=== PATIENT | female | born 1945 | race African-American/Black ===

== ENCOUNTER 2016-09-04 20:05 | Inpatient (IN) | payer MEDICARE ==
[~2016-09-04] VITALS: Ht 172.7 cm; Wt 92.5 kg
[~2016-09-04 20:05] MED LIST: CLON0.2T PO; DORZ10DR7 EACHEYE; GLYB5TAB3 PO; HYDR25TA9 PO; INSU100I13 SQ; LATA2.5D3 EACHEYE; LISI40TA PO; METO50TA10 PO
[2016-09-04] MEDS ORDERED: DIPHTH,PERTUSS(ACELL),TET TOX 0.5 ML DISP.SYRIN. VAX IM ONE (20:30)
[2016-09-04 20:37] LABS: BASO # 0.1 x10^3/uL (0.0-0.2); BASO % 1 % (0-3); EOS % 1 % (0-3); HEMATOCRIT 41.4 % (36.0-47.0); HEMOGLOBIN 13.6 g/dL (12.0-15.5); LYMPH # 1.8 x10^3/uL (1.0-4.8); LYMPH % 29 % (24-48); MEAN CORPUSCULAR HEMOGLOBIN 25 pg (25-35); MEAN CORPUSCULAR HGB CONC 33 g/dL (31-37); MEAN CORPUSCULAR VOLUME 75 fL (79-100); MONO % 10 % (0-9); NEUT % 59 % (31-73); PLATELET COUNT 182 x10^3/uL (140-400); RED BLOOD COUNT 5.49 x10^6/uL (3.50-5.40); RED CELL DISTRIBUTION WIDTH 15.7 % (11.5-14.5); WHITE BLOOD COUNT 6.1 x10^3/uL (4.0-11.0)
--- NOTE | 2016-09-04 20:46 | RAD ---
PROCEDURE CT head and C-spine without contrast HISTORY Fall head and neck injury CT HEAD WITHOUT CONTRAST: Noncontrast axial cross sectional CT scanning of the head was performed. COMPARISON December 18, 2015 FINDINGS There is mild diffuse atrophy and chronic patchy new periventricular white matter disease. No acute intracranial hemorrhage or midline shift or mass-effect or hydrocephalus or extra-axial fluid collection is seen. No focal hypodense area is seen to indicate an acute infarct or edema radiographically. No skull fracture or pneumocephalus is seen. No opacification of the mastoid sinuses or the paranasal sinuses is seen. The maxillary sinuses are not completely seen in this study. IMPRESSION No acute intracranial abnormality is seen. CT C-spine without contrast: Axial helical images of the cervical spine were obtained and axial coronal sagittal reconstruction was performed. The vertebra bodies are aligned. There is no loss of vertebral stature. Is no prevertebral soft tissue swelling. Evaluation of central canal is limited without contrast. There are diffuse circumferential disc osteophytic ridges resulting in flattening of thecal sac at multiple levels. There does not appear to be gross flattening the cord. There is moderate to marked narrowing of multiple neuroforamen. 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 Otherwise the visualized osseous structures are intact. Impression Moderate degenerate changes. No acute findings. Clinical correlation suggested. PQRS Statement: One or more of the following individualized dose reduction techniques were utilized for this study: 1. Automated exposure control. 2. Adjustment of the mA and/or kV according to patient size. 3. Use of iterative reconstruction technique. Electronically signed by: Greyson Moses MD (Sep 04, 2016 20:45:42)
[2016-09-04 20:49] LABS: CALCIUM 9.3 mg/dL (8.5-10.1); CREATININE 1.5 mg/dL (0.6-1.0); GFR 41.4; INR 1.1 (0.8-1.1); POTASSIUM 3.4 mmol/L (3.5-5.1); PROTHROMBIN TIME PATIENT 13.9 SEC (11.7-14.0)
--- NOTE | 2016-09-04 20:52 | RAD ---
PROCEDURE CT maxillofacial without contrast HISTORY Fall, facial trauma TECHNIQUE Axial helical images were obtained of the face including the paranasal sinuses orbits and mandible and axial coronal and sagittal reconstruction was performed. FINDINGS There is a depressed left orbital floor fracture with compression of the fragment inferiorly by 6 millimeters. The remaining visualized osseous structures appear intact. There is mild deviation nasal septum to the left. The ostiomeatal complexes are patent. There is blood in the left maxillary sinus. There is hypoattenuating foreign material left orbit which is felt to be postsurgical and is unchanged from the December [address] IMPRESSION Depressed left orbital floor fracture. No CT evidence of entrapment however clinical correlation is suggested. Electronically signed by: Greyson Moses MD (Sep 04, 2016 20:52:13)
[2016-09-04] MEDS ORDERED: LABETALOL 20 MG/4 ML DISP.SYRIN. IVP ONE ×2 (21:00→22:30)
[2016-09-04 21:12] LABS: BILIRUBIN,URINE SMALL (NEG); GLUCOSE,URINE >=1000 mg/dL (NEG); NITRITE,URINE NEGATIVE (NEG); PH,URINE 5.5; PROTEIN,URINE 100 mg/dL (NEG-TRACE)
[2016-09-04] MEDS ORDERED: LIDOCAINE 1%/EPI 1:100,000 20 ML VIAL. IJ ONE (21:15)
[2016-09-04] MEDS ORDERED: LIDOCAINE 1% / SOD BICARB 8.4% 20 ML VIAL. IJ ONE (21:15)
[2016-09-04 21:22] LABS: BACTERIA,URINE 0 /HPF (0-FEW); RBC,URINE OCC /HPF (0-2); SQUAMOUS EPITHELIAL CELL,UR FEW /LPF; WBC,URINE OCC /HPF (0-4)
[2016-09-04 21:26] LABS: BARBITURATES NEG (NEG); BENZODIAZEPINES NEG (NEG); CANNABINOIDS NEG (NEG); COCAINE NEG (NEG); METHADONE NEG (NEG); OPIATES NEG (NEG); PHENCYCLIDINE NEG (NEG)
[2016-09-04 21:27] LABS: ETHANOL, URINE NEG (NEG)
--- NOTE | 2016-09-04 21:45 | PHYS DOC ---
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 She reports walking towards a parking lot when she misstepped and fell and hit her head. On arrival she is alert and oriented to person place and situation. She is mildly slow to respond and intermittently answers inappropriately. The fall was unwitnessed. She denies passing out. Currently she states her vision is intact. She reports pain in her eyebrow where she sustained a laceration. Her pain is sharp moderate intermittent and without alleviating factors. Otherwise she denies chest pain abdominal pain nausea or vomiting. She denies any injury to her extremities. Her tetanus is not up-to-date. Review of systems is negative for chest pain abdominal pain nausea vomiting. She denies vision changes. All other review of systems is negative unless otherwise noted in history of present illness. Review of Systems Review of Systems SEE ABOVE. Current Medications Current Medications Current Medications Medications (Trade) Dose Ordered Sig/Nirali Start Time Stop Time Status Last Admin Dose Admin Diphtheria/ Tetanus/Acell Pertussis (Boostrix) 0.5 ml ONCE ONCE 09/04/16 20:30 09/04/16 20:31 DC 09/04/16 21:26 0.5 ML Labetalol HCl (Normodyne) 20 mg 1X ONCE 09/04/16 21:00 09/04/16 21:02 DC 09/04/16 21:27 20 MG Lidocaine/ Epinephrine (Xylocaine 1%-Epi 1:100,000) 20 ml 1X ONCE 09/04/16 21:15 09/04/16 21:16 DC Lidocaine/Sodium Bicarbonate (Buffered Lidocaine 1%) 20 ml 1X ONCE 09/04/16 21:15 09/04/16 21:16 DC 09/04/16 21:15 20 ML Allergies Allergies Allergies Coded Allergies Type Severity Reaction Last Updated Verified No Known Drug Allergies 01/30/15 No Physical Exam Physical Exam General Appearance alert, cooperative, no distress, responsive Head Normocephalic, patient has a laceration to the left eyebrow approximately 2-1/2 cm in length. Otherwise no depressed skull fractures present. Eyes conjunctivae/corneas clear. PERRL, patient has mild decrease in upward and downward gaze otherwise lateral gaze to the left and right are within normal limits. Ears normal TM's and external ear canals AU Nose Nares normal. Septum midline. Mucosa normal. No drainage or sinus tenderness. Throat no blood or lacerations, normal alignment Neck supple, symmetrical, trachea midline, cervical collar in place Back/Spine symmetric, normal curvature. ROM normal, no abrasions, no tenderness to palpation, no step-offs Lungs clear to auscultation bilaterally Chest Wall normal ribcage without tenderness to palpation, crepitus or emphysema Heart reg rate and regular rhythm, S1, S2 normal, no murmur, click, rub or gallop Abdomen soft, non-tender. Bowel sounds normal. No masses, no organomegaly Pelvic stable Extremities extremities normal, atraumatic with normal range of motion Pulses 2+ and symmetric Skin Skin color, texture, turgor normal. No rashes or lesions Neurologic Grossly normal Eye opening: (4) spontaneous Best motor response: (6) obeys verbal command Best verbal response: (4) not oriented and converses Total Daisy (E + M + V) = 14 Current Patient Data Vital Signs Vital Signs Date Time Temp Pulse Resp B/P Pulse Ox O2 Delivery O2 Flow Rate FiO2 09/04/16 21:40 90 20 209/88 99 Room Air 09/04/16 20:06 99.5 99.5 Lab Values Laboratory Tests Test 09/04/16 20:10 09/04/16 21:00 White Blood Count 6.1x10^3/uL (4.0-11.0) Red Blood Count 5.49x10^6/uL (3.50-5.40) H Hemoglobin 13.6g/dL (12.0-15.5) Hematocrit 41.4% (36.0-47.0) Mean Corpuscular Volume 75fL (79-100) L Mean Corpuscular Hemoglobin 25pg (25-35) Mean Corpuscular Hemoglobin Concent 33g/dL (31-37) Red Cell Distribution Width 15.7% (11.5-14.5) H Platelet Count 182x10^3/uL (140-400) Neutrophils (%) (Auto) 59% (31-73) Lymphocytes (%) (Auto) 29% (24-48) Monocytes (%) (Auto) 10% (0-9) H Eosinophils (%) (Auto) 1% (0-3) Basophils (%) (Auto) 1% (0-3) Neutrophils # (Auto) 3.6x10^3uL (1.8-7.7) Lymphocytes # (Auto) 1.8x10^3/uL (1.0-4.8) Monocytes # (Auto) 0.6x10^3/uL (0.0-1.1) Eosinophils # (Auto) 0.1x10^3/uL (0.0-0.7) Basophils # (Auto) 0.1x10^3/uL (0.0-0.2) Prothrombin Time 13.9SEC (11.7-14.0) Prothrombin Time INR 1.1 (0.8-1.1) PTT 26SEC (24-38) Sodium Level 141mmol/L (136-145) Potassium Level 3.4mmol/L (3.5-5.1) L Chloride Level 103mmol/L (98-107) Carbon Dioxide Level 24mmol/L (21-32) Anion Gap 14 (6-14) Blood Urea Nitrogen 19mg/dL (7-20) Creatinine 1.5mg/dL (0.6-1.0) H Estimated GFR (Cockcroft-Gault) 41.4 Glucose Level 287mg/dL (70-99) H Calcium Level 9.3mg/dL (8.5-10.1) Ethyl Alcohol Level < 10mg/dL (0-10) Urine Collection Type Unknown Urine Color Yellow Urine Clarity Clear Urine pH 5.5 Urine Specific [place] >=1.030 Urine Protein 100mg/dL (NEG-TRACE) Urine Glucose (UA) >=1000mg/dL (NEG) Urine Ketones (Stick) 15mg/dL (NEG) Urine Blood Trace (NEG) Urine Nitrite Negative (NEG) Urine Bilirubin Small (NEG) Urine Urobilinogen Dipstick 1.0mg/dL (0.2 mg/dL) Urine Leukocyte Esterase Negative (NEG) Urine RBC Occ/HPF (0-2) Urine WBC Occ/HPF (0-4) Urine Squamous Epithelial Cells Few/LPF Urine Amorphous Sediment Present/HPF Urine Bacteria 0/HPF (0-FEW) Urine Hyaline Casts Few/HPF Urine Mucus Marked/LPF Urine Opiates Screen Neg (NEG) Urine Methadone Screen Neg (NEG) Urine Barbiturates Neg (NEG) Urine Phencyclidine Screen Neg (NEG) Urine Amphetamine/Methamphetamine Neg (NEG) Urine Benzodiazepines Screen Neg (NEG) Urine Cocaine Screen Neg (NEG) Urine Cannabinoids Screen Neg (NEG) Urine Ethyl Alcohol Neg (NEG) Laboratory Tests 09/04/16 20:10 Laboratory Tests 09/04/16 20:10 EKG EKG [] EKG shows sinus tachycardia. [place] is leftward. Intervals show prolonged QRS. ST segments show appropriate repolarization in the anterior lateral leads. modified scarbossa neg. Radiology/Procedures Radiology/Procedures [] Course & Med Decision Making Course & Med Decision Making Pertinent Labs and Imaging studies reviewed. (See chart for details) [] 70-year-old female presenting the emergency department after sustaining injury to the face after a fall from standing height. Patient was hypertensive on arrival. Patient reports being chronically hypertensive. Otherwise physical exam showed laceration to the eyebrow which was repaired. See procedure note. Nontender neck. Normal chest abdomen exam. EKG showed sinus tachycardia. Head and neck CT were unremarkable. Maxillofacial CT shows inferior orbital wall fracture. I discussed the case with Dr. Pinon who stated if the patient is discharged that he would be able to see her on Friday clinic. The patient's tetanus was updated in the emergency department. Otherwise blood work was obtained which showed normal CBC. Urinalysis showed hyperglycemia with dehydration but not suggestive of infection. Chemistry panel showed hyperglycemia mild elevation in creatinine otherwise unremarkable. On reevaluation the patient was still answering questions inappropriately and was unsteady on her gait. She was deemed not to be safe for discharge so she was subsequently admitted for further evaluation workup and care. Trauma consult placed him in history of trauma. Given the patient is going to be admitted I will place an ophthalmology consult as well. No family with her here to clarify her baseline mental status. Blood pressure controlled in the emergency department with IV medications. Dragon Disclaimer Dragon Disclaimer This electronic medical record was generated, in whole or in part, using a voice recognition dictation system. Laceration Repair Lac Repair Indication: Left supraorbital laceration Procedure: The patient was placed in the appropriate position and anesthesia around the laceration with 1% lidocaine with epinephrine. The area was then cleansed with betadine. The laceration was closed with simple interrupted technique with 5 sutures.The wound area was then dressed with gauze. Total repaired wound length: 2 cm. Other Items: None The patient tolerated the procedure well Complications: None. Departure Departure Impression: Primary Impression: Dizziness Additional Impressions: Confusion Facial laceration Fracture of inferior orbital wall Disposition: ADMITTED INPATIENT Admitting Physician: Jennifer Flores Condition: STABLE Referrals: CATRACHITO BOWERS MD (PCP) Problem Qualifiers AVERY POWELL DO Sep 04, 2016 21:45 GAVIN DUNCAN MD Sep 04, 2016 22:20
[2016-09-04] MEDS ORDERED: MORPHINE SULFATE 2 MG/ML DISP.SYRIN. IV PRN (22:30)
[2016-09-04] MEDS ORDERED: ONDANSETRON PF 4 MG/2 ML VIAL. IV PRN (22:30)
[2016-09-05] VITALS (7 sets, daily range): BP systolic 170–208; BP diastolic 68–107
[2016-09-05] MEDS ORDERED: LORAZEPAM 2 MG/ML VIAL ONE (01:30)
[2016-09-05] MEDS ORDERED: LORAZEPAM 2 MG/ML VIAL IV ONE (01:45)
[2016-09-05] MEDS ORDERED: LABETALOL 20 MG/4 ML DISP.SYRIN. IVP ONE (02:15)
--- NOTE | 2016-09-05 06:08 | EKG ---
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
--- NOTE | 2016-09-05 07:53 | RAD ---
EXAM: Chest one view. HISTORY: Chest pain, trauma. COMPARISON: 10/31/2008. FINDINGS: A frontal view of the chest is obtained. Multiple leads project over the chest. There are no confluent infiltrates. There is no pneumothorax or pleural effusion. The heart is not enlarged. IMPRESSION: 1. No confluent infiltrates.
--- NOTE | 2016-09-05 08:18 | RAD ---
EXAM: Left knee, 3 views HISTORY: Left knee trauma, laceration. COMPARISON: None. FINDINGS: No fractures are identified. There is mild medial compartmental joint space narrowing. There are small osteophytes medially. The lateral view is rotated, but no clear effusion is seen. IMPRESSION: 1. Projectional limitations. No clear fracture or effusion. 2. Mild medial compartmental osteoarthritis.
[2016-09-05 08:19] LABS: BASO % 1 % (0-3); EOS % 1 % (0-3); HEMATOCRIT 37.9 % (36.0-47.0); HEMOGLOBIN 12.6 g/dL (12.0-15.5); LYMPH # 1.3 x10^3/uL (1.0-4.8); LYMPH % 29 % (24-48); MEAN CORPUSCULAR HEMOGLOBIN 25 pg (25-35); MEAN CORPUSCULAR HGB CONC 33 g/dL (31-37); MEAN CORPUSCULAR VOLUME 74 fL (79-100); MONO % 12 % (0-9); NEUT % 57 % (31-73); PLATELET COUNT 174 x10^3/uL (140-400); RED BLOOD COUNT 5.13 x10^6/uL (3.50-5.40); RED CELL DISTRIBUTION WIDTH 15.6 % (11.5-14.5); WHITE BLOOD COUNT 4.5 x10^3/uL (4.0-11.0)
[2016-09-05 08:37] LABS: CALCIUM 9.1 mg/dL (8.5-10.1); CREATININE 1.1 mg/dL (0.6-1.0); GFR 59.2; POTASSIUM 3.7 mmol/L (3.5-5.1)
--- NOTE | 2016-09-05 09:13 | PDOC2 ---
ALFONSO MARTINEZ ENVIRONMENTAL PROGRAMS SPECIALIST 09/05/16 0913: CONSULT Date of Consult Date of Consult DATE: 09/05/16 TIME: 09:04 Reason for Consult Reason for Consult: trauma Referring Physician Referring Physician: ER Identification/Chief Complaint Chief Complaint fall Source Source: Caregiver, Chart review History of Present Illness Reason for Visit: Attempted to obtain a history from patient, however she could not tell me what year it was or where she was. After repeating question several times she was able to tell me her name and that she fell--no family present, not sure of baseline(appears to have been this way since presenting to er)--Unwitnessed fall and nurse reports found wandering [address] Past Medical History Cardiovascular: HTN Pulmonary: Asthma Endocrine: Diabetes Past Surgical History Past Surgical History: Hysterectomy, Other Family History Family History: Diabetes Social History ALCOHOL: none Drugs: None Current Problem List Problem List Problems Medical Problems: (1) Confusion Status: Acute (2) Dizziness Status: Acute (3) Facial laceration Status: Acute (4) Fracture of inferior orbital wall Status: Acute Current Medications Current Medications Current Medications Diphtheria/ Tetanus/Acell Pertussis (Boostrix) 0.5 ml ONCE ONCE VAX IM Last administered on 09/04/16 21:26; Start 09/04/16 at 20:30; Stop 09/04/16 at 20:31 ; Status DC Labetalol HCl (Normodyne) 20 mg 1X ONCE IVP Last administered on 09/04/16 21: 27; Start 09/04/16 at 21:00; Stop 09/04/16 at 21:02; Status DC Lidocaine/ Epinephrine (Xylocaine 1%-Epi 1:100,000) 20 ml 1X ONCE IJ ; Start at 21:15; Stop 09/04/16 at 21:16; Status DC Lidocaine/Sodium Bicarbonate (Buffered Lidocaine 1%) 20 ml 1X ONCE IJ Last administered on 09/04/16 21:15; Start 09/04/16 at 21:15; Stop 09/04/16 at 21:16 ; Status DC Labetalol HCl (Normodyne) 20 mg 1X ONCE IVP Last administered on 09/04/16 22: 32; Start 09/04/16 at 22:30; Stop 09/04/16 at 22:31; Status DC Ondansetron HCl (Zofran) 4 mg PRN Q8HRS PRN IV NAUSEA/VOMITING; Start 09/04/16 at 22:30; Stop 09/05/16 at 22:29 Morphine Sulfate 2 mg PRN Q2HR PRN IV PAIN; Start 09/04/16 at 22:30; Stop 09/05 at 22:29 Lorazepam (Ativan) 2 mg STK-MED ONCE .ROUTE ; Start 09/05/16 at 01:30; Stop at 01:31; Status DC Lorazepam (Ativan) 0.5 mg 1X ONCE IV Last administered on 09/05/16 01:37; Start 09/05/16 at 01:45; Stop 09/05/16 at 01:46; Status DC Labetalol HCl (Normodyne) 20 mg 1X ONCE IVP Last administered on 09/05/16 02: 15; Start 09/05/16 at 02:15; Stop 09/05/16 at 02:16; Status DC Active Scripts Active Reported Lantus Solostar (Insulin Glargine,Hum.rec.anlog) 100 Unit/1 Ml Insuln.pen 25 Unit SQ QHS Metoprolol Succinate 50 Mg Tab.er.24h 50 Mg PO DAILY Clonidine Hcl 0.2 Mg Tablet 1 Tab PO BID Glyburide 5 Mg Tablet 1 Tab PO BID Lisinopril 40 Mg Tablet 1 Tab PO DAILY Hydrochlorothiazide Tablet (Hydrochlorothiazide) 25 Mg Tablet 1 Tab PO DAILY Dorzolamide-Timolol Eye Drops (Dorzolamide Hcl/Timolol Maleat) 10 Ml Drops 1 Drop EACHEYE BID Latanoprost 2.5 Ml Drops 1 Drop EACHEYE QHS Allergies Allergies: Coded Allergies: No Known Drug Allergies (Unverified , 01/30/15) ROS Review of System not able to adequately obtain from patient Physical Exam General: Cooperative, No acute distress HEENT: Other (stitch to left eye) Lungs: Clear to auscultation, Normal air movement Heart: Regular rate, Normal S1, Normal S2, No murmurs Abdomen: Soft, No tenderness Extremities: No clubbing, No cyanosis Neuro: Sensation intact, Other (speech is slowed, delayed ) Psych/Mental Status: Other (unsure of baseline, only oriented to person ) Vitals VITALS Vital Signs Date Time Temp Pulse Resp B/P Pulse Ox O2 Delivery O2 Flow Rate FiO2 09/05/16 07:00 99.0 89 19 198/84 97 Room Air 99.0 Labs Labs Laboratory Tests Test 09/04/16 20:10 09/04/16 21:00 09/05/16 07:35 White Blood Count 6.1x10^3/uL (4.0-11.0) 4.5x10^3/uL (4.0-11.0) Red Blood Count 5.49x10^6/uL (3.50-5.40) 5.13x10^6/uL (3.50-5.40) Hemoglobin 13.6g/dL (12.0-15.5) 12.6g/dL (12.0-15.5) Hematocrit 41.4% (36.0-47.0) 37.9% (36.0-47.0) Mean Corpuscular Volume 75fL (79-100) 74fL (79-100) Mean Corpuscular Hemoglobin 25pg (25-35) 25pg (25-35) Mean Corpuscular Hemoglobin Concent 33g/dL (31-37) 33g/dL (31-37) Red Cell Distribution Width 15.7% (11.5-14.5) 15.6% (11.5-14.5) Platelet Count 182x10^3/uL (140-400) 174x10^3/uL (140-400) Neutrophils (%) (Auto) 59% (31-73) 57% (31-73) Lymphocytes (%) (Auto) 29% (24-48) 29% (24-48) Monocytes (%) (Auto) 10% (0-9) 12% (0-9) Eosinophils (%) (Auto) 1% (0-3) 1% (0-3) Basophils (%) (Auto) 1% (0-3) 1% (0-3) Neutrophils # (Auto) 3.6x10^3uL (1.8-7.7) 2.6x10^3uL (1.8-7.7) Lymphocytes # (Auto) 1.8x10^3/uL (1.0-4.8) 1.3x10^3/uL (1.0-4.8) Monocytes # (Auto) 0.6x10^3/uL (0.0-1.1) 0.5x10^3/uL (0.0-1.1) Eosinophils # (Auto) 0.1x10^3/uL (0.0-0.7) 0.0x10^3/uL (0.0-0.7) Basophils # (Auto) 0.1x10^3/uL (0.0-0.2) 0.0x10^3/uL (0.0-0.2) Prothrombin Time 13.9SEC (11.7-14.0) Prothromb Time International Ratio 1.1 (0.8-1.1) Activated Partial Thromboplast Time 26SEC (24-38) Sodium Level 141mmol/L (136-145) 143mmol/L (136-145) Potassium Level 3.4mmol/L (3.5-5.1) 3.7mmol/L (3.5-5.1) Chloride Level 103mmol/L (98-107) 105mmol/L (98-107) Carbon Dioxide Level 24mmol/L (21-32) 26mmol/L (21-32) Anion Gap 14 (6-14) 12 (6-14) Blood Urea Nitrogen 19mg/dL (7-20) 15mg/dL (7-20) Creatinine 1.5mg/dL (0.6-1.0) 1.1mg/dL (0.6-1.0) Estimated GFR (Cockcroft-Gault) 41.4 59.2 Glucose Level 287mg/dL (70-99) 225mg/dL (70-99) Calcium Level 9.3mg/dL (8.5-10.1) 9.1mg/dL (8.5-10.1) Ethyl Alcohol Level < 10mg/dL (0-10) Urine Collection Type Unknown Urine Color Yellow Urine Clarity Clear Urine pH 5.5 Urine Specific [place] >=1.030 Urine Protein 100mg/dL (NEG-TRACE) Urine Glucose (UA) >=1000mg/dL (NEG) Urine Ketones (Stick) 15mg/dL (NEG) Urine Blood Trace (NEG) Urine Nitrite Negative (NEG) Urine Bilirubin Small (NEG) Urine Urobilinogen Dipstick 1.0mg/dL (0.2 mg/dL) Urine Leukocyte Esterase Negative (NEG) Urine RBC Occ/HPF (0-2) Urine WBC Occ/HPF (0-4) Urine Squamous Epithelial Cells Few/LPF Urine Amorphous Sediment Present/HPF Urine Bacteria 0/HPF (0-FEW) Urine Hyaline Casts Few/HPF Urine Mucus Marked/LPF Urine Opiates Screen Neg (NEG) Urine Methadone Screen Neg (NEG) Urine Barbiturates Neg (NEG) Urine Phencyclidine Screen Neg (NEG) Urine Amphetamine/Methamphetamine Neg (NEG) Urine Benzodiazepines Screen Neg (NEG) Urine Cocaine Screen Neg (NEG) Urine Cannabinoids Screen Neg (NEG) Urine Ethyl Alcohol Neg (NEG) Laboratory Tests Test 09/04/16 20:10 09/04/16 21:00 09/05/16 07:35 White Blood Count 6.1x10^3/uL (4.0-11.0) 4.5x10^3/uL (4.0-11.0) Red Blood Count 5.49x10^6/uL (3.50-5.40) 5.13x10^6/uL (3.50-5.40) Hemoglobin 13.6g/dL (12.0-15.5) 12.6g/dL (12.0-15.5) Hematocrit 41.4% (36.0-47.0) 37.9% (36.0-47.0) Mean Corpuscular Volume 75fL (79-100) 74fL (79-100) Mean Corpuscular Hemoglobin 25pg (25-35) 25pg (25-35) Mean Corpuscular Hemoglobin Concent 33g/dL (31-37) 33g/dL (31-37) Red Cell Distribution Width 15.7% (11.5-14.5) 15.6% (11.5-14.5) Platelet Count 182x10^3/uL (140-400) 174x10^3/uL (140-400) Neutrophils (%) (Auto) 59% (31-73) 57% (31-73) Lymphocytes (%) (Auto) 29% (24-48) 29% (24-48) Monocytes (%) (Auto) 10% (0-9) 12% (0-9) Eosinophils (%) (Auto) 1% (0-3) 1% (0-3) Basophils (%) (Auto) 1% (0-3) 1% (0-3) Neutrophils # (Auto) 3.6x10^3uL (1.8-7.7) 2.6x10^3uL (1.8-7.7) Lymphocytes # (Auto) 1.8x10^3/uL (1.0-4.8) 1.3x10^3/uL (1.0-4.8) Monocytes # (Auto) 0.6x10^3/uL (0.0-1.1) 0.5x10^3/uL (0.0-1.1) Eosinophils # (Auto) 0.1x10^3/uL (0.0-0.7) 0.0x10^3/uL (0.0-0.7) Basophils # (Auto) 0.1x10^3/uL (0.0-0.2) 0.0x10^3/uL (0.0-0.2) Prothrombin Time 13.9SEC (11.7-14.0) Prothromb Time International Ratio 1.1 (0.8-1.1) Activated Partial Thromboplast Time 26SEC (24-38) Sodium Level 141mmol/L (136-145) 143mmol/L (136-145) Potassium Level 3.4mmol/L (3.5-5.1) 3.7mmol/L (3.5-5.1) Chloride Level 103mmol/L (98-107) 105mmol/L (98-107) Carbon Dioxide Level 24mmol/L (21-32) 26mmol/L (21-32) Anion Gap 14 (6-14) 12 (6-14) Blood Urea Nitrogen 19mg/dL (7-20) 15mg/dL (7-20) Creatinine 1.5mg/dL (0.6-1.0) 1.1mg/dL (0.6-1.0) Estimated GFR (Cockcroft-Gault) 41.4 59.2 Glucose Level 287mg/dL (70-99) 225mg/dL (70-99) Calcium Level 9.3mg/dL (8.5-10.1) 9.1mg/dL (8.5-10.1) Ethyl Alcohol Level < 10mg/dL (0-10) Urine Collection Type Unknown Urine Color Yellow Urine Clarity Clear Urine pH 5.5 Urine Specific [place] >=1.030 Urine Protein 100mg/dL (NEG-TRACE) Urine Glucose (UA) >=1000mg/dL (NEG) Urine Ketones (Stick) 15mg/dL (NEG) Urine Blood Trace (NEG) Urine Nitrite Negative (NEG) Urine Bilirubin Small (NEG) Urine Urobilinogen Dipstick 1.0mg/dL (0.2 mg/dL) Urine Leukocyte Esterase Negative (NEG) Urine RBC Occ/HPF (0-2) Urine WBC Occ/HPF (0-4) Urine Squamous Epithelial Cells Few/LPF Urine Amorphous Sediment Present/HPF Urine Bacteria 0/HPF (0-FEW) Urine Hyaline Casts Few/HPF Urine Mucus Marked/LPF Urine Opiates Screen Neg (NEG) Urine Methadone Screen Neg (NEG) Urine Barbiturates Neg (NEG) Urine Phencyclidine Screen Neg (NEG) Urine Amphetamine/Methamphetamine Neg (NEG) Urine Benzodiazepines Screen Neg (NEG) Urine Cocaine Screen Neg (NEG) Urine Cannabinoids Screen Neg (NEG) Urine Ethyl Alcohol Neg (NEG) Assessment/Plan Assessment/Plan trauma, fall, left orbital fracture altered mental status--unsure of baseline no surgical needs may need neuro eval depending on mental status--defer to primary JORDON TRAN MD 09/05/16 1549: CONSULT Allergies Allergies: Coded Allergies: No Known Drug Allergies (Unverified , 01/30/15) Assessment/Plan Assessment/Plan pt seen agree with above no gen surg recs Thanks for consult ALFONSO MARTINEZ APRN Sep 05, 2016 09:13 JORDON TRAN MD Sep 05, 2016 15:49
--- NOTE | 2016-09-05 11:14 | PDOC1 ---
History and Physical Past Medical History Cardiovascular: HTN Pulmonary: Asthma Endocrine: Diabetes Past Surgical History Past Surgical History: Hysterectomy, Other Family History Family History: Diabetes Social History ALCOHOL: none Drugs: None Current Problem List Problem List Problems Medical Problems: (1) Confusion Status: Acute (2) Dizziness Status: Acute (3) Facial laceration Status: Acute (4) Fracture of inferior orbital wall Status: Acute Current Medications Current Medications Current Medications Medications (Trade) Dose Ordered Sig/Nirali Start Time Stop Time Status Last Admin Dose Admin Diphtheria/ Tetanus/Acell Pertussis (Boostrix) 0.5 ml ONCE ONCE 09/04/16 20:30 09/04/16 20:31 DC 09/04/16 21:26 0.5 ML Labetalol HCl (Normodyne) 20 mg 1X ONCE 09/05/16 02:15 09/05/16 02:16 DC 09/05/16 02:15 20 MG Lidocaine/ Epinephrine (Xylocaine 1%-Epi 1:100,000) 20 ml 1X ONCE 09/04/16 21:15 09/04/16 21:16 DC Lidocaine/Sodium Bicarbonate (Buffered Lidocaine 1%) 20 ml 1X ONCE 09/04/16 21:15 09/04/16 21:16 DC 09/04/16 21:15 20 ML Lorazepam (Ativan) 0.5 mg 1X ONCE 09/05/16 01:45 09/05/16 01:46 DC 09/05/16 01:37 0.5 MG Morphine Sulfate 2 mg PRN Q2HR PRN 09/04/16 22:30 09/05/16 22:29 Ondansetron HCl (Zofran) 4 mg PRN Q8HRS PRN 09/04/16 22:30 09/05/16 22:29 Allergies Allergies Allergies Coded Allergies Type Severity Reaction Last Updated Verified No Known Drug Allergies 01/30/15 No ROS Review of System CONSTITUTIONAL: No fever or chills EYES: left eyelid sutures SKIN: No rash or itching CARDIOVASCULAR: No chest pain, syncope, palpitations, or edema RESPIRATORY: No SOB or cough GASTROINTESTINAL: No nausea, vomiting or abdominal pain NEUROLOGICAL: No headaches or weakness ENDOCRINE: No cold or heat intolerance GENITOURINARY: No urgency or frequency of urination MUSCULOSKELETAL: fall LYMPHATICS: No enlarged lymph nodes PSYCHIATRIC: No anxiety or depression Physical Exam Physical Exam GEN.: No apparent distress. Alert and oriented. HEENT: Head is normocephalic, atraumatic NECK: Supple. no jvd LUNGS: Clear to auscultation. servando airflow HEART: RRR, S1, S2 present. Peripheral pulses intact ABDOMEN: Soft, nontender. Positive bowel sounds. EXTREMITIES: Without any cyanosis. NEUROLOGIC: Normal speech, normal tone PSYCHIATRIC: episodic agitation and slow to respond SKIN: left eye lid sutures Vitals Vitals Vital Signs Date Time Temp Pulse Resp B/P Pulse Ox O2 Delivery O2 Flow Rate FiO2 09/05/16 08:00 Room Air 09/05/16 07:00 99.0 89 19 198/84 97 99.0 Labs Labs Laboratory Tests Test 09/04/16 20:10 09/04/16 21:00 09/05/16 07:35 White Blood Count 6.1x10^3/uL (4.0-11.0) 4.5x10^3/uL (4.0-11.0) Red Blood Count 5.49x10^6/uL (3.50-5.40) 5.13x10^6/uL (3.50-5.40) Hemoglobin 13.6g/dL (12.0-15.5) 12.6g/dL (12.0-15.5) Hematocrit 41.4% (36.0-47.0) 37.9% (36.0-47.0) Mean Corpuscular Volume 75fL (79-100) 74fL (79-100) Mean Corpuscular Hemoglobin 25pg (25-35) 25pg (25-35) Mean Corpuscular Hemoglobin Concent 33g/dL (31-37) 33g/dL (31-37) Red Cell Distribution Width 15.7% (11.5-14.5) 15.6% (11.5-14.5) Platelet Count 182x10^3/uL (140-400) 174x10^3/uL (140-400) Neutrophils (%) (Auto) 59% (31-73) 57% (31-73) Lymphocytes (%) (Auto) 29% (24-48) 29% (24-48) Monocytes (%) (Auto) 10% (0-9) 12% (0-9) Eosinophils (%) (Auto) 1% (0-3) 1% (0-3) Basophils (%) (Auto) 1% (0-3) 1% (0-3) Neutrophils # (Auto) 3.6x10^3uL (1.8-7.7) 2.6x10^3uL (1.8-7.7) Lymphocytes # (Auto) 1.8x10^3/uL (1.0-4.8) 1.3x10^3/uL (1.0-4.8) Monocytes # (Auto) 0.6x10^3/uL (0.0-1.1) 0.5x10^3/uL (0.0-1.1) Eosinophils # (Auto) 0.1x10^3/uL (0.0-0.7) 0.0x10^3/uL (0.0-0.7) Basophils # (Auto) 0.1x10^3/uL (0.0-0.2) 0.0x10^3/uL (0.0-0.2) Prothrombin Time 13.9SEC (11.7-14.0) Prothromb Time International Ratio 1.1 (0.8-1.1) Activated Partial Thromboplast Time 26SEC (24-38) Sodium Level 141mmol/L (136-145) 143mmol/L (136-145) Potassium Level 3.4mmol/L (3.5-5.1) 3.7mmol/L (3.5-5.1) Chloride Level 103mmol/L (98-107) 105mmol/L (98-107) Carbon Dioxide Level 24mmol/L (21-32) 26mmol/L (21-32) Anion Gap 14 (6-14) 12 (6-14) Blood Urea Nitrogen 19mg/dL (7-20) 15mg/dL (7-20) Creatinine 1.5mg/dL (0.6-1.0) 1.1mg/dL (0.6-1.0) Estimated GFR (Cockcroft-Gault) 41.4 59.2 Glucose Level 287mg/dL (70-99) 225mg/dL (70-99) Calcium Level 9.3mg/dL (8.5-10.1) 9.1mg/dL (8.5-10.1) Ethyl Alcohol Level < 10mg/dL (0-10) Urine Collection Type Unknown Urine Color Yellow Urine Clarity Clear Urine pH 5.5 Urine Specific [place] >=1.030 Urine Protein 100mg/dL (NEG-TRACE) Urine Glucose (UA) >=1000mg/dL (NEG) Urine Ketones (Stick) 15mg/dL (NEG) Urine Blood Trace (NEG) Urine Nitrite Negative (NEG) Urine Bilirubin Small (NEG) Urine Urobilinogen Dipstick 1.0mg/dL (0.2 mg/dL) Urine Leukocyte Esterase Negative (NEG) Urine RBC Occ/HPF (0-2) Urine WBC Occ/HPF (0-4) Urine Squamous Epithelial Cells Few/LPF Urine Amorphous Sediment Present/HPF Urine Bacteria 0/HPF (0-FEW) Urine Hyaline Casts Few/HPF Urine Mucus Marked/LPF Urine Opiates Screen Neg (NEG) Urine Methadone Screen Neg (NEG) Urine Barbiturates Neg (NEG) Urine Phencyclidine Screen Neg (NEG) Urine Amphetamine/Methamphetamine Neg (NEG) Urine Benzodiazepines Screen Neg (NEG) Urine Cocaine Screen Neg (NEG) Urine Cannabinoids Screen Neg (NEG) Urine Ethyl Alcohol Neg (NEG) Laboratory Tests Test 09/04/16 20:10 09/04/16 21:00 09/05/16 07:35 White Blood Count 6.1x10^3/uL (4.0-11.0) 4.5x10^3/uL (4.0-11.0) Red Blood Count 5.49x10^6/uL (3.50-5.40) 5.13x10^6/uL (3.50-5.40) Hemoglobin 13.6g/dL (12.0-15.5) 12.6g/dL (12.0-15.5) Hematocrit 41.4% (36.0-47.0) 37.9% (36.0-47.0) Mean Corpuscular Volume 75fL (79-100) 74fL (79-100) Mean Corpuscular Hemoglobin 25pg (25-35) 25pg (25-35) Mean Corpuscular Hemoglobin Concent 33g/dL (31-37) 33g/dL (31-37) Red Cell Distribution Width 15.7% (11.5-14.5) 15.6% (11.5-14.5) Platelet Count 182x10^3/uL (140-400) 174x10^3/uL (140-400) Neutrophils (%) (Auto) 59% (31-73) 57% (31-73) Lymphocytes (%) (Auto) 29% (24-48) 29% (24-48) Monocytes (%) (Auto) 10% (0-9) 12% (0-9) Eosinophils (%) (Auto) 1% (0-3) 1% (0-3) Basophils (%) (Auto) 1% (0-3) 1% (0-3) Neutrophils # (Auto) 3.6x10^3uL (1.8-7.7) 2.6x10^3uL (1.8-7.7) Lymphocytes # (Auto) 1.8x10^3/uL (1.0-4.8) 1.3x10^3/uL (1.0-4.8) Monocytes # (Auto) 0.6x10^3/uL (0.0-1.1) 0.5x10^3/uL (0.0-1.1) Eosinophils # (Auto) 0.1x10^3/uL (0.0-0.7) 0.0x10^3/uL (0.0-0.7) Basophils # (Auto) 0.1x10^3/uL (0.0-0.2) 0.0x10^3/uL (0.0-0.2) Prothrombin Time 13.9SEC (11.7-14.0) Prothromb Time International Ratio 1.1 (0.8-1.1) Activated Partial Thromboplast Time 26SEC (24-38) Sodium Level 141mmol/L (136-145) 143mmol/L (136-145) Potassium Level 3.4mmol/L (3.5-5.1) 3.7mmol/L (3.5-5.1) Chloride Level 103mmol/L (98-107) 105mmol/L (98-107) Carbon Dioxide Level 24mmol/L (21-32) 26mmol/L (21-32) Anion Gap 14 (6-14) 12 (6-14) Blood Urea Nitrogen 19mg/dL (7-20) 15mg/dL (7-20) Creatinine 1.5mg/dL (0.6-1.0) 1.1mg/dL (0.6-1.0) Estimated GFR (Cockcroft-Gault) 41.4 59.2 Glucose Level 287mg/dL (70-99) 225mg/dL (70-99) Calcium Level 9.3mg/dL (8.5-10.1) 9.1mg/dL (8.5-10.1) Ethyl Alcohol Level < 10mg/dL (0-10) Urine Collection Type Unknown Urine Color Yellow Urine Clarity Clear Urine pH 5.5 Urine Specific [place] >=1.030 Urine Protein 100mg/dL (NEG-TRACE) Urine Glucose (UA) >=1000mg/dL (NEG) Urine Ketones (Stick) 15mg/dL (NEG) Urine Blood Trace (NEG) Urine Nitrite Negative (NEG) Urine Bilirubin Small (NEG) Urine Urobilinogen Dipstick 1.0mg/dL (0.2 mg/dL) Urine Leukocyte Esterase Negative (NEG) Urine RBC Occ/HPF (0-2) Urine WBC Occ/HPF (0-4) Urine Squamous Epithelial Cells Few/LPF Urine Amorphous Sediment Present/HPF Urine Bacteria 0/HPF (0-FEW) Urine Hyaline Casts Few/HPF Urine Mucus Marked/LPF Urine Opiates Screen Neg (NEG) Urine Methadone Screen Neg (NEG) Urine Barbiturates Neg (NEG) Urine Phencyclidine Screen Neg (NEG) Urine Amphetamine/Methamphetamine Neg (NEG) Urine Benzodiazepines Screen Neg (NEG) Urine Cocaine Screen Neg (NEG) Urine Cannabinoids Screen Neg (NEG) Urine Ethyl Alcohol Neg (NEG) VTE Prophylaxis Ordered VTE Prophylaxis Devices: Contraindicated VTE Pharmacological Prophylaxi: Contraindicated ISAAC MALDONADO MD Sep 05, 2016 11:14
[2016-09-05] MEDS ORDERED: ALBUTEROL SULFATE 2.5 MG/3 ML NEBU. NEB PRN (11:15)
[2016-09-05] MEDS ORDERED: hydrALAZINE 20 MG/ML VIAL. IVP PRN (11:15)
[2016-09-05] MEDS ORDERED: HYDROCODONE/APAP 5/325MG TABLET. PO PRN (11:15)
[2016-09-05] MEDS ORDERED: ACETAMINOPHEN 325 MG TABLET. PO PRN (11:15)
[2016-09-05] MEDS ORDERED: ONDANSETRON PF 4 MG/2 ML VIAL. IV PRN (11:15)
[2016-09-05] MEDS: METOPROLOL TART IMMED RELEASE 25 MG TABLET PO SCH ×2 (12:59→21:10)
[2016-09-05] MEDS ORDERED: DEXTROSE 50% 25 GM / 50ML DISP.SYRIN. IV PRN (15:15)
[2016-09-05] MEDS: hydrALAZINE 20 MG/ML VIAL. IVP PRN ×2 (18:13→22:13)
[2016-09-05] MEDS: INSULIN ASPART 300 UNITS/3 ML INSULN.PEN SQ SCH (18:16)
[2016-09-06 03:00] VITALS: BP 219/116
[2016-09-06] MEDS ORDERED: CLONIDINE HCL 0.2 MG TABLET PO PRN (03:15)
[2016-09-06 04:32] LABS: BASO % 1 % (0-3); EOS % 2 % (0-3); HEMOGLOBIN 13.1 g/dL (12.0-15.5); LYMPH # 1.7 x10^3/uL (1.0-4.8); LYMPH % 31 % (24-48); MEAN CORPUSCULAR HEMOGLOBIN 24 pg (25-35); MEAN CORPUSCULAR HGB CONC 33 g/dL (31-37); MEAN CORPUSCULAR VOLUME 75 fL (79-100); MONO % 10 % (0-9); NEUT % 57 % (31-73); PLATELET COUNT 174 x10^3/uL (140-400); RED BLOOD COUNT 5.35 x10^6/uL (3.50-5.40); RED CELL DISTRIBUTION WIDTH 15.8 % (11.5-14.5); WHITE BLOOD COUNT 5.4 x10^3/uL (4.0-11.0)
[2016-09-06 04:54] LABS: CALCIUM 8.8 mg/dL (8.5-10.1); CREATININE 0.9 mg/dL (0.6-1.0); GFR 74.7; POTASSIUM 3.2 mmol/L (3.5-5.1)
[2016-09-06 07:00] VITALS: BP 179/78
[2016-09-06] MEDS: INSULIN ASPART 300 UNITS/3 ML INSULN.PEN SQ SCH ×3 (08:00→16:57)
--- NOTE | 2016-09-06 08:46 | HP ---
ADMIT DATE: 09/05/2016 CHIEF COMPLAINT: Fall. HISTORY OF PRESENT ILLNESS: A 70-year-old female who was brought to the Emergency Room after sustaining a mechanical fall. Reportedly, the patient was bringing some clothes for her in the hospital and she missed a step and fell and hit her head. On arrival, the patient was oriented to situation as per the ER report; however, intermittently she is inappropriate and having some agitations during her stay. The patient had a left eyebrow laceration which was also sutured and also she was requiring admission for blood pressure control and sugar control. LABORATORY FINDINGS: Sodium 143, potassium 3.7, chloride 105, carbon dioxide is 26, gap is 12, BUN is 15, creatinine is 1.1, blood sugar was 225. CBC is within normal range. Coagulation: PT/INR within normal limits. Toxicology negative for substance abuse. Urine protein is positive, glucose positive, ketones 15, nitrites negative, leukocyte esterase is negative. IMAGING STUDIES: 1. Maxillofacial CT showed a posterior left orbital floor fracture. 2. Knee x-ray: No acute process seen. 3. Head and cervical spine CT showed degenerative changes, no acute process seen. 4. Chest x-ray, no confluent infiltrate seen. ASSESSMENT: 1. Left inferior orbital fracture after sustaining a mechanical fall. 2. Accelerated hypertension. 3. Hyperglycemia. PLAN: 1. The patient has been admitted to the surgical floor and we have been trying to control her blood pressure. The patient did not take any medications. She was taking medications; however, she stopped taking the medications. 2. Blood pressure goal is systolic less than 160. She was started on hydralazine, amlodipine, and metoprolol. 3. General Surgery has been consulted. 4. Sliding scale insulin. We will check hemoglobin A1c. If the patient's blood sugars are not controlled, we will try to transfer her to Critical Care Unit and start her on nicardipine drip. 5. A one-to-one sitter. 6. Ophthalmology has been consulted. 7. Prognosis is guarded. ISAAC MALDONADO MD DR: KATHY/laura JOB#: [id number] / [id number] MTDD
--- NOTE | 2016-09-06 10:19 | CARD ---
APPROVED REPORT EXAM: Two-dimensional and M-mode echocardiogram with Doppler and color Doppler. Other Information Quality : Good INDICATION Hypertension/HCVD 2D DIMENSIONS RVDd2.0 (2.9-3.5cm)Left Atrium(2D)2.5 (1.6-4.0cm) IVSd1.4 (0.7-1.1cm)Aortic Root(2D)2.6 (2.0-3.7cm) LVDd3.8 (3.9-5.9cm)LVOT Diameter1.9 (1.8-2.4cm) PWd1.4 (0.7-1.1cm)LVDs2.4 (2.5-4.0cm) FS (%) 33.0 %SV43.6 ml LVEF(%)65.0 (>50%) Aortic Valve AoV Peak Ori.200.4cm/sAoV VTI27.0cm AO Peak GR.16.1mmHgLVOT Peak Ori.129.1cm/s LVOT VTI 17.69cmAO Mean GR.9mmHg ALYCE (VMAX)1.02mw1VFE (VTI)1.88cm2 AI P 1/2 Kggs178kn Mitral Valve MV E Pigjqqat47.9cm/sMV DECEL LBMT460tc MV A Lkfgjppd029.4cm/sMV KUE92jh E/A Ratio0.6MVA (PHT)5.38cm2 TDI E/Lateral E'15.9E/Medial E'14.5 Tricuspid Valve TR P. Dcerntuo720eq/sRAP YGRBAFGI6jtCl TR Peak Gr.96pgLhMZVJ68zhMt Pulmonary Vein S1 Diceriwj51.1cm/sD2 Pupsqnwb74.2cm/s LEFT VENTRICLE The left ventricle is normal size. There is mild concentric left ventricular hypertrophy. The left ve ntricular systolic function is normal and the ejection fraction is within normal range. The Ejection Fraction is 60-65%. There is normal LV segmental wall motion with septal motion consistent with condu ction abnormality. Transmitral Doppler flow pattern is Grade I-abnormal relaxation pattern. RIGHT VENTRICLE The right ventricle is normal size. The right ventricular systolic function is normal. ATRIA The left atrium size is normal. The right atrium size is normal. The interatrial septum is intact wit h no evidence for an atrial septal defect or patent foramen ovale as noted on 2-D or Doppler imaging. AORTIC VALVE The aortic valve is calcified but opens well. Doppler and Color Flow revealed mild aortic regurgitati on. There is no significant aortic valvular stenosis. MITRAL VALVE The mitral valve is normal in structure and function. There is no evidence of mitral valve prolapse. There is no mitral valve stenosis. Doppler and Color Flow revealed no mitral valve regurgitation note d. TRICUSPID VALVE The tricuspid valve is normal in structure and function. Doppler and Color Flow revealed trace tricus pid regurgitation. There is mild pulmonary hypertension. The PA pressure was estimated at 42 mmHg. Th ere is no tricuspid valve stenosis. PULMONIC VALVE Doppler and Color Flow revealed trace pulmonic valvular regurgitation. There is no pulmonic valvular stenosis. GREAT VESSELS The aortic root is normal in size. The ascending aorta is normal in size. The IVC is normal in size a nd collapses >50% with inspiration. PERICARDIAL EFFUSION There is no evidence of significant pericardial effusion. Critical Notification Critical Value: No <Conclusion> The left ventricular systolic function is normal and the ejection fraction is within normal range. Th e Ejection Fraction is 60-65%. There is normal LV segmental wall motion with septal motion consistent with conduction abnormality. Doppler and Color Flow revealed mild aortic regurgitation. Doppler and Color Flow revealed trace tricuspid regurgitation. There is mild pulmonary hypertension. The PA pressure was estimated at 42 mmHg.
[2016-09-06 10:45] VITALS: BP 175/77
[2016-09-06] MEDS: AMLODIPINE BESYLATE 10 MG TABLET PO SCH (11:00)
[2016-09-06] MEDS: METOPROLOL TART IMMED RELEASE 25 MG TABLET PO SCH ×2 (11:01→20:25)
[2016-09-06] MEDS: hydrALAZINE 20 MG/ML VIAL. IVP PRN (11:03)
--- NOTE | 2016-09-06 11:33 | PDOC ---
PROGRESS NOTES Chief Complaint Chief Complaint 1. Left inferior orbital fracture after fall 2. HTN 3. Altered Mental Status 4. Hyperglycemia 5. Diabetes Mellitus History of Present Illness History of Present Illness Pt sitting in bed awake upon arrival to room this AM. Seems pleasantly confused and will answer some questioning. Unable to state the year or president but knows name and where she is. She has some pain at her left orbit after fall yesterday and some weakness. [facility]- Plan is to get BP under control today with hopes of transfer tomorrow in AM Vitals Vitals Vital Signs Date Time Temp Pulse Resp B/P Pulse Ox O2 Delivery O2 Flow Rate FiO2 09/06/16 11:03 95 175/77 09/06/16 10:45 98.0 18 92 Room Air 98.0 Physical Exam General: Alert, Cooperative, No acute distress, Other Heart: Regular rate, Normal S1, Normal S2, No murmurs Lungs: Clear, Other (no wheezes) Abdomen: Normal bowel sounds, Soft, No tenderness Extremities: No clubbing, No cyanosis Skin: No rashes, No breakdown, Other (Sutures at Left eyebrow in place and dry ; Swelling around left orbit) Labs LABS Laboratory Tests Test 09/05/16 17:16 09/05/16 20:33 09/06/16 03:05 09/06/16 07:08 Glucose (Fingerstick) 213mg/dL (70-99) 324mg/dL (70-99) 211mg/dL (70-99) White Blood Count 5.4x10^3/uL (4.0-11.0) Red Blood Count 5.35x10^6/uL (3.50-5.40) Hemoglobin 13.1g/dL (12.0-15.5) Hematocrit 40.0% (36.0-47.0) Mean Corpuscular Volume 75fL (79-100) Mean Corpuscular Hemoglobin 24pg (25-35) Mean Corpuscular Hemoglobin Concent 33g/dL (31-37) Red Cell Distribution Width 15.8% (11.5-14.5) Platelet Count 174x10^3/uL (140-400) Neutrophils (%) (Auto) 57% (31-73) Lymphocytes (%) (Auto) 31% (24-48) Monocytes (%) (Auto) 10% (0-9) Eosinophils (%) (Auto) 2% (0-3) Basophils (%) (Auto) 1% (0-3) Neutrophils # (Auto) 3.1x10^3uL (1.8-7.7) Lymphocytes # (Auto) 1.7x10^3/uL (1.0-4.8) Monocytes # (Auto) 0.6x10^3/uL (0.0-1.1) Eosinophils # (Auto) 0.1x10^3/uL (0.0-0.7) Basophils # (Auto) 0.0x10^3/uL (0.0-0.2) Sodium Level 141mmol/L (136-145) Potassium Level 3.2mmol/L (3.5-5.1) Chloride Level 104mmol/L (98-107) Carbon Dioxide Level 26mmol/L (21-32) Anion Gap 11 (6-14) Blood Urea Nitrogen 14mg/dL (7-20) Creatinine 0.9mg/dL (0.6-1.0) Estimated GFR (Cockcroft-Gault) 74.7 Glucose Level 206mg/dL (70-99) Calcium Level 8.8mg/dL (8.5-10.1) Review of Systems Review of Systems Complaining of some weakness with standing Complaining of pain at Left orbit All other ROS Negative Assessment and Plan Assessmemt and Plan Problems Medical Problems: (1) Confusion Status: Acute (2) Dizziness Status: Acute (3) Facial laceration Status: Acute (4) Fracture of inferior orbital wall Status: Acute 1. Left inferior orbital fracture after fall 2. HTN 3. Altered Mental Status 4. Hyperglycemia 5. Diabetes Mellitus Plan: - Continue Regular care per floor protocol - General Surgery Consulted for Inf. Orbital Fx - Non Surgical Management - Continue Lortab for pain prn - HTN: on Amlodipine, Clonidine, Hydralazine, and Metoprolol - Started on Lasix 40 mg PO QDay today to help with BP Control - Will start Potassium Chloride 20 meq Q Day for potassium replacement - Continue PT/OT - Dispo: Plan for [facility] if BP under control Problems: Comment Review of Relevant I have reviewed the following items angelica (where applicable) has been applied. Labs Laboratory Tests Test 09/04/16 20:10 2/22/17 21:00 09/05/16 07:35 09/05/16 08:09 White Blood Count 6.1x10^3/uL (4.0-11.0) 4.5x10^3/uL (4.0-11.0) Red Blood Count 5.49x10^6/uL (3.50-5.40) 5.13x10^6/uL (3.50-5.40) Hemoglobin 13.6g/dL (12.0-15.5) 12.6g/dL (12.0-15.5) Hematocrit 41.4% (36.0-47.0) 37.9% (36.0-47.0) Mean Corpuscular Volume 75fL (79-100) 74fL (79-100) Mean Corpuscular Hemoglobin 25pg (25-35) 25pg (25-35) Mean Corpuscular Hemoglobin Concent 33g/dL (31-37) 33g/dL (31-37) Red Cell Distribution Width 15.7% (11.5-14.5) 15.6% (11.5-14.5) Platelet Count 182x10^3/uL (140-400) 174x10^3/uL (140-400) Neutrophils (%) (Auto) 59% (31-73) 57% (31-73) Lymphocytes (%) (Auto) 29% (24-48) 29% (24-48) Monocytes (%) (Auto) 10% (0-9) 12% (0-9) Eosinophils (%) (Auto) 1% (0-3) 1% (0-3) Basophils (%) (Auto) 1% (0-3) 1% (0-3) Neutrophils # (Auto) 3.6x10^3uL (1.8-7.7) 2.6x10^3uL (1.8-7.7) Lymphocytes # (Auto) 1.8x10^3/uL (1.0-4.8) 1.3x10^3/uL (1.0-4.8) Monocytes # (Auto) 0.6x10^3/uL (0.0-1.1) 0.5x10^3/uL (0.0-1.1) Eosinophils # (Auto) 0.1x10^3/uL (0.0-0.7) 0.0x10^3/uL (0.0-0.7) Basophils # (Auto) 0.1x10^3/uL (0.0-0.2) 0.0x10^3/uL (0.0-0.2) Prothrombin Time 13.9SEC (11.7-14.0) Prothromb Time International Ratio 1.1 (0.8-1.1) Activated Partial Thromboplast Time 26SEC (24-38) Sodium Level 141mmol/L (136-145) 143mmol/L (136-145) Potassium Level 3.4mmol/L (3.5-5.1) 3.7mmol/L (3.5-5.1) Chloride Level 103mmol/L (98-107) 105mmol/L (98-107) Carbon Dioxide Level 24mmol/L (21-32) 26mmol/L (21-32) Anion Gap 14 (6-14) 12 (6-14) Blood Urea Nitrogen 19mg/dL (7-20) 15mg/dL (7-20) Creatinine 1.5mg/dL (0.6-1.0) 1.1mg/dL (0.6-1.0) Estimated GFR (Cockcroft-Gault) 41.4 59.2 Glucose Level 287mg/dL (70-99) 225mg/dL (70-99) Calcium Level 9.3mg/dL (8.5-10.1) 9.1mg/dL (8.5-10.1) Ethyl Alcohol Level < 10mg/dL (0-10) Urine Collection Type Unknown Urine Color Yellow Urine Clarity Clear Urine pH 5.5 Urine Specific Elmo >=1.030 Urine Protein 100mg/dL (NEG-TRACE) Urine Glucose (UA) >=1000mg/dL (NEG) Urine Ketones (Stick) 15mg/dL (NEG) Urine Blood Trace (NEG) Urine Nitrite Negative (NEG) Urine Bilirubin Small (NEG) Urine Urobilinogen Dipstick 1.0mg/dL (0.2 mg/dL) Urine Leukocyte Esterase Negative (NEG) Urine RBC Occ/HPF (0-2) Urine WBC Occ/HPF (0-4) Urine Squamous Epithelial Cells Few/LPF Urine Amorphous Sediment Present/HPF Urine Bacteria 0/HPF (0-FEW) Urine Hyaline Casts Few/HPF Urine Mucus Marked/LPF Urine Opiates Screen Neg (NEG) Urine Methadone Screen Neg (NEG) Urine Barbiturates Neg (NEG) Urine Phencyclidine Screen Neg (NEG) Urine Amphetamine/Methamphetamine Neg (NEG) Urine Benzodiazepines Screen Neg (NEG) Urine Cocaine Screen Neg (NEG) Urine Cannabinoids Screen Neg (NEG) Urine Ethyl Alcohol Neg (NEG) Glucose (Fingerstick) 232mg/dL (70-99) Test 09/05/16 11:19 09/05/16 17:16 09/05/16 20:33 09/06/16 03:05 Glucose (Fingerstick) 257mg/dL (70-99) 213mg/dL (70-99) 324mg/dL (70-99) White Blood Count 5.4x10^3/uL (4.0-11.0) Red Blood Count 5.35x10^6/uL (3.50-5.40) Hemoglobin 13.1g/dL (12.0-15.5) Hematocrit 40.0% (36.0-47.0) Mean Corpuscular Volume 75fL (79-100) Mean Corpuscular Hemoglobin 24pg (25-35) Mean Corpuscular Hemoglobin Concent 33g/dL (31-37) Red Cell Distribution Width 15.8% (11.5-14.5) Platelet Count 174x10^3/uL (140-400) Neutrophils (%) (Auto) 57% (31-73) Lymphocytes (%) (Auto) 31% (24-48) Monocytes (%) (Auto) 10% (0-9) Eosinophils (%) (Auto) 2% (0-3) Basophils (%) (Auto) 1% (0-3) Neutrophils # (Auto) 3.1x10^3uL (1.8-7.7) Lymphocytes # (Auto) 1.7x10^3/uL (1.0-4.8) Monocytes # (Auto) 0.6x10^3/uL (0.0-1.1) Eosinophils # (Auto) 0.1x10^3/uL (0.0-0.7) Basophils # (Auto) 0.0x10^3/uL (0.0-0.2) Sodium Level 141mmol/L (136-145) Potassium Level 3.2mmol/L (3.5-5.1) Chloride Level 104mmol/L (98-107) Carbon Dioxide Level 26mmol/L (21-32) Anion Gap 11 (6-14) Blood Urea Nitrogen 14mg/dL (7-20) Creatinine 0.9mg/dL (0.6-1.0) Estimated GFR (Cockcroft-Gault) 74.7 Glucose Level 206mg/dL (70-99) Calcium Level 8.8mg/dL (8.5-10.1) Test 09/06/16 07:08 Glucose (Fingerstick) 211mg/dL (70-99) Laboratory Tests Test 09/05/16 17:16 09/05/16 20:33 09/06/16 03:05 09/06/16 07:08 Glucose (Fingerstick) 213mg/dL (70-99) 324mg/dL (70-99) 211mg/dL (70-99) White Blood Count 5.4x10^3/uL (4.0-11.0) Red Blood Count 5.35x10^6/uL (3.50-5.40) Hemoglobin 13.1g/dL (12.0-15.5) Hematocrit 40.0% (36.0-47.0) Mean Corpuscular Volume 75fL (79-100) Mean Corpuscular Hemoglobin 24pg (25-35) Mean Corpuscular Hemoglobin Concent 33g/dL (31-37) Red Cell Distribution Width 15.8% (11.5-14.5) Platelet Count 174x10^3/uL (140-400) Neutrophils (%) (Auto) 57% (31-73) Lymphocytes (%) (Auto) 31% (24-48) Monocytes (%) (Auto) 10% (0-9) Eosinophils (%) (Auto) 2% (0-3) Basophils (%) (Auto) 1% (0-3) Neutrophils # (Auto) 3.1x10^3uL (1.8-7.7) Lymphocytes # (Auto) 1.7x10^3/uL (1.0-4.8) Monocytes # (Auto) 0.6x10^3/uL (0.0-1.1) Eosinophils # (Auto) 0.1x10^3/uL (0.0-0.7) Basophils # (Auto) 0.0x10^3/uL (0.0-0.2) Sodium Level 141mmol/L (136-145) Potassium Level 3.2mmol/L (3.5-5.1) Chloride Level 104mmol/L (98-107) Carbon Dioxide Level 26mmol/L (21-32) Anion Gap 11 (6-14) Blood Urea Nitrogen 14mg/dL (7-20) Creatinine 0.9mg/dL (0.6-1.0) Estimated GFR (Cockcroft-Gault) 74.7 Glucose Level 206mg/dL (70-99) Calcium Level 8.8mg/dL (8.5-10.1) Medications Current Medications Diphtheria/ Tetanus/Acell Pertussis (Boostrix) 0.5 ml ONCE ONCE VAX IM Last administered on 09/04/16 21:26; Start 09/04/16 at 20:30; Stop 09/04/16 at 20:31 ; Status DC Labetalol HCl (Normodyne) 20 mg 1X ONCE IVP Last administered on 09/04/16 21: 27; Start 09/04/16 at 21:00; Stop 09/04/16 at 21:02; Status DC Lidocaine/ Epinephrine (Xylocaine 1%-Epi 1:100,000) 20 ml 1X ONCE IJ ; Start at 21:15; Stop 09/04/16 at 21:16; Status DC Lidocaine/Sodium Bicarbonate (Buffered Lidocaine 1%) 20 ml 1X ONCE IJ Last administered on 09/04/16 21:15; Start 09/04/16 at 21:15; Stop 09/04/16 at 21:16 ; Status DC Labetalol HCl (Normodyne) 20 mg 1X ONCE IVP Last administered on 09/04/16 22: 32; Start 09/04/16 at 22:30; Stop 09/04/16 at 22:31; Status DC Ondansetron HCl (Zofran) 4 mg PRN Q8HRS PRN IV NAUSEA/VOMITING; Start 09/04/16 at 22:30; Stop 09/05/16 at 22:29; Status DC Morphine Sulfate 2 mg PRN Q2HR PRN IV PAIN; Start 09/04/16 at 22:30; Stop 09/05 at 22:29; Status DC Lorazepam (Ativan) 2 mg STK-MED ONCE .ROUTE ; Start 09/05/16 at 01:30; Stop at 01:31; Status DC Lorazepam (Ativan) 0.5 mg 1X ONCE IV Last administered on 09/05/16 01:37; Start 09/05/16 at 01:45; Stop 09/05/16 at 01:46; Status DC Labetalol HCl (Normodyne) 20 mg 1X ONCE IVP Last administered on 09/05/16 02: 15; Start 09/05/16 at 02:15; Stop 09/05/16 at 02:16; Status DC Acetaminophen (Tylenol) 325 mg PRN Q6HRS PRN PO MILD PAIN / TEMP; Start at 11:15 Acetaminophen/ Hydrocodone Bitart (Lortab 5/325) 1 tab PRN Q6HRS PRN PO MODERATE TO SEVERE PAIN; Start 09/05/16 at 11:15 Hydralazine HCl (Apresoline) 10 mg PRN Q4HRS PRN IVP ELEVATED BP, SEE COMMENTS Last administered on 09/05/16 12:59; Start 09/05/16 at 11:15; Stop 09/05/16 at 15:12; Status DC Ondansetron HCl (Zofran) 4 mg PRN Q8HRS PRN IV NAUSEA/VOMITING; Start 09/05/16 at 11:15 Albuterol Sulfate (Ventolin Neb Soln) 2.5 mg PRN Q4HRS PRN NEB SHORTNESS OF BREATH; Start 09/05/16 at 11:15 Metoprolol Tartrate (Lopressor) 25 mg BID PO Last administered on 09/06/16 11: 01; Start 09/05/16 at 12:00 Hydralazine HCl (Apresoline) 10 mg PRN Q3HRS PRN IVP ELEVATED BP, SEE COMMENTS Last administered on 09/06/16 11:03; Start 09/05/16 at 15:15 Insulin Aspart (Novolog) 0-9 UNITS TIDWMEALS SQ Last administered on 09/05/16 18:16; Start 09/05/16 at 17:00 Dextrose 12.5 gm PRN Q15MIN PRN IV SEE COMMENTS; Start 09/05/16 at 15:15 Amlodipine Besylate (Norvasc) 10 mg DAILY PO Last administered on 09/06/16t 11: 00; Start 09/06/16 at 09:00 Clonidine HCl (Catapres) 0.2 mg PRN Q4HRS PRN PO HYPERTENSION, BP over 170 syst ; Start 09/06/16 at 03:15 Active Scripts Active Reported Lantus Solostar (Insulin Glargine,Hum.rec.anlog) 100 Unit/1 Ml Insuln.pen 25 Unit SQ QHS Metoprolol Succinate 50 Mg Tab.er.24h 50 Mg PO DAILY Clonidine Hcl 0.2 Mg Tablet 1 Tab PO BID Glyburide 5 Mg Tablet 1 Tab PO BID Lisinopril 40 Mg Tablet 1 Tab PO DAILY Hydrochlorothiazide Tablet (Hydrochlorothiazide) 25 Mg Tablet 1 Tab PO DAILY Dorzolamide-Timolol Eye Drops (Dorzolamide Hcl/Timolol Maleat) 10 Ml Drops 1 Drop EACHEYE BID Latanoprost 2.5 Ml Drops 1 Drop EACHEYE QHS Vitals/I & O Vital Sign - Last 24 Hours 09/05/16 09/05/16 09/05/16 09/05/16 12:59 12:59 15:00 16:28 Temp 99.4 99.4 Pulse 89 89 85 Resp 18 B/P 208/104 208/104 180/77 Pulse Ox 96 98 O2 Delivery Room Air Room Air 09/05/16 09/05/16 09/05/16 09/05/16 18:13 19:00 21:10 22:13 Temp 98.9 98.9 Pulse 85 74 74 74 Resp 20 B/P 180/77 194/68 194/68 194/68 Pulse Ox 98 O2 Delivery Room Air 09/05/16 09/06/16 09/06/16 09/06/16 23:00 03:00 07:00 10:45 Temp 97.8 99.0 98.2 98.0 97.8 99.0 98.2 98.0 Pulse 95 95 93 95 Resp 20 20 18 18 B/P 170/74 219/116 179/78 175/77 Pulse Ox 98 98 92 92 O2 Delivery Room Air Room Air Room Air Room Air 09/06/16 09/06/16 09/06/16 11:00 11:01 11:03 Pulse 95 95 95 B/P 175/77 175/77 175/77 MELISSA DONG III DO Sep 06, 2016 11:33
[2016-09-06] MEDS ORDERED: POTASSIUM CHLORIDE 20 MEQ TABLET.ER. PO ONE (12:00)
[2016-09-06] MEDS: FUROSEMIDE 40 MG TABLET PO SCH (12:06)
[2016-09-06] MEDS: GLYBURIDE 5 MG TABLET PO SCH ×2 (12:30→16:52)
[2016-09-06 15:00] VITALS: BP 169/79
[2016-09-06 19:15] VITALS: BP 187/90
[2016-09-06] MEDS: INSULIN DETEMIR 300 UNITS/3 ML INSULN.PEN. SQ SCH (21:22)
[2016-09-06 23:00] VITALS: BP 140/74
[2016-09-07 03:00] VITALS: BP 179/90
[2016-09-07] MEDS: hydrALAZINE 20 MG/ML VIAL. IVP PRN ×2 (03:47→16:54)
[2016-09-07 06:02] LABS: CALCIUM 9.3 mg/dL (8.5-10.1); GFR 66.1; POTASSIUM 3.2 mmol/L (3.5-5.1)
[2016-09-07 06:19] LABS: BASO % 1 % (0-3); EOS % 2 % (0-3); HEMATOCRIT 40.7 % (36.0-47.0); HEMOGLOBIN 13.4 g/dL (12.0-15.5); LYMPH # 1.8 x10^3/uL (1.0-4.8); LYMPH % 42 % (24-48); MEAN CORPUSCULAR HEMOGLOBIN 25 pg (25-35); MEAN CORPUSCULAR HGB CONC 33 g/dL (31-37); MEAN CORPUSCULAR VOLUME 75 fL (79-100); MONO % 9 % (0-9); NEUT % 46 % (31-73); PLATELET COUNT 175 x10^3/uL (140-400); RED BLOOD COUNT 5.42 x10^6/uL (3.50-5.40); RED CELL DISTRIBUTION WIDTH 16.1 % (11.5-14.5); WHITE BLOOD COUNT 4.3 x10^3/uL (4.0-11.0)
[2016-09-07] MEDS: GLYBURIDE 5 MG TABLET PO SCH ×2 (08:21→16:55)
[2016-09-07] MEDS: FUROSEMIDE 40 MG TABLET PO SCH (08:21)
[2016-09-07] MEDS: METOPROLOL TART IMMED RELEASE 25 MG TABLET PO SCH ×2 (08:21→22:49)
[2016-09-07] MEDS: AMLODIPINE BESYLATE 10 MG TABLET PO SCH (08:22)
[2016-09-07] MEDS: INSULIN ASPART 300 UNITS/3 ML INSULN.PEN SQ SCH ×3 (08:23→17:02)
[2016-09-07 08:27] VITALS: BP 177/79
[2016-09-07] MEDS ORDERED: POTASSIUM CHLORIDE 20 MEQ TABLET.ER. PO ONE (10:45)
--- NOTE | 2016-09-07 10:53 | PDOC ---
PROGRESS NOTES Chief Complaint Chief Complaint 1. Left inferior orbital fracture after fall 2. HTN 3. Altered Mental Status 4. Hyperglycemia 5. Diabetes Mellitus 6. Hypokalemia History of Present Illness History of Present Illness Pt sitting in bed awake this AM still pleasantly confused. Pt states she is feeling better today, still pain at site of orbital fracture. The pt states she is ready to go home, discussed with her in room that she is going where her is and she is agreeable to that plan. [facility] Team- If systolic BP <160 after Dose of Lasix this AM plan to [facility] to [facility] later today Vitals Vitals Vital Signs Date Time Temp Pulse Resp B/P Pulse Ox O2 Delivery O2 Flow Rate FiO2 09/07/16 08:27 98.2 95 20 177/79 95 Room Air 98.2 Physical Exam General: Alert, Cooperative, No acute distress, Other (confused) Heart: Regular rate, Normal S1, Normal S2, No murmurs Lungs: Clear, Other (no wheezes) Abdomen: Normal bowel sounds, Soft, No tenderness Extremities: No clubbing, No cyanosis Skin: No rashes, No breakdown, Other (Sutures at Left eyebrow in place and dry ; Swelling over left orbit improving) Labs LABS Laboratory Tests Test 09/06/16 10:59 09/06/16 16:40 09/06/16 21:09 09/07/16 05:00 Glucose (Fingerstick) 310mg/dL (70-99) 385mg/dL (70-99) 212mg/dL (70-99) White Blood Count 4.3x10^3/uL (4.0-11.0) Red Blood Count 5.42x10^6/uL (3.50-5.40) Hemoglobin 13.4g/dL (12.0-15.5) Hematocrit 40.7% (36.0-47.0) Mean Corpuscular Volume 75fL (79-100) Mean Corpuscular Hemoglobin 25pg (25-35) Mean Corpuscular Hemoglobin Concent 33g/dL (31-37) Red Cell Distribution Width 16.1% (11.5-14.5) Platelet Count 175x10^3/uL (140-400) Neutrophils (%) (Auto) 46% (31-73) Lymphocytes (%) (Auto) 42% (24-48) Monocytes (%) (Auto) 9% (0-9) Eosinophils (%) (Auto) 2% (0-3) Basophils (%) (Auto) 1% (0-3) Neutrophils # (Auto) 2.0x10^3uL (1.8-7.7) Lymphocytes # (Auto) 1.8x10^3/uL (1.0-4.8) Monocytes # (Auto) 0.4x10^3/uL (0.0-1.1) Eosinophils # (Auto) 0.1x10^3/uL (0.0-0.7) Basophils # (Auto) 0.0x10^3/uL (0.0-0.2) Sodium Level 140mmol/L (136-145) Potassium Level 3.2mmol/L (3.5-5.1) Chloride Level 103mmol/L (98-107) Carbon Dioxide Level 26mmol/L (21-32) Anion Gap 11 (6-14) Blood Urea Nitrogen 16mg/dL (7-20) Creatinine 1.0mg/dL (0.6-1.0) Estimated GFR (Cockcroft-Gault) 66.1 Glucose Level 200mg/dL (70-99) Calcium Level 9.3mg/dL (8.5-10.1) Test 09/07/16 07:43 Glucose (Fingerstick) 182mg/dL (70-99) Review of Systems Review of Systems Complaining of Weakness with standing Complaining of Pain over Left orbit at site of fracture ROS limited because of pt's baseline confusion Assessment and Plan Assessmemt and Plan Problems Medical Problems: (1) Confusion Status: Acute (2) Dizziness Status: Acute (3) Facial laceration Status: Acute (4) Fracture of inferior orbital wall Status: Acute 1. Left inferior orbital fracture after fall 2. HTN 3. Altered Mental Status 4. Hyperglycemia 5. Diabetes Mellitus 6. Hypokalemia Plan: - Continue Regular care per floor protocol w/ hopes of discharge later today - General Surgery Consulted for Inf. Orbital Fx - Non Surgical Management at this time appreciate their recommendations - Continue Lortab for pain prn - HTN: on Amlodipine, Clonidine, Hydralazine, and Metoprolol on board - BP still elevated today per Vitals review - Given Lasix 40 mg PO QDay again this AM to see if BP helped - Will give another dose Potassium Chloride 20 meq Q Day for potassium replacement - Continue PT/OT - Labs reviewed - Dispo: Plan for possible discharge later today if systolic BP <160 to [facility] Problems: Comment Review of Relevant I have reviewed the following items angelica (where applicable) has been applied. Labs Laboratory Tests Test 09/05/16 11:19 09/05/16 17:16 09/05/16 20:33 09/06/16 03:05 Glucose (Fingerstick) 257mg/dL (70-99) 213mg/dL (70-99) 324mg/dL (70-99) White Blood Count 5.4x10^3/uL (4.0-11.0) Red Blood Count 5.35x10^6/uL (3.50-5.40) Hemoglobin 13.1g/dL (12.0-15.5) Hematocrit 40.0% (36.0-47.0) Mean Corpuscular Volume 75fL (79-100) Mean Corpuscular Hemoglobin 24pg (25-35) Mean Corpuscular Hemoglobin Concent 33g/dL (31-37) Red Cell Distribution Width 15.8% (11.5-14.5) Platelet Count 174x10^3/uL (140-400) Neutrophils (%) (Auto) 57% (31-73) Lymphocytes (%) (Auto) 31% (24-48) Monocytes (%) (Auto) 10% (0-9) Eosinophils (%) (Auto) 2% (0-3) Basophils (%) (Auto) 1% (0-3) Neutrophils # (Auto) 3.1x10^3uL (1.8-7.7) Lymphocytes # (Auto) 1.7x10^3/uL (1.0-4.8) Monocytes # (Auto) 0.6x10^3/uL (0.0-1.1) Eosinophils # (Auto) 0.1x10^3/uL (0.0-0.7) Basophils # (Auto) 0.0x10^3/uL (0.0-0.2) Sodium Level 141mmol/L (136-145) Potassium Level 3.2mmol/L (3.5-5.1) Chloride Level 104mmol/L (98-107) Carbon Dioxide Level 26mmol/L (21-32) Anion Gap 11 (6-14) Blood Urea Nitrogen 14mg/dL (7-20) Creatinine 0.9mg/dL (0.6-1.0) Estimated GFR (Cockcroft-Gault) 74.7 Glucose Level 206mg/dL (70-99) Calcium Level 8.8mg/dL (8.5-10.1) Test 09/06/16 07:08 09/06/16 10:59 09/06/16 16:40 09/06/16 21:09 Glucose (Fingerstick) 211mg/dL (70-99) 310mg/dL (70-99) 385mg/dL (70-99) 212mg/dL (70-99) Test 09/07/16 05:00 09/07/16 07:43 White Blood Count 4.3x10^3/uL (4.0-11.0) Red Blood Count 5.42x10^6/uL (3.50-5.40) Hemoglobin 13.4g/dL (12.0-15.5) Hematocrit 40.7% (36.0-47.0) Mean Corpuscular Volume 75fL (79-100) Mean Corpuscular Hemoglobin 25pg (25-35) Mean Corpuscular Hemoglobin Concent 33g/dL (31-37) Red Cell Distribution Width 16.1% (11.5-14.5) Platelet Count 175x10^3/uL (140-400) Neutrophils (%) (Auto) 46% (31-73) Lymphocytes (%) (Auto) 42% (24-48) Monocytes (%) (Auto) 9% (0-9) Eosinophils (%) (Auto) 2% (0-3) Basophils (%) (Auto) 1% (0-3) Neutrophils # (Auto) 2.0x10^3uL (1.8-7.7) Lymphocytes # (Auto) 1.8x10^3/uL (1.0-4.8) Monocytes # (Auto) 0.4x10^3/uL (0.0-1.1) Eosinophils # (Auto) 0.1x10^3/uL (0.0-0.7) Basophils # (Auto) 0.0x10^3/uL (0.0-0.2) Sodium Level 140mmol/L (136-145) Potassium Level 3.2mmol/L (3.5-5.1) Chloride Level 103mmol/L (98-107) Carbon Dioxide Level 26mmol/L (21-32) Anion Gap 11 (6-14) Blood Urea Nitrogen 16mg/dL (7-20) Creatinine 1.0mg/dL (0.6-1.0) Estimated GFR (Cockcroft-Gault) 66.1 Glucose Level 200mg/dL (70-99) Calcium Level 9.3mg/dL (8.5-10.1) Glucose (Fingerstick) 182mg/dL (70-99) Laboratory Tests Test 09/06/16 10:59 09/06/16 16:40 09/06/16 21:09 09/07/16 05:00 Glucose (Fingerstick) 310mg/dL (70-99) 385mg/dL (70-99) 212mg/dL (70-99) White Blood Count 4.3x10^3/uL (4.0-11.0) Red Blood Count 5.42x10^6/uL (3.50-5.40) Hemoglobin 13.4g/dL (12.0-15.5) Hematocrit 40.7% (36.0-47.0) Mean Corpuscular Volume 75fL (79-100) Mean Corpuscular Hemoglobin 25pg (25-35) Mean Corpuscular Hemoglobin Concent 33g/dL (31-37) Red Cell Distribution Width 16.1% (11.5-14.5) Platelet Count 175x10^3/uL (140-400) Neutrophils (%) (Auto) 46% (31-73) Lymphocytes (%) (Auto) 42% (24-48) Monocytes (%) (Auto) 9% (0-9) Eosinophils (%) (Auto) 2% (0-3) Basophils (%) (Auto) 1% (0-3) Neutrophils # (Auto) 2.0x10^3uL (1.8-7.7) Lymphocytes # (Auto) 1.8x10^3/uL (1.0-4.8) Monocytes # (Auto) 0.4x10^3/uL (0.0-1.1) Eosinophils # (Auto) 0.1x10^3/uL (0.0-0.7) Basophils # (Auto) 0.0x10^3/uL (0.0-0.2) Sodium Level 140mmol/L (136-145) Potassium Level 3.2mmol/L (3.5-5.1) Chloride Level 103mmol/L (98-107) Carbon Dioxide Level 26mmol/L (21-32) Anion Gap 11 (6-14) Blood Urea Nitrogen 16mg/dL (7-20) Creatinine 1.0mg/dL (0.6-1.0) Estimated GFR (Cockcroft-Gault) 66.1 Glucose Level 200mg/dL (70-99) Calcium Level 9.3mg/dL (8.5-10.1) Test 09/07/16 07:43 Glucose (Fingerstick) 182mg/dL (70-99) Medications Current Medications Diphtheria/ Tetanus/Acell Pertussis (Boostrix) 0.5 ml ONCE ONCE VAX IM Last administered on 09/04/16 21:26; Start 09/04/16 at 20:30; Stop 09/04/16 at 20:31 ; Status DC Labetalol HCl (Normodyne) 20 mg 1X ONCE IVP Last administered on 09/04/16 21: 27; Start 09/04/16 at 21:00; Stop 09/04/16 at 21:02; Status DC Lidocaine/ Epinephrine (Xylocaine 1%-Epi 1:100,000) 20 ml 1X ONCE IJ ; Start at 21:15; Stop 09/04/16 at 21:16; Status DC Lidocaine/Sodium Bicarbonate (Buffered Lidocaine 1%) 20 ml 1X ONCE IJ Last administered on 09/04/16 21:15; Start 09/04/16 at 21:15; Stop 09/04/16 at 21:16 ; Status DC Labetalol HCl (Normodyne) 20 mg 1X ONCE IVP Last administered on 09/04/16 22: 32; Start 09/04/16 at 22:30; Stop 09/04/16 at 22:31; Status DC Ondansetron HCl (Zofran) 4 mg PRN Q8HRS PRN IV NAUSEA/VOMITING; Start 09/04/16 at 22:30; Stop 09/05/16 at 22:29; Status DC Morphine Sulfate 2 mg PRN Q2HR PRN IV PAIN; Start 09/04/16 at 22:30; Stop 09/05 at 22:29; Status DC Lorazepam (Ativan) 2 mg STK-MED ONCE .ROUTE ; Start 09/05/16 at 01:30; Stop at 01:31; Status DC Lorazepam (Ativan) 0.5 mg 1X ONCE IV Last administered on 09/05/16 01:37; Start 09/05/16 at 01:45; Stop 09/05/16 at 01:46; Status DC Labetalol HCl (Normodyne) 20 mg 1X ONCE IVP Last administered on 09/05/16 02: 15; Start 09/05/16 at 02:15; Stop 09/05/16 at 02:16; Status DC Acetaminophen (Tylenol) 325 mg PRN Q6HRS PRN PO MILD PAIN / TEMP; Start at 11:15 Acetaminophen/ Hydrocodone Bitart (Lortab 5/325) 1 tab PRN Q6HRS PRN PO MODERATE TO SEVERE PAIN Last administered on 09/06/16 20:23; Start 09/05/16 at 11:15 Hydralazine HCl (Apresoline) 10 mg PRN Q4HRS PRN IVP ELEVATED BP, SEE COMMENTS Last administered on 09/05/16 12:59; Start 09/05/16 at 11:15; Stop 09/05/16 at 15:12; Status DC Ondansetron HCl (Zofran) 4 mg PRN Q8HRS PRN IV NAUSEA/VOMITING; Start 09/05/16 at 11:15 Albuterol Sulfate (Ventolin Neb Soln) 2.5 mg PRN Q4HRS PRN NEB SHORTNESS OF BREATH; Start 09/05/16 at 11:15 Metoprolol Tartrate (Lopressor) 25 mg BID PO Last administered on 09/07/16 08: 21; Start 09/05/16 at 12:00 Hydralazine HCl (Apresoline) 10 mg PRN Q3HRS PRN IVP ELEVATED BP, SEE COMMENTS Last administered on 09/07/16 03:47; Start 09/05/16 at 15:15 Insulin Aspart (Novolog) 0-9 UNITS TIDWMEALS SQ Last administered on 09/07/16 08:23; Start 09/05/16 at 17:00 Dextrose 12.5 gm PRN Q15MIN PRN IV SEE COMMENTS; Start 09/05/16 at 15:15 Amlodipine Besylate (Norvasc) 10 mg DAILY PO Last administered on 09/07/16 08: 22; Start 09/06/16 at 09:00 Clonidine HCl (Catapres) 0.2 mg PRN Q4HRS PRN PO HYPERTENSION, BP over 170 syst ; Start 09/06/16 at 03:15 Potassium Chloride (Klor-Con) 20 meq 1X ONCE PO Last administered on 12:06; Start 09/06/16 at 12:00; Stop 09/06/16 at 12:01; Status DC Furosemide (Lasix) 40 mg DAILY PO Last administered on 09/07/16 08:21; Start 09/06/16 at 12:00 Glyburide (Diabeta) 5 mg BIDWMEALS PO Last administered on 09/07/16 08:21; Start 09/06/16 at 12:30 Insulin Detemir (Levemir) 25 units QHS SQ Last administered on 09/06/16 21:22 ; Start 09/06/16 at 21:00 Active Scripts Active Reported Lantus Solostar (Insulin Glargine,Hum.rec.anlog) 100 Unit/1 Ml Insuln.pen 25 Unit SQ QHS Metoprolol Succinate 50 Mg Tab.er.24h 50 Mg PO DAILY Clonidine Hcl 0.2 Mg Tablet 1 Tab PO BID Glyburide 5 Mg Tablet 1 Tab PO BID Lisinopril 40 Mg Tablet 1 Tab PO DAILY Hydrochlorothiazide Tablet (Hydrochlorothiazide) 25 Mg Tablet 1 Tab PO DAILY Dorzolamide-Timolol Eye Drops (Dorzolamide Hcl/Timolol Maleat) 10 Ml Drops 1 Drop EACHEYE BID Latanoprost 2.5 Ml Drops 1 Drop EACHEYE QHS Vitals/I & O Vital Sign - Last 24 Hours 09/06/16 09/06/16 09/06/16 09/06/16 10:45 11:00 11:01 11:03 Temp 98.0 98.0 Pulse 95 95 95 95 Resp 18 B/P 175/77 175/77 175/77 175/77 Pulse Ox 92 O2 Delivery Room Air 09/06/16 09/06/16 09/06/16 09/06/16 15:00 19:15 20:25 23:00 Temp 97.9 98.4 98.4 97.9 98.4 98.4 Pulse 91 101 91 79 Resp 18 18 18 B/P 169/79 187/90 169/79 140/74 Pulse Ox 93 96 95 O2 Delivery Room Air Room Air Room Air 09/07/16 09/07/16 09/07/16 09/07/16 03:00 03:47 08:21 08:22 Temp 98.6 98.6 Pulse 85 85 85 85 Resp 18 B/P 179/90 179/90 179/90 179/90 Pulse Ox 93 O2 Delivery Room Air 09/07/16 08:27 Temp 98.2 98.2 Pulse 95 Resp 20 B/P 177/79 Pulse Ox 95 O2 Delivery Room Air Intake and Output 09/06/16 09/06/16 09/07/16 15:00 23:00 07:00 Intake Total 480 ml Balance 480 ml MELISSA DONG III DO Sep 07, 2016 10:53
[2016-09-07 11:00] VITALS: BP 157/91
[2016-09-07 14:20] VITALS: BP 139/59
[2016-09-07] MEDS ORDERED: FUROSEMIDE 40 MG TABLET PO ONE (15:15)
[2016-09-07 19:00] VITALS: BP 145/84
[2016-09-07] MEDS: INSULIN DETEMIR 300 UNITS/3 ML INSULN.PEN. SQ SCH (22:52)
[2016-09-07 23:00] VITALS: BP_SYST 128; BP_SYST 146; BP_DIAS 77; BP_DIAS 80
[2016-09-08 03:00] VITALS: BP 153/76
[2016-09-08 07:00] VITALS: BP 191/91
[2016-09-08 08:05] LABS: BASO % 0 % (0-3); EOS % 1 % (0-3); HEMATOCRIT 40.6 % (36.0-47.0); HEMOGLOBIN 13.1 g/dL (12.0-15.5); LYMPH # 1.8 x10^3/uL (1.0-4.8); LYMPH % 38 % (24-48); MEAN CORPUSCULAR HEMOGLOBIN 24 pg (25-35); MEAN CORPUSCULAR HGB CONC 32 g/dL (31-37); MEAN CORPUSCULAR VOLUME 75 fL (79-100); MONO % 10 % (0-9); NEUT % 51 % (31-73); PLATELET COUNT 176 x10^3/uL (140-400); RED CELL DISTRIBUTION WIDTH 15.9 % (11.5-14.5); WHITE BLOOD COUNT 4.7 x10^3/uL (4.0-11.0)
[2016-09-08 08:22] LABS: CREATININE 1.1 mg/dL (0.6-1.0); GFR 59.2; POTASSIUM 3.2 mmol/L (3.5-5.1)
[2016-09-08] MEDS: GLYBURIDE 5 MG TABLET PO SCH ×2 (08:43→17:50)
[2016-09-08] MEDS: FUROSEMIDE 40 MG TABLET PO SCH ×2 (08:44→17:50)
[2016-09-08] MEDS: AMLODIPINE BESYLATE 10 MG TABLET PO SCH (08:44)
[2016-09-08] MEDS: METOPROLOL TART IMMED RELEASE 25 MG TABLET PO SCH ×2 (08:44→21:45)
[2016-09-08] MEDS: INSULIN ASPART 300 UNITS/3 ML INSULN.PEN SQ SCH ×3 (08:48→17:53)
[2016-09-08 11:00] VITALS: BP 167/95
--- NOTE | 2016-09-08 13:12 | PDOC ---
PROGRESS NOTES Chief Complaint Chief Complaint 1. Left inferior orbital fracture after fall 2. HTN 3. Altered Mental Status 4. Hyperglycemia 5. Diabetes Mellitus 6. Hypokalemia History of Present Illness History of Present Illness Pt sitting up at side of bed this AM. Discussed plan for discharge with pt early tomorrow. Pt seems confused still- likely baseline dementia. Pt did admit to feeling tired and weak still. DW RN- BP improved with BID dosing of Lasix; Will change Lasix dosing to 40 mg BID and will add KCL 20 meq PO BID for potassium replacement Vitals Vitals Vital Signs Date Time Temp Pulse Resp B/P Pulse Ox O2 Delivery O2 Flow Rate FiO2 09/08/16 11:00 97.8 80 14 167/95 96 Room Air 97.8 Physical Exam General: Alert, Cooperative, No acute distress, Other (confused) Heart: Regular rate, Normal S1, Normal S2, No murmurs Lungs: Clear, Other (no wheezes) Abdomen: Normal bowel sounds, No tenderness, No masses Extremities: No clubbing, No cyanosis, No edema Skin: No rashes, No breakdown, Other (Sutures at Left eyebrow in place site is healing well; Swelling around orbit improved) Labs LABS Laboratory Tests Test 09/07/16 16:06 09/07/16 21:02 09/08/16 06:55 09/08/16 06:58 Glucose (Fingerstick) 290mg/dL (70-99) 239mg/dL (70-99) Sodium Level 138mmol/L (136-145) Potassium Level 3.2mmol/L (3.5-5.1) Chloride Level 102mmol/L (98-107) Carbon Dioxide Level 27mmol/L (21-32) Anion Gap 9 (6-14) Blood Urea Nitrogen 20mg/dL (7-20) Creatinine 1.1mg/dL (0.6-1.0) Estimated GFR (Cockcroft-Gault) 59.2 Glucose Level 204mg/dL (70-99) Calcium Level 9.0mg/dL (8.5-10.1) White Blood Count 4.7x10^3/uL (4.0-11.0) Red Blood Count 5.40x10^6/uL (3.50-5.40) Hemoglobin 13.1g/dL (12.0-15.5) Hematocrit 40.6% (36.0-47.0) Mean Corpuscular Volume 75fL (79-100) Mean Corpuscular Hemoglobin 24pg (25-35) Mean Corpuscular Hemoglobin Concent 32g/dL (31-37) Red Cell Distribution Width 15.9% (11.5-14.5) Platelet Count 176x10^3/uL (140-400) Neutrophils (%) (Auto) 51% (31-73) Lymphocytes (%) (Auto) 38% (24-48) Monocytes (%) (Auto) 10% (0-9) Eosinophils (%) (Auto) 1% (0-3) Basophils (%) (Auto) 0% (0-3) Neutrophils # (Auto) 2.4x10^3uL (1.8-7.7) Lymphocytes # (Auto) 1.8x10^3/uL (1.0-4.8) Monocytes # (Auto) 0.5x10^3/uL (0.0-1.1) Eosinophils # (Auto) 0.0x10^3/uL (0.0-0.7) Basophils # (Auto) 0.0x10^3/uL (0.0-0.2) Test 09/08/16 07:31 09/08/16 11:41 Glucose (Fingerstick) 206mg/dL (70-99) 275mg/dL (70-99) Review of Systems Review of Systems Complaining of Fatigue Complaining of Weakness ROS limited because of pts baseline confusion Assessment and Plan Assessmemt and Plan Problems Medical Problems: (1) Confusion Status: Acute (2) Dizziness Status: Acute (3) Facial laceration Status: Acute (4) Fracture of inferior orbital wall Status: Acute 1. Left inferior orbital fracture after fall 2. HTN 3. Altered Mental Status 4. Hyperglycemia 5. Diabetes Mellitus 6. Hypokalemia Plan: - Continue Regular care per floor protocol w/ hopes of discharge later today - General Surgery Consulted for Inf. Orbital Fx - Non Surgical Management at this time appreciate their recommendations - Continue Lortab for pain prn - HTN: on Amlodipine, Clonidine, Hydralazine, and Metoprolol on board - BP showed improvement with BID dosing of Lasix yesterday - Will start on Lasix 40 mg PO BID - Monitor BP for further improvement - K: 3.2 again today - Will begin pt on KCL 20meq PO BID at this time with new lasix dosing - Continue Regular home medications - Continue PT/OT - Repeat labs in AM - Disposition: [facility] Problems: Comment Review of Relevant I have reviewed the following items angelica (where applicable) has been applied. Labs Laboratory Tests Test 09/06/16 16:40 09/06/16 21:09 09/07/16 05:00 09/07/16 07:43 Glucose (Fingerstick) 385mg/dL (70-99) 212mg/dL (70-99) 182mg/dL (70-99) White Blood Count 4.3x10^3/uL (4.0-11.0) Red Blood Count 5.42x10^6/uL (3.50-5.40) Hemoglobin 13.4g/dL (12.0-15.5) Hematocrit 40.7% (36.0-47.0) Mean Corpuscular Volume 75fL (79-100) Mean Corpuscular Hemoglobin 25pg (25-35) Mean Corpuscular Hemoglobin Concent 33g/dL (31-37) Red Cell Distribution Width 16.1% (11.5-14.5) Platelet Count 175x10^3/uL (140-400) Neutrophils (%) (Auto) 46% (31-73) Lymphocytes (%) (Auto) 42% (24-48) Monocytes (%) (Auto) 9% (0-9) Eosinophils (%) (Auto) 2% (0-3) Basophils (%) (Auto) 1% (0-3) Neutrophils # (Auto) 2.0x10^3uL (1.8-7.7) Lymphocytes # (Auto) 1.8x10^3/uL (1.0-4.8) Monocytes # (Auto) 0.4x10^3/uL (0.0-1.1) Eosinophils # (Auto) 0.1x10^3/uL (0.0-0.7) Basophils # (Auto) 0.0x10^3/uL (0.0-0.2) Sodium Level 140mmol/L (136-145) Potassium Level 3.2mmol/L (3.5-5.1) Chloride Level 103mmol/L (98-107) Carbon Dioxide Level 26mmol/L (21-32) Anion Gap 11 (6-14) Blood Urea Nitrogen 16mg/dL (7-20) Creatinine 1.0mg/dL (0.6-1.0) Estimated GFR (Cockcroft-Gault) 66.1 Glucose Level 200mg/dL (70-99) Calcium Level 9.3mg/dL (8.5-10.1) Test 09/07/16 11:58 09/07/16 16:06 09/07/16 21:02 09/08/16 06:55 Glucose (Fingerstick) 310mg/dL (70-99) 290mg/dL (70-99) 239mg/dL (70-99) Sodium Level 138mmol/L (136-145) Potassium Level 3.2mmol/L (3.5-5.1) Chloride Level 102mmol/L (98-107) Carbon Dioxide Level 27mmol/L (21-32) Anion Gap 9 (6-14) Blood Urea Nitrogen 20mg/dL (7-20) Creatinine 1.1mg/dL (0.6-1.0) Estimated GFR (Cockcroft-Gault) 59.2 Glucose Level 204mg/dL (70-99) Calcium Level 9.0mg/dL (8.5-10.1) Test 09/08/16 06:58 09/08/16 07:31 09/08/16 11:41 White Blood Count 4.7x10^3/uL (4.0-11.0) Red Blood Count 5.40x10^6/uL (3.50-5.40) Hemoglobin 13.1g/dL (12.0-15.5) Hematocrit 40.6% (36.0-47.0) Mean Corpuscular Volume 75fL (79-100) Mean Corpuscular Hemoglobin 24pg (25-35) Mean Corpuscular Hemoglobin Concent 32g/dL (31-37) Red Cell Distribution Width 15.9% (11.5-14.5) Platelet Count 176x10^3/uL (140-400) Neutrophils (%) (Auto) 51% (31-73) Lymphocytes (%) (Auto) 38% (24-48) Monocytes (%) (Auto) 10% (0-9) Eosinophils (%) (Auto) 1% (0-3) Basophils (%) (Auto) 0% (0-3) Neutrophils # (Auto) 2.4x10^3uL (1.8-7.7) Lymphocytes # (Auto) 1.8x10^3/uL (1.0-4.8) Monocytes # (Auto) 0.5x10^3/uL (0.0-1.1) Eosinophils # (Auto) 0.0x10^3/uL (0.0-0.7) Basophils # (Auto) 0.0x10^3/uL (0.0-0.2) Glucose (Fingerstick) 206mg/dL (70-99) 275mg/dL (70-99) Laboratory Tests Test 09/07/16 16:06 09/07/16 21:02 09/08/16 06:55 09/08/16 06:58 Glucose (Fingerstick) 290mg/dL (70-99) 239mg/dL (70-99) Sodium Level 138mmol/L (136-145) Potassium Level 3.2mmol/L (3.5-5.1) Chloride Level 102mmol/L (98-107) Carbon Dioxide Level 27mmol/L (21-32) Anion Gap 9 (6-14) Blood Urea Nitrogen 20mg/dL (7-20) Creatinine 1.1mg/dL (0.6-1.0) Estimated GFR (Cockcroft-Gault) 59.2 Glucose Level 204mg/dL (70-99) Calcium Level 9.0mg/dL (8.5-10.1) White Blood Count 4.7x10^3/uL (4.0-11.0) Red Blood Count 5.40x10^6/uL (3.50-5.40) Hemoglobin 13.1g/dL (12.0-15.5) Hematocrit 40.6% (36.0-47.0) Mean Corpuscular Volume 75fL (79-100) Mean Corpuscular Hemoglobin 24pg (25-35) Mean Corpuscular Hemoglobin Concent 32g/dL (31-37) Red Cell Distribution Width 15.9% (11.5-14.5) Platelet Count 176x10^3/uL (140-400) Neutrophils (%) (Auto) 51% (31-73) Lymphocytes (%) (Auto) 38% (24-48) Monocytes (%) (Auto) 10% (0-9) Eosinophils (%) (Auto) 1% (0-3) Basophils (%) (Auto) 0% (0-3) Neutrophils # (Auto) 2.4x10^3uL (1.8-7.7) Lymphocytes # (Auto) 1.8x10^3/uL (1.0-4.8) Monocytes # (Auto) 0.5x10^3/uL (0.0-1.1) Eosinophils # (Auto) 0.0x10^3/uL (0.0-0.7) Basophils # (Auto) 0.0x10^3/uL (0.0-0.2) Test 09/08/16 07:31 09/08/16 11:41 Glucose (Fingerstick) 206mg/dL (70-99) 275mg/dL (70-99) Medications Current Medications Diphtheria/ Tetanus/Acell Pertussis (Boostrix) 0.5 ml ONCE ONCE VAX IM Last administered on 09/04/16 21:26; Start 09/04/16 at 20:30; Stop 09/04/16 at 20:31 ; Status DC Labetalol HCl (Normodyne) 20 mg 1X ONCE IVP Last administered on 09/04/16 21: 27; Start 09/04/16 at 21:00; Stop 09/04/16 at 21:02; Status DC Lidocaine/ Epinephrine (Xylocaine 1%-Epi 1:100,000) 20 ml 1X ONCE IJ ; Start at 21:15; Stop 09/04/16 at 21:16; Status DC Lidocaine/Sodium Bicarbonate (Buffered Lidocaine 1%) 20 ml 1X ONCE IJ Last administered on 09/04/16 21:15; Start 09/04/16 at 21:15; Stop 09/04/16 at 21:16 ; Status DC Labetalol HCl (Normodyne) 20 mg 1X ONCE IVP Last administered on 09/04/16 22: 32; Start 09/04/16 at 22:30; Stop 09/04/16 at 22:31; Status DC Ondansetron HCl (Zofran) 4 mg PRN Q8HRS PRN IV NAUSEA/VOMITING; Start 09/04/16 at 22:30; Stop 09/05/16 at 22:29; Status DC Morphine Sulfate 2 mg PRN Q2HR PRN IV PAIN; Start 09/04/16 at 22:30; Stop 09/05 at 22:29; Status DC Lorazepam (Ativan) 2 mg STK-MED ONCE .ROUTE ; Start 09/05/16 at 01:30; Stop at 01:31; Status DC Lorazepam (Ativan) 0.5 mg 1X ONCE IV Last administered on 09/05/16 01:37; Start 09/05/16 at 01:45; Stop 09/05/16 at 01:46; Status DC Labetalol HCl (Normodyne) 20 mg 1X ONCE IVP Last administered on 09/05/16 02: 15; Start 09/05/16 at 02:15; Stop 09/05/16 at 02:16; Status DC Acetaminophen (Tylenol) 325 mg PRN Q6HRS PRN PO MILD PAIN / TEMP; Start at 11:15 Acetaminophen/ Hydrocodone Bitart (Lortab 5/325) 1 tab PRN Q6HRS PRN PO MODERATE TO SEVERE PAIN Last administered on 09/06/16 20:23; Start 09/05/16 at 11:15 Hydralazine HCl (Apresoline) 10 mg PRN Q4HRS PRN IVP ELEVATED BP, SEE COMMENTS Last administered on 09/05/16 12:59; Start 09/05/16 at 11:15; Stop 09/05/16 at 15:12; Status DC Ondansetron HCl (Zofran) 4 mg PRN Q8HRS PRN IV NAUSEA/VOMITING; Start 09/05/16 at 11:15 Albuterol Sulfate (Ventolin Neb Soln) 2.5 mg PRN Q4HRS PRN NEB SHORTNESS OF BREATH; Start 09/05/16 at 11:15 Metoprolol Tartrate (Lopressor) 25 mg BID PO Last administered on 09/08/16 08: 44; Start 09/05/16 at 12:00 Hydralazine HCl (Apresoline) 10 mg PRN Q3HRS PRN IVP ELEVATED BP, SEE COMMENTS Last administered on 09/07/16 16:54; Start 09/05/16 at 15:15 Insulin Aspart (Novolog) 0-9 UNITS TIDWMEALS SQ Last administered on 09/08/16 12:25; Start 09/05/16 at 17:00 Dextrose 12.5 gm PRN Q15MIN PRN IV SEE COMMENTS; Start 09/05/16 at 15:15 Amlodipine Besylate (Norvasc) 10 mg DAILY PO Last administered on 09/08/16 08: 44; Start 09/06/16 at 09:00 Clonidine HCl (Catapres) 0.2 mg PRN Q4HRS PRN PO HYPERTENSION, BP over 170 syst ; Start 09/06/16 at 03:15 Potassium Chloride (Klor-Con) 20 meq 1X ONCE PO Last administered on 12:06; Start 09/06/16 at 12:00; Stop 09/06/16 at 12:01; Status DC Furosemide (Lasix) 40 mg DAILY PO Last administered on 09/08/16 08:44; Start 09/06/16 at 12:00 Glyburide (Diabeta) 5 mg BIDWMEALS PO Last administered on 09/08/16 08:43; Start 09/06/16 at 12:30 Insulin Detemir (Levemir) 25 units QHS SQ Last administered on 09/07/16 22:52 ; Start 09/06/16 at 21:00 Potassium Chloride (Klor-Con) 20 meq 1X ONCE PO Last administered on 12:39; Start 09/07/16 at 10:45; Stop 09/07/16 at 10:46; Status DC Furosemide (Lasix) 40 mg 1X ONCE PO Last administered on 09/07/16 16:55; Start 09/07/16 at 15:15; Stop 09/07/16 at 17:10; Status DC Active Scripts Active Reported Lantus Solostar (Insulin Glargine,Hum.rec.anlog) 100 Unit/1 Ml Insuln.pen 25 Unit SQ QHS Metoprolol Succinate 50 Mg Tab.er.24h 50 Mg PO DAILY Clonidine Hcl 0.2 Mg Tablet 1 Tab PO BID Glyburide 5 Mg Tablet 1 Tab PO BID Lisinopril 40 Mg Tablet 1 Tab PO DAILY Hydrochlorothiazide Tablet (Hydrochlorothiazide) 25 Mg Tablet 1 Tab PO DAILY Dorzolamide-Timolol Eye Drops (Dorzolamide Hcl/Timolol Maleat) 10 Ml Drops 1 Drop EACHEYE BID Latanoprost 2.5 Ml Drops 1 Drop EACHEYE HS Vitals/I & O Vital Sign - Last 24 Hours 09/07/16 09/07/16 09/07/16 09/07/16 14:20 16:54 19:00 20:00 Temp 97.7 98.2 97.7 98.2 Pulse 80 90 110 Resp 20 18 B/P 139/59 173/83 145/84 Pulse Ox 100 92 O2 Delivery Room Air Room Air Room Air 09/07/16 09/07/16 09/08/16 09/08/16 22:49 23:00 03:00 07:00 Temp 98.5 98.4 97.7 98.5 98.4 97.7 Pulse 110 94 87 84 Resp 18 18 14 B/P 145/84 146/80 153/76 191/91 Pulse Ox 97 96 95 O2 Delivery Room Air Room Air Room Air 09/08/16 09/08/16 09/08/16 08:44 08:44 11:00 Temp 97.8 97.8 Pulse 87 87 80 Resp 14 B/P 153/76 153/76 167/95 Pulse Ox 96 O2 Delivery Room Air Intake and Output 09/07/16 09/07/16 09/08/16 15:00 23:00 07:00 Intake Total 600 ml 120 ml Balance 600 ml 120 ml MELISSA DONG III DO Sep 08, 2016 13:12
[2016-09-08 15:00] VITALS: BP 193/110
[2016-09-08 19:00] VITALS: BP 157/81
[2016-09-08] MEDS: POTASSIUM CHLORIDE 20 MEQ TABLET.ER. PO SCH (21:45)
[2016-09-08] MEDS: INSULIN DETEMIR 300 UNITS/3 ML INSULN.PEN. SQ SCH (21:51)
[2016-09-08] MEDS ORDERED: INSULIN ASPART 300 UNITS/3 ML INSULN.PEN SQ ONE (22:15)
[2016-09-08 23:00] VITALS: BP 153/79
[2016-09-09 03:00] VITALS: BP 152/75
[2016-09-09 07:00] VITALS: BP 192/80
[2016-09-09 08:15] LABS: BASO % 1 % (0-3); EOS % 1 % (0-3); HEMATOCRIT 41.9 % (36.0-47.0); HEMOGLOBIN 13.9 g/dL (12.0-15.5); LYMPH # 2.6 x10^3/uL (1.0-4.8); LYMPH % 60 % (24-48); MEAN CORPUSCULAR HEMOGLOBIN 25 pg (25-35); MEAN CORPUSCULAR HGB CONC 33 g/dL (31-37); MEAN CORPUSCULAR VOLUME 74 fL (79-100); MONO % 9 % (0-9); NEUT % 29 % (31-73); PLATELET COUNT 203 x10^3/uL (140-400); RED BLOOD COUNT 5.63 x10^6/uL (3.50-5.40); WHITE BLOOD COUNT 4.4 x10^3/uL (4.0-11.0)
[2016-09-09 08:33] LABS: CALCIUM 9.4 mg/dL (8.5-10.1); CREATININE 1.1 mg/dL (0.6-1.0); GFR 59.2; POTASSIUM 3.7 mmol/L (3.5-5.1)
[2016-09-09] MEDS: FUROSEMIDE 40 MG TABLET PO SCH ×2 (08:40→17:01)
[2016-09-09] MEDS: GLYBURIDE 5 MG TABLET PO SCH ×2 (08:40→17:01)
[2016-09-09] MEDS: POTASSIUM CHLORIDE 20 MEQ TABLET.ER. PO SCH ×2 (08:40→21:16)
[2016-09-09] MEDS: AMLODIPINE BESYLATE 10 MG TABLET PO SCH (08:40)
[2016-09-09] MEDS: METOPROLOL TART IMMED RELEASE 25 MG TABLET PO SCH ×2 (08:41→21:16)
[2016-09-09] MEDS: INSULIN ASPART 300 UNITS/3 ML INSULN.PEN SQ SCH ×3 (08:46→17:03)
[2016-09-09 11:00] VITALS: BP 199/94
[2016-09-09 11:20] LABS: % EOS 1 % (0-5)
[2016-09-09 11:22] LABS: PLT ESTIMATE ADEQUATE (ADEQUATE)
--- NOTE | 2016-09-09 11:23 | PDOC ---
PROGRESS NOTES Chief Complaint Chief Complaint 1. Left inferior orbital fracture after fall 2. HTN 3. Altered Mental Status 4. Hyperglycemia 5. Diabetes Mellitus 6. Hypokalemia History of Present Illness History of Present Illness Pt awake talking with RN upon arrival to her room this morning. Less confused this AM and states she is ready to go. Discussed plan for discharge later today to [facility] with . KULDIP RN- Rx given and forms signed for discharge later today Vitals Vitals Vital Signs Date Time Temp Pulse Resp B/P Pulse Ox O2 Delivery O2 Flow Rate FiO2 09/09/16 08:41 89 192/80 09/09/16 07:30 Room Air 09/09/16 07:00 97.7 16 95 97.7 Physical Exam General: Alert, Cooperative, No acute distress, Other (confused) Heart: Regular rate, Normal S1, Normal S2, No murmurs Lungs: Clear, Other (no wheezes or crackles) Abdomen: Normal bowel sounds, No tenderness, No masses Extremities: No clubbing, No cyanosis, No edema, Normal pulses Skin: No rashes, No breakdown, Other (Sutures at Left eyebrow in place site is healing well; Swelling around orbit improved) Labs LABS Laboratory Tests Test 09/08/16 11:41 09/08/16 16:39 09/08/16 21:17 09/09/16 07:55 Glucose (Fingerstick) 275mg/dL (70-99) 239mg/dL (70-99) 360mg/dL (70-99) White Blood Count 4.4x10^3/uL (4.0-11.0) Red Blood Count 5.63x10^6/uL (3.50-5.40) Hemoglobin 13.9g/dL (12.0-15.5) Hematocrit 41.9% (36.0-47.0) Mean Corpuscular Volume 74fL (79-100) Mean Corpuscular Hemoglobin 25pg (25-35) Mean Corpuscular Hemoglobin Concent 33g/dL (31-37) Red Cell Distribution Width 16.0% (11.5-14.5) Platelet Count 203x10^3/uL (140-400) Neutrophils (%) (Auto) 29% (31-73) Lymphocytes (%) (Auto) 60% (24-48) Monocytes (%) (Auto) 9% (0-9) Eosinophils (%) (Auto) 1% (0-3) Basophils (%) (Auto) 1% (0-3) Neutrophils # (Auto) 1.3x10^3uL (1.8-7.7) Lymphocytes # (Auto) 2.6x10^3/uL (1.0-4.8) Monocytes # (Auto) 0.4x10^3/uL (0.0-1.1) Eosinophils # (Auto) 0.0x10^3/uL (0.0-0.7) Basophils # (Auto) 0.0x10^3/uL (0.0-0.2) Sodium Level 143mmol/L (136-145) Potassium Level 3.7mmol/L (3.5-5.1) Chloride Level 103mmol/L (98-107) Carbon Dioxide Level 30mmol/L (21-32) Anion Gap 10 (6-14) Blood Urea Nitrogen 21mg/dL (7-20) Creatinine 1.1mg/dL (0.6-1.0) Estimated GFR (Cockcroft-Gault) 59.2 Glucose Level 217mg/dL (70-99) Calcium Level 9.4mg/dL (8.5-10.1) Test 09/09/16 08:29 Glucose (Fingerstick) 246mg/dL (70-99) Review of Systems Review of Systems Complaining of feeling tired/fatigue Complaining of weakness- improving since admission All other ROS negative. Assessment and Plan Assessmemt and Plan Problems Medical Problems: (1) Confusion Status: Acute (2) Dizziness Status: Acute (3) Facial laceration Status: Acute (4) Fracture of inferior orbital wall Status: Acute 1. Left inferior orbital fracture after fall 2. HTN 3. Altered Mental Status 4. Hyperglycemia 5. Diabetes Mellitus 6. Hypokalemia Plan: - Care Continued per regular floor protocol - General Surgery Consulted for Inf. Orbital Fx - Non Surgical Management at this time appreciate their recommendations - Recommend pain control prn - HTN: on Amlodipine, Clonidine, Hydralazine, and Metoprolol on board - BP shows continued improvement with BID Lasix - Continue on Lasix 40 mg PO BID - BPs ranging 150s/80s upon vital sign review with continued improvement - K: 3.7 this AM - Continue KCL 20meq PO BID - Continue Regular home medications on discharge - RX for Hydrocodone given prn for pain - Disposition: Plan for discharge today to [facility] where is Problems: Comment Review of Relevant I have reviewed the following items angelica (where applicable) has been applied. Labs Laboratory Tests Test 09/07/16 11:58 09/07/16 16:06 09/07/16 21:02 09/08/16 06:55 Glucose (Fingerstick) 310mg/dL (70-99) 290mg/dL (70-99) 239mg/dL (70-99) Sodium Level 138mmol/L (136-145) Potassium Level 3.2mmol/L (3.5-5.1) Chloride Level 102mmol/L (98-107) Carbon Dioxide Level 27mmol/L (21-32) Anion Gap 9 (6-14) Blood Urea Nitrogen 20mg/dL (7-20) Creatinine 1.1mg/dL (0.6-1.0) Estimated GFR (Cockcroft-Gault) 59.2 Glucose Level 204mg/dL (70-99) Calcium Level 9.0mg/dL (8.5-10.1) Test 09/08/16 06:58 09/08/16 07:31 09/08/16 11:41 09/08/16 16:39 White Blood Count 4.7x10^3/uL (4.0-11.0) Red Blood Count 5.40x10^6/uL (3.50-5.40) Hemoglobin 13.1g/dL (12.0-15.5) Hematocrit 40.6% (36.0-47.0) Mean Corpuscular Volume 75fL (79-100) Mean Corpuscular Hemoglobin 24pg (25-35) Mean Corpuscular Hemoglobin Concent 32g/dL (31-37) Red Cell Distribution Width 15.9% (11.5-14.5) Platelet Count 176x10^3/uL (140-400) Neutrophils (%) (Auto) 51% (31-73) Lymphocytes (%) (Auto) 38% (24-48) Monocytes (%) (Auto) 10% (0-9) Eosinophils (%) (Auto) 1% (0-3) Basophils (%) (Auto) 0% (0-3) Neutrophils # (Auto) 2.4x10^3uL (1.8-7.7) Lymphocytes # (Auto) 1.8x10^3/uL (1.0-4.8) Monocytes # (Auto) 0.5x10^3/uL (0.0-1.1) Eosinophils # (Auto) 0.0x10^3/uL (0.0-0.7) Basophils # (Auto) 0.0x10^3/uL (0.0-0.2) Glucose (Fingerstick) 206mg/dL (70-99) 275mg/dL (70-99) 239mg/dL (70-99) Test 09/08/16 21:17 09/09/16 07:55 09/09/16 08:29 Glucose (Fingerstick) 360mg/dL (70-99) 246mg/dL (70-99) White Blood Count 4.4x10^3/uL (4.0-11.0) Red Blood Count 5.63x10^6/uL (3.50-5.40) Hemoglobin 13.9g/dL (12.0-15.5) Hematocrit 41.9% (36.0-47.0) Mean Corpuscular Volume 74fL (79-100) Mean Corpuscular Hemoglobin 25pg (25-35) Mean Corpuscular Hemoglobin Concent 33g/dL (31-37) Red Cell Distribution Width 16.0% (11.5-14.5) Platelet Count 203x10^3/uL (140-400) Neutrophils (%) (Auto) 29% (31-73) Lymphocytes (%) (Auto) 60% (24-48) Monocytes (%) (Auto) 9% (0-9) Eosinophils (%) (Auto) 1% (0-3) Basophils (%) (Auto) 1% (0-3) Neutrophils # (Auto) 1.3x10^3uL (1.8-7.7) Lymphocytes # (Auto) 2.6x10^3/uL (1.0-4.8) Monocytes # (Auto) 0.4x10^3/uL (0.0-1.1) Eosinophils # (Auto) 0.0x10^3/uL (0.0-0.7) Basophils # (Auto) 0.0x10^3/uL (0.0-0.2) Sodium Level 143mmol/L (136-145) Potassium Level 3.7mmol/L (3.5-5.1) Chloride Level 103mmol/L (98-107) Carbon Dioxide Level 30mmol/L (21-32) Anion Gap 10 (6-14) Blood Urea Nitrogen 21mg/dL (7-20) Creatinine 1.1mg/dL (0.6-1.0) Estimated GFR (Cockcroft-Gault) 59.2 Glucose Level 217mg/dL (70-99) Calcium Level 9.4mg/dL (8.5-10.1) Laboratory Tests Test 09/08/16 11:41 09/08/16 16:39 09/08/16 21:17 09/09/16 07:55 Glucose (Fingerstick) 275mg/dL (70-99) 239mg/dL (70-99) 360mg/dL (70-99) White Blood Count 4.4x10^3/uL (4.0-11.0) Red Blood Count 5.63x10^6/uL (3.50-5.40) Hemoglobin 13.9g/dL (12.0-15.5) Hematocrit 41.9% (36.0-47.0) Mean Corpuscular Volume 74fL (79-100) Mean Corpuscular Hemoglobin 25pg (25-35) Mean Corpuscular Hemoglobin Concent 33g/dL (31-37) Red Cell Distribution Width 16.0% (11.5-14.5) Platelet Count 203x10^3/uL (140-400) Neutrophils (%) (Auto) 29% (31-73) Lymphocytes (%) (Auto) 60% (24-48) Monocytes (%) (Auto) 9% (0-9) Eosinophils (%) (Auto) 1% (0-3) Basophils (%) (Auto) 1% (0-3) Neutrophils # (Auto) 1.3x10^3uL (1.8-7.7) Lymphocytes # (Auto) 2.6x10^3/uL (1.0-4.8) Monocytes # (Auto) 0.4x10^3/uL (0.0-1.1) Eosinophils # (Auto) 0.0x10^3/uL (0.0-0.7) Basophils # (Auto) 0.0x10^3/uL (0.0-0.2) Sodium Level 143mmol/L (136-145) Potassium Level 3.7mmol/L (3.5-5.1) Chloride Level 103mmol/L (98-107) Carbon Dioxide Level 30mmol/L (21-32) Anion Gap 10 (6-14) Blood Urea Nitrogen 21mg/dL (7-20) Creatinine 1.1mg/dL (0.6-1.0) Estimated GFR (Cockcroft-Gault) 59.2 Glucose Level 217mg/dL (70-99) Calcium Level 9.4mg/dL (8.5-10.1) Test 09/09/16 08:29 Glucose (Fingerstick) 246mg/dL (70-99) Medications Current Medications Diphtheria/ Tetanus/Acell Pertussis (Boostrix) 0.5 ml ONCE ONCE VAX IM Last administered on 09/04/16 21:26; Start 09/04/16 at 20:30; Stop 09/04/16 at 20:31 ; Status DC Labetalol HCl (Normodyne) 20 mg 1X ONCE IVP Last administered on 09/04/16 21: 27; Start 09/04/16 at 21:00; Stop 09/04/16 at 21:02; Status DC Lidocaine/ Epinephrine (Xylocaine 1%-Epi 1:100,000) 20 ml 1X ONCE IJ ; Start at 21:15; Stop 09/04/16 at 21:16; Status DC Lidocaine/Sodium Bicarbonate (Buffered Lidocaine 1%) 20 ml 1X ONCE IJ Last administered on 09/04/16 21:15; Start 09/04/16 at 21:15; Stop 09/04/16 at 21:16 ; Status DC Labetalol HCl (Normodyne) 20 mg 1X ONCE IVP Last administered on 09/04/16 22: 32; Start 09/04/16 at 22:30; Stop 09/04/16 at 22:31; Status DC Ondansetron HCl (Zofran) 4 mg PRN Q8HRS PRN IV NAUSEA/VOMITING; Start 09/04/16 at 22:30; Stop 09/05/16 at 22:29; Status DC Morphine Sulfate 2 mg PRN Q2HR PRN IV PAIN; Start 09/04/16 at 22:30; Stop 09/05 at 22:29; Status DC Lorazepam (Ativan) 2 mg STK-MED ONCE .ROUTE ; Start 09/05/16 at 01:30; Stop at 01:31; Status DC Lorazepam (Ativan) 0.5 mg 1X ONCE IV Last administered on 09/05/16 01:37; Start 09/05/16 at 01:45; Stop 09/05/16 at 01:46; Status DC Labetalol HCl (Normodyne) 20 mg 1X ONCE IVP Last administered on 09/05/16 02: 15; Start 09/05/16 at 02:15; Stop 09/05/16 at 02:16; Status DC Acetaminophen (Tylenol) 325 mg PRN Q6HRS PRN PO MILD PAIN / TEMP; Start at 11:15 Acetaminophen/ Hydrocodone Bitart (Lortab 5/325) 1 tab PRN Q6HRS PRN PO MODERATE TO SEVERE PAIN Last administered on 09/06/16 20:23; Start 09/05/16 at 11:15 Hydralazine HCl (Apresoline) 10 mg PRN Q4HRS PRN IVP ELEVATED BP, SEE COMMENTS Last administered on 09/05/16 12:59; Start 09/05/16 at 11:15; Stop 09/05/16 at 15:12; Status DC Ondansetron HCl (Zofran) 4 mg PRN Q8HRS PRN IV NAUSEA/VOMITING; Start 09/05/16 at 11:15 Albuterol Sulfate (Ventolin Neb Soln) 2.5 mg PRN Q4HRS PRN NEB SHORTNESS OF BREATH; Start 09/05/16 at 11:15 Metoprolol Tartrate (Lopressor) 25 mg BID PO Last administered on 09/09/16 08: 41; Start 09/05/16 at 12:00 Hydralazine HCl (Apresoline) 10 mg PRN Q3HRS PRN IVP ELEVATED BP, SEE COMMENTS Last administered on 09/07/16 16:54; Start 09/05/16 at 15:15 Insulin Aspart (Novolog) 0-9 UNITS TIDWMEALS SQ Last administered on 09/09/16 08:46; Start 09/05/16 at 17:00 Dextrose 12.5 gm PRN Q15MIN PRN IV SEE COMMENTS; Start 09/05/16 at 15:15 Amlodipine Besylate (Norvasc) 10 mg DAILY PO Last administered on 09/09/16 08: 40; Start 09/06/16 at 09:00 Clonidine HCl (Catapres) 0.2 mg PRN Q4HRS PRN PO HYPERTENSION, BP over 170 syst ; Start 09/06/16 at 03:15 Potassium Chloride (Klor-Con) 20 meq 1X ONCE PO Last administered on 12:06; Start 09/06/16 at 12:00; Stop 09/06/16 at 12:01; Status DC Furosemide (Lasix) 40 mg DAILY PO Last administered on 09/08/16 08:44; Start 09/06/16 at 12:00; Stop 09/08/16 at 13:08; Status DC Glyburide (Diabeta) 5 mg BIDWMEALS PO Last administered on 09/09/16 08:40; Start 09/06/16 at 12:30 Insulin Detemir (Levemir) 25 units QHS SQ Last administered on 09/08/16 21:51 ; Start 09/06/16 at 21:00 Potassium Chloride (Klor-Con) 20 meq 1X ONCE PO Last administered on 12:39; Start 09/07/16 at 10:45; Stop 09/07/16 at 10:46; Status DC Furosemide (Lasix) 40 mg 1X ONCE PO Last administered on 09/07/16 16:55; Start 09/07/16 at 15:15; Stop 09/07/16 at 17:10; Status DC Furosemide (Lasix) 40 mg [id number] PO Last administered on 09/09/16 08:40; Start 09/08/16 at 16:00 Potassium Chloride (Klor-Con) 20 meq BID PO Last administered on 09/09/16 08: 40; Start 09/08/16 at 21:00 Insulin Aspart (Novolog) 10 units 1X ONCE SQ Last administered on 09/08/16t 22 :15; Start 09/08/16 at 22:15; Stop 09/08/16 at 22:16; Status DC Active Scripts Active Reported Jonas Solostar (Insulin Glargine,Hum.rec.anlog) 100 Unit/1 Ml Insuln.pen 25 Unit SQ QHS Metoprolol Succinate 50 Mg Tab.er.24h 50 Mg PO DAILY Clonidine Hcl 0.2 Mg Tablet 1 Tab PO BID Glyburide 5 Mg Tablet 1 Tab PO BID Lisinopril 40 Mg Tablet 1 Tab PO DAILY Hydrochlorothiazide Tablet (Hydrochlorothiazide) 25 Mg Tablet 1 Tab PO DAILY Dorzolamide-Timolol Eye Drops (Dorzolamide Hcl/Timolol Maleat) 10 Ml Drops 1 Drop EACHEYE BID Latanoprost 2.5 Ml Drops 1 Drop EACHEYE QHS Vitals/I & O Vital Sign - Last 24 Hours 09/08/16 09/08/16 09/08/16 09/08/16 15:00 19:00 20:00 21:45 Temp 98.1 98.4 98.1 98.4 Pulse 90 102 102 Resp 16 18 B/P 193/110 157/81 157/81 Pulse Ox 96 95 O2 Delivery Room Air Room Air Room Air 09/08/16 09/09/16 09/09/16 09/09/16 23:00 03:00 07:00 07:30 Temp 98.2 98.1 97.7 98.2 98.1 97.7 Pulse 83 78 89 Resp 18 18 16 B/P 153/79 152/75 192/80 Pulse Ox 94 95 95 O2 Delivery Room Air Room Air Room Air Room Air 09/09/16 09/09/16 08:40 08:41 Pulse 89 89 B/P 192/80 192/80 MELISSA DONG III DO Sep 09, 2016 11:23
[2016-09-09] MEDS ORDERED: FLU VACC QUAD 2016-17 (36MOS+)/PF 0.5 ML SYRINGE. VAX IM ONE (13:30)
[2016-09-09] MEDS ORDERED: INFLUENZA VAX SCREEN BY RX. MC PRN (13:30)
[2016-09-09 15:00] VITALS: BP 160/81
[2016-09-09 19:00] VITALS: BP 177/88
[2016-09-09] MEDS: INSULIN DETEMIR 300 UNITS/3 ML INSULN.PEN. SQ SCH (21:26)
[2016-09-09 23:00] VITALS: BP 148/86
[2016-09-10 03:00] VITALS: BP 185/88
[2016-09-10] MEDS: hydrALAZINE 20 MG/ML VIAL. IVP PRN ×2 (03:25→15:13)
[2016-09-10 05:12] LABS: BASO % 1 % (0-3); EOS % 1 % (0-3); HEMATOCRIT 39.7 % (36.0-47.0); HEMOGLOBIN 12.9 g/dL (12.0-15.5); LYMPH # 2.8 x10^3/uL (1.0-4.8); LYMPH % 54 % (24-48); MEAN CORPUSCULAR HEMOGLOBIN 24 pg (25-35); MEAN CORPUSCULAR HGB CONC 33 g/dL (31-37); MEAN CORPUSCULAR VOLUME 75 fL (79-100); MONO % 10 % (0-9); NEUT % 34 % (31-73); PLATELET COUNT 200 x10^3/uL (140-400); WHITE BLOOD COUNT 5.1 x10^3/uL (4.0-11.0)
[2016-09-10 05:33] LABS: CALCIUM 9.3 mg/dL (8.5-10.1); CREATININE 1.1 mg/dL (0.6-1.0); GFR 59.2; POTASSIUM 3.6 mmol/L (3.5-5.1)
[2016-09-10 07:00] VITALS: BP 161/80
[2016-09-10] MEDS: GLYBURIDE 5 MG TABLET PO SCH ×2 (08:03→18:22)
[2016-09-10] MEDS: FUROSEMIDE 40 MG TABLET PO SCH ×2 (08:03→16:08)
[2016-09-10] MEDS: METOPROLOL TART IMMED RELEASE 25 MG TABLET PO SCH ×2 (08:04→20:50)
[2016-09-10] MEDS: POTASSIUM CHLORIDE 20 MEQ TABLET.ER. PO SCH ×2 (08:04→20:50)
[2016-09-10] MEDS: AMLODIPINE BESYLATE 10 MG TABLET PO SCH (08:05)
[2016-09-10] MEDS: INSULIN ASPART 300 UNITS/3 ML INSULN.PEN SQ SCH ×3 (08:13→18:26)
[2016-09-10 11:00] VITALS: BP 173/93
[2016-09-10 15:00] VITALS: BP 181/98
--- NOTE | 2016-09-10 15:31 | PDOC3 ---
Discharge Summary [facility] Date of Admission: Sep 04, 2016 Discharge Date: Sep 10, 2016 Admitting Diagnosis 1. Left inferior orbital fracture after fall 2. HTN 3. Altered Mental Status 4. Hyperglycemia 5. Diabetes Mellitus 6. Hypokalemia History of Present Illness History of Present Illness Pt awake talking with RN upon arrival to her room this morning. Less confused this AM and states she is ready to go. Discussed plan for discharge later today to [facility] with . KULDIP RN- Rx given and forms signed for discharge later today Vitals Vitals Vital Signs Date Time Temp Pulse Resp B/P Pulse Ox O2 Delivery O2 Flow Rate FiO2 09/09/16 08:41 89 192/80 09/09/16 07:30 Room Air 09/09/16 07:00 97.7 16 95 97.7 Physical Exam Problems: Final Diagnosis Problems Medical Problems: (1) Confusion Status: Acute (2) Dizziness Status: Acute (3) Facial laceration Status: Acute (4) Fracture of inferior orbital wall Status: Acute Brief Hospital Course Ms. Ceja is a 70 old f, comes post fall, CT SHOED LEFT inferior orbital fx. no intervention is needed. pt has been here long waiting for displacement, however, her medicare is not the regular one and not cover it. dc home with son. remove suture before dc dc time 35min. General: Alert, Cooperative, No acute distress, Other (confused) Heart: Regular rate, Normal S1, Normal S2, No murmurs Lungs: Clear, Other (no wheezes or crackles) Abdomen: Normal bowel sounds, No tenderness, No masses Extremities: No clubbing, No cyanosis, No edema, Normal pulses Skin: No rashes, No breakdown, Other (Sutures at Left eyebrow in place site is healing well; Swelling around orbit improved) Patient History: FH: alcohol abuse Family history: Angina (situation) G8 BROTHER Family history: Diabetes mellitus (situation) G8 BROTHER 33 FATHER 32 MOTHER G8 SISTER Family history: Hypertension (situation) G8 BROTHER Problems: Disposition home CONDITION AT DISCHARGE: Improved Diet regular Scheduled Clonidine Hcl (Clonidine Hcl) 1 TAB PO BID (Reported) Dorzolamide Hcl/Timolol Maleat (Dorzolamide-Timolol Eye Drops) 1 DROP EACHEYE BID (Reported) Glyburide (Glyburide) 1 TAB PO BID (Reported) Hydrochlorothiazide (Hydrochlorothiazide Tablet ) 1 TAB PO DAILY (Reported) Insulin Glargine,Hum.rec.anlog (Lantus Solostar) 25 UNIT SQ QHS (Reported) Latanoprost (Latanoprost) 1 DROP EACHEYE QHS (Reported) Lisinopril (Lisinopril) 1 TAB PO DAILY (Reported) Metoprolol Succinate (Metoprolol Succinate) 50 MG PO DAILY (Reported) Follow Up pcp in 2 weeks IRVIN PRADO MD Sep 10, 2016 15:31
[2016-09-10 19:00] VITALS: BP 167/86
[2016-09-10] MEDS: INSULIN DETEMIR 300 UNITS/3 ML INSULN.PEN. SQ SCH (20:53)
[2016-09-10 23:00] VITALS: BP 155/69
[2016-09-11 03:00] VITALS: BP 154/68
[2016-09-11 06:18] LABS: BASO % 1 % (0-3); EOS % 1 % (0-3); HEMATOCRIT 38.6 % (36.0-47.0); HEMOGLOBIN 12.9 g/dL (12.0-15.5); LYMPH # 2.3 x10^3/uL (1.0-4.8); LYMPH % 49 % (24-48); MEAN CORPUSCULAR HEMOGLOBIN 25 pg (25-35); MEAN CORPUSCULAR HGB CONC 34 g/dL (31-37); MEAN CORPUSCULAR VOLUME 73 fL (79-100); MONO % 12 % (0-9); NEUT % 38 % (31-73); PLATELET COUNT 231 x10^3/uL (140-400); RED BLOOD COUNT 5.28 x10^6/uL (3.50-5.40); RED CELL DISTRIBUTION WIDTH 15.4 % (11.5-14.5); WHITE BLOOD COUNT 4.7 x10^3/uL (4.0-11.0)
[2016-09-11 06:33] LABS: CALCIUM 9.2 mg/dL (8.5-10.1); CREATININE 1.2 mg/dL (0.6-1.0); GFR 53.6; POTASSIUM 3.5 mmol/L (3.5-5.1)
[2016-09-11 07:00] VITALS: BP 193/99
[2016-09-11] MEDS: FUROSEMIDE 40 MG TABLET PO SCH ×2 (07:58→17:24)
[2016-09-11] MEDS: POTASSIUM CHLORIDE 20 MEQ TABLET.ER. PO SCH (07:58)
[2016-09-11] MEDS: GLYBURIDE 5 MG TABLET PO SCH ×2 (07:58→17:24)
[2016-09-11] MEDS: METOPROLOL TART IMMED RELEASE 25 MG TABLET PO SCH (07:59)
[2016-09-11] MEDS: AMLODIPINE BESYLATE 10 MG TABLET PO SCH (07:59)
[2016-09-11] MEDS: INSULIN ASPART 300 UNITS/3 ML INSULN.PEN SQ SCH ×3 (08:00→17:29)
[2016-09-11 10:51] VITALS: BP 119/61
[2016-09-11 15:00] VITALS: BP 147/89
--- NOTE | 2016-09-11 15:22 | PDOC ---
PROGRESS NOTES Chief Complaint Chief Complaint 1. Left inferior orbital fracture after fall 2. HTN 3. Altered Mental Status 4. Hyperglycemia 5. Diabetes Mellitus 6. Hypokalemia History of Present Illness History of Present Illness Pt awake talking, sitting on the bed, Less confused this AM and states she is ready to go. Discussed plan of probable discharge later today to [facility] with . Vitals Vitals Vital Signs Date Time Temp Pulse Resp B/P Pulse Ox O2 Delivery O2 Flow Rate FiO2 09/11/16 15:00 97.8 97 16 147/89 97 Room Air 97.8 Physical Exam General: Alert, Cooperative, No acute distress, Other (confused) Heart: Regular rate, Normal S1, Normal S2, No murmurs Lungs: Clear, Other (no wheezes or crackles) Abdomen: Normal bowel sounds, No tenderness, No masses Extremities: No clubbing, No cyanosis, No edema, Normal pulses Skin: No rashes, No breakdown, Other (Sutures at Left eyebrow in place site is healing well; Swelling around orbit improved) Labs LABS Laboratory Tests Test 09/10/16 16:12 09/10/16 20:48 09/11/16 05:25 09/11/16 10:44 Glucose (Fingerstick) 211mg/dL (70-99) 269mg/dL (70-99) 332mg/dL (70-99) White Blood Count 4.7x10^3/uL (4.0-11.0) Red Blood Count 5.28x10^6/uL (3.50-5.40) Hemoglobin 12.9g/dL (12.0-15.5) Hematocrit 38.6% (36.0-47.0) Mean Corpuscular Volume 73fL (79-100) Mean Corpuscular Hemoglobin 25pg (25-35) Mean Corpuscular Hemoglobin Concent 34g/dL (31-37) Red Cell Distribution Width 15.4% (11.5-14.5) Platelet Count 231x10^3/uL (140-400) Neutrophils (%) (Auto) 38% (31-73) Lymphocytes (%) (Auto) 49% (24-48) Monocytes (%) (Auto) 12% (0-9) Eosinophils (%) (Auto) 1% (0-3) Basophils (%) (Auto) 1% (0-3) Neutrophils # (Auto) 1.8x10^3uL (1.8-7.7) Lymphocytes # (Auto) 2.3x10^3/uL (1.0-4.8) Monocytes # (Auto) 0.5x10^3/uL (0.0-1.1) Eosinophils # (Auto) 0.1x10^3/uL (0.0-0.7) Basophils # (Auto) 0.0x10^3/uL (0.0-0.2) Sodium Level 143mmol/L (136-145) Potassium Level 3.5mmol/L (3.5-5.1) Chloride Level 103mmol/L (98-107) Carbon Dioxide Level 30mmol/L (21-32) Anion Gap 10 (6-14) Blood Urea Nitrogen 22mg/dL (7-20) Creatinine 1.2mg/dL (0.6-1.0) Estimated GFR (Cockcroft-Gault) 53.6 Glucose Level 169mg/dL (70-99) Calcium Level 9.2mg/dL (8.5-10.1) Review of Systems Review of Systems Afebrile, denies any new complains, denies SOB and CP, was less confused Assessment and Plan Assessmemt and Plan ASSESSMENT 1. Left inferior orbital fracture after fall 2. HTN 3. Altered Mental Status 4. Hyperglycemia 5. Diabetes Mellitus Plan: - Care Continued per regular floor protocol - Appreciate General Surgery inputs and recommendations - Non Surgical Management at this time - Recommend pain control prn - HTN: on Amlodipine, Clonidine, Hydralazine, and Metoprolol on board - BP shows continued improvement with BID Lasix - Continue on Lasix 40 mg PO BID - Continue KCL 20meq PO BID - Continue Regular home medications on discharge - RX for Hydrocodone given prn for pain - Disposition: Plan for discharge today Problems Problems: Comment Review of Relevant I have reviewed the following items angelica (where applicable) has been applied. Labs Laboratory Tests Test 09/09/16 16:26 09/09/16 20:34 09/10/16 04:07 09/10/16 04:12 Glucose (Fingerstick) 231mg/dL (70-99) 303mg/dL (70-99) White Blood Count 5.1x10^3/uL (4.0-11.0) Red Blood Count 5.30x10^6/uL (3.50-5.40) Hemoglobin 12.9g/dL (12.0-15.5) Hematocrit 39.7% (36.0-47.0) Mean Corpuscular Volume 75fL (79-100) Mean Corpuscular Hemoglobin 24pg (25-35) Mean Corpuscular Hemoglobin Concent 33g/dL (31-37) Red Cell Distribution Width 16.0% (11.5-14.5) Platelet Count 200x10^3/uL (140-400) Neutrophils (%) (Auto) 34% (31-73) Lymphocytes (%) (Auto) 54% (24-48) Monocytes (%) (Auto) 10% (0-9) Eosinophils (%) (Auto) 1% (0-3) Basophils (%) (Auto) 1% (0-3) Neutrophils # (Auto) 1.8x10^3uL (1.8-7.7) Lymphocytes # (Auto) 2.8x10^3/uL (1.0-4.8) Monocytes # (Auto) 0.5x10^3/uL (0.0-1.1) Eosinophils # (Auto) 0.1x10^3/uL (0.0-0.7) Basophils # (Auto) 0.0x10^3/uL (0.0-0.2) Sodium Level 145mmol/L (136-145) Potassium Level 3.6mmol/L (3.5-5.1) Chloride Level 105mmol/L (98-107) Carbon Dioxide Level 28mmol/L (21-32) Anion Gap 12 (6-14) Blood Urea Nitrogen 22mg/dL (7-20) Creatinine 1.1mg/dL (0.6-1.0) Estimated GFR (Cockcroft-Gault) 59.2 Glucose Level 188mg/dL (70-99) Calcium Level 9.3mg/dL (8.5-10.1) Test 09/10/16 07:16 09/10/16 11:08 09/10/16 16:12 09/10/16 20:48 Glucose (Fingerstick) 224mg/dL (70-99) 350mg/dL (70-99) 211mg/dL (70-99) 269mg/dL (70-99) Test 09/11/16 05:25 09/11/16 10:44 White Blood Count 4.7x10^3/uL (4.0-11.0) Red Blood Count 5.28x10^6/uL (3.50-5.40) Hemoglobin 12.9g/dL (12.0-15.5) Hematocrit 38.6% (36.0-47.0) Mean Corpuscular Volume 73fL (79-100) Mean Corpuscular Hemoglobin 25pg (25-35) Mean Corpuscular Hemoglobin Concent 34g/dL (31-37) Red Cell Distribution Width 15.4% (11.5-14.5) Platelet Count 231x10^3/uL (140-400) Neutrophils (%) (Auto) 38% (31-73) Lymphocytes (%) (Auto) 49% (24-48) Monocytes (%) (Auto) 12% (0-9) Eosinophils (%) (Auto) 1% (0-3) Basophils (%) (Auto) 1% (0-3) Neutrophils # (Auto) 1.8x10^3uL (1.8-7.7) Lymphocytes # (Auto) 2.3x10^3/uL (1.0-4.8) Monocytes # (Auto) 0.5x10^3/uL (0.0-1.1) Eosinophils # (Auto) 0.1x10^3/uL (0.0-0.7) Basophils # (Auto) 0.0x10^3/uL (0.0-0.2) Sodium Level 143mmol/L (136-145) Potassium Level 3.5mmol/L (3.5-5.1) Chloride Level 103mmol/L (98-107) Carbon Dioxide Level 30mmol/L (21-32) Anion Gap 10 (6-14) Blood Urea Nitrogen 22mg/dL (7-20) Creatinine 1.2mg/dL (0.6-1.0) Estimated GFR (Cockcroft-Gault) 53.6 Glucose Level 169mg/dL (70-99) Calcium Level 9.2mg/dL (8.5-10.1) Glucose (Fingerstick) 332mg/dL (70-99) Laboratory Tests Test 09/10/16 16:12 09/10/16 20:48 09/11/16 05:25 09/11/16 10:44 Glucose (Fingerstick) 211mg/dL (70-99) 269mg/dL (70-99) 332mg/dL (70-99) White Blood Count 4.7x10^3/uL (4.0-11.0) Red Blood Count 5.28x10^6/uL (3.50-5.40) Hemoglobin 12.9g/dL (12.0-15.5) Hematocrit 38.6% (36.0-47.0) Mean Corpuscular Volume 73fL (79-100) Mean Corpuscular Hemoglobin 25pg (25-35) Mean Corpuscular Hemoglobin Concent 34g/dL (31-37) Red Cell Distribution Width 15.4% (11.5-14.5) Platelet Count 231x10^3/uL (140-400) Neutrophils (%) (Auto) 38% (31-73) Lymphocytes (%) (Auto) 49% (24-48) Monocytes (%) (Auto) 12% (0-9) Eosinophils (%) (Auto) 1% (0-3) Basophils (%) (Auto) 1% (0-3) Neutrophils # (Auto) 1.8x10^3uL (1.8-7.7) Lymphocytes # (Auto) 2.3x10^3/uL (1.0-4.8) Monocytes # (Auto) 0.5x10^3/uL (0.0-1.1) Eosinophils # (Auto) 0.1x10^3/uL (0.0-0.7) Basophils # (Auto) 0.0x10^3/uL (0.0-0.2) Sodium Level 143mmol/L (136-145) Potassium Level 3.5mmol/L (3.5-5.1) Chloride Level 103mmol/L (98-107) Carbon Dioxide Level 30mmol/L (21-32) Anion Gap 10 (6-14) Blood Urea Nitrogen 22mg/dL (7-20) Creatinine 1.2mg/dL (0.6-1.0) Estimated GFR (Cockcroft-Gault) 53.6 Glucose Level 169mg/dL (70-99) Calcium Level 9.2mg/dL (8.5-10.1) Medications Current Medications Diphtheria/ Tetanus/Acell Pertussis (Boostrix) 0.5 ml ONCE ONCE VAX IM Last administered on 09/04/16 21:26; Start 09/04/16 at 20:30; Stop 09/04/16 at 20:31 ; Status DC Labetalol HCl (Normodyne) 20 mg 1X ONCE IVP Last administered on 09/04/16 21: 27; Start 09/04/16 at 21:00; Stop 09/04/16 at 21:02; Status DC Lidocaine/ Epinephrine (Xylocaine 1%-Epi 1:100,000) 20 ml 1X ONCE IJ ; Start at 21:15; Stop 09/04/16 at 21:16; Status DC Lidocaine/Sodium Bicarbonate (Buffered Lidocaine 1%) 20 ml 1X ONCE IJ Last administered on 09/04/16 21:15; Start 09/04/16 at 21:15; Stop 09/04/16 at 21:16 ; Status DC Labetalol HCl (Normodyne) 20 mg 1X ONCE IVP Last administered on 09/04/16 22: 32; Start 09/04/16 at 22:30; Stop 09/04/16 at 22:31; Status DC Ondansetron HCl (Zofran) 4 mg PRN Q8HRS PRN IV NAUSEA/VOMITING; Start 09/04/16 at 22:30; Stop 09/05/16 at 22:29; Status DC Morphine Sulfate 2 mg PRN Q2HR PRN IV PAIN; Start 09/04/16 at 22:30; Stop 09/05 at 22:29; Status DC Lorazepam (Ativan) 2 mg STK-MED ONCE .ROUTE ; Start 09/05/16 at 01:30; Stop at 01:31; Status DC Lorazepam (Ativan) 0.5 mg 1X ONCE IV Last administered on 09/05/16 01:37; Start 09/05/16 at 01:45; Stop 09/05/16 at 01:46; Status DC Labetalol HCl (Normodyne) 20 mg 1X ONCE IVP Last administered on 09/05/16 02: 15; Start 09/05/16 at 02:15; Stop 09/05/16 at 02:16; Status DC Acetaminophen (Tylenol) 325 mg PRN Q6HRS PRN PO MILD PAIN / TEMP; Start at 11:15 Acetaminophen/ Hydrocodone Bitart (Lortab 5/325) 1 tab PRN Q6HRS PRN PO MODERATE TO SEVERE PAIN Last administered on 09/06/16 20:23; Start 09/05/16 at 11:15 Hydralazine HCl (Apresoline) 10 mg PRN Q4HRS PRN IVP ELEVATED BP, SEE COMMENTS Last administered on 09/05/16 12:59; Start 09/05/16 at 11:15; Stop 09/05/16 at 15:12; Status DC Ondansetron HCl (Zofran) 4 mg PRN Q8HRS PRN IV NAUSEA/VOMITING; Start 09/05/16 at 11:15 Albuterol Sulfate (Ventolin Neb Soln) 2.5 mg PRN Q4HRS PRN NEB SHORTNESS OF BREATH; Start 09/05/16 at 11:15 Metoprolol Tartrate (Lopressor) 25 mg BID PO Last administered on 09/11/16 07: 59; Start 09/05/16 at 12:00 Hydralazine HCl (Apresoline) 10 mg PRN Q3HRS PRN IVP ELEVATED BP, SEE COMMENTS Last administered on 09/10/16 15:13; Start 09/05/16 at 15:15 Insulin Aspart (Novolog) 0-9 UNITS TIDWMEALS SQ Last administered on 09/11/16 12:16; Start 09/05/16 at 17:00 Dextrose 12.5 gm PRN Q15MIN PRN IV SEE COMMENTS; Start 09/05/16 at 15:15 Amlodipine Besylate (Norvasc) 10 mg DAILY PO Last administered on 09/11/16 07: 59; Start 09/06/16 at 09:00 Clonidine HCl (Catapres) 0.2 mg PRN Q4HRS PRN PO HYPERTENSION, BP over 170 syst Last administered on 09/11/16 08:00; Start 09/06/16 at 03:15 Potassium Chloride (Klor-Con) 20 meq 1X ONCE PO Last administered on 12:06; Start 09/06/16 at 12:00; Stop 09/06/16 at 12:01; Status DC Furosemide (Lasix) 40 mg DAILY PO Last administered on 09/08/16 08:44; Start 09/06/16 at 12:00; Stop 09/08/16 at 13:08; Status DC Glyburide (Diabeta) 5 mg BIDWMEALS PO Last administered on 09/11/16 07:58; Start 09/06/16 at 12:30 Insulin Detemir (Levemir) 25 units QHS SQ Last administered on 09/10/16 20:53 ; Start 09/06/16 at 21:00 Potassium Chloride (Klor-Con) 20 meq 1X ONCE PO Last administered on 12:39; Start 09/07/16 at 10:45; Stop 09/07/16 at 10:46; Status DC Furosemide (Lasix) 40 mg 1X ONCE PO Last administered on 09/07/16 16:55; Start 09/07/16 at 15:15; Stop 09/07/16 at 17:10; Status DC Furosemide (Lasix) 40 mg BID94 PO Last administered on 09/11/16 07:58; Start at 16:00 Potassium Chloride (Klor-Con) 20 meq BID PO Last administered on 09/11/16 07:58 ; Start 09/08/16 at 21:00 Insulin Aspart (Novolog) 10 units 1X ONCE SQ Last administered on 09/08/16 22 :15; Start 09/08/16 at 22:15; Stop 09/08/16 at 22:16; Status DC Info (Do NOT chart on this placeholder) 1 each PRN 1X PRN MC SEE COMMENTS; Start 09/09/16 at 13:30; Status UNV Influenza Virus Vaccine Quadrival (Fluarix Quad [id number] Syringe) 0.5 ml ONCE ONCE VAX IM Last administered on 09/09/16 13:56; Start 09/09/16 at 13:30; Stop 09/09/16 at 13:31; Status DC Active Scripts Active Reported Lantus Solostar (Insulin Glargine,Hum.rec.anlog) 100 Unit/1 Ml Insuln.pen 25 Unit SQ QHS Metoprolol Succinate 50 Mg Tab.er.24h 50 Mg PO DAILY Clonidine Hcl 0.2 Mg Tablet 1 Tab PO BID Glyburide 5 Mg Tablet 1 Tab PO BID Lisinopril 40 Mg Tablet 1 Tab PO DAILY Hydrochlorothiazide Tablet (Hydrochlorothiazide) 25 Mg Tablet 1 Tab PO DAILY Dorzolamide-Timolol Eye Drops (Dorzolamide Hcl/Timolol Maleat) 10 Ml Drops 1 Drop EACHEYE BID Latanoprost 2.5 Ml Drops 1 Drop EACHEYE QHS Vitals/I & O Vital Sign - Last 24 Hours 09/10/16 09/10/16 09/10/16 09/10/16 15:13 19:00 20:50 23:00 Temp 98.6 98.4 98.6 98.4 Pulse 108 102 102 96 Resp 18 18 B/P 181/98 167/86 167/86 155/69 Pulse Ox 96 92 O2 Delivery Room Air Room Air 09/11/16 09/11/16 09/11/16 09/11/16 03:00 07:00 07:59 07:59 Temp 98.1 98.2 98.1 98.2 Pulse 96 102 102 102 Resp 18 16 B/P 154/68 193/99 193/99 193/99 Pulse Ox 97 99 O2 Delivery Room Air Room Air 09/11/16 09/11/16 09/11/16 09/11/16 08:00 09:39 10:51 15:00 Temp 98.7 97.8 98.7 97.8 Pulse 102 78 97 Resp 14 16 B/P 193/99 119/61 147/89 Pulse Ox 98 97 97 O2 Delivery Room Air Room Air Room Air Intake and Output 09/10/16 09/10/16 09/11/16 15:00 23:00 07:00 Intake Total 425 ml 1075 ml Balance 425 ml 1075 ml MELISSA DONG III DO Sep 11, 2016 15:22
== END 2016-09-11 18:45 | disposition home or self-care (01) | DRG 564 ==
LOC: ER 20:05 → 4 NORTH 23:35
PROVIDERS: ADMIT Internal Medicine; ATTEND Internal Medicine
PROC: 08QPXZZ Repair Left Upper Eyelid, External Approach (ICD-10-PCS; principal; 2016-09-05)
DX: S02.82XA Fracture of other specified skull and facial bones, left side, initial encounter for closed fracture (principal); N17.0 Acute kidney failure with tubular necrosis; G93.41 Metabolic encephalopathy; I10 Essential (primary) hypertension; E11.65 Type 2 diabetes mellitus with hyperglycemia; E87.6 Hypokalemia; F03.90 Unspecified dementia, unspecified severity, without behavioral disturbance, psychotic disturbance, mood disturbance, and anxiety; J45.909 Unspecified asthma, uncomplicated; W10.8XXA Fall (on) (from) other stairs and steps, initial encounter; S01.112A Laceration without foreign body of left eyelid and periocular area, initial encounter; Z66 Do not resuscitate; Z82.49 Family history of ischemic heart disease and other diseases of the circulatory system; Z83.3 Family history of diabetes mellitus; Y93.89 Activity, other specified; Y92.89 Other specified places as the place of occurrence of the external cause; Y99.8 Other external cause status; Z79.899 Other long term (current) drug therapy; Z79.82 Long term (current) use of aspirin
CPT/HCPCS: 36415; 70450; 70486; 71010; 72125; 73562; 80048; 81001; 82947; 83036; 85007; 85027; 85610; 85730; 86850; 86900; 86901; 90686; 90715; 93005; 93306; 94250; 94760; 96374; 96375; G0480; G0481; J0360; J1815; J2060; J3490; 97116; 97530; 97535; 99285-25

== ENCOUNTER 2016-09-27 10:17 | Inpatient (IN) | payer MEDICARE ==
[~2016-09-27] VITALS: Ht 180.3 cm; Wt 95.4 kg
[2016-09-27] MEDS ORDERED: IV NORMAL SALINE 1000ML BAG 1,000 ML IV SCH (11:45)
--- NOTE | 2016-09-27 11:49 | RAD ---
Portable chest, 09/28/2015: History: Altered mental status Comparison is made to a study from 09/04/2016. The heart is at the upper limits of normal in size. The pulmonary vascularity is normal. No pulmonary infiltrates are seen. There is no evidence of pleural fluid. Moderate hypertrophic spurring is present in the spine. IMPRESSION: No acute cardiopulmonary abnormality is detected.
--- NOTE | 2016-09-27 12:00 | RAD ---
Examination: CT head without contrast History: History of altered mental status Comparison: 09/04/2016 Technique: Axial CT images of the head was performed without contrast. PQRS Compliance Statement: One or more of the following individualized dose reduction techniques were utilized for this examination: 1. Automated exposure control 2. Adjustment of the mA and/or kV according to patient size 3. Use of iterative reconstruction technique Findings: There is no evidence of midline shift. Moderate bilateral periventricular white matter hypodensities likely chronic small vessel ischemic disease. There is no acute intracranial bleed or extra axial fluid collection identified. The visualized lateral ventricles or third ventricle, fourth ventricle are appropriate for age. The visualized paranasal sinuses, mastoid air cells are clear. Impression: No acute intracranial findings.
--- NOTE | 2016-09-27 12:10 | PHYS DOC ---
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 Patient was brought to the emergency department by her . The states that the patient "hasn't been right for the past 2 weeks." The patient states that he had a procedure done 2 weeks ago and states that he noticed that his displayed altered mental status since then. The patient is unable to provide any history at this time but does answer yes and no questions and follows commands. Patient has history of hypertension and diabetes mellitus. The patient's is a poor historian. When asked specifically what has been wrong with the patient, the is unsure but continues to repeat that the patient " just isn't right." Patient denies any pain. Review of Systems Review of Systems Patient denies any complaints, however patient orientation unable to be assessed due to altered mental status Constitutional: Denies fever or chills [] Eyes: Denies change in visual acuity, redness, or eye pain [] HENT: Denies nasal congestion or sore throat [] Respiratory: Denies cough or shortness of breath [] Cardiovascular: No additional information not addressed in HPI [] GI: Denies abdominal pain, nausea, vomiting, bloody stools or diarrhea [] : Denies dysuria or hematuria [] Musculoskeletal: Denies back pain or joint pain [] Integument: Denies rash or skin lesions [] Neurologic: Denies headache, focal weakness or sensory changes [] Endocrine: Denies polyuria or polydipsia [] Current Medications Current Medications Current Medications Medications (Trade) Dose Ordered Sig/Nirali Start Time Stop Time Status Last Admin Dose Admin Sodium Chloride (Iv Sodium Chloride 0.9% 1000ml Bag) 1,000 ml @ 100 mls/hr Q10H 09/27/16 11:45 09/27/16 21:44 09/27/16 12:03 100 MLS/HR Allergies Allergies Allergies Coded Allergies Type Severity Reaction Last Updated Verified No Known Drug Allergies 01/30/15 No Physical Exam Physical Exam Constitutional: Alert, afebrile, follows commands. [] HENT: Normocephalic, atraumatic, bilateral external ears normal, oropharynx moist, no oral exudates, nose normal. [] Eyes: PERRLA, EOMI, conjunctiva normal, no discharge. [] Neck: Normal range of motion, no tenderness, supple, no stridor. [] Cardiovascular:Heart rate regular rhythm, no murmur [] Lungs & Thorax: Bilateral breath sounds clear to auscultation [] Abdomen: Bowel sounds normal, soft, no tenderness, no masses, no pulsatile masses. [] Skin: Warm, dry, no erythema, no rash. [] Back: No tenderness, no CVA tenderness. [] Extremities: No tenderness, no cyanosis, no clubbing, ROM intact, no edema. [] Neurologic: Alert, oriented to self only, cranial nerves II through XII grossly intact, car whacker strength 4 out of 5 in right upper extremity, positive drift in right upper and lower extremity. [] Current Patient Data Vital Signs Vital Signs Date Time Temp Pulse Resp B/P Pulse Ox O2 Delivery O2 Flow Rate FiO2 09/27/16 13:30 74 16 185/84 95 Room Air 09/27/16 11:24 98.8 98.8 Lab Values Laboratory Tests Test 09/27/16 11:07 09/27/16 12:20 09/27/16 13:03 Glucose (Fingerstick) 206mg/dL (70-99) H White Blood Count 4.3x10^3/uL (4.0-11.0) Red Blood Count 4.75x10^6/uL (3.50-5.40) Hemoglobin 11.6g/dL (12.0-15.5) L Hematocrit 35.2% (36.0-47.0) L Mean Corpuscular Volume 74fL (79-100) L Mean Corpuscular Hemoglobin 24pg (25-35) L Mean Corpuscular Hemoglobin Concent 33g/dL (31-37) Red Cell Distribution Width 16.0% (11.5-14.5) H Platelet Count 241x10^3/uL (140-400) Neutrophils (%) (Auto) 52% (31-73) Lymphocytes (%) (Auto) 36% (24-48) Monocytes (%) (Auto) 10% (0-9) H Eosinophils (%) (Auto) 1% (0-3) Basophils (%) (Auto) 1% (0-3) Neutrophils # (Auto) 2.2x10^3uL (1.8-7.7) Lymphocytes # (Auto) 1.5x10^3/uL (1.0-4.8) Monocytes # (Auto) 0.4x10^3/uL (0.0-1.1) Eosinophils # (Auto) 0.1x10^3/uL (0.0-0.7) Basophils # (Auto) 0.0x10^3/uL (0.0-0.2) Prothrombin Time 13.1SEC (11.7-14.0) Prothrombin Time INR 1.1 (0.8-1.1) PTT 27SEC (24-38) Sodium Level 141mmol/L (136-145) Potassium Level 3.6mmol/L (3.5-5.1) Chloride Level 104mmol/L (98-107) Carbon Dioxide Level 26mmol/L (21-32) Anion Gap 11 (6-14) Blood Urea Nitrogen 17mg/dL (7-20) Creatinine 1.0mg/dL (0.6-1.0) Estimated GFR (Cockcroft-Gault) 66.1 BUN/Creatinine Ratio 17 (6-20) Glucose Level 201mg/dL (70-99) H Calcium Level 9.0mg/dL (8.5-10.1) Magnesium Level 1.5mg/dL (1.8-2.4) L Total Bilirubin 0.4mg/dL (0.2-1.0) Aspartate Amino Transferase (AST) 12U/L (15-37) L Alanine Aminotransferase (ALT) 18U/L (14-59) Alkaline Phosphatase 86U/L (46-116) Ammonia 19mcmol/L (11-34) Total Protein 6.5g/dL (6.4-8.2) Albumin 3.1g/dL (3.4-5.0) L Albumin/Globulin Ratio 0.9 (1.0-1.7) L Thyroid Stimulating Hormone (TSH) 0.549uIU/mL (0.358-3.74) Urine Collection Type U cath Urine Color Yellow Urine Clarity Clear Urine pH 5.0 Urine Specific [place] 1.020 Urine Protein 30mg/dL (NEG-TRACE) Urine Glucose (UA) 250mg/dL (NEG) Urine Ketones (Stick) Tracemg/dL (NEG) Urine Blood Negative (NEG) Urine Nitrite Negative (NEG) Urine Bilirubin Negative (NEG) Urine Urobilinogen Dipstick 0.2mg/dL (0.2 mg/dL) Urine Leukocyte Esterase Trace (NEG) Urine RBC 0/HPF (0-2) Urine WBC Rare/HPF (0-4) Urine Squamous Epithelial Cells Few/LPF Urine Transitional Epithelial Cells Occ/LPF Urine Bacteria Few/HPF (0-FEW) Urine Mucus Mod/LPF Urine Opiates Screen Neg (NEG) Urine Methadone Screen Neg (NEG) Urine Barbiturates Neg (NEG) Urine Phencyclidine Screen Neg (NEG) Urine Amphetamine/Methamphetamine Neg (NEG) Urine Benzodiazepines Screen Neg (NEG) Urine Cocaine Screen Neg (NEG) Urine Cannabinoids Screen Neg (NEG) Urine Ethyl Alcohol Neg (NEG) Laboratory Tests 09/27/16 12:20 Laboratory Tests 09/27/16 12:20 EKG EKG Interpreted by me: Heart rate 79, sinus rhythm, left axis deviation, left bundle branch block, no acute ST/T-wave abnormalities present [] Radiology/Procedures Radiology/Procedures [address] [address] IMAGING REPORT Signed PATIENT: RADHA WIGGINS ACCOUNT: [id number] : 1945 LOCATION: ER AGE: 70 SEX: F EXAM STATUS: REG ER ORD. PHYSICIAN: PINA PABLO MD REASON: altered mental status, rule out acute cardiopulmonary abnormality PROCEDURE: PORTABLE CHEST 1V Portable chest, 09/28/2015: History: Altered mental status Comparison is made to a study from 09/04/2016. The heart is at the upper limits of normal in size. The pulmonary vascularity is normal. No pulmonary infiltrates are seen. There is no evidence of pleural fluid. Moderate hypertrophic spurring is present in the spine. IMPRESSION: No acute cardiopulmonary abnormality is detected. DICTATED and SIGNED BY: JESSICA ALANIZ MD DATE: 09/27/16 1148 CC: PINA PABLO MD; CATRACHITO BOWERS MD ~ [id number] [place] [address] IMAGING REPORT Signed PATIENT: RADHA WIGGINS ACCOUNT: [id number] : 1945 LOCATION: ER AGE: 70 SEX: F EXAM STATUS: REG ER ORD. PHYSICIAN: PINA PABLO MD REASON: altered mental status for 2 weeks PROCEDURE: HEAD WO CONTRAST Examination: CT head without contrast History: History of altered mental status Comparison: 09/04/2016 Technique: Axial CT images of the head was performed without contrast. [facility] Compliance Statement: One or more of the following individualized dose reduction techniques were utilized for this examination: 1. Automated exposure control 2. Adjustment of the mA and/or kV according to patient size 3. Use of iterative reconstruction technique Findings: There is no evidence of midline shift. Moderate bilateral periventricular white matter hypodensities likely chronic small vessel ischemic disease. There is no acute intracranial bleed or extra axial fluid collection identified. The visualized lateral ventricles or third ventricle, fourth ventricle are appropriate for age. The visualized paranasal sinuses, mastoid air cells are clear. Impression: No acute intracranial findings. DICTATED and SIGNED BY: SABINO CHAVIRA MD DATE: 09/27/16 8931 CC: PINA PABLO MD; CATRACHITO BOWERS MD ~ [] Course & Med Decision Making Course & Med Decision Making Pertinent Labs and Imaging studies reviewed. (See chart for details) Patient's CT head was negative and patient's metabolic panel did not show an obvious cause for the patient's change in mental status. Due to the patient's right-sided weakness, I am concerned whether the patient may have suffered a stroke, however the time of onset of symptoms is not defined at this time. The patient thus is not a candidate at this time for TPA. I spoke with Dr. Olmos of neurology who agreed with assessment. He will follow patient in hospital. Patient admitted to Dr. Swann. Jeremy Disclaimer Jeremy Disclaimer This electronic medical record was generated, in whole or in part, using a voice recognition dictation system. Departure Departure Impression: Primary Impression: Acute encephalopathy Additional Impressions: Right-sided muscle weakness Type 2 diabetes mellitus Disposition: ADMITTED INPATIENT Admitting Physician: Other Condition: STABLE (ERASED) Referrals: CATRACHITO BOWERS MD (PCP) Problem Qualifiers Additional Impressions: Type 2 diabetes mellitus Diabetes mellitus complication status: with hyperglycemia Diabetes mellitus alf insulin use: unspecified bezel cutter insulin use status Qualified Code : E11.65 - Type 2 diabetes mellitus with hyperglycemia PINA PABLO MD Sep 27, 2016 12:10
[2016-09-27 12:31] LABS: BASO % 1 % (0-3); EOS % 1 % (0-3); HEMATOCRIT 35.2 % (36.0-47.0); HEMOGLOBIN 11.6 g/dL (12.0-15.5); LYMPH # 1.5 x10^3/uL (1.0-4.8); LYMPH % 36 % (24-48); MEAN CORPUSCULAR HEMOGLOBIN 24 pg (25-35); MEAN CORPUSCULAR HGB CONC 33 g/dL (31-37); MEAN CORPUSCULAR VOLUME 74 fL (79-100); MONO % 10 % (0-9); NEUT % 52 % (31-73); PLATELET COUNT 241 x10^3/uL (140-400); RED BLOOD COUNT 4.75 x10^6/uL (3.50-5.40); WHITE BLOOD COUNT 4.3 x10^3/uL (4.0-11.0)
[2016-09-27 12:53] LABS: GFR 66.1; POTASSIUM 3.6 mmol/L (3.5-5.1)
--- NOTE | 2016-09-27 12:54 | EKG ---
[facility] [address] [place] [address] Test Date: 2016-09-27 Test Time: 10:58:52 Pat Name: RADHA WIGGINS Department: Room: Gender: F Land Leveler: [id number] : 1945 Requested By: PINA PABLO Order Number: [id number] Reading MD: Jeniffer Johns Measurements Intervals [place] Rate: 79 P: 58 IA: 168 QRS: -51 QRSD: 112 T: 72 QT: 400 QTc: 460 Interpretive Statements SINUS RHYTHM ABNORMAL LEFT AXIS DEVIATION QRS(T) CONTOUR ABNORMALITY CONSISTENT WITH ANTEROSEPTAL INFARCT PROBABLY OLD T ABNORMALITY IN HIGH LATERAL LEADS ABNORMAL ECG RI6.01 Electronically Signed On 09-28-2016 20:19:13 CDT by Jeniffer Johns
[2016-09-27 12:55] LABS: INR 1.1 (0.8-1.1); PROTHROMBIN TIME PATIENT 13.1 SEC (11.7-14.0)
[2016-09-27 12:58] LABS: ALBUMIN 3.1 g/dL (3.4-5.0); ALBUMIN/GLOBULIN RATIO 0.9 (1.0-1.7); MAGNESIUM 1.5 mg/dL (1.8-2.4); TOTAL BILIRUBIN 0.4 mg/dL (0.2-1.0); TOTAL PROTEIN 6.5 g/dL (6.4-8.2)
[2016-09-27 13:28] LABS: BARBITURATES NEG (NEG); BENZODIAZEPINES NEG (NEG); CANNABINOIDS NEG (NEG); COCAINE NEG (NEG); METHADONE NEG (NEG); OPIATES NEG (NEG); PHENCYCLIDINE NEG (NEG)
[2016-09-27 13:29] LABS: ETHANOL, URINE NEG (NEG)
[2016-09-27 13:44] LABS: BILIRUBIN,URINE NEGATIVE (NEG); GLUCOSE,URINE 250 mg/dL (NEG); NITRITE,URINE NEGATIVE (NEG); PROTEIN,URINE 30 mg/dL (NEG-TRACE); UROBILINOGEN,URINE 0.2 mg/dL (0.2 mg/dL)
[2016-09-27 14:00] VITALS: BP 175/86
[2016-09-27 14:08] LABS: BACTERIA,URINE FEW /HPF (0-FEW); RBC,URINE 0 /HPF (0-2); SQUAMOUS EPITHELIAL CELL,UR FEW /LPF; WBC,URINE RARE /HPF (0-4)
[2016-09-27] MEDS ORDERED: ONDANSETRON PF 4 MG/2 ML VIAL. IV PRN (14:45)
[2016-09-27] MEDS ORDERED: ACETAMINOPHEN 325 MG TABLET. PO PRN (14:45)
--- NOTE | 2016-09-27 16:40 | ACF ---
Admission Forms Criteria MENTAL STATUS CHANGE Clinical Indications for Inpatient Care (Place 'X' for any and all applicable criteria): Ongoing inpatient care may be needed for ANY ONE of the following(1)(2)(3)(5)(6) : [X]I. Suspected serious etiology (eg, medical disorder, [employer] event) of mental status change [ ]II. Danger to self or others not manageable at lower level of care [ ]III. Grave disability (eg, inability to perform self care necessary at lower level of care) [ ]IV. Agitation or inappropriate behavior interfering with care for primary condition (eg, attempting to discontinue lines or drains prematurely, unable to cooperate with respiratory care) [ ]V. Delirium [A] [D][E] as described by ANY ONE of the following(26): [ ]a) Delirium due to alcohol or sedative [F] withdrawal [ ]b) Delirium of uncertain etiology that has not responded to appropriate empiric treatment [ ]c) Delirium that prevents performance of a life-sustaining function (eg, feeding or hydrating oneself) [ ]. General contraindications and/or Inappropriate clinical situations for Observational Care in patients with Mental Status Change, when ANY ONE of the following is required: [ ]a) Prediction of prolongation of LOS based on ANY ONE of the following may be considered as a contraindication for observational care 2, 3, 4, 5, 6, 7, 8, 9, 10, 11 [ ]i) Age > 65 yrs. [ ]ii) Patient arriving by ambulance [ ]iii) Patient with high acuity [ ]iv) Patient requiring vital sign monitoring [ ]v) Patient on IV medication [ ]b) Systolic blood pressures 180mmHg 3,12 [ ]c) Patient with altered mental status including delirium and other alteration of consciousness, (3) [ ]d) Patient whose discharge disposition will be to a alf home or rehabilitation home should not be managed in Emergency Department Observation Unit. CMS rule requires 3 days hospital stay before such placement.3,13 [ ]e) Patient with failure to thrive due to broad array of etiologies 3,16,17 [ ]f) Inability to ambulate 3,14 Extended stay beyond goal length of stay for the primary condition may be needed until ALL of the following are present(3)(5): [ ]a) Underlying medical etiology of mental status change is absent, or has been established and adequately treated [ ]b) Danger to self or others is absent or manageable at lower level of care. [ ]c) Behavior crisis management, including physical or chemical restraints, is not required or available at lower level of car [ ]d) Substance or alcohol withdrawal is absent or manageable at lower level of care. [ ]e) Behavioral symptoms (eg, agitation, somnolence, inappropriate behavior) are absent, or are manageable at lower level of care. The original [facility] content created by [facility] has been revised. The portions of the content which have been revised are identified through the use of italic text or in bold, and [facility] has neither reviewed nor approved the modified material. All other unmodified content is copyright [facility]. Please see references footnoted in the original [facility] edition 2016 Admission Criteria Met?: Yes REBECCA HERNANDEZ Sep 27, 2016 16:40
--- NOTE | 2016-09-27 16:58 | RAD ---
PROCEDURE MRI brain without contrast. HISTORY Altered mental status, confusion, right-sided weakness, unknown onset TECHNIQUE Multiplanar, multi sequential non contrast MR imaging was performed of the brain. COMPARISON There is no previous similar exam available. Correlation is made with CT head exams September 27, 2016 and 09/04/2016. FINDINGS There is mild, subtle, mostly linear appearing diffusion-weighted signal abnormality at the periphery of area of T1 shortening centered in the left basal ganglia. However centrally this is hypointense on the diffusion sequence. There is some associated mild decreased signal on gradient echo sequence although no significant blooming. Largest area of T1 shortening measures approximately 3.1 cm AP x 1.2 cm transverse by 2.4 cm cc. There is some associated mild T2 and FLAIR hyperintense signal abnormality at the periphery without significant mass effect. There is other mild T2 and FLAIR hyperintense signal abnormality of the supratentorial periventricular white matter bilaterally, also involvement of the bilateral basal ganglia. There is mild to moderate T2 and FLAIR hyperintense signal abnormality of the leif. Ventricular size is within normal limits. There is no midline shift or extra-axial fluid collection. There is preservation of the major arterial intracranial flow voids at the skull base although left vertebral artery may terminate in PICA, small caliber of the basilar artery. Mastoid air cells are aerated. There is patchy minimal ethmoid air cell mucosal thickening. There has been lens surgery on the left. Cerebellar tonsils are normal in location. There is preservation of marrow signal of the clivus. Pituitary gland is small. IMPRESSION 1. There is signal abnormality of the left basal ganglia, overall signal features suggestive of sequela of late subacute infarct and mild late subacute, petechial hemorrhage. There is very mild signal abnormality at the periphery, could be due superimposed mild more recent, subacute ischemia. No contrast was given for this exam to evaluate for abnormal intracranial enhancement which may be beneficial. Other scattered T2 and FLAIR hyperintense signal abnormality of the supratentorial white matter and leif is nonspecific, most commonly due to chronic microvascular ischemic disease in patient this age. Electronically signed by: Ismael Price MD (Sep 27, 2016 16:56:04)
[2016-09-27] MEDS ORDERED: hydrALAZINE 20 MG/ML VIAL. IVP ONE (18:30)
[2016-09-27] MEDS ORDERED: DEXTROSE 50% 25 GM / 50ML DISP.SYRIN. IV PRN (18:45)
[2016-09-27] MEDS ORDERED: METOPROLOL TART IMMED RELEASE 50 MG TABLET PO ONE (18:45)
[2016-09-27] MEDS ORDERED: METF10002 PO (19:47)
[2016-09-27 20:00] VITALS: BP 177/88
[2016-09-27] MEDS: INSULIN DETEMIR 300 UNITS/3 ML INSULN.PEN. SQ SCH (21:16)
[2016-09-27 23:30] VITALS: BP 158/73
[2016-09-28] VITALS (27 sets, daily range): BP systolic 140–221; BP diastolic 62–98
[2016-09-28 04:44] LABS: BASO % 1 % (0-3); EOS % 1 % (0-3); HEMATOCRIT 37.1 % (36.0-47.0); HEMOGLOBIN 12.4 g/dL (12.0-15.5); LYMPH # 1.8 x10^3/uL (1.0-4.8); LYMPH % 40 % (24-48); MEAN CORPUSCULAR HEMOGLOBIN 25 pg (25-35); MEAN CORPUSCULAR HGB CONC 34 g/dL (31-37); MEAN CORPUSCULAR VOLUME 74 fL (79-100); MONO % 10 % (0-9); NEUT % 47 % (31-73); PLATELET COUNT 252 x10^3/uL (140-400); RED BLOOD COUNT 5.05 x10^6/uL (3.50-5.40); RED CELL DISTRIBUTION WIDTH 16.5 % (11.5-14.5); WHITE BLOOD COUNT 4.5 x10^3/uL (4.0-11.0)
[2016-09-28 04:57] LABS: CALCIUM 8.8 mg/dL (8.5-10.1); CREATININE 0.8 mg/dL (0.6-1.0); GFR 85.6; POTASSIUM 3.1 mmol/L (3.5-5.1)
[2016-09-28 05:19] LABS: CHOLESTEROL/HDL RATIO 3.2
[2016-09-28] MEDS: INSULIN ASPART 300 UNITS/3 ML INSULN.PEN SQ SCH ×3 (08:00→18:50)
[2016-09-28] MEDS: ASPIRIN ENTERIC COATED 325 MG TABLET.DR. PO SCH (08:08)
[2016-09-28] MEDS: LISINOPRIL 20 MG TABLET PO SCH (08:09)
[2016-09-28] MEDS ORDERED: METOPROLOL SUCC 24HR ER 50 MG TAB.ER.24H. PO SCH (09:00)
--- NOTE | 2016-09-28 10:01 | PDOC1 ---
History and Physical Past Medical History Cardiovascular: HTN Pulmonary: Asthma Endocrine: Diabetes Past Surgical History Past Surgical History: Hysterectomy, Other Family History Family History: Diabetes Social History ALCOHOL: none Drugs: None Current Problem List Problem List Problems Medical Problems: (1) Acute encephalopathy Status: Acute (2) Right-sided muscle weakness Status: Acute (3) Type 2 diabetes mellitus Status: Acute Current Medications Current Medications Current Medications Medications (Trade) Dose Ordered Sig/Nirali Start Time Stop Time Status Last Admin Dose Admin Acetaminophen (Tylenol) 650 mg PRN Q4HRS PRN 09/27/16 14:45 09/28/16 14:44 Aspirin (Ecotrin) 325 mg [id number] 09/28/16 08:00 09/28/16 08:08 325 MG Dextrose 12.5 gm PRN Q15MIN PRN 09/27/16 18:45 Hydralazine HCl (Apresoline) 10 mg PRN Q4HRS PRN 09/27/16 20:45 Insulin Aspart (Novolog) 0-9 UNITS TIDWMEALS 09/28/16 08:00 Insulin Detemir (Levemir) 20 units QHS 09/27/16 21:00 09/27/16 21:16 20 UNITS Lisinopril (Prinivil) 20 mg DAILY 09/28/16 09:00 09/28/16 08:09 20 MG Metoprolol Succinate (Toprol Xl) 50 mg DAILY 09/28/16 09:00 09/28/16 08:10 50 MG Metoprolol Tartrate (Lopressor) 50 mg 1X ONCE 09/27/16 18:45 09/27/16 18:46 DC 09/27/16 20:55 50 MG Ondansetron HCl (Zofran) 4 mg PRN Q8HRS PRN 09/27/16 14:45 09/28/16 14:44 Sodium Chloride (Iv Sodium Chloride 0.9% 1000ml Bag) 1,000 ml @ 100 mls/hr Q10H 09/27/16 11:45 09/27/16 21:44 DC 09/27/16 12:03 100 MLS/HR Allergies Allergies Allergies Coded Allergies Type Severity Reaction Last Updated Verified No Known Drug Allergies 01/30/15 No ROS Review of System CONSTITUTIONAL: No fever or chills EYES: No recent changes SKIN: No rash or itching CARDIOVASCULAR: No chest pain, syncope, palpitations, or edema RESPIRATORY: No SOB or cough GASTROINTESTINAL: No nausea, vomiting or abdominal pain NEUROLOGICAL: slow to response ENDOCRINE: No cold or heat intolerance GENITOURINARY: No urgency or frequency of urination MUSCULOSKELETAL: No back pain or joint pain LYMPHATICS: No enlarged lymph nodes PSYCHIATRIC: No anxiety or depression Physical Exam Physical Exam GEN.: No apparent distress. Alert and oriented. slow to verbal response HEENT: Head is normocephalic, atraumatic NECK: Supple. no JVD LUNGS: Clear to auscultation. normal airflow. HEART: RRR, S1, S2 present. Peripheral pulses intact ABDOMEN: Soft, nontender. Positive bowel sounds. EXTREMITIES: Without any cyanosis. NEUROLOGIC: Normal speech, normal tone, decreased cognition PSYCHIATRIC: slow SKIN: No ulcerations Vitals Vitals Vital Signs Date Time Temp Pulse Resp B/P Pulse Ox O2 Delivery O2 Flow Rate FiO2 09/28/16 08:10 88 193/88 09/28/16 08:00 99.0 12 97 Room Air 99.0 Labs Labs Laboratory Tests Test 09/27/16 11:07 09/27/16 12:20 09/27/16 13:03 09/27/16 17:23 Glucose (Fingerstick) 206mg/dL (70-99) 158mg/dL (70-99) White Blood Count 4.3x10^3/uL (4.0-11.0) Red Blood Count 4.75x10^6/uL (3.50-5.40) Hemoglobin 11.6g/dL (12.0-15.5) Hematocrit 35.2% (36.0-47.0) Mean Corpuscular Volume 74fL (79-100) Mean Corpuscular Hemoglobin 24pg (25-35) Mean Corpuscular Hemoglobin Concent 33g/dL (31-37) Red Cell Distribution Width 16.0% (11.5-14.5) Platelet Count 241x10^3/uL (140-400) Neutrophils (%) (Auto) 52% (31-73) Lymphocytes (%) (Auto) 36% (24-48) Monocytes (%) (Auto) 10% (0-9) Eosinophils (%) (Auto) 1% (0-3) Basophils (%) (Auto) 1% (0-3) Neutrophils # (Auto) 2.2x10^3uL (1.8-7.7) Lymphocytes # (Auto) 1.5x10^3/uL (1.0-4.8) Monocytes # (Auto) 0.4x10^3/uL (0.0-1.1) Eosinophils # (Auto) 0.1x10^3/uL (0.0-0.7) Basophils # (Auto) 0.0x10^3/uL (0.0-0.2) Prothrombin Time 13.1SEC (11.7-14.0) Prothromb Time International Ratio 1.1 (0.8-1.1) Activated Partial Thromboplast Time 27SEC (24-38) Sodium Level 141mmol/L (136-145) Potassium Level 3.6mmol/L (3.5-5.1) Chloride Level 104mmol/L (98-107) Carbon Dioxide Level 26mmol/L (21-32) Anion Gap 11 (6-14) Blood Urea Nitrogen 17mg/dL (7-20) Creatinine 1.0mg/dL (0.6-1.0) Estimated GFR (Cockcroft-Gault) 66.1 BUN/Creatinine Ratio 17 (6-20) Glucose Level 201mg/dL (70-99) Calcium Level 9.0mg/dL (8.5-10.1) Magnesium Level 1.5mg/dL (1.8-2.4) Total Bilirubin 0.4mg/dL (0.2-1.0) Aspartate Amino Transf (AST/SGOT) 12U/L (15-37) Alanine Aminotransferase (ALT/SGPT) 18U/L (14-59) Alkaline Phosphatase 86U/L (46-116) Ammonia 19mcmol/L (11-34) Total Protein 6.5g/dL (6.4-8.2) Albumin 3.1g/dL (3.4-5.0) Albumin/Globulin Ratio 0.9 (1.0-1.7) Thyroid Stimulating Hormone (TSH) 0.549uIU/mL (0.358-3.74) Urine Collection Type U cath Urine Color Yellow Urine Clarity Clear Urine pH 5.0 Urine Specific [place] 1.020 Urine Protein 30mg/dL (NEG-TRACE) Urine Glucose (UA) 250mg/dL (NEG) Urine Ketones (Stick) Tracemg/dL (NEG) Urine Blood Negative (NEG) Urine Nitrite Negative (NEG) Urine Bilirubin Negative (NEG) Urine Urobilinogen Dipstick 0.2mg/dL (0.2 mg/dL) Urine Leukocyte Esterase Trace (NEG) Urine RBC 0/HPF (0-2) Urine WBC Rare/HPF (0-4) Urine Squamous Epithelial Cells Few/LPF Urine Transitional Epithelial Cells Occ/LPF Urine Bacteria Few/HPF (0-FEW) Urine Mucus Mod/LPF Urine Opiates Screen Neg (NEG) Urine Methadone Screen Neg (NEG) Urine Barbiturates Neg (NEG) Urine Phencyclidine Screen Neg (NEG) Urine Amphetamine/Methamphetamine Neg (NEG) Urine Benzodiazepines Screen Neg (NEG) Urine Cocaine Screen Neg (NEG) Urine Cannabinoids Screen Neg (NEG) Urine Ethyl Alcohol Neg (NEG) Test 09/27/16 20:39 09/28/16 03:15 09/28/16 08:09 Glucose (Fingerstick) 185mg/dL (70-99) 142mg/dL (70-99) White Blood Count 4.5x10^3/uL (4.0-11.0) Red Blood Count 5.05x10^6/uL (3.50-5.40) Hemoglobin 12.4g/dL (12.0-15.5) Hematocrit 37.1% (36.0-47.0) Mean Corpuscular Volume 74fL (79-100) Mean Corpuscular Hemoglobin 25pg (25-35) Mean Corpuscular Hemoglobin Concent 34g/dL (31-37) Red Cell Distribution Width 16.5% (11.5-14.5) Platelet Count 252x10^3/uL (140-400) Neutrophils (%) (Auto) 47% (31-73) Lymphocytes (%) (Auto) 40% (24-48) Monocytes (%) (Auto) 10% (0-9) Eosinophils (%) (Auto) 1% (0-3) Basophils (%) (Auto) 1% (0-3) Neutrophils # (Auto) 2.1x10^3uL (1.8-7.7) Lymphocytes # (Auto) 1.8x10^3/uL (1.0-4.8) Monocytes # (Auto) 0.5x10^3/uL (0.0-1.1) Eosinophils # (Auto) 0.1x10^3/uL (0.0-0.7) Basophils # (Auto) 0.0x10^3/uL (0.0-0.2) Sodium Level 141mmol/L (136-145) Potassium Level 3.1mmol/L (3.5-5.1) Chloride Level 104mmol/L (98-107) Carbon Dioxide Level 26mmol/L (21-32) Anion Gap 11 (6-14) Blood Urea Nitrogen 10mg/dL (7-20) Creatinine 0.8mg/dL (0.6-1.0) Estimated GFR (Cockcroft-Gault) 85.6 Glucose Level 158mg/dL (70-99) Calcium Level 8.8mg/dL (8.5-10.1) Triglycerides Level 129mg/dL (0-150) Cholesterol Level 222mg/dL (0-200) LDL Cholesterol, Calculated 127mg/dL (0-100) VLDL Cholesterol, Calculated 26mg/dL (0-40) HDL Cholesterol 69mg/dL (40-60) Cholesterol/HDL Ratio 3.2 Laboratory Tests Test 09/27/16 11:07 09/27/16 12:20 09/27/16 13:03 09/27/16 17:23 Glucose (Fingerstick) 206mg/dL (70-99) 158mg/dL (70-99) White Blood Count 4.3x10^3/uL (4.0-11.0) Red Blood Count 4.75x10^6/uL (3.50-5.40) Hemoglobin 11.6g/dL (12.0-15.5) Hematocrit 35.2% (36.0-47.0) Mean Corpuscular Volume 74fL (79-100) Mean Corpuscular Hemoglobin 24pg (25-35) Mean Corpuscular Hemoglobin Concent 33g/dL (31-37) Red Cell Distribution Width 16.0% (11.5-14.5) Platelet Count 241x10^3/uL (140-400) Neutrophils (%) (Auto) 52% (31-73) Lymphocytes (%) (Auto) 36% (24-48) Monocytes (%) (Auto) 10% (0-9) Eosinophils (%) (Auto) 1% (0-3) Basophils (%) (Auto) 1% (0-3) Neutrophils # (Auto) 2.2x10^3uL (1.8-7.7) Lymphocytes # (Auto) 1.5x10^3/uL (1.0-4.8) Monocytes # (Auto) 0.4x10^3/uL (0.0-1.1) Eosinophils # (Auto) 0.1x10^3/uL (0.0-0.7) Basophils # (Auto) 0.0x10^3/uL (0.0-0.2) Prothrombin Time 13.1SEC (11.7-14.0) Prothromb Time International Ratio 1.1 (0.8-1.1) Activated Partial Thromboplast Time 27SEC (24-38) Sodium Level 141mmol/L (136-145) Potassium Level 3.6mmol/L (3.5-5.1) Chloride Level 104mmol/L (98-107) Carbon Dioxide Level 26mmol/L (21-32) Anion Gap 11 (6-14) Blood Urea Nitrogen 17mg/dL (7-20) Creatinine 1.0mg/dL (0.6-1.0) Estimated GFR (Cockcroft-Gault) 66.1 BUN/Creatinine Ratio 17 (6-20) Glucose Level 201mg/dL (70-99) Calcium Level 9.0mg/dL (8.5-10.1) Magnesium Level 1.5mg/dL (1.8-2.4) Total Bilirubin 0.4mg/dL (0.2-1.0) Aspartate Amino Transf (AST/SGOT) 12U/L (15-37) Alanine Aminotransferase (ALT/SGPT) 18U/L (14-59) Alkaline Phosphatase 86U/L (46-116) Ammonia 19mcmol/L (11-34) Total Protein 6.5g/dL (6.4-8.2) Albumin 3.1g/dL (3.4-5.0) Albumin/Globulin Ratio 0.9 (1.0-1.7) Thyroid Stimulating Hormone (TSH) 0.549uIU/mL (0.358-3.74) Urine Collection Type U cath Urine Color Yellow Urine Clarity Clear Urine pH 5.0 Urine Specific [place] 1.020 Urine Protein 30mg/dL (NEG-TRACE) Urine Glucose (UA) 250mg/dL (NEG) Urine Ketones (Stick) Tracemg/dL (NEG) Urine Blood Negative (NEG) Urine Nitrite Negative (NEG) Urine Bilirubin Negative (NEG) Urine Urobilinogen Dipstick 0.2mg/dL (0.2 mg/dL) Urine Leukocyte Esterase Trace (NEG) Urine RBC 0/HPF (0-2) Urine WBC Rare/HPF (0-4) Urine Squamous Epithelial Cells Few/LPF Urine Transitional Epithelial Cells Occ/LPF Urine Bacteria Few/HPF (0-FEW) Urine Mucus Mod/LPF Urine Opiates Screen Neg (NEG) Urine Methadone Screen Neg (NEG) Urine Barbiturates Neg (NEG) Urine Phencyclidine Screen Neg (NEG) Urine Amphetamine/Methamphetamine Neg (NEG) Urine Benzodiazepines Screen Neg (NEG) Urine Cocaine Screen Neg (NEG) Urine Cannabinoids Screen Neg (NEG) Urine Ethyl Alcohol Neg (NEG) Test 09/27/16 20:39 09/28/16 03:15 09/28/16 08:09 Glucose (Fingerstick) 185mg/dL (70-99) 142mg/dL (70-99) White Blood Count 4.5x10^3/uL (4.0-11.0) Red Blood Count 5.05x10^6/uL (3.50-5.40) Hemoglobin 12.4g/dL (12.0-15.5) Hematocrit 37.1% (36.0-47.0) Mean Corpuscular Volume 74fL (79-100) Mean Corpuscular Hemoglobin 25pg (25-35) Mean Corpuscular Hemoglobin Concent 34g/dL (31-37) Red Cell Distribution Width 16.5% (11.5-14.5) Platelet Count 252x10^3/uL (140-400) Neutrophils (%) (Auto) 47% (31-73) Lymphocytes (%) (Auto) 40% (24-48) Monocytes (%) (Auto) 10% (0-9) Eosinophils (%) (Auto) 1% (0-3) Basophils (%) (Auto) 1% (0-3) Neutrophils # (Auto) 2.1x10^3uL (1.8-7.7) Lymphocytes # (Auto) 1.8x10^3/uL (1.0-4.8) Monocytes # (Auto) 0.5x10^3/uL (0.0-1.1) Eosinophils # (Auto) 0.1x10^3/uL (0.0-0.7) Basophils # (Auto) 0.0x10^3/uL (0.0-0.2) Sodium Level 141mmol/L (136-145) Potassium Level 3.1mmol/L (3.5-5.1) Chloride Level 104mmol/L (98-107) Carbon Dioxide Level 26mmol/L (21-32) Anion Gap 11 (6-14) Blood Urea Nitrogen 10mg/dL (7-20) Creatinine 0.8mg/dL (0.6-1.0) Estimated GFR (Cockcroft-Gault) 85.6 Glucose Level 158mg/dL (70-99) Calcium Level 8.8mg/dL (8.5-10.1) Triglycerides Level 129mg/dL (0-150) Cholesterol Level 222mg/dL (0-200) LDL Cholesterol, Calculated 127mg/dL (0-100) VLDL Cholesterol, Calculated 26mg/dL (0-40) HDL Cholesterol 69mg/dL (40-60) Cholesterol/HDL Ratio 3.2 VTE Prophylaxis Ordered VTE Prophylaxis Devices: No VTE Pharmacological Prophylaxi: No ISAAC MALDONADO MD Sep 28, 2016 10:01
[2016-09-28] MEDS: hydrALAZINE 20 MG/ML VIAL. IVP PRN (10:36)
[2016-09-28] MEDS ORDERED: hydrALAZINE 20 MG/ML VIAL. IVP ONE (10:45)
--- NOTE | 2016-09-28 10:46 | PDOC2 ---
NEUROLOGY CONSULT Date of Admission Date of Admission Full Report Dictated DATE: 09/28/16 TIME: 10:44 Current Medications Current Medications Current Medications Sodium Chloride (Iv Sodium Chloride 0.9% 1000ml Bag) 1,000 ml @ 100 mls/hr Q10H IV Last administered on 09/27/16 12:03; Start 09/27/16 at 11:45; Stop at 21:44; Status DC Ondansetron HCl (Zofran) 4 mg PRN Q8HRS PRN IV NAUSEA/VOMITING; Start 09/27/16 at 14:45; Stop 09/28/16 at 14:44 Acetaminophen (Tylenol) 650 mg PRN Q4HRS PRN PO FEVER; Start 09/27/16 at 14:45 ; Stop 09/28/16 at 14:44 Hydralazine HCl (Apresoline) 10 mg 1X ONCE IVP Last administered on 09/27/16 20:56; Start 09/27/16 at 18:30; Stop 09/27/16 at 18:39; Status DC Aspirin (Ecotrin) 325 mg DAILYWBKFT PO Last administered on 09/28/16 08:08; Start 09/28/16 at 08:00 Insulin Aspart (Novolog) 0-9 UNITS TIDWMEALS SQ ; Start 09/28/16 at 08:00 Dextrose 12.5 gm PRN Q15MIN PRN IV SEE COMMENTS; Start 09/27/16 at 18:45 Insulin Detemir (Levemir) 20 units QHS SQ Last administered on 09/27/16 21:16 ; Start 09/27/16 at 21:00 Metoprolol Tartrate (Lopressor) 50 mg 1X ONCE PO Last administered on 20:55; Start 09/27/16 at 18:45; Stop 09/27/16 at 18:46; Status DC Metoprolol Succinate (Toprol Xl) 50 mg DAILY PO Last administered on 09/28/16 08:10; Start 09/28/16 at 09:00 Lisinopril (Prinivil) 20 mg DAILY PO Last administered on 09/28/16 08:09; Start 09/28/16 at 09:00 Hydralazine HCl (Apresoline) 10 mg PRN Q4HRS PRN IVP ELEVATED BP, SEE COMMENTS ; Start 09/27/16 at 20:45 Active Scripts Active Reported Lantus Solostar (Insulin Glargine,Hum.rec.anlog) 100 Unit/1 Ml Insuln.pen 30 Unit SQ QHS Metoprolol Succinate 50 Mg Tab.er.24h 50 Mg PO DAILY Lisinopril 40 Mg Tablet 1 Tab PO DAILY Hydrochlorothiazide Tablet (Hydrochlorothiazide) 25 Mg Tablet 1 Tab PO DAILY Metformin Hcl 1,000 Mg Tablet 1 Tab PO BID Allergies Allergies: Coded Allergies: No Known Drug Allergies (Unverified , 01/30/15) Vitals VITALS Vital Signs Date Time Temp Pulse Resp B/P Pulse Ox O2 Delivery O2 Flow Rate FiO2 09/28/16 08:10 88 193/88 09/28/16 08:00 99.0 12 97 Room Air 99.0 Labs Labs Laboratory Tests Test 09/27/16 11:07 09/27/16 12:20 09/27/16 13:03 09/27/16 17:23 Glucose (Fingerstick) 206mg/dL (70-99) 158mg/dL (70-99) White Blood Count 4.3x10^3/uL (4.0-11.0) Red Blood Count 4.75x10^6/uL (3.50-5.40) Hemoglobin 11.6g/dL (12.0-15.5) Hematocrit 35.2% (36.0-47.0) Mean Corpuscular Volume 74fL (79-100) Mean Corpuscular Hemoglobin 24pg (25-35) Mean Corpuscular Hemoglobin Concent 33g/dL (31-37) Red Cell Distribution Width 16.0% (11.5-14.5) Platelet Count 241x10^3/uL (140-400) Neutrophils (%) (Auto) 52% (31-73) Lymphocytes (%) (Auto) 36% (24-48) Monocytes (%) (Auto) 10% (0-9) Eosinophils (%) (Auto) 1% (0-3) Basophils (%) (Auto) 1% (0-3) Neutrophils # (Auto) 2.2x10^3uL (1.8-7.7) Lymphocytes # (Auto) 1.5x10^3/uL (1.0-4.8) Monocytes # (Auto) 0.4x10^3/uL (0.0-1.1) Eosinophils # (Auto) 0.1x10^3/uL (0.0-0.7) Basophils # (Auto) 0.0x10^3/uL (0.0-0.2) Prothrombin Time 13.1SEC (11.7-14.0) Prothromb Time International Ratio 1.1 (0.8-1.1) Activated Partial Thromboplast Time 27SEC (24-38) Sodium Level 141mmol/L (136-145) Potassium Level 3.6mmol/L (3.5-5.1) Chloride Level 104mmol/L (98-107) Carbon Dioxide Level 26mmol/L (21-32) Anion Gap 11 (6-14) Blood Urea Nitrogen 17mg/dL (7-20) Creatinine 1.0mg/dL (0.6-1.0) Estimated GFR (Cockcroft-Gault) 66.1 BUN/Creatinine Ratio 17 (6-20) Glucose Level 201mg/dL (70-99) Calcium Level 9.0mg/dL (8.5-10.1) Magnesium Level 1.5mg/dL (1.8-2.4) Total Bilirubin 0.4mg/dL (0.2-1.0) Aspartate Amino Transf (AST/SGOT) 12U/L (15-37) Alanine Aminotransferase (ALT/SGPT) 18U/L (14-59) Alkaline Phosphatase 86U/L (46-116) Ammonia 19mcmol/L (11-34) Total Protein 6.5g/dL (6.4-8.2) Albumin 3.1g/dL (3.4-5.0) Albumin/Globulin Ratio 0.9 (1.0-1.7) Thyroid Stimulating Hormone (TSH) 0.549uIU/mL (0.358-3.74) Urine Collection Type U cath Urine Color Yellow Urine Clarity Clear Urine pH 5.0 Urine Specific [place] 1.020 Urine Protein 30mg/dL (NEG-TRACE) Urine Glucose (UA) 250mg/dL (NEG) Urine Ketones (Stick) Tracemg/dL (NEG) Urine Blood Negative (NEG) Urine Nitrite Negative (NEG) Urine Bilirubin Negative (NEG) Urine Urobilinogen Dipstick 0.2mg/dL (0.2 mg/dL) Urine Leukocyte Esterase Trace (NEG) Urine RBC 0/HPF (0-2) Urine WBC Rare/HPF (0-4) Urine Squamous Epithelial Cells Few/LPF Urine Transitional Epithelial Cells Occ/LPF Urine Bacteria Few/HPF (0-FEW) Urine Mucus Mod/LPF Urine Opiates Screen Neg (NEG) Urine Methadone Screen Neg (NEG) Urine Barbiturates Neg (NEG) Urine Phencyclidine Screen Neg (NEG) Urine Amphetamine/Methamphetamine Neg (NEG) Urine Benzodiazepines Screen Neg (NEG) Urine Cocaine Screen Neg (NEG) Urine Cannabinoids Screen Neg (NEG) Urine Ethyl Alcohol Neg (NEG) Test 09/27/16 20:39 09/28/16 03:15 09/28/16 08:09 Glucose (Fingerstick) 185mg/dL (70-99) 142mg/dL (70-99) White Blood Count 4.5x10^3/uL (4.0-11.0) Red Blood Count 5.05x10^6/uL (3.50-5.40) Hemoglobin 12.4g/dL (12.0-15.5) Hematocrit 37.1% (36.0-47.0) Mean Corpuscular Volume 74fL (79-100) Mean Corpuscular Hemoglobin 25pg (25-35) Mean Corpuscular Hemoglobin Concent 34g/dL (31-37) Red Cell Distribution Width 16.5% (11.5-14.5) Platelet Count 252x10^3/uL (140-400) Neutrophils (%) (Auto) 47% (31-73) Lymphocytes (%) (Auto) 40% (24-48) Monocytes (%) (Auto) 10% (0-9) Eosinophils (%) (Auto) 1% (0-3) Basophils (%) (Auto) 1% (0-3) Neutrophils # (Auto) 2.1x10^3uL (1.8-7.7) Lymphocytes # (Auto) 1.8x10^3/uL (1.0-4.8) Monocytes # (Auto) 0.5x10^3/uL (0.0-1.1) Eosinophils # (Auto) 0.1x10^3/uL (0.0-0.7) Basophils # (Auto) 0.0x10^3/uL (0.0-0.2) Sodium Level 141mmol/L (136-145) Potassium Level 3.1mmol/L (3.5-5.1) Chloride Level 104mmol/L (98-107) Carbon Dioxide Level 26mmol/L (21-32) Anion Gap 11 (6-14) Blood Urea Nitrogen 10mg/dL (7-20) Creatinine 0.8mg/dL (0.6-1.0) Estimated GFR (Cockcroft-Gault) 85.6 Glucose Level 158mg/dL (70-99) Calcium Level 8.8mg/dL (8.5-10.1) Triglycerides Level 129mg/dL (0-150) Cholesterol Level 222mg/dL (0-200) LDL Cholesterol, Calculated 127mg/dL (0-100) VLDL Cholesterol, Calculated 26mg/dL (0-40) HDL Cholesterol 69mg/dL (40-60) Cholesterol/HDL Ratio 3.2 Laboratory Tests Test 09/27/16 11:07 09/27/16 12:20 09/27/16 13:03 09/27/16 17:23 Glucose (Fingerstick) 206mg/dL (70-99) 158mg/dL (70-99) White Blood Count 4.3x10^3/uL (4.0-11.0) Red Blood Count 4.75x10^6/uL (3.50-5.40) Hemoglobin 11.6g/dL (12.0-15.5) Hematocrit 35.2% (36.0-47.0) Mean Corpuscular Volume 74fL (79-100) Mean Corpuscular Hemoglobin 24pg (25-35) Mean Corpuscular Hemoglobin Concent 33g/dL (31-37) Red Cell Distribution Width 16.0% (11.5-14.5) Platelet Count 241x10^3/uL (140-400) Neutrophils (%) (Auto) 52% (31-73) Lymphocytes (%) (Auto) 36% (24-48) Monocytes (%) (Auto) 10% (0-9) Eosinophils (%) (Auto) 1% (0-3) Basophils (%) (Auto) 1% (0-3) Neutrophils # (Auto) 2.2x10^3uL (1.8-7.7) Lymphocytes # (Auto) 1.5x10^3/uL (1.0-4.8) Monocytes # (Auto) 0.4x10^3/uL (0.0-1.1) Eosinophils # (Auto) 0.1x10^3/uL (0.0-0.7) Basophils # (Auto) 0.0x10^3/uL (0.0-0.2) Prothrombin Time 13.1SEC (11.7-14.0) Prothromb Time International Ratio 1.1 (0.8-1.1) Activated Partial Thromboplast Time 27SEC (24-38) Sodium Level 141mmol/L (136-145) Potassium Level 3.6mmol/L (3.5-5.1) Chloride Level 104mmol/L (98-107) Carbon Dioxide Level 26mmol/L (21-32) Anion Gap 11 (6-14) Blood Urea Nitrogen 17mg/dL (7-20) Creatinine 1.0mg/dL (0.6-1.0) Estimated GFR (Cockcroft-Gault) 66.1 BUN/Creatinine Ratio 17 (6-20) Glucose Level 201mg/dL (70-99) Calcium Level 9.0mg/dL (8.5-10.1) Magnesium Level 1.5mg/dL (1.8-2.4) Total Bilirubin 0.4mg/dL (0.2-1.0) Aspartate Amino Transf (AST/SGOT) 12U/L (15-37) Alanine Aminotransferase (ALT/SGPT) 18U/L (14-59) Alkaline Phosphatase 86U/L (46-116) Ammonia 19mcmol/L (11-34) Total Protein 6.5g/dL (6.4-8.2) Albumin 3.1g/dL (3.4-5.0) Albumin/Globulin Ratio 0.9 (1.0-1.7) Thyroid Stimulating Hormone (TSH) 0.549uIU/mL (0.358-3.74) Urine Collection Type U cath Urine Color Yellow Urine Clarity Clear Urine pH 5.0 Urine Specific [place] 1.020 Urine Protein 30mg/dL (NEG-TRACE) Urine Glucose (UA) 250mg/dL (NEG) Urine Ketones (Stick) Tracemg/dL (NEG) Urine Blood Negative (NEG) Urine Nitrite Negative (NEG) Urine Bilirubin Negative (NEG) Urine Urobilinogen Dipstick 0.2mg/dL (0.2 mg/dL) Urine Leukocyte Esterase Trace (NEG) Urine RBC 0/HPF (0-2) Urine WBC Rare/HPF (0-4) Urine Squamous Epithelial Cells Few/LPF Urine Transitional Epithelial Cells Occ/LPF Urine Bacteria Few/HPF (0-FEW) Urine Mucus Mod/LPF Urine Opiates Screen Neg (NEG) Urine Methadone Screen Neg (NEG) Urine Barbiturates Neg (NEG) Urine Phencyclidine Screen Neg (NEG) Urine Amphetamine/Methamphetamine Neg (NEG) Urine Benzodiazepines Screen Neg (NEG) Urine Cocaine Screen Neg (NEG) Urine Cannabinoids Screen Neg (NEG) Urine Ethyl Alcohol Neg (NEG) Test 09/27/16 20:39 09/28/16 03:15 09/28/16 08:09 Glucose (Fingerstick) 185mg/dL (70-99) 142mg/dL (70-99) White Blood Count 4.5x10^3/uL (4.0-11.0) Red Blood Count 5.05x10^6/uL (3.50-5.40) Hemoglobin 12.4g/dL (12.0-15.5) Hematocrit 37.1% (36.0-47.0) Mean Corpuscular Volume 74fL (79-100) Mean Corpuscular Hemoglobin 25pg (25-35) Mean Corpuscular Hemoglobin Concent 34g/dL (31-37) Red Cell Distribution Width 16.5% (11.5-14.5) Platelet Count 252x10^3/uL (140-400) Neutrophils (%) (Auto) 47% (31-73) Lymphocytes (%) (Auto) 40% (24-48) Monocytes (%) (Auto) 10% (0-9) Eosinophils (%) (Auto) 1% (0-3) Basophils (%) (Auto) 1% (0-3) Neutrophils # (Auto) 2.1x10^3uL (1.8-7.7) Lymphocytes # (Auto) 1.8x10^3/uL (1.0-4.8) Monocytes # (Auto) 0.5x10^3/uL (0.0-1.1) Eosinophils # (Auto) 0.1x10^3/uL (0.0-0.7) Basophils # (Auto) 0.0x10^3/uL (0.0-0.2) Sodium Level 141mmol/L (136-145) Potassium Level 3.1mmol/L (3.5-5.1) Chloride Level 104mmol/L (98-107) Carbon Dioxide Level 26mmol/L (21-32) Anion Gap 11 (6-14) Blood Urea Nitrogen 10mg/dL (7-20) Creatinine 0.8mg/dL (0.6-1.0) Estimated GFR (Cockcroft-Gault) 85.6 Glucose Level 158mg/dL (70-99) Calcium Level 8.8mg/dL (8.5-10.1) Triglycerides Level 129mg/dL (0-150) Cholesterol Level 222mg/dL (0-200) LDL Cholesterol, Calculated 127mg/dL (0-100) VLDL Cholesterol, Calculated 26mg/dL (0-40) HDL Cholesterol 69mg/dL (40-60) Cholesterol/HDL Ratio 3.2 Assessment/Plan Assessment/Plan Patient is a 70-year-old woman who began to have altered mental status about 2 weeks ago. She fell and struck her head as well in that same timeframe. Neurologic exam reveals slowness of thought in difficulty grasping concepts. I did not see focal weakness, sensory change, tone change but did see diminished attention, concentration and cognition. MRI brain does confirm a subacute stroke in the left basal ganglia which is likely the cause. The timing would fit. I have ordered carotid Doppler and echocardiogram to look for an embolic source although this is likely small vessel disease from uncontrolled hypertension and diabetes. Blood work revealed hyperlipidemia with an elevated LDL. I have initiated atorvastatin to address this issue. The diabetes will need to be tightly controlled on the blood pressure control need to be gained over the next few days. I have consult at speech, physical and occupational therapy. She may likely require rehabilitation because of the cognitive changes making her unsafe at home. Prognosis is fair. JILL MONROE MD Sep 28, 2016 10:46
[2016-09-28] MEDS: NICARDIPINE HCL 50 MG in IV NORMAL SALINE 250ML 250 ML IV PRN ×3 (12:32→21:18)
[2016-09-28] MEDS ORDERED: MAGNESIUM SULFATE 2GM 50 ML IV ONE (15:00)
--- NOTE | 2016-09-28 18:07 | RAD ---
INDICATION: CVA, altered mental status. COMPARISON: None. TECHNIQUE: Spectral doppler and grayscale ultrasound images obtained of the carotid vasculature. FINDINGS: Peak systolic velocities are in cm/s. Right: ICA: 59 CCA: 126 ICA/CCA Ratio: Less than 1 Left: ICA: 78 CCA: 126 ICA/CCA Ratio: Less than 1 No significant plaque formation is present within the bilateral carotid arteries. Vertebral arteries are antegrade. IMPRESSION: No hemodynamically significant stenoses of the internal carotid arteries bilaterally. These values were derived from data published in the J Vasc Surg 1995; 21:98, and use velocity parameters that angiographically correlate the residual internal carotid artery lumen with the distal internal carotid artery lumen (NASCET method). < 40% 40-59% 60-79% > 80% PSV ICA < 130 130-260 260-400 > 400 EDV ICA < 50 50-70 70-140 > 140 ICA/CCA < 2.0 2.0-3. 5 3.6-5.0 > 5.0 Electronically signed by: Alejandra Rivera (Sep 28, 2016 18:06:34)
[2016-09-28] MEDS: POTASSIUM CHLORIDE 10MEQ 100 ML IV SCH ×4 (18:13→21:18)
--- NOTE | 2016-09-28 19:09 | HP ---
ADMIT DATE: 09/28/2016 CHIEF COMPLAINT: Altered mental status. HISTORY OF PRESENT ILLNESS: This is a 70-year-old -[place] female patient with a history of type 2 diabetes mellitus and hypertension, who presented to the ER with a decrease in cognition as per the patient's . She has been here in the hospital a few weeks ago for left orbital fracture after sustaining a fall. The patient was discharged home. As per the , ever since she was discharged from the hospital, she is not acting right. When the patient's was discharged from the hospital, he is taking care of her home in the last couple of days and she has been not acting right and declining slowly. He denies any noncompliance with medications. He is giving her medications; however, she is always slow to response and denies any changes such as fever, chills, or nausea or vomiting, or any other symptoms. The patient is not able to provide any history. Her cognition is very slow and she is responding very slow to questions; however, her is able to answer some questions, but he was not able to give me a good history. PAST MEDICAL HISTORY: Diabetes mellitus, hypertension. 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 PERSONAL HISTORY: No smoking, no alcohol, and no drug abuse. FAMILY HISTORY: Diabetes. REVIEW OF SYSTEMS AND PHYSICAL EXAMINATION: Please see my electronic H and P. LABORATORY FINDINGS: WBC 4.5, hemoglobin is 12.4, MCV is at 74, MCHC is 34, platelets are 252. Chemistries: Sodium is 141, potassium 3.1, chloride is 104, anion gap is 11, BUN is 10, creatinine is 0.8, and glucose is 208. Lipid panel: Triglycerides 129, cholesterol 222, LDL is 127, VLDL is 26, HDL 69, and toxicology negative. Urine glucose 250, ketones negative, nitrites negative, and leukocyte esterase is trace. IMAGING STUDIES: 1. CT of the head - no acute intracranial process seen. 2. Chest x-ray - no cardiopulmonary process seen. 3. MRI of the brain - subacute infarct. ASSESSMENT: 1. Hypertensive encephalopathy present on admission. 2. Diabetes mellitus with hyperglycemia. 3. Hyperlipidemia. 4. Subacute infarct as seen on the MRI. PLAN: 1. The patient has been admitted to Neuro step down unit; however, I could not be able to control her blood pressures with hydralazine, and this morning, her blood pressure - systolic was more than 200 and she was requiring nicardipine drip and I have transferred the patient to Critical Care Unit for a close monitoring of her blood pressure. Also, magnesium is low and I have been replacing it. Mild hypokalemia - we are going to replace it. 2. Neurology has been consulted and needs further workup for subacute stroke such as echocardiogram and carotid Doppler. She is also started on Lipitor for hyperlipidemia. 3. The patient's admits that prognosis is guarded. ISAAC MALDONADO MD DR: KATHY/laura JOB#: [id number] / [id number] BRANDON
[2016-09-28] MEDS: ATORVASTATIN CALCIUM 40 MG TABLET. PO SCH (20:46)
[2016-09-28] MEDS: INSULIN DETEMIR 300 UNITS/3 ML INSULN.PEN. SQ SCH (20:51)
[2016-09-28] MEDS ORDERED: LISINOPRIL 10 MG TABLET PO ONE (21:00)
[2016-09-28] MEDS ORDERED: CARVEDILOL 12.5 MG TABLET PO ONE (21:00)
[2016-09-29] VITALS (26 sets, daily range): BP systolic 123–170; BP diastolic 56–96
[2016-09-29] MEDS: NICARDIPINE HCL 50 MG in IV NORMAL SALINE 250ML 250 ML IV PRN ×2 (00:01→06:37)
[2016-09-29 08:08] LABS: BASO # 0.1 x10^3/uL (0.0-0.2); BASO % 1 % (0-3); EOS % 3 % (0-3); HEMATOCRIT 36.9 % (36.0-47.0); HEMOGLOBIN 12.3 g/dL (12.0-15.5); LYMPH # 1.5 x10^3/uL (1.0-4.8); LYMPH % 31 % (24-48); MEAN CORPUSCULAR HEMOGLOBIN 25 pg (25-35); MEAN CORPUSCULAR HGB CONC 33 g/dL (31-37); MEAN CORPUSCULAR VOLUME 74 fL (79-100); MONO % 9 % (0-9); NEUT % 56 % (31-73); PLATELET COUNT 245 x10^3/uL (140-400); RED BLOOD COUNT 4.96 x10^6/uL (3.50-5.40); RED CELL DISTRIBUTION WIDTH 16.9 % (11.5-14.5); WHITE BLOOD COUNT 4.8 x10^3/uL (4.0-11.0)
[2016-09-29 08:12] LABS: CALCIUM 8.7 mg/dL (8.5-10.1); CREATININE 0.8 mg/dL (0.6-1.0); GFR 85.6; POTASSIUM 3.6 mmol/L (3.5-5.1)
--- NOTE | 2016-09-29 08:39 | PDOC ---
PROGRESS NOTES Chief Complaint Chief Complaint Hypertensive encephalopathy Subacute CVA ASSESSMENT AND PLAN: 1. Encephalopathy: improving. 2/[address] Olmos' s input. further workup in progress 2. CVA: subacute basal ganglia by MRI, c/w clinical sx x2 weeks 3. HTN: in Cardizem gtt; wean. lisinopril started, titrate as needed 4. DM: fair control with current Levemir and ISS. increase Levemir 20 -> 25 5: HLD: statin started 6. Anemia: microcytic. obtain iron studies 6. Prophylaxis: lovenox Vitals Vitals Vital Signs Date Time Temp Pulse Resp B/P Pulse Ox O2 Delivery O2 Flow Rate FiO2 09/29/16 06:00 72 16 140/57 96 Room Air 09/29/16 04:00 97.7 97.7 Physical Exam General: Alert, Oriented X3, Cooperative, Other (thought process much improved) Heart: Regular rate Lungs: Clear Abdomen: Normal bowel sounds, No tenderness Extremities: No clubbing, No edema Skin: No rashes Labs LABS Laboratory Tests Test 09/28/16 10:28 09/28/16 12:40 09/28/16 18:40 09/28/16 20:50 Glucose (Fingerstick) 208mg/dL (70-99) 219mg/dL (70-99) 191mg/dL (70-99) Nasal Screen MRSA (PCR) Negative (Negative) Test 09/29/16 07:35 White Blood Count 4.8x10^3/uL (4.0-11.0) Red Blood Count 4.96x10^6/uL (3.50-5.40) Hemoglobin 12.3g/dL (12.0-15.5) Hematocrit 36.9% (36.0-47.0) Mean Corpuscular Volume 74fL (79-100) Mean Corpuscular Hemoglobin 25pg (25-35) Mean Corpuscular Hemoglobin Concent 33g/dL (31-37) Red Cell Distribution Width 16.9% (11.5-14.5) Platelet Count 245x10^3/uL (140-400) Neutrophils (%) (Auto) 56% (31-73) Lymphocytes (%) (Auto) 31% (24-48) Monocytes (%) (Auto) 9% (0-9) Eosinophils (%) (Auto) 3% (0-3) Basophils (%) (Auto) 1% (0-3) Neutrophils # (Auto) 2.7x10^3uL (1.8-7.7) Lymphocytes # (Auto) 1.5x10^3/uL (1.0-4.8) Monocytes # (Auto) 0.4x10^3/uL (0.0-1.1) Eosinophils # (Auto) 0.2x10^3/uL (0.0-0.7) Basophils # (Auto) 0.1x10^3/uL (0.0-0.2) Sodium Level 141mmol/L (136-145) Potassium Level 3.6mmol/L (3.5-5.1) Chloride Level 107mmol/L (98-107) Carbon Dioxide Level 23mmol/L (21-32) Anion Gap 11 (6-14) Blood Urea Nitrogen 11mg/dL (7-20) Creatinine 0.8mg/dL (0.6-1.0) Estimated GFR (Cockcroft-Gault) 85.6 Glucose Level 153mg/dL (70-99) Calcium Level 8.7mg/dL (8.5-10.1) Review of Systems Review of Systems feels better. no pain DALIA VENTURA MD Sep 29, 2016 08:39
[2016-09-29] MEDS: ASPIRIN ENTERIC COATED 325 MG TABLET.DR. PO SCH (08:50)
[2016-09-29] MEDS: LISINOPRIL 20 MG TABLET PO SCH (08:50)
[2016-09-29] MEDS: INSULIN ASPART 300 UNITS/3 ML INSULN.PEN SQ SCH ×3 (08:51→17:06)
[2016-09-29 10:41] LABS: % SAT IRON 21 % (15-34); IRON,SERUM 48 ug/dL (50-170)
[2016-09-29] MEDS: ENOXAPARIN 40 MG/0.4 ML DISP.SYRIN. SQ SCH (11:35)
[2016-09-29] MEDS: CARVEDILOL 12.5 MG TABLET PO SCH ×2 (12:28→17:05)
--- NOTE | 2016-09-29 12:29 | CONS ---
DATE OF CONSULTATION: 09/29/2016 REASON FOR CONSULTATION: Hypertension management. HISTORY OF PRESENT ILLNESS: The patient is a pleasant 70-year-old woman who was admitted to the hospital in the setting of mental status changes. She was then transferred to the ICU due to uncontrolled blood pressure and further progressive mental status changes. Working diagnosis at this time is a left basal ganglia with stroke. She, since admission to the ICU, has had some improvement. She had been initiated on IV nicardipine therapy. She was also started on oral medications and has had some significant improvement of her blood pressure where her blood pressure is now ranging from 140-160 systolic. She denies any chest pain at this time. Most of the history is obtained from her who reports that at baseline, she is active individual. She is able to care for herself and perform ADLs without any significant limitations. She does not have any prior cardiovascular history. PAST MEDICAL HISTORY: 1. Hypertension. 2. Diabetes. 3. Subacute basal ganglia stroke. SOCIAL HISTORY: No alcohol, tobacco, or illicit drug use. FAMILY HISTORY: Notable for diabetes. ALLERGIES: No known drug allergies. CURRENT CARDIOVASCULAR MEDICATIONS: 1. Carvedilol 12.5 mg p.o. b.i.d. 2. Atorvastatin 40 mg at bedtime. 3. Nicardipine 2.5 mg intravenous drip. 4. Lisinopril 20 mg daily. 5. Aspirin 325 mg daily. REVIEW OF SYSTEMS: Negative for 10 out of 14 systems reviewed, unless otherwise mentioned above in HPI. PHYSICAL EXAMINATION: VITAL SIGNS: Afebrile, heart rate 85, respiratory rate 16, blood pressure 165/77, pulse ox 96% on room air. GENERAL: She is alert and oriented to self, but not to the time for situation. HEAD AND NECK: Unremarkable. HEART: Regular rate and rhythm with a soft systolic murmur at the right upper sternal border. No carotid bruits. LUNGS: Clear to auscultation bilaterally anteriorly. ABDOMEN: Soft, nontender, nondistended. EXTREMITIES: No clubbing, cyanosis, or edema. 2+ radial pulses. NEUROLOGIC: No focal deficits, but she does have slowness of thought and mild expressive aphasia. MUSCULOSKELETAL: No trauma. DIAGNOSTIC STUDIES: Carotid Doppler study does not suggestive any significant obstructive disease. MRI of the brain is suggestive of a left basal ganglia stroke. Chest x-ray is unremarkable. Echocardiogram is pending. EKG is notable for sinus rhythm with abnormal left axis deviation and possible old septal infarct. Hemoglobin 12.3, platelets 245. Creatinine 0.8, LDL 127, HDL 69, INR 1.1. Toxicology negative. IMPRESSION: 1. Uncontrolled hypertension, malignant. 2. Diabetes. 3. Left basal ganglia stroke. RECOMMENDATIONS: 1. We have initiated her on carvedilol and lisinopril therapy. Titrate as necessary. We will wean off nicardipine in the next 24 hours. 2. Continue statin therapy and high-dose aspirin. 3. We will consider further diagnostic evaluation depending on her echocardiogram. Otherwise, supportive care and treatment per Neurology given her expressive aphasia and mental status changes. Thank you for this consultation. DON VILLASEÑOR MD DR: JAM/laura JOB#: [id number] / [id number] BRANDON
--- NOTE | 2016-09-29 17:06 | CARD ---
APPROVED REPORT EXAM: Two-dimensional and M-mode echocardiogram with Doppler, color Doppler with saline contrast. Other Information Quality : GoodHR: 90bpm INDICATION Stroke 2D DIMENSIONS Left Atrium(2D)3.0 (1.6-4.0cm)IVSd1.5 (0.7-1.1cm) Aortic Root(2D)2.6 (2.0-3.7cm)LVDd3.6 (3.9-5.9cm) LVOT Diameter1.9 (1.8-2.4cm)PWd1.4 (0.7-1.1cm) LA Wtizkj74 (18-58mL)LVDs2.4 (2.5-4.0cm) FS (%) 34.2 %SV34.7 ml LVEF(%)64.1 (>50%)CO3.1 L/min M-Mode DIMENSIONS Aortic Cusp Exc1.63 (1.5-2.0cm) Aortic Valve AoV Peak Oir.191.7cm/sAoV VTI31.8cm AO Peak GR.14.7mmHgLVOT VTI 22.21cm AO Mean GR.10mmHgAI P 1/2 [id number] Mitral Valve MV E Ugxxwexe70.1cm/sMV E Peak Gr.3mmHg MV DECEL [id number] A Orxasobs203.3cm/s MV MVM32sgS/A Ratio0.8 MV A [id number] (PHT)3.67cm2 TDI Lateral E' P. V6.13cm/sMedial E' P. V4.89cm/s E/Lateral E'13.9E/Medial E'17.4 Pulmonary Valve PV Peak Xzdwslxq323.9cm/s Tricuspid Valve TR P. Cctlhevt160vy/sTR Peak Gr.50mmHg LEFT VENTRICLE The left ventricle is normal size. There is borderline to mild concentric left ventricular hypertroph y. The left ventricular systolic function is normal and the ejection fraction is within normal range. EF 55% There is normal LV segmental wall motion. Septal motion suggestive of conduction abnormality. Transmitral Doppler flow pattern is Grade I-abnormal relaxation pattern. RIGHT VENTRICLE The right ventricle is normal size. There is normal right ventricular wall thickness. The right ventr icular systolic function is normal. ATRIA The left atrium size is normal. The right atrium size is normal. The interatrial septum is intact wit h no evidence for an atrial septal defect or patent foramen ovale as noted on 2-D or Doppler imaging. AORTIC VALVE The aortic valve is normal in structure and function. Doppler and Color Flow revealed trace aortic re gurgitation. There is no significant aortic valvular stenosis. There is no aortic valvular vegetation . MITRAL VALVE The mitral valve is normal in structure and function. There is no evidence of mitral valve prolapse. There is no mitral valve stenosis. Doppler and Color Flow revealed mild mitral regurgitation. TRICUSPID VALVE The tricuspid valve is normal in structure and function. Doppler and Color Flow revealed mild regurgi tation. Moderate PHTN 55 mmHg There is no tricuspid valve stenosis. PULMONIC VALVE Doppler and Color Flow revealed no pulmonic valvular regurgitation. There is no pulmonic valvular price nosis. GREAT VESSELS The aortic root is normal in size. The ascending aorta is normal in size. The IVC is normal in size a nd collapses >50% with inspiration. PERICARDIAL EFFUSION There is no pleural effusion. There is no evidence of significant pericardial effusion. Critical Notification Critical Value: No <Conclusion> The left ventricular systolic function is normal and the ejection fraction is within normal range. EF 55% There is normal LV segmental wall motion. Septal motion suggestive of conduction abnormality. Doppler and Color Flow revealed mild regurgitation. Moderate PHTN 55 mmHg
--- NOTE | 2016-09-29 17:32 | PDOC ---
PROGRESS NOTES Assessment Stroke Patient is a 70-year-old woman who experienced mental status changes beginning approximately 2 weeks ago. MRI revealed evidence of the stroke in the left basal ganglia which appeared subacute. This likely accounts for the mental status change. Prognosis for recovery is favorable. She underwent a carotid Doppler which did not reveal evidence of hemodynamically significant stenosis. An echocardiogram revealed a normal ejection fraction of 55%. There was no evidence for an atrial septal defect or patent foramen ovale. Hypertension She was transferred yesterday to the intensive care unit for a Cardizem drip. This has been successfully weaned and now she is on other medications. Blood pressure is starting to come down. Diabetes Control of the sugars is fair at this time on an insulin regimen. Hyperlipidemia I initiated a statin to address this issue. Plan She will likely require rehabilitation when she is medically stable with respect to the hypertension and diabetes. She will need a fasting lipid profile in another month or 2 to see if the medical regimen is helpful. I spoke with the son at bedside. Subjective I have some pain in my right hand second and third digits. Objective Vital Signs Date Time Temp Pulse Resp B/P Pulse Ox O2 Delivery O2 Flow Rate FiO2 09/29/16 17:05 84 165/74 09/29/16 15:00 17 98 Room Air 09/29/16 12:00 98.1 98.1 Intake and Output 09/29/16 07:00 Intake Total 1744 ml Output Total 615 ml Balance 1129 ml Intake Oral 150 ml Other 1594 ml Output Urine Total 615 ml PHYSICAL EXAM She was sitting in the chair with good balance. She was alert, awake and cooperative. She was attentive to the examiner. She had some word finding difficulty. She was not oriented to place, month or year. She was able to move symmetrically. Coordination was intact. Review of Relevant I have reviewed the following items angelica (where applicable) has been applied. Labs Laboratory Tests Test 09/27/16 20:39 09/28/16 03:15 09/28/16 08:09 09/28/16 10:28 Glucose (Fingerstick) 185mg/dL (70-99) 142mg/dL (70-99) 208mg/dL (70-99) White Blood Count 4.5x10^3/uL (4.0-11.0) Red Blood Count 5.05x10^6/uL (3.50-5.40) Hemoglobin 12.4g/dL (12.0-15.5) Hematocrit 37.1% (36.0-47.0) Mean Corpuscular Volume 74fL (79-100) Mean Corpuscular Hemoglobin 25pg (25-35) Mean Corpuscular Hemoglobin Concent 34g/dL (31-37) Red Cell Distribution Width 16.5% (11.5-14.5) Platelet Count 252x10^3/uL (140-400) Neutrophils (%) (Auto) 47% (31-73) Lymphocytes (%) (Auto) 40% (24-48) Monocytes (%) (Auto) 10% (0-9) Eosinophils (%) (Auto) 1% (0-3) Basophils (%) (Auto) 1% (0-3) Neutrophils # (Auto) 2.1x10^3uL (1.8-7.7) Lymphocytes # (Auto) 1.8x10^3/uL (1.0-4.8) Monocytes # (Auto) 0.5x10^3/uL (0.0-1.1) Eosinophils # (Auto) 0.1x10^3/uL (0.0-0.7) Basophils # (Auto) 0.0x10^3/uL (0.0-0.2) Sodium Level 141mmol/L (136-145) Potassium Level 3.1mmol/L (3.5-5.1) Chloride Level 104mmol/L (98-107) Carbon Dioxide Level 26mmol/L (21-32) Anion Gap 11 (6-14) Blood Urea Nitrogen 10mg/dL (7-20) Creatinine 0.8mg/dL (0.6-1.0) Estimated GFR (Cockcroft-Gault) 85.6 Glucose Level 158mg/dL (70-99) Calcium Level 8.8mg/dL (8.5-10.1) Magnesium Level 1.6mg/dL (1.8-2.4) Triglycerides Level 129mg/dL (0-150) Cholesterol Level 222mg/dL (0-200) LDL Cholesterol, Calculated 127mg/dL (0-100) VLDL Cholesterol, Calculated 26mg/dL (0-40) HDL Cholesterol 69mg/dL (40-60) Cholesterol/HDL Ratio 3.2 Test 3/18/17 12:40 09/28/16 18:40 09/28/16 20:50 09/29/16 07:35 Nasal Screen MRSA (PCR) Negative (Negative) Glucose (Fingerstick) 219mg/dL (70-99) 191mg/dL (70-99) White Blood Count 4.8x10^3/uL (4.0-11.0) Red Blood Count 4.96x10^6/uL (3.50-5.40) Hemoglobin 12.3g/dL (12.0-15.5) Hematocrit 36.9% (36.0-47.0) Mean Corpuscular Volume 74fL (79-100) Mean Corpuscular Hemoglobin 25pg (25-35) Mean Corpuscular Hemoglobin Concent 33g/dL (31-37) Red Cell Distribution Width 16.9% (11.5-14.5) Platelet Count 245x10^3/uL (140-400) Neutrophils (%) (Auto) 56% (31-73) Lymphocytes (%) (Auto) 31% (24-48) Monocytes (%) (Auto) 9% (0-9) Eosinophils (%) (Auto) 3% (0-3) Basophils (%) (Auto) 1% (0-3) Neutrophils # (Auto) 2.7x10^3uL (1.8-7.7) Lymphocytes # (Auto) 1.5x10^3/uL (1.0-4.8) Monocytes # (Auto) 0.4x10^3/uL (0.0-1.1) Eosinophils # (Auto) 0.2x10^3/uL (0.0-0.7) Basophils # (Auto) 0.1x10^3/uL (0.0-0.2) Sodium Level 141mmol/L (136-145) Potassium Level 3.6mmol/L (3.5-5.1) Chloride Level 107mmol/L (98-107) Carbon Dioxide Level 23mmol/L (21-32) Anion Gap 11 (6-14) Blood Urea Nitrogen 11mg/dL (7-20) Creatinine 0.8mg/dL (0.6-1.0) Estimated GFR (Cockcroft-Gault) 85.6 Glucose Level 153mg/dL (70-99) Calcium Level 8.7mg/dL (8.5-10.1) Iron Level 48ug/dL (50-170) Total Iron Binding Capacity 234ug/dL (250-450) Iron Saturation 21% (15-34) Ferritin 145ng/mL (8-252) Laboratory Tests Test 09/28/16 18:40 09/28/16 20:50 09/29/16 07:35 Glucose (Fingerstick) 219mg/dL (70-99) 191mg/dL (70-99) White Blood Count 4.8x10^3/uL (4.0-11.0) Red Blood Count 4.96x10^6/uL (3.50-5.40) Hemoglobin 12.3g/dL (12.0-15.5) Hematocrit 36.9% (36.0-47.0) Mean Corpuscular Volume 74fL (79-100) Mean Corpuscular Hemoglobin 25pg (25-35) Mean Corpuscular Hemoglobin Concent 33g/dL (31-37) Red Cell Distribution Width 16.9% (11.5-14.5) Platelet Count 245x10^3/uL (140-400) Neutrophils (%) (Auto) 56% (31-73) Lymphocytes (%) (Auto) 31% (24-48) Monocytes (%) (Auto) 9% (0-9) Eosinophils (%) (Auto) 3% (0-3) Basophils (%) (Auto) 1% (0-3) Neutrophils # (Auto) 2.7x10^3uL (1.8-7.7) Lymphocytes # (Auto) 1.5x10^3/uL (1.0-4.8) Monocytes # (Auto) 0.4x10^3/uL (0.0-1.1) Eosinophils # (Auto) 0.2x10^3/uL (0.0-0.7) Basophils # (Auto) 0.1x10^3/uL (0.0-0.2) Sodium Level 141mmol/L (136-145) Potassium Level 3.6mmol/L (3.5-5.1) Chloride Level 107mmol/L (98-107) Carbon Dioxide Level 23mmol/L (21-32) Anion Gap 11 (6-14) Blood Urea Nitrogen 11mg/dL (7-20) Creatinine 0.8mg/dL (0.6-1.0) Estimated GFR (Cockcroft-Gault) 85.6 Glucose Level 153mg/dL (70-99) Calcium Level 8.7mg/dL (8.5-10.1) Iron Level 48ug/dL (50-170) Total Iron Binding Capacity 234ug/dL (250-450) Iron Saturation 21% (15-34) Ferritin 145ng/mL (8-252) Microbiology 09/27/16 Urine Culture - Final, Complete 09/27/16 Urine Culture Result 1 (JULIÁN) - Final, Complete Medications Current Medications Sodium Chloride (Iv Sodium Chloride 0.9% 1000ml Bag) 1,000 ml @ 100 mls/hr Q10H IV Last administered on 09/27/16 12:03; Start 09/27/16 at 11:45; Stop at 21:44; Status DC Ondansetron HCl (Zofran) 4 mg PRN Q8HRS PRN IV NAUSEA/VOMITING; Start 09/27/16 at 14:45; Stop 09/28/16 at 14:44; Status DC Acetaminophen (Tylenol) 650 mg PRN Q4HRS PRN PO FEVER; Start 09/27/16 at 14:45 ; Stop 09/28/16 at 14:44; Status DC Hydralazine HCl (Apresoline) 10 mg 1X ONCE IVP Last administered on 09/27/16 20:56; Start 09/27/16 at 18:30; Stop 09/27/16 at 18:39; Status DC Aspirin (Ecotrin) 325 mg DAILYWBKFT PO Last administered on 09/29/16 08:50; Start 09/28/16 at 08:00 Insulin Aspart (Novolog) 0-9 UNITS TIDWMEALS SQ Last administered on 09/29/16 17:06; Start 09/28/16 at 08:00 Dextrose 12.5 gm PRN Q15MIN PRN IV SEE COMMENTS; Start 09/27/16 at 18:45 Insulin Detemir (Levemir) 20 units QHS SQ Last administered on 09/28/16 20:51 ; Start 09/27/16 at 21:00; Stop 09/29/16 at 09:24; Status DC Metoprolol Tartrate (Lopressor) 50 mg 1X ONCE PO Last administered on 20:55; Start 09/27/16 at 18:45; Stop 09/27/16 at 18:46; Status DC Metoprolol Succinate (Toprol Xl) 50 mg DAILY PO Last administered on 09/28/16 08:10; Start 09/28/16 at 09:00; Stop 09/28/16 at 20:36; Status DC Lisinopril (Prinivil) 20 mg DAILY PO Last administered on 09/29/16 08:50; Start 09/28/16 at 09:00 Hydralazine HCl (Apresoline) 10 mg PRN Q4HRS PRN IVP ELEVATED BP, SEE COMMENTS ; Start 09/27/16 at 20:45 Atorvastatin Calcium (Lipitor) 40 mg QHS PO Last administered on 09/28/16 20: 46; Start 09/28/16 at 21:00 Hydralazine HCl 20 mg 20 mg 1X ONCE IVP Last administered on 09/28/16 10:45; Start 09/28/16 at 10:45; Stop 09/28/16 at 10:50; Status DC Nicardipine HCl 50 mg/Sodium Chloride 270 ml @ 0 mls/hr CONT PRN IV SEE I/O RECORD Last administered on 09/29/16 06:37; Start 09/28/16 at 11:45 Magnesium Sulfate/ Dextrose 50 ml @ 25 mls/hr 1X ONCE IV Last administered on 09/28/16 16:17; Start 09/28/16 at 15:00; Stop 09/28/16 at 16:59; Status DC Potassium Chloride (KCl Premix 10meq) 100 ml @ 100 mls/hr Q1H IV Last administered on 09/28/16 21:18; Start 09/28/16 at 15:15; Stop 09/28/16 at 19:14 ; Status DC Carvedilol (Coreg) 12.5 mg 1X ONCE PO Last administered on 09/28/16 20:46; Start 09/28/16 at 21:00; Stop 09/28/16 at 21:01; Status DC Lisinopril (Prinivil) 10 mg 1X ONCE PO Last administered on 09/28/16 20:46; Start 09/28/16 at 21:00; Stop 09/28/16 at 21:01; Status DC Insulin Detemir (Levemir) 25 units QHS SQ ; Start 09/29/16 at 21:00 Enoxaparin Sodium (Lovenox 40mg Syringe) 40 mg Q24H SQ Last administered on 11:35; Start 09/29/16 at 10:00 Carvedilol (Coreg) 12.5 mg BIDWMEALS PO Last administered on 09/29/16 17:05; Start 09/29/16 at 12:00 Active Scripts Active Reported Lantus Solostar (Insulin Glargine,Hum.rec.anlog) 100 Unit/1 Ml Insuln.pen 30 Unit SQ QHS Metoprolol Succinate 50 Mg Tab.er.24h 50 Mg PO DAILY Lisinopril 40 Mg Tablet 1 Tab PO DAILY Hydrochlorothiazide Tablet (Hydrochlorothiazide) 25 Mg Tablet 1 Tab PO DAILY Metformin Hcl 1,000 Mg Tablet 1 Tab PO BID Vitals/I & O Vital Sign - Last 24 Hours 09/28/16 09/28/16 09/28/16 09/28/16 18:00 19:00 19:30 20:00 Pulse 76 80 Resp 16 B/P 149/66 154/74 171/69 Pulse Ox 98 98 O2 Delivery Room Air Room Air Room Air 09/28/16 09/28/16 09/28/16 09/28/16 20:00 20:46 20:46 21:00 Temp 98.6 98.6 Pulse 80 84 84 85 Resp 10 15 B/P 154/70 149/74 149/74 158/76 Pulse Ox 96 97 O2 Delivery Room Air Room Air 09/28/16 09/28/16 09/29/16 09/29/16 22:00 23:00 00:00 00:00 Temp 98.9 98.9 Pulse 83 78 76 Resp 17 16 16 B/P 140/62 142/64 142/60 Pulse Ox 98 97 97 O2 Delivery Room Air Room Air Room Air Room Air 09/29/16 09/29/16 09/29/16 09/29/16 01:00 02:00 02:45 03:00 Pulse 75 75 74 Resp 15 18 18 B/P 153/63 123/56 123/65 138/66 Pulse Ox 98 96 98 O2 Delivery Room Air Room Air Room Air 09/29/16 09/29/16 09/29/16 09/29/16 04:00 04:00 05:00 05:15 Temp 97.7 97.7 Pulse 71 74 Resp 16 16 B/P 140/62 127/59 144/61 Pulse Ox 98 96 O2 Delivery Room Air Room Air Room Air 09/29/16 09/29/16 09/29/16 09/29/16 06:00 07:00 08:00 08:00 Temp 98.6 98.6 Pulse 72 72 74 Resp 16 14 16 B/P 140/57 156/66 156/65 Pulse Ox 96 97 97 O2 Delivery Room Air Room Air Room Air Room Air 09/29/16 09/29/16 09/29/16 09/29/16 08:50 09:00 10:00 11:00 Pulse 85 76 80 76 Resp B/P 165/77 162/73 123/70 155/71 Pulse Ox 97 97 96 O2 Delivery Room Air Room Air Room Air 09/29/16 09/29/16 09/29/16 09/29/16 12:00 12:00 12:28 13:00 Temp 98.1 98.1 Pulse 88 81 76 Resp 15 B/P 161/71 157/83 131/64 Pulse Ox 97 97 O2 Delivery Room Air Room Air Room Air 09/29/16 09/29/16 09/29/16 14:00 15:00 17:05 Pulse 76 76 84 Resp 17 B/P 132/68 156/70 165/74 Pulse Ox 98 98 O2 Delivery Room Air Room Air Intake and Output 09/28/16 09/28/16 09/29/16 15:00 23:00 07:00 Intake Total 1744 ml Output Total 300 ml 175 ml 140 ml Balance -300 ml -175 ml 1604 ml JILL MONROE MD Sep 29, 2016 17:32
[2016-09-29] MEDS: ATORVASTATIN CALCIUM 40 MG TABLET. PO SCH (20:18)
[2016-09-29] MEDS: INSULIN DETEMIR 300 UNITS/3 ML INSULN.PEN. SQ SCH (20:20)
[2016-09-29] MEDS: hydrALAZINE 20 MG/ML VIAL. IVP PRN (23:20)
--- NOTE | 2016-09-29 23:58 | HP ---
ADMIT DATE: 09/27/2016 CHIEF COMPLAINT: Altered mental status. HISTORY OF PRESENT ILLNESS: The patient is a 70-year-old -[place] woman with past medical history of hypertension and diabetes, who was brought in by her for "has not been right for the past 2 weeks." When the patient is asked why she is here, she states that her caught her looking at ugly pictures. The patient's is currently not at bedside, but per ER records is a poor historian and cannot relate any further details, but apparently she did have some type of procedure done about 2 weeks ago and symptoms commence then. PAST MEDICAL HISTORY: Hypertension, diabetes mellitus. FAMILY HISTORY: Unable to obtain. SOCIAL HISTORY: Lives with her . Denies any smoking or alcohol. ALLERGIES: No known drug allergies. MEDICATIONS: MAR reconciled with home medications. REVIEW OF SYSTEMS: The patient states that she has achiness in her left leg and has not noticed any weakness. PHYSICAL EXAMINATION: VITAL SIGNS: From today show a blood pressure of 192/86, heart rate of 75, respiratory rate of 16. She is afebrile. GENERAL: This is a 70-year-old -[place] woman, awake, lethargic, not oriented to person, time or place. NEUROLOGIC: She has perseverating thought patterns and is unable to express herself in full sentences. Cranial nerves 2-12 are intact. Right upper extremity weakness 4/5 in the proximal upper extremity and lower extremities are not tested as the patient is currently soaked. HEENT: Shows no scleral icterus. Oral mucosa is moist. NECK: Supple. LUNGS: Clear to auscultation bilaterally. CARDIOVASCULAR: Regular rate and rhythm. ABDOMEN: Has positive bowel sounds, soft, nontender. EXTREMITIES: Show no edema. SKIN: Warm, soft and dry. LABORATORY DATA: CBC with a WBC of 4.3, hemoglobin 11.6, platelets of 241, MCV of 74, BUN and creatinine of 17 and 1. Electrolytes within normal limits. LFTs within normal, albumin at 3.1, glucose is 158-200 by lab and fingersticks. Tox screen is negative. Urine negative for infection as well. PT/INR is normal. IMAGING: The CT of the head noncontrast without any acute findings. MRI of the brain with contrast reveals signal abnormality in the left basal ganglia, overall signal features suggestive of sequelae of late subacute infarct and mild late subacute petechial hemorrhage. There is very mild signal abnormality at the periphery, it could be due to superimposed mild more recent subacute ischemia, also nonspecific findings commonly due to chronic microvascular ischemic disease. ASSESSMENT AND PLAN: The patient is a 70-year-old -[place] woman with hypertension, diabetes, who presents with signs and symptoms of subacute cerebrovascular accident. We will obtain a Neurology consult. At this point, we will add aspirin to her regimen. Blood pressure will have to be brought under better control. We will continue her home medications for now, add hydralazine. We will probably have to increase her dose, if her blood pressure persists. At this point, I am not sure that she actually has taken any of her medications at home. Diabetes, currently is not terribly well controlled either, with poor compliance over the past 2 weeks. Monitor closely with insulin sliding scale. The patient is mildly anemic with microcytosis. We will obtain iron studies including ferritin to rule out iron deficiency versus inherited anemia. DALIA VENTURA MD DR: UR/nts JOB#: [id number] / [id number] CATRACHITO Rodríguez MD [facility]
[2016-09-30] VITALS (21 sets, daily range): BP systolic 133–192; BP diastolic 55–85
[2016-09-30] MEDS: hydrALAZINE 20 MG/ML VIAL. IVP PRN ×2 (05:21→18:14)
[2016-09-30] MEDS: ASPIRIN ENTERIC COATED 325 MG TABLET.DR. PO SCH (07:37)
[2016-09-30] MEDS: LISINOPRIL 20 MG TABLET PO SCH (07:37)
[2016-09-30] MEDS: CARVEDILOL 12.5 MG TABLET PO SCH (07:37)
[2016-09-30] MEDS: ENOXAPARIN 40 MG/0.4 ML DISP.SYRIN. SQ SCH (07:38)
[2016-09-30] MEDS: INSULIN ASPART 300 UNITS/3 ML INSULN.PEN SQ SCH ×3 (07:40→16:53)
--- NOTE | 2016-09-30 08:23 | PDOC ---
PROGRESS NOTES Chief Complaint Chief Complaint Subacute left basal ganglia stroke MAlignant HTN DM 2, controlled Dyslipidemia Acute encephalopathy sec to # 1, better History of Present Illness History of Present Illness Up in chair\\ NO FNDS but does not say too much NIcardipine gtt running Seen in ICU Can move all 4s "ok" with rehab when asked NO recent hgba1c..lipid panel? TSH normal PLAn: ICU for now as still is on gtt\\ Restart HCTZ 25, LIsinopril 40, BB BID Keep levemir 25 units for now (home dose is 30 units qhs) - AM BS was 150s MIght need to re adjust BP meds pending on course today Can check hgba1c PT/OT SW for rehab referral SUpprotive care Vitals Vitals Vital Signs Date Time Temp Pulse Resp B/P Pulse Ox O2 Delivery O2 Flow Rate FiO2 09/30/16 07:37 88 153/66 09/30/16 07:00 19 97 Room Air 09/30/16 04:00 98.4 98.4 Physical Exam General: Alert, Oriented X3, Cooperative, Other (thought process much improved) Heart: Regular rate Lungs: Clear Abdomen: Normal bowel sounds, No tenderness Extremities: No clubbing, No edema Skin: No rashes Review of Systems Review of Systems minimally verbal - confusion? Assessment and Plan Assessmemt and Plan Problems Medical Problems: (1) Acute encephalopathy Status: Acute (2) Right-sided muscle weakness Status: Acute (3) Type 2 diabetes mellitus Status: Acute Problems: Comment Review of Relevant I have reviewed the following items angelica (where applicable) has been applied. Labs Laboratory Tests Test 09/28/16 10:28 09/28/16 12:40 09/28/16 18:40 09/28/16 20:50 Glucose (Fingerstick) 208mg/dL (70-99) 219mg/dL (70-99) 191mg/dL (70-99) Nasal Screen MRSA (PCR) Negative (Negative) Test 09/29/16 07:35 White Blood Count 4.8x10^3/uL (4.0-11.0) Red Blood Count 4.96x10^6/uL (3.50-5.40) Hemoglobin 12.3g/dL (12.0-15.5) Hematocrit 36.9% (36.0-47.0) Mean Corpuscular Volume 74fL (79-100) Mean Corpuscular Hemoglobin 25pg (25-35) Mean Corpuscular Hemoglobin Concent 33g/dL (31-37) Red Cell Distribution Width 16.9% (11.5-14.5) Platelet Count 245x10^3/uL (140-400) Neutrophils (%) (Auto) 56% (31-73) Lymphocytes (%) (Auto) 31% (24-48) Monocytes (%) (Auto) 9% (0-9) Eosinophils (%) (Auto) 3% (0-3) Basophils (%) (Auto) 1% (0-3) Neutrophils # (Auto) 2.7x10^3uL (1.8-7.7) Lymphocytes # (Auto) 1.5x10^3/uL (1.0-4.8) Monocytes # (Auto) 0.4x10^3/uL (0.0-1.1) Eosinophils # (Auto) 0.2x10^3/uL (0.0-0.7) Basophils # (Auto) 0.1x10^3/uL (0.0-0.2) Sodium Level 141mmol/L (136-145) Potassium Level 3.6mmol/L (3.5-5.1) Chloride Level 107mmol/L (98-107) Carbon Dioxide Level 23mmol/L (21-32) Anion Gap 11 (6-14) Blood Urea Nitrogen 11mg/dL (7-20) Creatinine 0.8mg/dL (0.6-1.0) Estimated GFR (Cockcroft-Gault) 85.6 Glucose Level 153mg/dL (70-99) Calcium Level 8.7mg/dL (8.5-10.1) Iron Level 48ug/dL (50-170) Total Iron Binding Capacity 234ug/dL (250-450) Iron Saturation 21% (15-34) Ferritin 145ng/mL (8-252) Microbiology 09/27/16 Urine Culture - Final, Complete 09/27/16 Urine Culture Result 1 (JULIÁN) - Final, Complete Medications Current Medications Sodium Chloride (Iv Sodium Chloride 0.9% 1000ml Bag) 1,000 ml @ 100 mls/hr Q10H IV Last administered on 09/27/16t 12:03; Start 09/27/16 at 11:45; Stop at 21:44; Status DC Ondansetron HCl (Zofran) 4 mg PRN Q8HRS PRN IV NAUSEA/VOMITING; Start 09/27/16 at 14:45; Stop 09/28/16 at 14:44; Status DC Acetaminophen (Tylenol) 650 mg PRN Q4HRS PRN PO FEVER; Start 09/27/16 at 14:45 ; Stop 09/28/16 at 14:44; Status DC Hydralazine HCl (Apresoline) 10 mg 1X ONCE IVP Last administered on 09/27/16 20:56; Start 09/27/16 at 18:30; Stop 09/27/16 at 18:39; Status DC Aspirin (Ecotrin) 325 mg DAILYWBKFT PO Last administered on 09/30/16 07:37; Start 09/28/16 at 08:00 Insulin Aspart (Novolog) 0-9 UNITS TIDWMEALS SQ Last administered on 09/30/16 07:40; Start 09/28/16 at 08:00 Dextrose 12.5 gm PRN Q15MIN PRN IV SEE COMMENTS; Start 09/27/16 at 18:45 Insulin Detemir (Levemir) 20 units QHS SQ Last administered on 09/28/16 20:51 ; Start 09/27/16 at 21:00; Stop 09/29/16 at 09:24; Status DC Metoprolol Tartrate (Lopressor) 50 mg 1X ONCE PO Last administered on 20:55; Start 09/27/16 at 18:45; Stop 09/27/16 at 18:46; Status DC Metoprolol Succinate (Toprol Xl) 50 mg DAILY PO Last administered on 09/28/16 08:10; Start 09/28/16 at 09:00; Stop 09/28/16 at 20:36; Status DC Lisinopril (Prinivil) 20 mg DAILY PO Last administered on 09/30/16 07:37; Start 09/28/16 at 09:00 Hydralazine HCl (Apresoline) 10 mg PRN Q4HRS PRN IVP ELEVATED BP, SEE COMMENTS Last administered on 09/30/16 05:21; Start 09/27/16 at 20:45 Atorvastatin Calcium (Lipitor) 40 mg QHS PO Last administered on 09/29/16 20: 18; Start 09/28/16 at 21:00 Hydralazine HCl 20 mg 20 mg 1X ONCE IVP Last administered on 09/28/16 10:45; Start 09/28/16 at 10:45; Stop 09/28/16 at 10:50; Status DC Nicardipine HCl 50 mg/Sodium Chloride 270 ml @ 0 mls/hr CONT PRN IV SEE I/O RECORD Last administered on 09/29/16 06:37; Start 09/28/16 at 11:45 Magnesium Sulfate/ Dextrose 50 ml @ 25 mls/hr 1X ONCE IV Last administered on 09/28/16 16:17; Start 09/28/16 at 15:00; Stop 09/28/16 at 16:59; Status DC Potassium Chloride (KCl Premix 10meq) 100 ml @ 100 mls/hr Q1H IV Last administered on 09/28/16 21:18; Start 09/28/16 at 15:15; Stop 09/28/16 at 19:14 ; Status DC Carvedilol (Coreg) 12.5 mg 1X ONCE PO Last administered on 09/28/16 20:46; Start 09/28/16 at 21:00; Stop 09/28/16 at 21:01; Status DC Lisinopril (Prinivil) 10 mg 1X ONCE PO Last administered on 09/28/16 20:46; Start 09/28/16 at 21:00; Stop 09/28/16 at 21:01; Status DC Insulin Detemir (Levemir) 25 units QHS SQ Last administered on 09/29/16 20:20 ; Start 09/29/16 at 21:00 Enoxaparin Sodium (Lovenox 40mg Syringe) 40 mg Q24H SQ Last administered on 07:38; Start 09/29/16 at 10:00 Carvedilol (Coreg) 12.5 mg BIDWMEALS PO Last administered on 09/30/16 07:37; Start 09/29/16 at 12:00 Active Scripts Active Reported Lantus Solostar (Insulin Glargine,Hum.rec.anlog) 100 Unit/1 Ml Insuln.pen 30 Unit SQ QHS Metoprolol Succinate 50 Mg Tab.er.24h 50 Mg PO DAILY Lisinopril 40 Mg Tablet 1 Tab PO DAILY Hydrochlorothiazide Tablet (Hydrochlorothiazide) 25 Mg Tablet 1 Tab PO DAILY Metformin Hcl 1,000 Mg Tablet 1 Tab PO BID Vitals/I & O Vital Sign - Last 24 Hours 09/29/16 09/29/16 09/29/16 09/29/16 08:50 09:00 10:00 11:00 Pulse 85 76 80 76 Resp B/P 165/77 162/73 123/70 155/71 Pulse Ox 97 97 96 O2 Delivery Room Air Room Air Room Air 09/29/16 09/29/16 09/29/16 09/29/16 12:00 12:00 12:28 13:00 Temp 98.1 98.1 Pulse 88 81 76 Resp 15 B/P 161/71 157/83 131/64 Pulse Ox 97 97 O2 Delivery Room Air Room Air Room Air 09/29/16 09/29/16 09/29/16 09/29/16 14:00 15:00 16:00 16:00 Temp 98.4 98.4 Pulse 76 76 76 Resp B/P 132/68 156/70 150/77 Pulse Ox 98 98 98 O2 Delivery Room Air Room Air Room Air Room Air 09/29/16 09/29/16 09/29/16 09/29/16 17:00 17:05 18:00 19:00 Pulse 76 84 81 78 Resp 17 B/P 165/74 165/74 148/96 162/66 Pulse Ox 97 97 98 O2 Delivery Room Air Room Air Room Air 09/29/16 09/29/16 09/29/16 09/29/16 20:00 20:00 21:00 22:00 Temp 98.3 98.3 Pulse 79 80 88 Resp 16 35 B/P 170/76 160/66 152/90 Pulse Ox 99 98 O2 Delivery Room Air Room Air Room Air Room Air 09/29/16 09/29/16 09/30/16 09/30/16 23:00 23:20 00:00 00:00 Temp 98.5 98.5 Pulse 81 81 85 Resp B/P 170/81 177/80 155/70 Pulse Ox 99 99 O2 Delivery Room Air Room Air Room Air 09/30/16 09/30/16 09/30/16 09/30/16 01:00 02:00 03:00 04:00 Temp 98.4 98.4 Pulse 83 87 81 81 Resp 05 31 15 15 B/P 175/70 150/77 159/77 133/55 Pulse Ox 98 98 98 98 O2 Delivery Room Air Room Air Room Air Room Air 09/30/16 09/30/16 09/30/16 09/30/16 04:00 05:00 05:21 06:00 Pulse 86 85 92 Resp 18 B/P 162/75 183/90 180/60 Pulse Ox 98 99 O2 Delivery Room Air Room Air Room Air 09/30/16 09/30/16 09/30/16 07:00 07:37 07:37 Pulse 88 88 88 Resp 19 B/P 153/66 153/66 153/66 Pulse Ox 97 O2 Delivery Room Air Intake and Output 09/29/16 09/29/16 09/30/16 15:00 23:00 07:00 Intake Total 350 ml 900 ml Output Total 215 ml 155 ml 605 ml Balance 135 ml -155 ml 295 ml ELVIRA FLORES MD Sep 30, 2016 08:23
[2016-09-30] MEDS: METFORMIN 1,000 MG TABLET PO SCH ×2 (09:01→20:54)
[2016-09-30] MEDS: HYDROCHLOROTHIAZIDE 25 MG TABLET PO SCH (09:01)
[2016-09-30] MEDS: METOPROLOL SUCC 24HR ER 50 MG TAB.ER.24H. PO SCH (09:02)
[2016-09-30] MEDS: LISINOPRIL 40 MG TABLET. PO SCH (09:02)
--- NOTE | 2016-09-30 10:51 | PDOC ---
PROGRESS NOTES Assessment Problems Medical Problems: (1) Acute encephalopathy Status: Acute (2) Right-sided muscle weakness Status: Acute (3) Type 2 diabetes mellitus Status: Acute Subacuate left basal ganglia stroke, this has caused some aphasia Hypertension Hyperlipidemia, started on statin Encephalopathy related to the hypertension and the subacute stroke. Plan Rehabilitation, especially speech therapy Fasting lipid profile in another month or 2 to see if the medical regimen is helpful Subjective No complaints Objective Vital Signs Date Time Temp Pulse Resp B/P Pulse Ox O2 Delivery O2 Flow Rate FiO2 09/30/16 10:00 79 16 163/71 99 Room Air 09/30/16 08:00 97.8 97.8 Intake and Output 09/30/16 07:00 Intake Total 1250 ml Output Total 975 ml Balance 275 ml Intake Oral 1250 ml Output Urine Total 975 ml PHYSICAL EXAM Alert. Oriented to person, does not know date or location, difficulties with expressive speech, no dysnomia. PERRL. EOMI. CN: no focal findings. Muscle tone: normal. Muscle strength: 4/5 DTR: 1+ Plantar reflex: flexor Gait: not examined in bed. Sensory exam: no abnormal findings. No cerebellar signs elicited. Review of Relevant I have reviewed the following items angelica (where applicable) has been applied. Labs Laboratory Tests Test 09/28/16 12:40 09/28/16 18:40 09/28/16 20:50 09/29/16 07:35 Nasal Screen MRSA (PCR) Negative (Negative) Glucose (Fingerstick) 219mg/dL (70-99) 191mg/dL (70-99) White Blood Count 4.8x10^3/uL (4.0-11.0) Red Blood Count 4.96x10^6/uL (3.50-5.40) Hemoglobin 12.3g/dL (12.0-15.5) Hematocrit 36.9% (36.0-47.0) Mean Corpuscular Volume 74fL (79-100) Mean Corpuscular Hemoglobin 25pg (25-35) Mean Corpuscular Hemoglobin Concent 33g/dL (31-37) Red Cell Distribution Width 16.9% (11.5-14.5) Platelet Count 245x10^3/uL (140-400) Neutrophils (%) (Auto) 56% (31-73) Lymphocytes (%) (Auto) 31% (24-48) Monocytes (%) (Auto) 9% (0-9) Eosinophils (%) (Auto) 3% (0-3) Basophils (%) (Auto) 1% (0-3) Neutrophils # (Auto) 2.7x10^3uL (1.8-7.7) Lymphocytes # (Auto) 1.5x10^3/uL (1.0-4.8) Monocytes # (Auto) 0.4x10^3/uL (0.0-1.1) Eosinophils # (Auto) 0.2x10^3/uL (0.0-0.7) Basophils # (Auto) 0.1x10^3/uL (0.0-0.2) Sodium Level 141mmol/L (136-145) Potassium Level 3.6mmol/L (3.5-5.1) Chloride Level 107mmol/L (98-107) Carbon Dioxide Level 23mmol/L (21-32) Anion Gap 11 (6-14) Blood Urea Nitrogen 11mg/dL (7-20) Creatinine 0.8mg/dL (0.6-1.0) Estimated GFR (Cockcroft-Gault) 85.6 Glucose Level 153mg/dL (70-99) Calcium Level 8.7mg/dL (8.5-10.1) Iron Level 48ug/dL (50-170) Total Iron Binding Capacity 234ug/dL (250-450) Iron Saturation 21% (15-34) Ferritin 145ng/mL (8-252) Microbiology 09/27/16 Urine Culture - Final, Complete 09/27/16 Urine Culture Result 1 (JULIÁN) - Final, Complete Medications Current Medications Sodium Chloride (Iv Sodium Chloride 0.9% 1000ml Bag) 1,000 ml @ 100 mls/hr Q10H IV Last administered on 09/27/16t 12:03; Start 09/27/16 at 11:45; Stop at 21:44; Status DC Ondansetron HCl (Zofran) 4 mg PRN Q8HRS PRN IV NAUSEA/VOMITING; Start 09/27/16 at 14:45; Stop 09/28/16 at 14:44; Status DC Acetaminophen (Tylenol) 650 mg PRN Q4HRS PRN PO FEVER; Start 09/27/16 at 14:45 ; Stop 09/28/16 at 14:44; Status DC Hydralazine HCl (Apresoline) 10 mg 1X ONCE IVP Last administered on 09/27/16 20:56; Start 09/27/16 at 18:30; Stop 09/27/16 at 18:39; Status DC Aspirin (Ecotrin) 325 mg DAILYWBKFT PO Last administered on 09/30/16 07:37; Start 09/28/16 at 08:00 Insulin Aspart (Novolog) 0-9 UNITS TIDWMEALS SQ Last administered on 09/30/16 07:40; Start 09/28/16 at 08:00 Dextrose 12.5 gm PRN Q15MIN PRN IV SEE COMMENTS; Start 09/27/16 at 18:45 Insulin Detemir (Levemir) 20 units QHS SQ Last administered on 09/28/16 20:51 ; Start 09/27/16 at 21:00; Stop 09/29/16 at 09:24; Status DC Metoprolol Tartrate (Lopressor) 50 mg 1X ONCE PO Last administered on 20:55; Start 09/27/16 at 18:45; Stop 09/27/16 at 18:46; Status DC Metoprolol Succinate (Toprol Xl) 50 mg DAILY PO Last administered on 09/28/16 08:10; Start 09/28/16 at 09:00; Stop 09/28/16 at 20:36; Status DC Lisinopril (Prinivil) 20 mg DAILY PO Last administered on 09/30/16 07:37; Start 09/28/16 at 09:00; Stop 09/30/16 at 08:22; Status DC Hydralazine HCl (Apresoline) 10 mg PRN Q4HRS PRN IVP ELEVATED BP, SEE COMMENTS Last administered on 09/30/16 05:21; Start 09/27/16 at 20:45 Atorvastatin Calcium (Lipitor) 40 mg QHS PO Last administered on 09/29/16 20: 18; Start 09/28/16 at 21:00 Hydralazine HCl 20 mg 20 mg 1X ONCE IVP Last administered on 09/28/16 10:45; Start 09/28/16 at 10:45; Stop 09/28/16 at 10:50; Status DC Nicardipine HCl 50 mg/Sodium Chloride 270 ml @ 0 mls/hr CONT PRN IV SEE I/O RECORD Last administered on 09/29/16 06:37; Start 09/28/16 at 11:45 Magnesium Sulfate/ Dextrose 50 ml @ 25 mls/hr 1X ONCE IV Last administered on 09/28/16 16:17; Start 09/28/16 at 15:00; Stop 09/28/16 at 16:59; Status DC Potassium Chloride (KCl Premix 10meq) 100 ml @ 100 mls/hr Q1H IV Last administered on 09/28/16 21:18; Start 09/28/16 at 15:15; Stop 09/28/16 at 19:14 ; Status DC Carvedilol (Coreg) 12.5 mg 1X ONCE PO Last administered on 09/28/16 20:46; Start 09/28/16 at 21:00; Stop 09/28/16 at 21:01; Status DC Lisinopril (Prinivil) 10 mg 1X ONCE PO Last administered on 09/28/16 20:46; Start 09/28/16 at 21:00; Stop 09/28/16 at 21:01; Status DC Insulin Detemir (Levemir) 25 units QHS SQ Last administered on 09/29/16 20:20 ; Start 09/29/16 at 21:00 Enoxaparin Sodium (Lovenox 40mg Syringe) 40 mg Q24H SQ Last administered on 07:38; Start 09/29/16 at 10:00 Carvedilol (Coreg) 12.5 mg BIDWMEALS PO Last administered on 09/30/16 07:37; Start 09/29/16 at 12:00; Stop 09/30/16 at 08:22; Status DC Hydrochlorothiazide (Hydrodiuril) 25 mg DAILY PO Last administered on 09:01; Start 09/30/16 at 09:00 Lisinopril (Prinivil) 40 mg DAILY PO Last administered on 09/30/16 09:02; Start 09/30/16 at 09:00 Metformin HCl (Glucophage) 1,000 mg BID PO Last administered on 09/30/16 09:01 ; Start 09/30/16 at 09:00 Metoprolol Succinate (Toprol Xl) 50 mg DAILY PO Last administered on 09/30/16 09:02; Start 09/30/16 at 09:00 Active Scripts Active Reported Metformin Hcl 1,000 Mg Tablet 1 Tab PO BID Lantus Solostar (Insulin Glargine,Hum.rec.anlog) 100 Unit/1 Ml Insuln.pen 30 Unit SQ QHS Metoprolol Succinate 50 Mg Tab.er.24h 50 Mg PO DAILY Lisinopril 40 Mg Tablet 1 Tab PO DAILY Hydrochlorothiazide Tablet (Hydrochlorothiazide) 25 Mg Tablet 1 Tab PO DAILY Vitals/I & O Vital Sign - Last 24 Hours 09/29/16 09/29/16 09/29/16 09/29/16 11:00 12:00 12:00 12:28 Temp 98.1 98.1 Pulse 76 88 81 Resp B/P 155/71 161/71 157/83 Pulse Ox 96 97 O2 Delivery Room Air Room Air Room Air 09/29/16 09/29/16 09/29/16 09/29/16 13:00 14:00 15:00 16:00 Pulse 76 76 76 Resp B/P 131/64 132/68 156/70 Pulse Ox 97 98 98 O2 Delivery Room Air Room Air Room Air Room Air 09/29/16 09/29/16 09/29/16 09/29/16 16:00 17:00 17:05 18:00 Temp 98.4 98.4 Pulse 76 76 84 81 Resp 15 24 21 B/P 150/77 165/74 165/74 148/96 Pulse Ox 98 97 97 O2 Delivery Room Air Room Air Room Air 09/29/16 09/29/16 09/29/16 09/29/16 19:00 20:00 20:00 21:00 Temp 98.3 98.3 Pulse 78 79 80 Resp B/P 162/66 170/76 160/66 Pulse Ox 98 99 98 O2 Delivery Room Air Room Air Room Air Room Air 09/29/16 09/29/16 09/29/16 09/30/16 22:00 23:00 23:20 00:00 Temp 98.5 98.5 Pulse 88 81 81 85 Resp 35 21 29 B/P 152/90 170/81 177/80 155/70 Pulse Ox 99 99 O2 Delivery Room Air Room Air Room Air 09/30/16 09/30/16 09/30/16 09/30/16 00:00 01:00 02:00 03:00 Pulse 83 87 81 Resp 11 18 15 B/P 175/70 150/77 159/77 Pulse Ox 98 98 98 O2 Delivery Room Air Room Air Room Air Room Air 09/30/16 09/30/16 09/30/16 09/30/16 04:00 04:00 05:00 05:21 Temp 98.4 98.4 Pulse 81 86 85 Resp 15 18 B/P 133/55 162/75 183/90 Pulse Ox 98 98 O2 Delivery Room Air Room Air Room Air 09/30/16 09/30/16 09/30/16 09/30/16 06:00 07:00 07:37 07:37 Pulse 92 88 88 88 Resp 18 19 B/P 180/60 153/66 153/66 153/66 Pulse Ox 99 97 O2 Delivery Room Air Room Air 09/30/16 09/30/16 09/30/16 09/30/16 08:00 08:00 09:00 09:02 Temp 97.8 97.8 Pulse 103 90 88 Resp 23 17 B/P 145/76 149/72 153/66 Pulse Ox 99 100 O2 Delivery Room Air Room Air Room Air 09/30/16 09/30/16 09:02 10:00 Pulse 99 79 Resp 16 B/P 155/74 163/71 Pulse Ox 99 O2 Delivery Room Air Intake and Output 09/29/16 09/29/16 09/30/16 15:00 23:00 07:00 Intake Total 350 ml 900 ml Output Total 215 ml 155 ml 605 ml Balance 135 ml -155 ml 295 ml Images Brain MRI: 1. There is signal abnormality of the left basal ganglia, overall signal features suggestive of sequela of late subacute infarct and mild late subacute, petechial hemorrhage. There is very mild signal abnormality at the periphery, could be due superimposed mild more recent, subacute ischemia. No contrast was given for this exam to evaluate for abnormal intracranial enhancement which may be beneficial. Other scattered T2 and FLAIR hyperintense signal abnormality of the supratentorial white matter and leif is nonspecific, most commonly due to chronic microvascular ischemic disease in patient this age. Carotids: negative Echo: LEFT VENTRICLE The left ventricle is normal size. There is borderline to mild concentric left ventricular hypertrophy. The left ventricular systolic function is normal and the ejection fraction is within normal range. EF 55% There is normal LV segmental wall motion. Septal motion suggestive of conduction abnormality. Transmitral Doppler flow pattern is Grade I-abnormal relaxation pattern. RIGHT VENTRICLE The right ventricle is normal size. There is normal right ventricular wall thickness. The right ventricular systolic function is normal. ATRIA The left atrium size is normal. The right atrium size is normal. The interatrial septum is intact with no evidence for an atrial septal defect or patent foramen ovale as noted on 2-D or Doppler imaging. Limited bubble study images do not demonstrate a PFO/ASD. AORTIC VALVE The aortic valve is normal in structure and function. Doppler and Color Flow revealed trace aortic regurgitation. There is no significant aortic valvular stenosis. There is no aortic valvular vegetation. MITRAL VALVE The mitral valve is normal in structure and function. There is no evidence of mitral valve prolapse. There is no mitral valve stenosis. Doppler and Color Flow revealed mild mitral regurgitation. TRICUSPID VALVE The tricuspid valve is normal in structure and function. Doppler and Color Flow revealed mild regurgitation. Moderate PHTN 55 mmHg There is no tricuspid valve stenosis. PULMONIC VALVE Doppler and Color Flow revealed no pulmonic valvular regurgitation. There is no pulmonic valvular stenosis. GREAT VESSELS The aortic root is normal in size. The ascending aorta is normal in size. The IVC is normal in size and collapses >50% with inspiration. PERICARDIAL EFFUSION There is no pleural effusion. There is no evidence of significant pericardial effusion. Critical Notification Critical Value: No <Conclusion> The left ventricular systolic function is normal and the ejection fraction is within normal range. EF 55% There is normal LV segmental wall motion. Septal motion suggestive of conduction abnormality. Doppler and Color Flow revealed mild regurgitation. Moderate PHTN 55 mmHg The interatrial septum is intact with no evidence for an atrial septal defect or patent foramen ovale as noted on 2-D or Doppler imaging. Limited bubble study images do not demonstrate a PFO/ASD. Consider EUN if clinically indicated. J CARLOS CASTRO MD Sep 30, 2016 10:51
--- NOTE | 2016-09-30 11:06 | CONS ---
DATE OF CONSULTATION: 09/28/2016 REFERRING PHYSICIAN: Dr. Alston. REASON FOR CONSULTATION: Stroke and altered mental status. HISTORY OF PRESENT ILLNESS: The patient is a 70-year-old woman who presented to the Emergency Room yesterday. Her had noted about 2 weeks of mental status change. He had been hospitalized about the time this started and this must have happened while he was actually hospitalized. He had noticed that she just was not doing things around the house that she normally does. She was not thinking quite properly, although he had a great difficulty trying to put this into words. He himself could not provide much valuable history, nor could the patient. She had had some procedure 2 weeks ago, although he cannot describe to me what happened. It sounds as if she might have fallen 1-2 weeks ago requiring stitches above her left eyebrow. He could not explain to me the cause of the fall such as syncope or a trip. Neither of them reports that there was any syncope. She denies any prior strokes. She does have a history of diabetes and hypertension. She denies any headache or dizziness at the present time. PAST MEDICAL HISTORY: 1. Type 2 diabetes. 2. Hypertension. 3. Tumor removed. ALLERGIES: No known allergies to drugs. MEDICATIONS PRIOR TO ADMISSION: Hydrochlorothiazide, insulin, lisinopril 40 mg, metformin 1000 mg twice a day, and metoprolol 50 mg extended release daily. FAMILY HISTORY: Both parents had diabetes. The mother had heart disease. Both parents are . SOCIAL HISTORY: She is . She is a lifelong nonsmoker. She does not drink alcohol or use recreational drugs. She has children. REVIEW OF SYSTEMS: She denies any headaches. She has not had any change of vision or hearing. She has had cognitive changes. She denies nose or sinus trouble. She has been able to eat and swallow without choking. She denies shortness of breath, chest or abdominal pain. She does have joint pain, especially left hip. She has had no fever or rash. She does have constipation. No genitourinary complaints. She denies any numbness or weakness. She denies easy bruising, bleeding, or swelling. PHYSICAL EXAMINATION: VITAL SIGNS: Blood pressure 193/88, pulse 88, respirations 12, temperature 99 degrees Fahrenheit. Oximetry was 97% on room air. Her weight was 206 pounds, height 71 inches with a calculated body mass index of 28.7. GENERAL: She was alert, awake, and cooperative. Speech was slow, but fluent. She had a limited fund of recent and remote knowledge. Attention and concentration was severely impaired. She was not oriented to place, month, or year. Her demeanor was pleasant and cooperative. NEUROLOGIC: Examination of the cranial nerves revealed visual jesus were full to confrontation. Extraocular movements were intact. The eyes were conjugate. Pursuit movements were smooth and saccadic eye movements were without dysmetria. Pupils were 3 mm and reactive. Funduscopic exam did not reveal papilledema. Facial sensation was intact. The muscles of mastication and facial expression were powerful symmetrically. Hearing was intact to finger rub. The palate arches symmetrically and the tongue was midline with full range of motion. Sternocleidomastoid and trapezius were powerful. Muscle bulk and tone was normal. There was no arm drift. The power was full and symmetric in the upper and lower extremities. Reflexes were 2/4 and symmetric in the upper and lower extremities, but diminished at the ankles. The toes were not upgoing. Coordination testing with [id number] and fine motor was difficult for her to grasp the concept, but there was no obvious ataxia. She seemed to have more difficulty using the left hand for this than the right. Sensory exam was intact to pain, light touch, proprioception, and cold, thermal, and vibration. There was no extinction to double simultaneous stimulation. Gait was not testable. Auscultation of the carotid arteries did not reveal a bruit. Heart rhythm was regular without a murmur. Peripheral pulses were symmetric. There was no edema or cyanosis. LABORATORY DATA: CBC revealed a normal white blood cell count, hemoglobin, hematocrit, and platelet count. Chemistries revealed low potassium at 3.1, but normal sodium, chloride, and CO2. BUN and creatinine were normal. Glucose was elevated to 158 early this morning. Calcium was normal. A fasting lipid profile revealed total cholesterol of 229, triglycerides of 129, LDL elevated to 127, VLDL 26, and HDL was 69. TSH was normal. Ammonia was not elevated. An MRI of the brain was performed and did reveal a subacute stroke in the left basal ganglia region, possibly with old petechial hemorrhage as well. There was also chronic small vessel disease. Head CT was performed through the Emergency Room and revealed no acute process. Chest x-ray revealed no acute cardiopulmonary process. IMPRESSION: The patient is a pleasant 70-year-old woman who has had subacute left basal ganglion stroke, possibly with a small amount of petechial hemorrhage. There is no mass effect. This likely accounts for why she had an altered mental status dating back to 1-2 weeks ago. The timing would be appropriate for a subacute lesion. This is likely due to small vessel disease, as it is a lacunar stroke. Risk would include her uncontrolled blood pressure and uncontrolled sugars. She also has hyperlipidemia. RECOMMENDATIONS: We will obtain a carotid Doppler to look for embolic source. We will obtain an echocardiogram also to look for an embolic source. At home, she does not appear to have been on a statin medication. I will initiate atorvastatin 40 mg. She has been initiated on aspirin for stroke prevention. She and her denied that she was on aspirin previously. The blood pressure will need to be more tightly controlled and the blood sugars will also need to be addressed. She will need the services of Physical, Occupational, and Speech Therapy. I appreciate being involved in her care. JILL MONROE MD DR: NIDHI/laura JOB#: [id number] / [id number] J CARLOS Kenyon MD, FERILYN MD VASIREDDI, SRINIVASA MD
--- NOTE | 2016-09-30 13:19 | PDOC ---
TOM EPSTEIN APRN 09/30/16 1319: CARDIO Progress Notes Date and Time Date of Service 09/30/16 Time of Evaluation 1045 Subjective Subjective: No Chest Pain, No shortness of breath, No Palpitations, Other ( some aphasia) Vitals Vitals Vital Signs Date Time Temp Pulse Resp B/P Pulse Ox O2 Delivery O2 Flow Rate FiO2 09/30/16 13:00 85 13 158/80 100 Room Air 09/30/16 12:00 98.3 98.3 Weight Weight [ ] Input and Output Intake and Output Intake and Output 09/30/16 07:00 Intake Total 1250 ml Output Total 975 ml Balance 275 ml Intake Oral 1250 ml Output Urine Total 975 ml Microbiology Micro Microbiology 09/27/16 Urine Culture - Final, Complete 09/27/16 Urine Culture Result 1 (JULIÁN) - Final, Complete Physical Exam HEENT: Neck Supple W Full Motion Chest: Symmetric LUNGS: Clear to Auscultation Heart: S1S2, RRR, murmurs (2/6 systolic murmur ) Abdomen: Soft N/T Extremities: 2+ Dorsalis Pedis, No Edema, No Calf Tenderness Neurology: alert, oriented (to person and place), follow commands, other (falt affect, some aphasia ) Plan Plan 1. Malignant hypertension 2. Diabetes. 3. Left basal ganglia stroke. 4. Hyperlipidemia Recommendations Echo with normal LV function with no evidence of PFO/ASD, although bubble study limited. Maintain BP control; add Norvasc Continue supportive care DON VILLASEÑOR MD 09/30/16 1351: CARDIO Progress Notes Plan Plan Pt. seen and examined. Agree with above KILN FIREMAN note. No acute events overnight. BP better controlled but not optimal. No significant CV abn on exam Med changes as above Supportive care. TOM EPSTEIN APRN Sep 30, 2016 13:19 DON VILLASEÑOR MD Sep 30, 2016 13:51
[2016-09-30] MEDS: AMLODIPINE BESYLATE 5 MG TABLET PO SCH (13:28)
[2016-09-30] MEDS: ATORVASTATIN CALCIUM 40 MG TABLET. PO SCH (20:54)
[2016-09-30] MEDS: INSULIN DETEMIR 300 UNITS/3 ML INSULN.PEN. SQ SCH (20:58)
[2016-10-01] VITALS (8 sets, daily range): BP systolic 91–168; BP diastolic 40–88
[2016-10-01 05:34] LABS: CALCIUM 8.8 mg/dL (8.5-10.1); CREATININE 0.9 mg/dL (0.6-1.0); GFR 74.7; MAGNESIUM 1.7 mg/dL (1.8-2.4); POTASSIUM 3.5 mmol/L (3.5-5.1)
[2016-10-01] MEDS: INSULIN ASPART 300 UNITS/3 ML INSULN.PEN SQ SCH ×3 (08:00→17:00)
[2016-10-01] MEDS: ENOXAPARIN 40 MG/0.4 ML DISP.SYRIN. SQ SCH (10:10)
[2016-10-01] MEDS: AMLODIPINE BESYLATE 5 MG TABLET PO SCH (10:12)
[2016-10-01] MEDS: METOPROLOL SUCC 24HR ER 50 MG TAB.ER.24H. PO SCH (10:13)
[2016-10-01] MEDS: HYDROCHLOROTHIAZIDE 25 MG TABLET PO SCH (10:13)
[2016-10-01] MEDS: METFORMIN 1,000 MG TABLET PO SCH ×2 (10:14→17:52)
[2016-10-01] MEDS: ASPIRIN ENTERIC COATED 325 MG TABLET.DR. PO SCH (10:14)
[2016-10-01] MEDS: LISINOPRIL 40 MG TABLET. PO SCH (10:14)
--- NOTE | 2016-10-01 10:28 | PDOC ---
PROGRESS NOTES Assessment Problems Medical Problems: (1) Acute encephalopathy Status: Acute (2) Right-sided muscle weakness Status: Acute (3) Type 2 diabetes mellitus Status: Acute Subacuate left basal ganglia stroke, this has caused some aphasia Hypertension Hyperlipidemia, started on statin Encephalopathy related to the hypertension and the subacute stroke. Plan Rehabilitation, especially speech therapy Fasting lipid profile in another month or 2 to see if the medical regimen is helpful Subjective No complaints Objective Vital Signs Date Time Temp Pulse Resp B/P Pulse Ox O2 Delivery O2 Flow Rate FiO2 10/01/16 09:56 91/40 10/01/16 07:56 Room Air 10/01/16 07:00 97.5 83 12 99 97.5 Intake and Output 10/01/16 07:00 Intake Total 850 ml Output Total 1000 ml Balance -150 ml Intake Oral 850 ml Output Urine Total 1000 ml PHYSICAL EXAM Alert. Oriented to person, does not know date or location, speech is better PERRL. EOMI. CN: no focal findings. Muscle tone: normal. Muscle strength: 4/5 DTR: 1+ Plantar reflex: flexor Gait: not examined in bed. Sensory exam: no abnormal findings. No cerebellar signs elicited Review of Relevant I have reviewed the following items angelica (where applicable) has been applied. Labs Laboratory Tests Test 09/30/16 20:46 10/01/16 04:23 10/01/16 07:41 Glucose (Fingerstick) 220mg/dL (70-99) 142mg/dL (70-99) Sodium Level 138mmol/L (136-145) Potassium Level 3.5mmol/L (3.5-5.1) Chloride Level 103mmol/L (98-107) Carbon Dioxide Level 25mmol/L (21-32) Anion Gap 10 (6-14) Blood Urea Nitrogen 16mg/dL (7-20) Creatinine 0.9mg/dL (0.6-1.0) Estimated GFR (Cockcroft-Gault) 74.7 Glucose Level 138mg/dL (70-99) Calcium Level 8.8mg/dL (8.5-10.1) Magnesium Level 1.7mg/dL (1.8-2.4) Laboratory Tests Test 09/30/16 20:46 10/01/16 04:23 10/01/16 07:41 Glucose (Fingerstick) 220mg/dL (70-99) 142mg/dL (70-99) Sodium Level 138mmol/L (136-145) Potassium Level 3.5mmol/L (3.5-5.1) Chloride Level 103mmol/L (98-107) Carbon Dioxide Level 25mmol/L (21-32) Anion Gap 10 (6-14) Blood Urea Nitrogen 16mg/dL (7-20) Creatinine 0.9mg/dL (0.6-1.0) Estimated GFR (Cockcroft-Gault) 74.7 Glucose Level 138mg/dL (70-99) Calcium Level 8.8mg/dL (8.5-10.1) Magnesium Level 1.7mg/dL (1.8-2.4) Microbiology 09/27/16 Urine Culture - Final, Complete 09/27/16 Urine Culture Result 1 (JULIÁN) - Final, Complete Medications Current Medications Sodium Chloride (Iv Sodium Chloride 0.9% 1000ml Bag) 1,000 ml @ 100 mls/hr Q10H IV Last administered on 09/27/16 12:03; Start 09/27/16 at 11:45; Stop at 21:44; Status DC Ondansetron HCl (Zofran) 4 mg PRN Q8HRS PRN IV NAUSEA/VOMITING; Start 09/27/16 at 14:45; Stop 09/28/16 at 14:44; Status DC Acetaminophen (Tylenol) 650 mg PRN Q4HRS PRN PO FEVER; Start 09/27/16 at 14:45 ; Stop 09/28/16 at 14:44; Status DC Hydralazine HCl (Apresoline) 10 mg 1X ONCE IVP Last administered on 09/27/16 20:56; Start 09/27/16 at 18:30; Stop 09/27/16 at 18:39; Status DC Aspirin (Ecotrin) 325 mg DAILYWBKFT PO Last administered on 09/30/16 07:37; Start 09/28/16 at 08:00 Insulin Aspart (Novolog) 0-9 UNITS TIDWMEALS SQ Last administered on 09/30/16 16:53; Start 09/28/16 at 08:00 Dextrose 12.5 gm PRN Q15MIN PRN IV SEE COMMENTS; Start 09/27/16 at 18:45 Insulin Detemir (Levemir) 20 units QHS SQ Last administered on 09/28/16 20:51 ; Start 09/27/16 at 21:00; Stop 09/29/16 at 09:24; Status DC Metoprolol Tartrate (Lopressor) 50 mg 1X ONCE PO Last administered on 20:55; Start 09/27/16 at 18:45; Stop 09/27/16 at 18:46; Status DC Metoprolol Succinate (Toprol Xl) 50 mg DAILY PO Last administered on 09/28/16 08:10; Start 09/28/16 at 09:00; Stop 09/28/16 at 20:36; Status DC Lisinopril (Prinivil) 20 mg DAILY PO Last administered on 09/30/16 07:37; Start 09/28/16 at 09:00; Stop 09/30/16 at 08:22; Status DC Hydralazine HCl (Apresoline) 10 mg PRN Q4HRS PRN IVP ELEVATED BP, SEE COMMENTS Last administered on 09/30/16 18:14; Start 09/27/16 at 20:45 Atorvastatin Calcium (Lipitor) 40 mg QHS PO Last administered on 09/30/16 20: 54; Start 09/28/16 at 21:00 Hydralazine HCl 20 mg 20 mg 1X ONCE IVP Last administered on 09/28/16 10:45; Start 09/28/16 at 10:45; Stop 09/28/16 at 10:50; Status DC Nicardipine HCl 50 mg/Sodium Chloride 270 ml @ 0 mls/hr CONT PRN IV SEE I/O RECORD Last administered on 09/29/16 06:37; Start 09/28/16 at 11:45; Stop 09/30 at 13:19; Status DC Magnesium Sulfate/ Dextrose 50 ml @ 25 mls/hr 1X ONCE IV Last administered on 09/28/16 16:17; Start 09/28/16 at 15:00; Stop 09/28/16 at 16:59; Status DC Potassium Chloride (KCl Premix 10meq) 100 ml @ 100 mls/hr Q1H IV Last administered on 09/28/16 21:18; Start 09/28/16 at 15:15; Stop 09/28/16 at 19:14 ; Status DC Carvedilol (Coreg) 12.5 mg 1X ONCE PO Last administered on 09/28/16 20:46; Start 09/28/16 at 21:00; Stop 09/28/16 at 21:01; Status DC Lisinopril (Prinivil) 10 mg 1X ONCE PO Last administered on 09/28/16 20:46; Start 09/28/16 at 21:00; Stop 09/28/16 at 21:01; Status DC Insulin Detemir (Levemir) 25 units QHS SQ Last administered on 09/30/16 20:58 ; Start 09/29/16 at 21:00 Enoxaparin Sodium (Lovenox 40mg Syringe) 40 mg Q24H SQ Last administered on 07:38; Start 09/29/16 at 10:00 Carvedilol (Coreg) 12.5 mg BIDWMEALS PO Last administered on 09/30/16 07:37; Start 09/29/16 at 12:00; Stop 09/30/16 at 08:22; Status DC Hydrochlorothiazide (Hydrodiuril) 25 mg DAILY PO Last administered on 09:01; Start 09/30/16 at 09:00 Lisinopril (Prinivil) 40 mg DAILY PO Last administered on 09/30/16 09:02; Start 09/30/16 at 09:00 Metformin HCl (Glucophage) 1,000 mg BID PO Last administered on 09/30/16 20:54 ; Start 09/30/16 at 09:00 Metoprolol Succinate (Toprol Xl) 50 mg DAILY PO Last administered on 09/30/16 09:02; Start 09/30/16 at 09:00 Amlodipine Besylate (Norvasc) 5 mg DAILY PO Last administered on 09/30/16 13: 28; Start 09/30/16 at 13:15 Active Scripts Active Reported Metformin Hcl 1,000 Mg Tablet 1 Tab PO BID Lantus Solostar (Insulin Glargine,Hum.rec.anlog) 100 Unit/1 Ml Insuln.pen 30 Unit SQ QHS Metoprolol Succinate 50 Mg Tab.er.24h 50 Mg PO DAILY Lisinopril 40 Mg Tablet 1 Tab PO DAILY Hydrochlorothiazide Tablet (Hydrochlorothiazide) 25 Mg Tablet 1 Tab PO DAILY Vitals/I & O Vital Sign - Last 24 Hours 09/30/16 09/30/16 09/30/16 09/30/16 11:00 12:00 13:00 13:28 Temp 98.3 98.3 Pulse 88 82 85 84 Resp B/P 178/78 185/81 158/80 172/79 Pulse Ox 99 100 100 O2 Delivery Room Air Room Air Room Air 09/30/16 09/30/16 09/30/16 09/30/16 14:00 15:00 16:00 17:00 Temp 98.7 98.7 Pulse 84 87 85 84 Resp B/P 175/69 164/80 171/68 158/64 Pulse Ox 99 99 99 100 O2 Delivery Room Air Room Air Room Air 09/30/16 09/30/16 09/30/16 09/30/16 18:00 18:14 19:14 19:35 Temp 98.7 98.7 Pulse 89 90 94 Resp 16 B/P 192/85 192/95 153/70 Pulse Ox 99 95 O2 Delivery Room Air Room Air Room Air 09/30/16 10/01/16 10/01/16 10/01/16 22:46 03:48 07:00 07:56 Temp 98.5 98.7 97.5 98.5 98.7 97.5 Pulse 92 85 83 Resp 12 B/P 151/77 168/83 150/65 Pulse Ox 96 98 99 O2 Delivery Room Air Room Air Room Air Room Air 10/01/16 10/01/16 09:55 09:56 B/P 94/46 91/40 Intake and Output 09/30/16 09/30/16 10/01/16 15:00 23:00 07:00 Intake Total 500 ml 250 ml 100 ml Output Total 150 ml 300 ml 550 ml Balance 350 ml -50 ml -450 ml J CARLOS CASTRO MD Oct 01, 2016 10:28
--- NOTE | 2016-10-01 11:25 | PDOC ---
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 10/01/16 1125: CARDIO Progress Notes Date and Time Date of Service 10/01/2016 Time of Evaluation 1110 Subjective Subjective: No Chest Pain, No shortness of breath, No Palpitations, No Dizziness Vitals Vitals Vital Signs Date Time Temp Pulse Resp B/P Pulse Ox O2 Delivery O2 Flow Rate FiO2 10/01/16 10:18 97.5 82 12 151/67 99 Room Air 97.5 Weight Weight [ ] Input and Output Intake and Output Intake and Output 10/01/16 07:00 Intake Total 850 ml Output Total 1000 ml Balance -150 ml Intake Oral 850 ml Output Urine Total 1000 ml Laboratory Labs Laboratory Tests Test 09/30/16 20:46 10/01/16 04:23 10/01/16 07:41 Glucose (Fingerstick) 220mg/dL (70-99) 142mg/dL (70-99) Sodium Level 138mmol/L (136-145) Potassium Level 3.5mmol/L (3.5-5.1) Chloride Level 103mmol/L (98-107) Carbon Dioxide Level 25mmol/L (21-32) Anion Gap 10 (6-14) Blood Urea Nitrogen 16mg/dL (7-20) Creatinine 0.9mg/dL (0.6-1.0) Estimated GFR (Cockcroft-Gault) 74.7 Glucose Level 138mg/dL (70-99) Calcium Level 8.8mg/dL (8.5-10.1) Magnesium Level 1.7mg/dL (1.8-2.4) Microbiology Micro Microbiology 09/27/16 Urine Culture - Final, Complete 09/27/16 Urine Culture Result 1 (JULIÁN) - Final, Complete Physical Exam HEENT: Neck Supple W Full Motion Chest: Symmetric LUNGS: Clear to Auscultation Heart: S1S2, RRR (No rhythm ectopies), murmurs (2/6 systolic murmur ) Abdomen: Soft N/T Extremities: No Edema, No Calf Tenderness Neurology: alert, oriented, follow commands Assessment Assessment 1. Malignant hypertension: better controlled 2. DM2 3. Left basal ganglia stroke, mild aphasia 4. Hyperlipidemia Recommendations 1. Continue with current antiHTN regimen. Uptitrate norvasc as warranted per BP trend 2. Replace Mg 3. TTE revealed no PFO/ASD. No further cardiac recommendation at this time. Pls call for any questions. 4. Pt hesitant about SNU, discussed with her and reconsidering it. DON VILLASEÑOR MD 10/01/16 8684: CARDIO Progress Notes Plan Plan patient seen and examined. Agree with above nurse practitioner noted. No acute events overnight. Blood pressure better controlled. Normal cardiac exam. No edema. Supportive care. We will follow along peripherally. Okay to discharge from a cardiac standpoint. ANDRY TAO APRN Oct 01, 2016 11:25 DON VILLASEÑOR MD Oct 01, 2016 16:54
[2016-10-01] MEDS ORDERED: MAGNESIUM SULFATE 2GM 50 ML IV ONE (11:30)
--- NOTE | 2016-10-01 14:51 | PDOC ---
PROGRESS NOTES Chief Complaint Chief Complaint Subacute left basal ganglia stroke Malignant HTN DM 2, controlled Dyslipidemia Acute encephalopathy History of Present Illness History of Present Illness Up in chair some dysarthria Seen on 2s Can move all 4s "ok" with rehab when asked NO recent [id number]..lipid panel? TSH normal HCTZ 25, LIsinopril 40, BB BID Keep levemir 25 unit PT/OT SW for rehab referral Vitals Vitals Vital Signs Date Time Temp Pulse Resp B/P Pulse Ox O2 Delivery O2 Flow Rate FiO2 10/01/16 10:18 97.5 82 12 151/67 99 Room Air 97.5 Physical Exam General: Alert, Oriented X3, Cooperative, No acute distress, Other (thought process about the same as described) Heart: Regular rate, No murmurs Lungs: Clear Abdomen: Normal bowel sounds, No tenderness Extremities: No clubbing, No edema Skin: No rashes Labs LABS Laboratory Tests Test 09/30/16 20:46 10/01/16 04:23 10/01/16 07:41 10/01/16 12:00 Glucose (Fingerstick) 220mg/dL (70-99) 142mg/dL (70-99) 177mg/dL (70-99) Sodium Level 138mmol/L (136-145) Potassium Level 3.5mmol/L (3.5-5.1) Chloride Level 103mmol/L (98-107) Carbon Dioxide Level 25mmol/L (21-32) Anion Gap 10 (6-14) Blood Urea Nitrogen 16mg/dL (7-20) Creatinine 0.9mg/dL (0.6-1.0) Estimated GFR (Cockcroft-Gault) 74.7 Glucose Level 138mg/dL (70-99) Calcium Level 8.8mg/dL (8.5-10.1) Magnesium Level 1.7mg/dL (1.8-2.4) Review of Systems Review of Systems no n.v.d some weakness Assessment and Plan Assessmemt and Plan Problems Medical Problems: (1) Acute encephalopathy Status: Acute (2) Right-sided muscle weakness Status: Acute (3) Type 2 diabetes mellitus Status: Acute Problems: Comment Review of Relevant I have reviewed the following items angelica (where applicable) has been applied. Labs Laboratory Tests Test 09/30/16 20:46 10/01/16 04:23 10/01/16 07:41 10/01/16 12:00 Glucose (Fingerstick) 220mg/dL (70-99) 142mg/dL (70-99) 177mg/dL (70-99) Sodium Level 138mmol/L (136-145) Potassium Level 3.5mmol/L (3.5-5.1) Chloride Level 103mmol/L (98-107) Carbon Dioxide Level 25mmol/L (21-32) Anion Gap 10 (6-14) Blood Urea Nitrogen 16mg/dL (7-20) Creatinine 0.9mg/dL (0.6-1.0) Estimated GFR (Cockcroft-Gault) 74.7 Glucose Level 138mg/dL (70-99) Calcium Level 8.8mg/dL (8.5-10.1) Magnesium Level 1.7mg/dL (1.8-2.4) Laboratory Tests Test 09/30/16 20:46 10/01/16 04:23 10/01/16 07:41 10/01/16 12:00 Glucose (Fingerstick) 220mg/dL (70-99) 142mg/dL (70-99) 177mg/dL (70-99) Sodium Level 138mmol/L (136-145) Potassium Level 3.5mmol/L (3.5-5.1) Chloride Level 103mmol/L (98-107) Carbon Dioxide Level 25mmol/L (21-32) Anion Gap 10 (6-14) Blood Urea Nitrogen 16mg/dL (7-20) Creatinine 0.9mg/dL (0.6-1.0) Estimated GFR (Cockcroft-Gault) 74.7 Glucose Level 138mg/dL (70-99) Calcium Level 8.8mg/dL (8.5-10.1) Magnesium Level 1.7mg/dL (1.8-2.4) Microbiology 09/27/16 Urine Culture - Final, Complete 09/27/16 Urine Culture Result 1 (JULIÁN) - Final, Complete Medications Current Medications Sodium Chloride (Iv Sodium Chloride 0.9% 1000ml Bag) 1,000 ml @ 100 mls/hr Q10H IV Last administered on 09/27/16t 12:03; Start 09/27/16 at 11:45; Stop at 21:44; Status DC Ondansetron HCl (Zofran) 4 mg PRN Q8HRS PRN IV NAUSEA/VOMITING; Start 09/27/16 at 14:45; Stop 09/28/16 at 14:44; Status DC Acetaminophen (Tylenol) 650 mg PRN Q4HRS PRN PO FEVER; Start 09/27/16 at 14:45 ; Stop 09/28/16 at 14:44; Status DC Hydralazine HCl (Apresoline) 10 mg 1X ONCE IVP Last administered on 09/27/16 20:56; Start 09/27/16 at 18:30; Stop 09/27/16 at 18:39; Status DC Aspirin (Ecotrin) 325 mg DAILYWBKFT PO Last administered on 10/01/16 10:14; Start 09/28/16 at 08:00 Insulin Aspart (Novolog) 0-9 UNITS TIDWMEALS SQ Last administered on 10/01/16 12:38; Start 09/28/16 at 08:00 Dextrose 12.5 gm PRN Q15MIN PRN IV SEE COMMENTS; Start 09/27/16 at 18:45 Insulin Detemir (Levemir) 20 units QHS SQ Last administered on 09/28/16 20:51 ; Start 09/27/16 at 21:00; Stop 09/29/16 at 09:24; Status DC Metoprolol Tartrate (Lopressor) 50 mg 1X ONCE PO Last administered on 20:55; Start 09/27/16 at 18:45; Stop 09/27/16 at 18:46; Status DC Metoprolol Succinate (Toprol Xl) 50 mg DAILY PO Last administered on 09/28/16 08:10; Start 09/28/16 at 09:00; Stop 09/28/16 at 20:36; Status DC Lisinopril (Prinivil) 20 mg DAILY PO Last administered on 09/30/16 07:37; Start 09/28/16 at 09:00; Stop 09/30/16 at 08:22; Status DC Hydralazine HCl (Apresoline) 10 mg PRN Q4HRS PRN IVP ELEVATED BP, SEE COMMENTS Last administered on 09/30/16 18:14; Start 09/27/16 at 20:45 Atorvastatin Calcium (Lipitor) 40 mg QHS PO Last administered on 09/30/16 20: 54; Start 09/28/16 at 21:00 Hydralazine HCl 20 mg 20 mg 1X ONCE IVP Last administered on 09/28/16 10:45; Start 09/28/16 at 10:45; Stop 09/28/16 at 10:50; Status DC Nicardipine HCl 50 mg/Sodium Chloride 270 ml @ 0 mls/hr CONT PRN IV SEE I/O RECORD Last administered on 09/29/16 06:37; Start 09/28/16 at 11:45; Stop 09/30 at 13:19; Status DC Magnesium Sulfate/ Dextrose 50 ml @ 25 mls/hr 1X ONCE IV Last administered on 09/28/16 16:17; Start 09/28/16 at 15:00; Stop 09/28/16 at 16:59; Status DC Potassium Chloride (KCl Premix 10meq) 100 ml @ 100 mls/hr Q1H IV Last administered on 09/28/16 21:18; Start 09/28/16 at 15:15; Stop 09/28/16 at 19:14 ; Status DC Carvedilol (Coreg) 12.5 mg 1X ONCE PO Last administered on 09/28/16 20:46; Start 09/28/16 at 21:00; Stop 09/28/16 at 21:01; Status DC Lisinopril (Prinivil) 10 mg 1X ONCE PO Last administered on 09/28/16 20:46; Start 09/28/16 at 21:00; Stop 09/28/16 at 21:01; Status DC Insulin Detemir (Levemir) 25 units QHS SQ Last administered on 09/30/16 20:58 ; Start 09/29/16 at 21:00 Enoxaparin Sodium (Lovenox 40mg Syringe) 40 mg Q24H SQ Last administered on 10:10; Start 09/29/16 at 10:00 Carvedilol (Coreg) 12.5 mg BIDWMEALS PO Last administered on 09/30/16 07:37; Start 09/29/16 at 12:00; Stop 09/30/16 at 08:22; Status DC Hydrochlorothiazide (Hydrodiuril) 25 mg DAILY PO Last administered on 10:13; Start 09/30/16 at 09:00 Lisinopril (Prinivil) 40 mg DAILY PO Last administered on 10/01/16 10:14; Start 09/30/16 at 09:00 Metformin HCl (Glucophage) 1,000 mg BID PO Last administered on 10/01/16 10:14 ; Start 09/30/16 at 09:00 Metoprolol Succinate (Toprol Xl) 50 mg DAILY PO Last administered on 10/01/16 10:13; Start 09/30/16 at 09:00 Amlodipine Besylate 5 mg 5 mg DAILY PO Last administered on 10/01/16 10:12; Start 09/30/16 at 13:15 Magnesium Sulfate/ Dextrose (Magnesium Sulfate PREMIX 2GM) 50 ml @ 25 mls/hr 1X ONCE IV Last administered on 10/01/16 12:32; Start 10/01/16 at 11:30; Stop 10/01/16 at 13:29; Status DC Active Scripts Active Reported Metformin Hcl 1,000 Mg Tablet 1 Tab PO BID Lantus Solostar (Insulin Glargine,Hum.rec.anlog) 100 Unit/1 Ml Insuln.pen 30 Unit SQ QHS Metoprolol Succinate 50 Mg Tab.er.24h 50 Mg PO DAILY Lisinopril 40 Mg Tablet 1 Tab PO DAILY Hydrochlorothiazide Tablet (Hydrochlorothiazide) 25 Mg Tablet 1 Tab PO DAILY Vitals/I & O Vital Sign - Last 24 Hours 09/30/16 09/30/16 09/30/16 09/30/16 15:00 16:00 17:00 18:00 Temp 98.7 98.7 Pulse 87 85 84 89 Resp 18 18 17 28 B/P 164/80 171/68 158/64 192/85 Pulse Ox 99 99 100 99 O2 Delivery Room Air Room Air Room Air Room Air 09/30/16 09/30/16 09/30/16 09/30/16 18:14 19:14 19:35 22:46 Temp 98.7 98.5 98.7 98.5 Pulse 90 94 92 Resp 16 16 B/P 192/95 153/70 151/77 Pulse Ox 95 96 O2 Delivery Room Air Room Air Room Air 10/01/16 10/01/16 10/01/16 10/01/16 03:48 07:00 07:56 10:12 Temp 98.7 97.5 98.7 97.5 Pulse 85 83 82 Resp 18 12 B/P 168/83 150/65 151/67 Pulse Ox 98 99 O2 Delivery Room Air Room Air Room Air 10/01/16 10/01/16 10/01/16 10:13 10:14 10:18 Temp 97.5 97.5 Pulse 82 82 82 Resp 12 B/P 151/67 151/67 151/67 Pulse Ox 99 O2 Delivery Room Air Intake and Output 09/30/16 09/30/16 10/01/16 15:00 23:00 07:00 Intake Total 500 ml 250 ml 100 ml Output Total 150 ml 300 ml 550 ml Balance 350 ml -50 ml -450 ml JACKI SHOEMAKER MD Oct 01, 2016 14:51
[2016-10-01] MEDS: ATORVASTATIN CALCIUM 40 MG TABLET. PO SCH (21:34)
[2016-10-01] MEDS: INSULIN DETEMIR 300 UNITS/3 ML INSULN.PEN. SQ SCH (21:37)
[2016-10-02 03:00] VITALS: BP 138/63
[2016-10-02 07:00] VITALS: BP 192/89
[2016-10-02] MEDS: INSULIN ASPART 300 UNITS/3 ML INSULN.PEN SQ SCH ×3 (08:00→17:00)
[2016-10-02] MEDS: HYDROCHLOROTHIAZIDE 25 MG TABLET PO SCH (09:22)
[2016-10-02] MEDS: METOPROLOL SUCC 24HR ER 50 MG TAB.ER.24H. PO SCH (09:22)
[2016-10-02] MEDS: AMLODIPINE BESYLATE 5 MG TABLET PO SCH (09:22)
[2016-10-02] MEDS: ASPIRIN ENTERIC COATED 325 MG TABLET.DR. PO SCH (09:22)
[2016-10-02] MEDS: METFORMIN 1,000 MG TABLET PO SCH ×2 (09:23→17:53)
[2016-10-02] MEDS: ENOXAPARIN 40 MG/0.4 ML DISP.SYRIN. SQ SCH (09:23)
[2016-10-02] MEDS: LISINOPRIL 40 MG TABLET. PO SCH (09:23)
[2016-10-02 11:00] VITALS: BP 188/79
--- NOTE | 2016-10-02 11:00 | PDOC ---
PROGRESS NOTES Assessment Problems Medical Problems: (1) Acute encephalopathy Status: Acute (2) Right-sided muscle weakness Status: Acute (3) Type 2 diabetes mellitus Status: Acute Subacuate left basal ganglia stroke, this has caused some aphasia Hypertension Hyperlipidemia, started on statin Encephalopathy related to the hypertension and the subacute stroke. Plan Subjective No complaints Objective Vital Signs Date Time Temp Pulse Resp B/P Pulse Ox O2 Delivery O2 Flow Rate FiO2 10/01/16 09:56 91/40 10/01/16 07:56 Room Air 10/01/16 07:00 97.5 83 12 99 97.5 Intake and Output 10/01/16 07:00 Intake Total 850 ml Output Total 1000 ml Balance -150 ml Intake Oral 850 ml Output Urine Total 1000 ml PHYSICAL EXAM Plan [facility] Rehabilitation, especially speech therapy Fasting lipid profile in another month or 2 to see if the medical regimen is helpful Subjective no complaints Objective Vital Signs Date Time Temp Pulse Resp B/P Pulse Ox O2 Delivery O2 Flow Rate FiO2 10/02/16 09:23 192/89 10/02/16 07:00 97.3 74 16 98 Room Air 97.3 Intake and Output 10/02/16 07:00 Output Total 325 ml Balance -325 ml Output Urine Total 325 ml # Voids 4 PHYSICAL EXAM Alert. Oriented to person, does not know date or location PERRL. EOMI. CN: no focal findings. Muscle tone: normal. Muscle strength: 4/5 DTR: 1+ Plantar reflex: flexor Gait: not examined in bed. Sensory exam: no abnormal findings. No cerebellar signs elicited Review of Relevant I have reviewed the following items angelica (where applicable) has been applied. Labs Laboratory Tests Test 09/30/16 11:47 09/30/16 16:47 09/30/16 20:46 10/01/16 04:23 Glucose (Fingerstick) 305mg/dL (70-99) 168mg/dL (70-99) 220mg/dL (70-99) Sodium Level 138mmol/L (136-145) Potassium Level 3.5mmol/L (3.5-5.1) Chloride Level 103mmol/L (98-107) Carbon Dioxide Level 25mmol/L (21-32) Anion Gap 10 (6-14) Blood Urea Nitrogen 16mg/dL (7-20) Creatinine 0.9mg/dL (0.6-1.0) Estimated GFR (Cockcroft-Gault) 74.7 Glucose Level 138mg/dL (70-99) Calcium Level 8.8mg/dL (8.5-10.1) Magnesium Level 1.7mg/dL (1.8-2.4) Test 10/01/16 07:41 10/01/16 12:00 10/01/16 16:46 10/01/16 20:37 Glucose (Fingerstick) 142mg/dL (70-99) 177mg/dL (70-99) 126mg/dL (70-99) 198mg/dL (70-99) Test 10/02/16 07:42 Glucose (Fingerstick) 133mg/dL (70-99) Laboratory Tests Test 10/01/16 12:00 10/01/16 16:46 10/01/16 20:37 10/02/16 07:42 Glucose (Fingerstick) 177mg/dL (70-99) 126mg/dL (70-99) 198mg/dL (70-99) 133mg/dL (70-99) Microbiology 09/27/16 Urine Culture - Final, Complete 09/27/16 Urine Culture Result 1 (JULIÁN) - Final, Complete Medications Current Medications Sodium Chloride (Iv Sodium Chloride 0.9% 1000ml Bag) 1,000 ml @ 100 mls/hr Q10H IV Last administered on 09/27/16 12:03; Start 09/27/16 at 11:45; Stop at 21:44; Status DC Ondansetron HCl (Zofran) 4 mg PRN Q8HRS PRN IV NAUSEA/VOMITING; Start 09/27/16 at 14:45; Stop 09/28/16 at 14:44; Status DC Acetaminophen (Tylenol) 650 mg PRN Q4HRS PRN PO FEVER; Start 09/27/16 at 14:45 ; Stop 09/28/16 at 14:44; Status DC Hydralazine HCl (Apresoline) 10 mg 1X ONCE IVP Last administered on 09/27/16 20:56; Start 09/27/16 at 18:30; Stop 09/27/16 at 18:39; Status DC Aspirin (Ecotrin) 325 mg DAILYWBKFT PO Last administered on 10/02/16 09:22; Start 09/28/16 at 08:00 Insulin Aspart (Novolog) 0-9 UNITS TIDWMEALS SQ Last administered on 10/01/16 12:38; Start 09/28/16 at 08:00 Dextrose 12.5 gm PRN Q15MIN PRN IV SEE COMMENTS; Start 09/27/16 at 18:45 Insulin Detemir (Levemir) 20 units QHS SQ Last administered on 09/28/16 20:51 ; Start 09/27/16 at 21:00; Stop 09/29/16 at 09:24; Status DC Metoprolol Tartrate (Lopressor) 50 mg 1X ONCE PO Last administered on 20:55; Start 09/27/16 at 18:45; Stop 09/27/16 at 18:46; Status DC Metoprolol Succinate (Toprol Xl) 50 mg DAILY PO Last administered on 09/28/16 08:10; Start 09/28/16 at 09:00; Stop 09/28/16 at 20:36; Status DC Lisinopril (Prinivil) 20 mg DAILY PO Last administered on 09/30/16 07:37; Start 09/28/16 at 09:00; Stop 09/30/16 at 08:22; Status DC Hydralazine HCl (Apresoline) 10 mg PRN Q4HRS PRN IVP ELEVATED BP, SEE COMMENTS Last administered on 09/30/16 18:14; Start 09/27/16 at 20:45 Atorvastatin Calcium (Lipitor) 40 mg QHS PO Last administered on 10/01/16 21: 34; Start 09/28/16 at 21:00 Hydralazine HCl 20 mg 20 mg 1X ONCE IVP Last administered on 09/28/16 10:45; Start 09/28/16 at 10:45; Stop 09/28/16 at 10:50; Status DC Nicardipine HCl 50 mg/Sodium Chloride 270 ml @ 0 mls/hr CONT PRN IV SEE I/O RECORD Last administered on 09/29/16 06:37; Start 09/28/16 at 11:45; Stop 09/30 at 13:19; Status DC Magnesium Sulfate/ Dextrose 50 ml @ 25 mls/hr 1X ONCE IV Last administered on 09/28/16 16:17; Start 09/28/16 at 15:00; Stop 09/28/16 at 16:59; Status DC Potassium Chloride (KCl Premix 10meq) 100 ml @ 100 mls/hr Q1H IV Last administered on 09/28/16 21:18; Start 09/28/16 at 15:15; Stop 09/28/16 at 19:14 ; Status DC Carvedilol (Coreg) 12.5 mg 1X ONCE PO Last administered on 09/28/16 20:46; Start 09/28/16 at 21:00; Stop 09/28/16 at 21:01; Status DC Lisinopril (Prinivil) 10 mg 1X ONCE PO Last administered on 09/28/16 20:46; Start 09/28/16 at 21:00; Stop 09/28/16 at 21:01; Status DC Insulin Detemir (Levemir) 25 units QHS SQ Last administered on 10/01/16 21:37 ; Start 09/29/16 at 21:00 Enoxaparin Sodium (Lovenox 40mg Syringe) 40 mg Q24H SQ Last administered on 09:23; Start 09/29/16 at 10:00 Carvedilol (Coreg) 12.5 mg BIDWMEALS PO Last administered on 09/30/16 07:37; Start 09/29/16 at 12:00; Stop 09/30/16 at 08:22; Status DC Hydrochlorothiazide (Hydrodiuril) 25 mg DAILY PO Last administered on 09:22; Start 09/30/16 at 09:00 Lisinopril (Prinivil) 40 mg DAILY PO Last administered on 10/02/16 09:23; Start 09/30/16 at 09:00 Metformin HCl (Glucophage) 1,000 mg BID PO Last administered on 10/01/16 10:14 ; Start 09/30/16 at 09:00; Stop 10/01/16 at 16:15; Status DC Metoprolol Succinate (Toprol Xl) 50 mg DAILY PO Last administered on 10/02/16 09:22; Start 09/30/16 at 09:00 Amlodipine Besylate 5 mg 5 mg DAILY PO Last administered on 10/02/16 09:22; Start 09/30/16 at 13:15 Magnesium Sulfate/ Dextrose (Magnesium Sulfate PREMIX 2GM) 50 ml @ 25 mls/hr 1X ONCE IV Last administered on 10/01/16 12:32; Start 10/01/16 at 11:30; Stop 10/01/16 at 13:29; Status DC Metformin HCl (Glucophage) 1,000 mg BIDWMEALS PO Last administered on 09:23; Start 10/01/16 at 17:00 Active Scripts Active Reported Metformin Hcl 1,000 Mg Tablet 1 Tab PO BID Lantus Solostar (Insulin Glargine,Hum.rec.anlog) 100 Unit/1 Ml Insuln.pen 30 Unit SQ QHS Metoprolol Succinate 50 Mg Tab.er.24h 50 Mg PO DAILY Lisinopril 40 Mg Tablet 1 Tab PO DAILY Hydrochlorothiazide Tablet (Hydrochlorothiazide) 25 Mg Tablet 1 Tab PO DAILY Vitals/I & O Vital Sign - Last 24 Hours 10/01/16 10/01/16 10/01/16 10/01/16 15:06 19:10 19:10 23:25 Temp 98.1 98.2 98.2 98.1 98.2 98.2 Pulse 83 78 79 Resp 16 18 20 B/P 159/88 137/62 164/73 Pulse Ox 97 100 98 O2 Delivery Room Air Room Air Room Air Room Air 10/02/16 10/02/16 10/02/16 10/02/16 03:00 07:00 09:22 09:23 Temp 97.7 97.3 97.7 97.3 Pulse 77 74 Resp 16 16 B/P 138/63 192/89 192/89 192/89 Pulse Ox 98 98 O2 Delivery Room Air Room Air Intake and Output 10/01/16 10/01/16 10/02/16 15:00 23:00 07:00 Output Total 325 ml Balance -325 ml J CARLOS CASTRO MD Oct 02, 2016 11:00
--- NOTE | 2016-10-02 11:57 | PDOC ---
PROGRESS NOTES Chief Complaint Chief Complaint Encephalopathy Subacite stroke ASSESSMENT AND PLAN: 1. Acute encephalopathy: resolving 2. Subacute left basal ganglia stroke 3. Malignant HTN: controlled on new regimen with lisinopril, norvasc. metoprolol 4. DM 2: well controlled on levemir, metformin. ISS 5. Anemia: mictrocytic. iron labs c/w chronic inflammation. cannot r/o inherited anemia trait. low dose daily iron supplements 5. Dyslipidemia: on statin 6. Prohylaxis 7. Dispo: to rehab when bed available History of Present Illness History of Present Illness Vitals Vitals Vital Signs Date Time Temp Pulse Resp B/P Pulse Ox O2 Delivery O2 Flow Rate FiO2 10/02/16 11:00 98.1 74 17 188/79 100 Room Air 98.1 Physical Exam General: Alert, Oriented X3, Cooperative, No acute distress, Other (thought process about the same as described) Heart: Regular rate, No murmurs Lungs: Clear Abdomen: Normal bowel sounds, No tenderness Extremities: No clubbing, No edema Skin: No rashes Labs LABS Laboratory Tests Test 10/01/16 12:00 10/01/16 16:46 10/01/16 20:37 10/02/16 07:42 Glucose (Fingerstick) 177mg/dL (70-99) 126mg/dL (70-99) 198mg/dL (70-99) 133mg/dL (70-99) Review of Systems Review of Systems no ESCOBEDO or nausea, no dysarthria or weakness DALIA VENTURA MD Oct 02, 2016 11:57
[2016-10-02] MEDS ORDERED: ENOXAPARIN 40 MG/0.4 ML DISP.SYRIN. SQ SCH (12:00)
[2016-10-02 15:00] VITALS: BP 190/79
[2016-10-02] MEDS: hydrALAZINE 20 MG/ML VIAL. IVP PRN (15:29)
[2016-10-02 19:15] VITALS: BP 163/78
[2016-10-02] MEDS: ATORVASTATIN CALCIUM 40 MG TABLET. PO SCH (20:32)
[2016-10-02] MEDS: INSULIN DETEMIR 300 UNITS/3 ML INSULN.PEN. SQ SCH (20:35)
[2016-10-02 22:41] VITALS: BP 158/73
[2016-10-03 03:00] VITALS: BP 111/75
[2016-10-03 08:00] VITALS: BP 177/84
[2016-10-03] MEDS: INSULIN ASPART 300 UNITS/3 ML INSULN.PEN SQ SCH ×2 (08:00→11:57)
[2016-10-03] MEDS: ASPIRIN ENTERIC COATED 325 MG TABLET.DR. PO SCH (08:53)
[2016-10-03] MEDS: AMLODIPINE BESYLATE 5 MG TABLET PO SCH (08:53)
[2016-10-03] MEDS: METFORMIN 1,000 MG TABLET PO SCH (08:53)
[2016-10-03] MEDS: METOPROLOL SUCC 24HR ER 50 MG TAB.ER.24H. PO SCH (08:54)
[2016-10-03] MEDS: HYDROCHLOROTHIAZIDE 25 MG TABLET PO SCH (08:54)
[2016-10-03] MEDS: LISINOPRIL 40 MG TABLET. PO SCH (08:54)
--- NOTE | 2016-10-03 09:44 | PDOC3 ---
Discharge Summary Visit Information Date of Admission: Sep 27, 2016 Date of Discharge: Oct 03, 2016 Admitting Diagnosis Comment: 1. Acute encephalopathy: resolving 2. Subacute left basal ganglia stroke 3. Malignant HTN: controlled on new regimen 4. DM 2: well controlled on levemir, metformin. 5. Anemia: mictrocytic. i 5. Dyslipidemia: on statin Final Diagnosis Problems Medical Problems: (1) Acute encephalopathy Status: Acute (2) CVA (cerebral vascular accident) Status: Acute (3) Right-sided muscle weakness Status: Acute (4) Type 2 diabetes mellitus Status: Acute Brief Hospital Course Allergies Allergies Coded Allergies Type Severity Reaction Last Updated Verified No Known Drug Allergies 01/30/15 No Vital Signs Vital Signs Date Time Temp Pulse Resp B/P Pulse Ox O2 Delivery O2 Flow Rate FiO2 10/03/16 08:54 74 177/84 10/03/16 08:00 97.9 17 95 Room Air 97.9 Lab Results Laboratory Tests Test 10/01/16 12:00 10/01/16 16:46 10/01/16 20:37 10/02/16 07:42 Glucose (Fingerstick) 177mg/dL (70-99) 126mg/dL (70-99) 198mg/dL (70-99) 133mg/dL (70-99) Test 10/02/16 12:11 10/02/16 17:36 10/02/16 20:31 10/03/16 08:50 Glucose (Fingerstick) 166mg/dL (70-99) 140mg/dL (70-99) 196mg/dL (70-99) 145mg/dL (70-99) Laboratory Tests Test 10/02/16 12:11 10/02/16 17:36 10/02/16 20:31 10/03/16 08:50 Glucose (Fingerstick) 166mg/dL (70-99) 140mg/dL (70-99) 196mg/dL (70-99) 145mg/dL (70-99) Brief Hospital Course Ms. Ceja is a 70 old Aa female admitted for stroke sxs, imaging did show acute to subacute left BG stroke, Started on ASA 325, Rest of HTN and DM meds to cont, Needs acute rehab, accepted at [facility] Pt seen and examined COnsults: neuro Proc: Dc 31 mins > 50% counselling Discharge Information Condition at Discharge: Improved, Stable Disposition/Orders: Other (rehab) Scheduled Hydrochlorothiazide (Hydrochlorothiazide Tablet ) 1 TAB PO DAILY (Reported) Insulin Glargine,Hum.rec.anlog (Lantus Solostar) 30 UNIT SQ QHS (Reported) Lisinopril (Lisinopril) 1 TAB PO DAILY (Reported) Metformin Hcl (Metformin Hcl) 1 TAB PO BID (Reported) Metoprolol Succinate (Metoprolol Succinate) 50 MG PO DAILY (Reported) ELVIRA FLORES MD Oct 03, 2016 09:44
[2016-10-03 10:51] VITALS: BP 150/68
[2016-10-03] MEDS: ENOXAPARIN 40 MG/0.4 ML DISP.SYRIN. SQ SCH (11:10)
== END 2016-10-03 14:32 | DRG 64 ==
LOC: ER 10:17 → 6 SOUTH 13:52 → 1 WEST ICU 09-28 12:26 → 2 SOUTH 09-30 19:14 → 6 SOUTH 10-03 08:16
PROVIDERS: ADMIT Internal Medicine Hematology & Oncology; ATTEND Internal Medicine Hematology & Oncology
DX: I63.9 Cerebral infarction, unspecified (principal); G93.49 Other encephalopathy; G81.91 Hemiplegia, unspecified affecting right dominant side; I67.4 Hypertensive encephalopathy; I10 Essential (primary) hypertension; D64.9 Anemia, unspecified; E11.65 Type 2 diabetes mellitus with hyperglycemia; E78.5 Hyperlipidemia, unspecified; J45.909 Unspecified asthma, uncomplicated; M25.70 Osteophyte, unspecified joint; R47.01 Aphasia; R47.1 Dysarthria and anarthria; W19.XXXA Unspecified fall, initial encounter; Z82.49 Family history of ischemic heart disease and other diseases of the circulatory system; Z83.3 Family history of diabetes mellitus; Z86.73 Personal history of transient ischemic attack (TIA), and cerebral infarction without residual deficits; Z79.4 Long term (current) use of insulin
CPT/HCPCS: 99285; C8929; 36415; 70450; 70551; 71010; 80048; 80053; 80061; 81001; 82140; 82728; 82947; 83540; 83550; 83735; 84443; 85027; 85610; 85730; 87086; 87641; 93005; 93880; 96360; G0481; J0360; J1650; J1815; J3480; J7030; J7050; J7060; 97110; 97116; 97530; 97535

== ENCOUNTER 2018-05-05 09:46 | Inpatient (IN) | payer MEDICARE ==
[~2018-05-05] VITALS: Ht 167.6 cm; Wt 81.0 kg
[2018-05-05] VITALS (15 sets, daily range): BP systolic 162–219; BP diastolic 64–107
[~2018-05-05 09:46] MED LIST changes: +LISI-130 PO; -LISI40TA PO; +METF10007 PO; -METO50TA10 PO; +METO50TA29 PO
[2018-05-05] MEDS ORDERED: IV NORMAL SALINE 1000ML BAG 1,000 ML IV SCH (09:53)
--- NOTE | 2018-05-05 09:57 | EKG ---
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
[2018-05-05] MEDS ORDERED: IV DEXTROSE 5% - 0.9 % NACL 1,000 ML IV ONE (10:00)
--- NOTE | 2018-05-05 10:06 | PHYS DOC ---
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 EMS called with report of hypoglycemia, as it found the patient with a blood glucose of 39. Dextrose was administered, and the patient' s blood glucose improved, it is in the 170s upon arrival in the emergency department. However the patient is still not responsive. She does appear to have flaccidity to her right upper extremity and there is a left gaze preference. EMS reports that the patient did fall last night at some point, and her last known normal was last night. EMS did report that the patient has some right-sided weakness and facial droop from an old stroke, although there is currently no family member present to provide any meaningful history. Review of the patient's records from a year ago revealed that she has had a small left basal ganglier infarct in the past. The patient is unable to provide any history. Her skin does feel warm to touch. Review of Systems Review of Systems Unable to obtain review of systems secondary to altered mental status Current Medications Current Medications Current Medications Medications (Trade) Dose Ordered Sig/Nirali Start Time Stop Time Status Last Admin Dose Admin Dextrose/Sodium Chloride 1,000 ml @ 75 mls/hr 1X ONCE 05/05/18 10:00 05/05/18 23:19 05/05/18 10:30 75 MLS/HR Info (CONTRAST GIVEN -- Rx MONITORING) 1 each PRN DAILY PRN 05/05/18 11:30 05/07/18 11:29 Iohexol (Omnipaque 300 Mg/ml) 75 ml 1X ONCE 05/05/18 11:15 05/05/18 11:18 DC Sodium Chloride 1,000 ml @ 1,000 mls/hr Q1H 05/05/18 09:53 05/05/18 10:52 DC 05/05/18 10:30 1,000 MLS/HR Allergies Allergies Allergies Coded Allergies Type Severity Reaction Last Updated Verified No Known Drug Allergies 01/30/15 No Physical Exam Physical Exam PHYSICAL EXAM: CONSTITUTIONAL: Well developed, well nourished HEAD: normocephalic, atraumatic EENT: There appears to be a leftward gaze preference. Unable to assess visual jesus. Conjunctivae normal color, sclerae non-icteric; mildly dry mucous membranes. NECK: Supple, non-tender; no meningismus. LUNGS: Lungs CTA, breathing even and unlabored. Normal air movement. HEART: Regular rate and rhythm, no murmur CHEST: No deformity; non-tender ABDOMEN: The abdomen is soft, and non-tender, no masses or bruits. EXTREM: Normal ROM; no deformity, no calf tenderness. Normal pulses palpable in all extremities. There is no pedal edema. SKIN: No rash; no diaphoresis NEURO: Patient is awake, she is alert but unresponsive to verbal stimulus. She does not follow commands. There does appear to be a right-sided facial droop without complete paresis. There is facility of the right upper extremity. There is weakness to both lower extremities symmetrically bilaterally, the patient does withdraw her lower extremities to pain. Sensation appears to be diminished in her RUE as well. BACK: No CVA TTP. Current Patient Data Vital Signs Vital Signs Date Time Temp Pulse Resp B/P (MAP) Pulse Ox O2 Delivery O2 Flow Rate FiO2 05/05/18 09:50 97.9 75 15 218/89 (132) 97 Room Air 97.9 Lab Values Laboratory Tests Test 05/05/18 09:49 05/05/18 10:09 05/05/18 10:33 05/05/18 11:15 Glucose (Fingerstick) 173 mg/dL (70-99) H Urine Collection Type U cath Urine Color Yellow Urine Clarity Clear Urine pH 6.0 Urine Specific [place] 1.020 Urine Protein Negative mg/dL (NEG-TRACE) Urine Glucose (UA) >=1000 mg/dL (NEG) Urine Ketones (Stick) 40 mg/dL (NEG) Urine Blood Trace (NEG) Urine Nitrite Negative (NEG) Urine Bilirubin Negative (NEG) Urine Urobilinogen Dipstick 1.0 mg/dL (0.2 mg/dL) Urine Leukocyte Esterase Small (NEG) Urine RBC 3-5 /HPF (0-2) Urine WBC 6-10 /HPF (0-4) Urine Squamous Epithelial Cells Few /LPF Urine Bacteria Many /HPF (0-FEW) Urine Mucus Mod /LPF Sodium Level 144 mmol/L (136-145) Potassium Level 3.7 mmol/L (3.5-5.1) Chloride Level 109 mmol/L (98-107) H Carbon Dioxide Level 25 mmol/L (21-32) Anion Gap 10 (6-14) Blood Urea Nitrogen 14 mg/dL (7-20) Creatinine 0.9 mg/dL (0.6-1.0) Estimated GFR (Cockcroft-Gault) 74.3 BUN/Creatinine Ratio 16 (6-20) Glucose Level 131 mg/dL (70-99) H Lactic Acid Level 0.8 mmol/L (0.4-2.0) Calcium Level 8.9 mg/dL (8.5-10.1) Magnesium Level 2.1 mg/dL (1.8-2.4) Total Bilirubin 0.6 mg/dL (0.2-1.0) Aspartate Amino Transferase (AST) 18 U/L (15-37) Alanine Aminotransferase (ALT) 27 U/L (14-59) Alkaline Phosphatase 103 U/L (46-116) Ammonia 16 mcmol/L (11-34) Creatine Kinase 164 U/L (26-192) Creatine Kinase MB (Mass) 0.9 ng/mL (0.0-3.6) Creatine Kinase MB Relative Index 0.5 % (0-4) Troponin I Quantitative < 0.017 ng/mL (0.000-0.055) GJ-Ggr-M-Type Natriuretic Peptide 125 pg/mL (0-124) H Total Protein 7.3 g/dL (6.4-8.2) Albumin 3.5 g/dL (3.4-5.0) Albumin/Globulin Ratio 0.9 (1.0-1.7) L Prothrombin Time 13.2 SEC (11.7-14.0) Prothrombin Time INR 1.1 (0.8-1.1) PTT 24 SEC (24-38) Laboratory Tests 05/05/18 10:33 EKG EKG [Normal sinus rhythm at rate of 76 bpm, left axis deviation, normal intervals, T -wave inversion in the lateral limb leads, incomplete left bundle-branch block. There are no acute ischemic changes noted.] Radiology/Procedures Radiology/Procedures []1:40 PM: CT head and CT angiogram are negative for acute findings. The case was discussed with the hospitalist will admit the patient for further evaluation. There was some significant delay as computer downtime procedures were in effect during this patient's care. Course & Med Decision Making Course & Med Decision Making Pertinent Labs and Imaging studies reviewed. (See chart for details) [11:10 AM: The patient's family have arrived at her bedside and revealed to be interviewed. They stated the patient did have a fall on Friday, and has gradually been declining since that time. She does normally ambulate at baseline. They do confirm that her right-sided facial droop and right arm paresis are not chronic for the patient. CT is currently pending.] CRITICAL CARE TIME: 45 Minutes, excluding any procedures and care of other patients. Dragon Disclaimer Dragon Disclaimer This electronic medical record was generated, in whole or in part, using a voice recognition dictation system. Departure Departure Impression: Primary Impression: Acute encephalopathy Additional Impression: CVA (cerebral vascular accident) Disposition: 09 ADMITTED INPATIENT Admitting Physician: J Carlos Simons Referrals: CATRACHITO BOWERS MD (PCP) Problem Qualifiers CT GRIFFITHS MD May 05, 2018 10:06
[2018-05-05 10:19] LABS: BILIRUBIN,URINE NEGATIVE (NEG); CLARITY,URINE CLEAR; COLOR,URINE YELLOW; NITRITE,URINE NEGATIVE (NEG); PROTEIN,URINE NEGATIVE (NEG-TRACE)
[2018-05-05 10:35] LABS: SQUAMOUS EPITHELIAL CELL,UR FEW /LPF
[2018-05-05 10:36] LABS: BACTERIA,URINE MANY /HPF (0-FEW)
[2018-05-05 11:12] LABS: CALCIUM 8.9 mg/dL (8.5-10.1); CREATININE 0.9 mg/dL (0.6-1.0); GFR 74.3; POTASSIUM 3.7 mmol/L (3.5-5.1)
[2018-05-05] MEDS ORDERED: IOHEXOL 300 MG/ML 100ML VIAL. IV ONE (11:15)
[2018-05-05 11:20] LABS: ALBUMIN 3.5 g/dL (3.4-5.0); ALBUMIN/GLOBULIN RATIO 0.9 (1.0-1.7); MAGNESIUM 2.1 mg/dL (1.8-2.4); TOTAL BILIRUBIN 0.6 mg/dL (0.2-1.0); TOTAL PROTEIN 7.3 g/dL (6.4-8.2)
--- NOTE | 2018-05-05 11:21 | RAD ---
Exam: AP portable chest History: Altered mental status. Comparison: September 27, 2016. Findings: The heart and mediastinal structures are within normal limits for size. Lungs are without infiltrate. No pleural effusion or pneumothorax is identified. Impression: 1. No acute cardiopulmonary process. Electronically signed by: Santhosh Alas MD (05/05/2018 11:17 AM) [facility]
[2018-05-05] MEDS ORDERED: CONTRAST GIVEN. MC PRN (11:30)
[2018-05-05 11:46] LABS: PROTHROMBIN TIME PATIENT 13.2 SEC (11.7-14.0)
--- NOTE | 2018-05-05 12:58 | RAD ---
PQRS Compliance Statement: One or more of the following individualized dose reduction techniques were utilized for this examination: 1. Automated exposure control 2. Adjustment of the mA and/or kV according to patient size 3. Use of iterative reconstruction technique CT HEAD WITHOUT CONTRAST History: AMS, RIGHT ARM WEAKNESS, NON-VERBAL Comparison: CT head without contrast, September 27, 2016. Technique: Axial images are obtained of the head from the skull base through the vertex without IV contrast. Findings: No mass-effect, midline shift, extra-axial fluid collection, hemorrhage, or obvious acute infarction is identified. Basilar cisterns are patent. The ventricles and sulci are prominent, consistent with age-related cerebral atrophy. There is periventricular white matter hypoattenuation. This is a nonspecific finding but is commonly due to chronic small vessel ischemic disease. There is old left basal ganglia lacunar infarct. Bone windows demonstrate no acute calvarial abnormality. Stable appearance of the left orbit. The visualized paranasal sinuses are clear. Mastoid air cells are well aerated. IMPRESSION: 1. No acute intracranial abnormality. 2. Age-related cerebral atrophy and periventricular white matter changes of chronic small vessel ischemic disease. 3. Old left basal ganglia lacunar infarct. Electronically signed by: Fabricio Torres MD (05/05/2018 12:28 PM) [id number]
--- NOTE | 2018-05-05 12:58 | RAD ---
PQRS Compliance Statement: One or more of the following individualized dose reduction techniques were utilized for this examination: 1. Automated exposure control 2. Adjustment of the mA and/or kV according to patient size 3. Use of iterative reconstruction technique CT ANGIOGRAPHY HEAD AND NECK Clinical Indication: AMS, RIGHT ARM WEAKNESS, NON-VERBAL, Comparison: CT head without contrast, same day. Technique: Helical CT imaging from inferior to the aortic arch to the skull vertex is performed after 75 cc of Omnipaque [address] angiogram protocol. 3-D MIP reconstructions of the cervical carotid arteries and enterprise of [place] are performed. PQRS Compliance Statement - Stenosis calculations for CT, MR and conventional angiography are based upon measurement of the distal ICA diameter in accordance with the NASCET methodology. Stenosis calculations for carotid ultrasound studies are derived from validated velocity criteria which are known to correlate with the NASCET methodology. Findings: Small caliber left vertebral artery arises directly from the aortic arch, a normal variant. The common carotid arteries are patent. The cervical vertebral arteries are patent. No evidence of dissection. The cervical internal carotid arteries are patent. The left vertebral artery terminates in PICA. The basilar artery is small caliber. Superior cerebellar arteries are patent. Persistent origin of the left posterior cerebral artery. The right is patent. Mild atherosclerotic calcification of the cavernous internal carotid arteries bilaterally. No significant narrowing. The anterior cerebral arteries are patent. An anterior communicating artery is not seen. Middle cerebral arteries are patent. No significant focal stenosis is identified. There is no major intracranial occlusion. No evidence of intracranial aneurysm. There is no abnormal enhancement in the brain parenchyma. No cervical adenopathy. Heterogeneous thyroid. 11 mm left thyroid lobe nodule. Visualized upper lungs are clear. Degenerative spondylosis of the cervical spine. IMPRESSION: Normal CTA head and neck findings. Electronically signed by: Fabricio Torres MD (05/05/2018 12:38 PM) [id number]
[2018-05-05 13:56] LABS: BASO % 1 % (0-3); EOS # 0.1 x10^3/uL (0.0-0.7); EOS % 2 % (0-3); HEMATOCRIT 38.7 % (36.0-47.0); HEMOGLOBIN 13.2 g/dL (12.0-15.5); LYMPH # 1.8 x10^3/uL (1.0-4.8); LYMPH % 35 % (24-48); MEAN CORPUSCULAR HEMOGLOBIN 26 pg (25-35); MEAN CORPUSCULAR HGB CONC 34 g/dL (31-37); MEAN CORPUSCULAR VOLUME 77 fL (79-100); MONO # 0.5 x10^3/uL (0.0-1.1); MONO % 9 % (0-9); NEUT # 2.8 x10^3uL (1.8-7.7); NEUT % 54 % (31-73); PLATELET COUNT 227 x10^3/uL (140-400); RED BLOOD COUNT 5.06 x10^6/uL (3.50-5.40); RED CELL DISTRIBUTION WIDTH 15.2 % (11.5-14.5); WHITE BLOOD COUNT 5.2 x10^3/uL (4.0-11.0)
[2018-05-05] MEDS ORDERED: ENALAPRILAT 1.25 MG/ML VIAL. IVP PRN (16:15)
[2018-05-05] MEDS: IV NORMAL SALINE 1000ML BAG 1,000 ML IV SCH (16:31)
--- NOTE | 2018-05-05 16:38 | PDOC1 ---
History and Physical Date of Admission Date of Admission DATE: 05/05/18 TIME: 16:38 Identification/Chief Complaint Chief Complaint seen in emergency department for evaluation via EMS. EMS found the patient with a blood glucose of 39. Dextrose was administered, and the patient's blood glucose improved, . However the patient is still minimally responsive. noted flaccidity to her right upper extremity and there is a left gaze preference .family reports that the patient did fall last night at some point, and her last known normal was last night. family reports patient has some right-sided weakness and facial droop from an old stroke, . Review of the patient's records from a year ago revealed that she has had a small left basal ganglia infarct in the past. skin does feel warm to touch. 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 Alcohol Use: None Drug Use: None never smoker Cardiovascular: HTN Pulmonary: Asthma CENTRAL NERVOUS SYSTEM: CVA GI: Constipation Infectious disease: No pertinent hx Renal/: No pertinent hx Endocrine: Diabetes Dermatology: No pertinent hx Past Surgical History Past Surgical History: Hysterectomy, Other Family History Family History: Diabetes, Other (mother had cva) Family History: Parent Social History Smoke: No ALCOHOL: none Drugs: None Current Problem List Problem List Problems Medical Problems: (1) Acute encephalopathy Status: Acute (2) CVA (cerebral vascular accident) Status: Acute Current Medications Current Medications Current Medications Sodium Chloride 1,000 ml @ 1,000 mls/hr Q1H IV Last administered on at 10:30; Start 05/05/18 at 09:53; Stop 05/05/18 at 10:52; Status DC Dextrose/Sodium Chloride 1,000 ml @ 75 mls/hr 1X ONCE IV Last administered on 05/05/18at 10:30; Start 05/05/18 at 10:00; Stop 05/05/18 at 15:56; Status DC Iohexol (Omnipaque 300 Mg/ml) 75 ml 1X ONCE IV ; Start 05/05/18 at 11:15; Stop 05/05/18 at 11:18; Status DC Info (CONTRAST GIVEN -- Rx MONITORING) 1 each PRN DAILY PRN MC SEE COMMENTS; Start 05/05/18 at 11:30; Stop 05/07/18 at 11:29 Sodium Chloride 1,000 ml @ 75 mls/hr [id number] IV Last administered on at 16:31; Start 05/05/18 at 16:00 Enalaprilat (Vasotec Inj) 1.25 mg PRN Q6HRS PRN IVP HYPERTENSION, SEE COMMENTS Last administered on 05/05/18at 16:30; Start 05/05/18 at 16:15 Active Scripts Active Reported Metformin Hcl 1,000 Mg Tablet 1 Tab PO BID Lantus Solostar (Insulin Glargine,Hum.rec.anlog) 100 Unit/1 Ml Insuln.pen 30 Unit SQ QHS Metoprolol Succinate 50 Mg Tab.er.24h 50 Mg PO DAILY Lisinopril 40 Mg Tablet 1 Tab PO DAILY Hydrochlorothiazide Tablet (Hydrochlorothiazide) 25 Mg Tablet 1 Tab PO DAILY Allergies Allergies: Coded Allergies: No Known Drug Allergies (Unverified , 01/30/15) ROS Review of System Review of Systems Unable to obtain review of systems secondary to altered mental status General: YES: Fatigue, Malaise Eyes: Yes Decreased vision Breast: No New/Changing Breast Lumps, No Nipple changes, No Nipple discharge, No Other Respiratory: No: Cough, Hemoptysis, Orthopnea, Pleuritic Pain, Shortness of breath, SOB with excertion, Sputum Changes, Stridor, Tachypnea, Wheezing, Other Neurological: Yes Confusion Skin: Yes Dry Skin Physical Exam Physical Exam Physical Exam PHYSICAL EXAM: CONSTITUTIONAL: Well developed, well nourished HEAD: normocephalic, atraumatic EENT: There appears to be a leftward gaze preference. Unable to assess visual jesus. Conjunctivae normal color, sclerae non-icteric; mildly dry mucous membranes. NECK: Supple, non-tender; no meningismus. LUNGS: Lungs CTA, breathing even and unlabored. Normal air movement. HEART: Regular rate and rhythm, no murmur CHEST: No deformity; non-tender ABDOMEN: The abdomen is soft, and non-tender, no masses or bruits. EXTREM: Normal ROM; no deformity, no calf tenderness. Normal pulses palpable in all extremities. There is no pedal edema. SKIN: No rash; no diaphoresis NEURO: Patient is awake, she is alert but unresponsive to verbal stimulus. She does not follow commands. right-sided facial droop right product ambassador 0/4 strength There is facility of the right upper extremity. There is weakness to both lower extremities symmetrically bilaterally, the patient does withdraw her lower extremities to pain. Sensation appears to be diminished in her RUE . BACK: No CVA TTP. General: Cooperative, moderate distress HEENT: Atraumatic Lungs: Clear to auscultation, Normal air movement Breasts: Not examined Abdomen: Normal bowel sounds Rectal Exam: not examined PELVIC: Examination not indicated Extremities: No clubbing, No cyanosis Vitals Vitals Vital Signs Date Time Temp Pulse Resp B/P (MAP) Pulse Ox O2 Delivery O2 Flow Rate FiO2 05/05/18 16:30 56 198/85 05/05/18 15:00 16 99 05/05/18 09:50 97.9 Room Air 97.9 Labs Labs Laboratory Tests Test 05/05/18 09:49 05/05/18 10:09 05/05/18 10:33 05/05/18 11:15 Glucose (Fingerstick) 173 mg/dL (70-99) Urine Collection Type U cath Urine Color Yellow Urine Clarity Clear Urine pH 6.0 Urine Specific [place] 1.020 Urine Protein Negative mg/dL (NEG-TRACE) Urine Glucose (UA) >=1000 mg/dL (NEG) Urine Ketones (Stick) 40 mg/dL (NEG) Urine Blood Trace (NEG) Urine Nitrite Negative (NEG) Urine Bilirubin Negative (NEG) Urine Urobilinogen Dipstick 1.0 mg/dL (0.2 mg/dL) Urine Leukocyte Esterase Small (NEG) Urine RBC 3-5 /HPF (0-2) Urine WBC 6-10 /HPF (0-4) Urine Squamous Epithelial Cells Few /LPF Urine Bacteria Many /HPF (0-FEW) Urine Mucus Mod /LPF Sodium Level 144 mmol/L (136-145) Potassium Level 3.7 mmol/L (3.5-5.1) Chloride Level 109 mmol/L (98-107) Carbon Dioxide Level 25 mmol/L (21-32) Anion Gap 10 (6-14) Blood Urea Nitrogen 14 mg/dL (7-20) Creatinine 0.9 mg/dL (0.6-1.0) Estimated GFR (Cockcroft-Gault) 74.3 BUN/Creatinine Ratio 16 (6-20) Glucose Level 131 mg/dL (70-99) Lactic Acid Level 0.8 mmol/L (0.4-2.0) Calcium Level 8.9 mg/dL (8.5-10.1) Magnesium Level 2.1 mg/dL (1.8-2.4) Total Bilirubin 0.6 mg/dL (0.2-1.0) Aspartate Amino Transf (AST/SGOT) 18 U/L (15-37) Alanine Aminotransferase (ALT/SGPT) 27 U/L (14-59) Alkaline Phosphatase 103 U/L (46-116) Ammonia 16 mcmol/L (11-34) Creatine Kinase 164 U/L (26-192) Creatine Kinase MB (Mass) 0.9 ng/mL (0.0-3.6) Creatine Kinase MB Relative Index 0.5 % (0-4) Troponin I Quantitative < 0.017 ng/mL (0.000-0.055) MW-Txy-O-Type Natriuretic Peptide 125 pg/mL (0-124) Total Protein 7.3 g/dL (6.4-8.2) Albumin 3.5 g/dL (3.4-5.0) Albumin/Globulin Ratio 0.9 (1.0-1.7) Prothrombin Time 13.2 SEC (11.7-14.0) Prothromb Time International Ratio 1.1 (0.8-1.1) Activated Partial Thromboplast Time 24 SEC (24-38) Test 05/05/18 11:35 White Blood Count 5.2 x10^3/uL (4.0-11.0) Red Blood Count 5.06 x10^6/uL (3.50-5.40) Hemoglobin 13.2 g/dL (12.0-15.5) Hematocrit 38.7 % (36.0-47.0) Mean Corpuscular Volume 77 fL (79-100) Mean Corpuscular Hemoglobin 26 pg (25-35) Mean Corpuscular Hemoglobin Concent 34 g/dL (31-37) Red Cell Distribution Width 15.2 % (11.5-14.5) Platelet Count 227 x10^3/uL (140-400) Neutrophils (%) (Auto) 54 % (31-73) Lymphocytes (%) (Auto) 35 % (24-48) Monocytes (%) (Auto) 9 % (0-9) Eosinophils (%) (Auto) 2 % (0-3) Basophils (%) (Auto) 1 % (0-3) Neutrophils # (Auto) 2.8 x10^3uL (1.8-7.7) Lymphocytes # (Auto) 1.8 x10^3/uL (1.0-4.8) Monocytes # (Auto) 0.5 x10^3/uL (0.0-1.1) Eosinophils # (Auto) 0.1 x10^3/uL (0.0-0.7) Basophils # (Auto) 0.0 x10^3/uL (0.0-0.2) Laboratory Tests Test 05/05/18 09:49 05/05/18 10:09 05/05/18 10:33 05/05/18 11:15 Glucose (Fingerstick) 173 mg/dL (70-99) Urine Collection Type U cath Urine Color Yellow Urine Clarity Clear Urine pH 6.0 Urine Specific [place] 1.020 Urine Protein Negative mg/dL (NEG-TRACE) Urine Glucose (UA) >=1000 mg/dL (NEG) Urine Ketones (Stick) 40 mg/dL (NEG) Urine Blood Trace (NEG) Urine Nitrite Negative (NEG) Urine Bilirubin Negative (NEG) Urine Urobilinogen Dipstick 1.0 mg/dL (0.2 mg/dL) Urine Leukocyte Esterase Small (NEG) Urine RBC 3-5 /HPF (0-2) Urine WBC 6-10 /HPF (0-4) Urine Squamous Epithelial Cells Few /LPF Urine Bacteria Many /HPF (0-FEW) Urine Mucus Mod /LPF Sodium Level 144 mmol/L (136-145) Potassium Level 3.7 mmol/L (3.5-5.1) Chloride Level 109 mmol/L (98-107) Carbon Dioxide Level 25 mmol/L (21-32) Anion Gap 10 (6-14) Blood Urea Nitrogen 14 mg/dL (7-20) Creatinine 0.9 mg/dL (0.6-1.0) Estimated GFR (Cockcroft-Gault) 74.3 BUN/Creatinine Ratio 16 (6-20) Glucose Level 131 mg/dL (70-99) Lactic Acid Level 0.8 mmol/L (0.4-2.0) Calcium Level 8.9 mg/dL (8.5-10.1) Magnesium Level 2.1 mg/dL (1.8-2.4) Total Bilirubin 0.6 mg/dL (0.2-1.0) Aspartate Amino Transf (AST/SGOT) 18 U/L (15-37) Alanine Aminotransferase (ALT/SGPT) 27 U/L (14-59) Alkaline Phosphatase 103 U/L (46-116) Ammonia 16 mcmol/L (11-34) Creatine Kinase 164 U/L (26-192) Creatine Kinase MB (Mass) 0.9 ng/mL (0.0-3.6) Creatine Kinase MB Relative Index 0.5 % (0-4) Troponin I Quantitative < 0.017 ng/mL (0.000-0.055) FT-Nro-O-Type Natriuretic Peptide 125 pg/mL (0-124) Total Protein 7.3 g/dL (6.4-8.2) Albumin 3.5 g/dL (3.4-5.0) Albumin/Globulin Ratio 0.9 (1.0-1.7) Prothrombin Time 13.2 SEC (11.7-14.0) Prothromb Time International Ratio 1.1 (0.8-1.1) Activated Partial Thromboplast Time 24 SEC (24-38) Test 05/05/18 11:35 White Blood Count 5.2 x10^3/uL (4.0-11.0) Red Blood Count 5.06 x10^6/uL (3.50-5.40) Hemoglobin 13.2 g/dL (12.0-15.5) Hematocrit 38.7 % (36.0-47.0) Mean Corpuscular Volume 77 fL (79-100) Mean Corpuscular Hemoglobin 26 pg (25-35) Mean Corpuscular Hemoglobin Concent 34 g/dL (31-37) Red Cell Distribution Width 15.2 % (11.5-14.5) Platelet Count 227 x10^3/uL (140-400) Neutrophils (%) (Auto) 54 % (31-73) Lymphocytes (%) (Auto) 35 % (24-48) Monocytes (%) (Auto) 9 % (0-9) Eosinophils (%) (Auto) 2 % (0-3) Basophils (%) (Auto) 1 % (0-3) Neutrophils # (Auto) 2.8 x10^3uL (1.8-7.7) Lymphocytes # (Auto) 1.8 x10^3/uL (1.0-4.8) Monocytes # (Auto) 0.5 x10^3/uL (0.0-1.1) Eosinophils # (Auto) 0.1 x10^3/uL (0.0-0.7) Basophils # (Auto) 0.0 x10^3/uL (0.0-0.2) VTE Prophylaxis Ordered VTE Prophylaxis Devices: Yes VTE Pharmacological Prophylaxi: No Assessment/Plan Assessment/Plan Impression: Acute encephalopathy hypertensive urgency CVA (cerebral vascular accident) uti diabetes plan 09 ADMITTED INPATIENT ICU Neurology consult npo iv fluid support consider mri head 38 min cc time scd'd iv protonix accuchRADHA Parmar MD May 05, 2018 16:38
[2018-05-05] MEDS ORDERED: ONDANSETRON PF 4 MG/2 ML VIAL. IV PRN (17:00)
[2018-05-05] MEDS ORDERED: ALBUTEROL SULFATE 2.5 MG/3 ML NEBU. NEB PRN (17:00)
[2018-05-05] MEDS ORDERED: 0.9 % SODIUM CHLORIDE 3ML DISP.SYRIN. IV PRN (17:00)
[2018-05-05] MEDS ORDERED: ACETAMINOPHEN 650 MG SUPP.RECT. PR PRN (17:00)
[2018-05-05] MEDS ORDERED: ENALAPRILAT 2.5 MG/2 ML VIAL. IVP ONE (17:15)
[2018-05-05] MEDS: cefTRIAXone IV Push 1 GM VIAL. IVP SCH (17:20)
--- NOTE | 2018-05-05 18:33 | PDOC2 ---
NEUROLOGY CONSULT Date of Admission Date of Admission DATE: 05/05/18 TIME: 18:15 Reason for Consult Reason for Consult: IMPRESSION: Hypertensive emergency, SBP 218 mmHg. Hypertensive encephalopathy. Metabolic encephalopathy. Increased weakness in right UE. Hypoglycemia, glucose level 39. DM. UTI. Fall. HTN. HLD. 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 RECOMMENDATIONS/PLAN: BP control. ASA 325 mg daily. Brain MRI w/o contrast. EEG. Lab: see orders. Treat UTI. Treat medical diseases. CT : Old CVa. CTA: Negative. HISTORY OF THE PRESENT ILLNESS: 72-y-old AA female patient with above medical diseases and previous stroke with right side hemiplegia. She has mental status changes as unresponsiveness, so EMS was called and her glucose level was revealed 39. she was administrated dextrose, but her MS did not improve. She was brought to the ER of [facility] and her SBP was 218 mmHg. Past Medical History CVA, Diabetes-Type II, Hypertension, HLD. Cardiovascular: HTN Pulmonary: Asthma CENTRAL NERVOUS SYSTEM: CVA GI: Constipation Infectious disease: No pertinent hx Renal/: No pertinent hx Endocrine: Diabetes Dermatology: No pertinent hx Past Surgical History Hysterectomy, tumor in neck removed. Family History Diabetes, Other (mother had cva) ALLERGY: NKDA MEDICATIONS: Refer to MAR. SOCIAL HISTORY: Denies smoking, drinking, and illicit drug use. REVIEW OF SYSTEMS: Constitutional: Obesity. Head: No recent traumatic brain or head injury. Skin: No edema, or rash. Ear: No infection. Eyes: No vision loss or color blindness. Nose: No bleeding or purulent discharges. Hearing: No hearing decrease. Neck: No injury. Breast: No history of cancer, masses,or discharges. Cardiac: HTN, HLD. Pulmonary: No COPD. GI: No GI ulcer, GI bleeding. Urinary/genital: UTI. Endocrinologic: Diabetes Mellitus, hypothyroidism, obesity. Skeletomuscular: Right side hemiplegia. Neurological: see HP. Psychiatric: Denies drug use/abuse. Otherwise, not [id number] review of systems. PHYSICAL EXAMINATION: General appearance is in acute distress. HEENT: Normocephalic and nontraumatic. Eyes, nose, ears, and throat are unremarkable. Neck is supple. No lymphadenopathy. No crepitus. Cardiovascular: S1, S2, regular rate and rhythm. Pulmonary: Clear to auscultation bilaterally. Abdomen: Bowel sounds are positive. Extremities: No rash, lesions, or edema. No restriction of range of motion NEUROLOGICAL EXAMINATION: Eyes open. In confusional state. Not oriented to time, place and person. PERRL. EOMI, but slow. CN: chronic right VII palsy. Muscle tone: Increased in right UE and LE, normal in left side. Muscle strength: 2+ right side? 5- left side. DTR: 2-3 right side. Plantar reflex: Extensor response, right side. response bilaterally Gait: not examined in bed. Sensory exam: no acute abnormal findings. Not able to access cerebellar signs due to not follow commands. F-T-N test not performed due to not follow commands. Current Medications Current Medications Current Medications Sodium Chloride 1,000 ml @ 1,000 mls/hr Q1H IV Last administered on at 10:30; Start 05/05/18 at 09:53; Stop 05/05/18 at 10:52; Status DC Dextrose/Sodium Chloride 1,000 ml @ 75 mls/hr 1X ONCE IV Last administered on 05/05/18at 10:30; Start 05/05/18 at 10:00; Stop 05/05/18 at 15:56; Status DC Iohexol (Omnipaque 300 Mg/ml) 75 ml 1X ONCE IV ; Start 05/05/18 at 11:15; Stop 05/05/18 at 11:18; Status DC Info (CONTRAST GIVEN -- Rx MONITORING) 1 each PRN DAILY PRN MC SEE COMMENTS; Start 05/05/18 at 11:30; Stop 05/07/18 at 11:29 Sodium Chloride 1,000 ml @ 75 mls/hr [id number] IV Last administered on at 16:31; Start 05/05/18 at 16:00 Enalaprilat (Vasotec Inj) 1.25 mg PRN Q6HRS PRN IVP HYPERTENSION, SEE COMMENTS Last administered on 05/05/18at 16:30; Start 05/05/18 at 16:15 Ceftriaxone Sodium 1 gm/ Dextrose 50 ml @ 100 mls/hr Q24H IV ; Start 05/05/18 at 17:00; Status UNV Ceftriaxone Sodium (Rocephin) 1 gm Q24H IVP Last administered on 05/05/18at 17: 20; Start 05/05/18 at 17:00 Sodium Chloride (Normal Saline Flush 3ml) 3 ml QSHIFT PRN IV AFTER MEDS AND BLOOD DRAWS; Start 05/05/18 at 17:00 Ondansetron HCl (Zofran) 4 mg PRN Q4HRS PRN IV NAUSEA/VOMITING; Start at 17:00 Acetaminophen (Tylenol Supp) 650 mg PRN Q4HRS PRN CA TEMP OVER 100.4F OR MILD PAIN; Start 05/05/18 at 17:00 Albuterol Sulfate (Ventolin Neb Soln) 2.5 mg PRN Q4HRS PRN NEB SHORTNESS OF BREATH; Start 05/05/18 at 17:00 Levofloxacin/ Dextrose 100 ml @ 100 mls/hr Q24H IV Last administered on at 17:20; Start 05/05/18 at 17:00 Enalaprilat (Vasotec Inj) 2.5 mg 1X ONCE IVP Last administered on 05/05/18at 17:12; Start 05/05/18 at 17:15; Stop 05/05/18 at 17:16; Status DC Nicardipine HCl 50 mg/Sodium Chloride 270 ml @ 27 mls/hr CONT PRN IV SEE I/O RECORD; Start 05/05/18 at 17:45; Stop 05/05/18 at 17:45; Status DC Nicardipine/ Sodium Chloride 200 ml @ 27 mls/hr CONT PRN IV SEE I/O RECORD Last administered on 05/05/18at 18:08; Start 05/05/18 at 17:45 Active Scripts Active Reported Metformin Hcl 1,000 Mg Tablet 1 Tab PO BID Lantus Solostar (Insulin Glargine,Hum.rec.anlog) 100 Unit/1 Ml Insuln.pen 30 Unit SQ QHS Metoprolol Succinate 50 Mg Tab.er.24h 50 Mg PO DAILY Lisinopril 40 Mg Tablet 1 Tab PO DAILY Hydrochlorothiazide Tablet (Hydrochlorothiazide) 25 Mg Tablet 1 Tab PO DAILY Allergies Allergies: Allergies Coded Allergies Type Severity Reaction Last Updated Verified No Known Drug Allergies 01/30/15 No ROS Review of System The patient denies any associated fevers, chills, headache, ear pain, rhinorrhea , sore throat, stiff neck, productive cough, chest pain, shortness of breath, back or flank pain, abdominal pain, nausea, vomiting, diarrhea, constipation, dysuria, rash, numbness, weakness, tingling, incontinence, difficulty ambulating, or diaphoresis. Physical Exam Physical Exam General: Well developed, well nourished, no acute distress, well appearing HEENT: Pupils equally round and reactive to light, EOMI, no discharge, normal conjunctiva Neck: Supple, no nuchal rigidity, no JVD, trachea midline, no tenderness Cardiac: RRR, no murmurs, no gallops, no rubs Chest/Lungs: CTAB, no wheeze, no rhonchi, no crackles Abdomen: soft, non-distended, no guarding, no peritoneal signs, non-tender Back: No tenderness Extremities: no edema, pulses intact, non-tender,capillary refill <3 sec bilateral upper and lower extremities, Neuro: Alert and oriented x 4, no focal deficits, normal speech Vitals Vitals: Vital Signs Date Time Temp Pulse Resp B/P (MAP) Pulse Ox O2 Delivery O2 Flow Rate FiO2 05/05/18 17:12 57 225/85 05/05/18 15:00 16 99 05/05/18 09:50 97.9 Room Air 97.9 Labs Labs Laboratory Tests Test 05/05/18 09:49 05/05/18 10:09 05/05/18 10:33 05/05/18 11:15 Glucose (Fingerstick) 173 mg/dL (70-99) Urine Collection Type U cath Urine Color Yellow Urine Clarity Clear Urine pH 6.0 Urine Specific [place] 1.020 Urine Protein Negative mg/dL (NEG-TRACE) Urine Glucose (UA) >=1000 mg/dL (NEG) Urine Ketones (Stick) 40 mg/dL (NEG) Urine Blood Trace (NEG) Urine Nitrite Negative (NEG) Urine Bilirubin Negative (NEG) Urine Urobilinogen Dipstick 1.0 mg/dL (0.2 mg/dL) Urine Leukocyte Esterase Small (NEG) Urine RBC 3-5 /HPF (0-2) Urine WBC 6-10 /HPF (0-4) Urine Squamous Epithelial Cells Few /LPF Urine Bacteria Many /HPF (0-FEW) Urine Mucus Mod /LPF Sodium Level 144 mmol/L (136-145) Potassium Level 3.7 mmol/L (3.5-5.1) Chloride Level 109 mmol/L (98-107) Carbon Dioxide Level 25 mmol/L (21-32) Anion Gap 10 (6-14) Blood Urea Nitrogen 14 mg/dL (7-20) Creatinine 0.9 mg/dL (0.6-1.0) Estimated GFR (Cockcroft-Gault) 74.3 BUN/Creatinine Ratio 16 (6-20) Glucose Level 131 mg/dL (70-99) Lactic Acid Level 0.8 mmol/L (0.4-2.0) Calcium Level 8.9 mg/dL (8.5-10.1) Magnesium Level 2.1 mg/dL (1.8-2.4) Total Bilirubin 0.6 mg/dL (0.2-1.0) Aspartate Amino Transf (AST/SGOT) 18 U/L (15-37) Alanine Aminotransferase (ALT/SGPT) 27 U/L (14-59) Alkaline Phosphatase 103 U/L (46-116) Ammonia 16 mcmol/L (11-34) Creatine Kinase 164 U/L (26-192) Creatine Kinase MB (Mass) 0.9 ng/mL (0.0-3.6) Creatine Kinase MB Relative Index 0.5 % (0-4) Troponin I Quantitative < 0.017 ng/mL (0.000-0.055) UY-Zac-C-Type Natriuretic Peptide 125 pg/mL (0-124) Total Protein 7.3 g/dL (6.4-8.2) Albumin 3.5 g/dL (3.4-5.0) Albumin/Globulin Ratio 0.9 (1.0-1.7) Prothrombin Time 13.2 SEC (11.7-14.0) Prothromb Time International Ratio 1.1 (0.8-1.1) Activated Partial Thromboplast Time 24 SEC (24-38) Test 05/05/18 11:35 05/05/18 12:30 White Blood Count 5.2 x10^3/uL (4.0-11.0) Red Blood Count 5.06 x10^6/uL (3.50-5.40) Hemoglobin 13.2 g/dL (12.0-15.5) Hematocrit 38.7 % (36.0-47.0) Mean Corpuscular Volume 77 fL (79-100) Mean Corpuscular Hemoglobin 26 pg (25-35) Mean Corpuscular Hemoglobin Concent 34 g/dL (31-37) Red Cell Distribution Width 15.2 % (11.5-14.5) Platelet Count 227 x10^3/uL (140-400) Neutrophils (%) (Auto) 54 % (31-73) Lymphocytes (%) (Auto) 35 % (24-48) Monocytes (%) (Auto) 9 % (0-9) Eosinophils (%) (Auto) 2 % (0-3) Basophils (%) (Auto) 1 % (0-3) Neutrophils # (Auto) 2.8 x10^3uL (1.8-7.7) Lymphocytes # (Auto) 1.8 x10^3/uL (1.0-4.8) Monocytes # (Auto) 0.5 x10^3/uL (0.0-1.1) Eosinophils # (Auto) 0.1 x10^3/uL (0.0-0.7) Basophils # (Auto) 0.0 x10^3/uL (0.0-0.2) Albumin 3.4 g/dL (3.4-5.0) Thyroid Stimulating Hormone (TSH) 0.312 uIU/mL (0.358-3.74) Laboratory Tests Test 05/05/18 09:49 05/05/18 10:09 05/05/18 10:33 05/05/18 11:15 Glucose (Fingerstick) 173 mg/dL (70-99) Urine Collection Type U cath Urine Color Yellow Urine Clarity Clear Urine pH 6.0 Urine Specific [place] 1.020 Urine Protein Negative mg/dL (NEG-TRACE) Urine Glucose (UA) >=1000 mg/dL (NEG) Urine Ketones (Stick) 40 mg/dL (NEG) Urine Blood Trace (NEG) Urine Nitrite Negative (NEG) Urine Bilirubin Negative (NEG) Urine Urobilinogen Dipstick 1.0 mg/dL (0.2 mg/dL) Urine Leukocyte Esterase Small (NEG) Urine RBC 3-5 /HPF (0-2) Urine WBC 6-10 /HPF (0-4) Urine Squamous Epithelial Cells Few /LPF Urine Bacteria Many /HPF (0-FEW) Urine Mucus Mod /LPF Sodium Level 144 mmol/L (136-145) Potassium Level 3.7 mmol/L (3.5-5.1) Chloride Level 109 mmol/L (98-107) Carbon Dioxide Level 25 mmol/L (21-32) Anion Gap 10 (6-14) Blood Urea Nitrogen 14 mg/dL (7-20) Creatinine 0.9 mg/dL (0.6-1.0) Estimated GFR (Cockcroft-Gault) 74.3 BUN/Creatinine Ratio 16 (6-20) Glucose Level 131 mg/dL (70-99) Lactic Acid Level 0.8 mmol/L (0.4-2.0) Calcium Level 8.9 mg/dL (8.5-10.1) Magnesium Level 2.1 mg/dL (1.8-2.4) Total Bilirubin 0.6 mg/dL (0.2-1.0) Aspartate Amino Transf (AST/SGOT) 18 U/L (15-37) Alanine Aminotransferase (ALT/SGPT) 27 U/L (14-59) Alkaline Phosphatase 103 U/L (46-116) Ammonia 16 mcmol/L (11-34) Creatine Kinase 164 U/L (26-192) Creatine Kinase MB (Mass) 0.9 ng/mL (0.0-3.6) Creatine Kinase MB Relative Index 0.5 % (0-4) Troponin I Quantitative < 0.017 ng/mL (0.000-0.055) PX-Git-O-Type Natriuretic Peptide 125 pg/mL (0-124) Total Protein 7.3 g/dL (6.4-8.2) Albumin 3.5 g/dL (3.4-5.0) Albumin/Globulin Ratio 0.9 (1.0-1.7) Prothrombin Time 13.2 SEC (11.7-14.0) Prothromb Time International Ratio 1.1 (0.8-1.1) Activated Partial Thromboplast Time 24 SEC (24-38) Test 05/05/18 11:35 05/05/18 12:30 White Blood Count 5.2 x10^3/uL (4.0-11.0) Red Blood Count 5.06 x10^6/uL (3.50-5.40) Hemoglobin 13.2 g/dL (12.0-15.5) Hematocrit 38.7 % (36.0-47.0) Mean Corpuscular Volume 77 fL (79-100) Mean Corpuscular Hemoglobin 26 pg (25-35) Mean Corpuscular Hemoglobin Concent 34 g/dL (31-37) Red Cell Distribution Width 15.2 % (11.5-14.5) Platelet Count 227 x10^3/uL (140-400) Neutrophils (%) (Auto) 54 % (31-73) Lymphocytes (%) (Auto) 35 % (24-48) Monocytes (%) (Auto) 9 % (0-9) Eosinophils (%) (Auto) 2 % (0-3) Basophils (%) (Auto) 1 % (0-3) Neutrophils # (Auto) 2.8 x10^3uL (1.8-7.7) Lymphocytes # (Auto) 1.8 x10^3/uL (1.0-4.8) Monocytes # (Auto) 0.5 x10^3/uL (0.0-1.1) Eosinophils # (Auto) 0.1 x10^3/uL (0.0-0.7) Basophils # (Auto) 0.0 x10^3/uL (0.0-0.2) Albumin 3.4 g/dL (3.4-5.0) Thyroid Stimulating Hormone (TSH) 0.312 uIU/mL (0.358-3.74) ALVARO FOUNTAIN MD May 05, 2018 18:33
[2018-05-05] MEDS ORDERED: INSU100I13 SQ (18:49)
[2018-05-05] MEDS ORDERED: DORZ10DR6 EACHEYE (18:49)
[2018-05-05] MEDS ORDERED: LISI-130 PO (18:49)
[2018-05-05] MEDS ORDERED: ATOR40TA59 PO (18:49)
[2018-05-05] MEDS ORDERED: METO-247 PO (18:49)
[2018-05-05] MEDS ORDERED: AMLO10TA6 PO (18:49)
[2018-05-05] MEDS ORDERED: LATA2.5D3 EACHEYE (18:49)
[2018-05-05] MEDS ORDERED: METF500T16 PO (18:49)
[2018-05-05] MEDS ORDERED: CITA10TA4 PO (18:49)
[2018-05-05] MEDS: ASPIRIN 325 MG TABLET PO SCH (19:00)
[2018-05-06] VITALS (33 sets, daily range): BP systolic 116–203; BP diastolic 56–116
[2018-05-06 06:29] LABS: BASO # 0.1 x10^3/uL (0.0-0.2); BASO % 1 % (0-3); EOS # 0.2 x10^3/uL (0.0-0.7); EOS % 4 % (0-3); HEMATOCRIT 40.1 % (36.0-47.0); HEMOGLOBIN 13.5 g/dL (12.0-15.5); LYMPH # 2.3 x10^3/uL (1.0-4.8); LYMPH % 32 % (24-48); MEAN CORPUSCULAR HEMOGLOBIN 26 pg (25-35); MEAN CORPUSCULAR HGB CONC 34 g/dL (31-37); MEAN CORPUSCULAR VOLUME 77 fL (79-100); MONO # 0.5 x10^3/uL (0.0-1.1); MONO % 7 % (0-9); NEUT % 56 % (31-73); PLATELET COUNT 247 x10^3/uL (140-400); RED BLOOD COUNT 5.23 x10^6/uL (3.50-5.40); RED CELL DISTRIBUTION WIDTH 15.3 % (11.5-14.5); WHITE BLOOD COUNT 7.1 x10^3/uL (4.0-11.0)
[2018-05-06] MEDS: IV NORMAL SALINE 1000ML BAG 1,000 ML IV SCH ×3 (06:31→19:39)
[2018-05-06 06:45] LABS: ALBUMIN 3.2 g/dL (3.4-5.0); ALBUMIN/GLOBULIN RATIO 0.8 (1.0-1.7); CALCIUM 8.6 mg/dL (8.5-10.1); CREATININE 0.9 mg/dL (0.6-1.0); GFR 74.3; POTASSIUM 3.6 mmol/L (3.5-5.1); TOTAL BILIRUBIN 0.5 mg/dL (0.2-1.0); TOTAL PROTEIN 7.1 g/dL (6.4-8.2)
[2018-05-06 06:51] LABS: CHOLESTEROL/HDL RATIO 2.5
[2018-05-06] MEDS: ASPIRIN 325 MG TABLET PO SCH (07:32)
--- NOTE | 2018-05-06 08:10 | RAD ---
Carotid ultrasound, 05/06/2018: HISTORY: CVA, altered mental status Duplex evaluation of the carotid arteries and neck was performed including grayscale, color-flow and spectral Doppler analysis. There is mild intimal thickening in the common carotid arteries and at the carotid bifurcations. No prominent focal plaque formation is seen. The peak systolic velocity in the right internal carotid artery is 85 cm/s with an end-diastolic velocity of 30 cm/s and an internal carotid to common carotid artery ratio of 0.8. The peak systolic velocity in left internal carotid artery is 96 cm/s with an end-diastolic velocity of 32 cm/s and an internal carotid to common carotid artery ratio of 0.7. These Doppler findings do not suggest significant stenosis. Antegrade flow is present in both vertebral arteries in the neck. IMPRESSION: No duplex evidence of significant carotid stenosis in the neck. Note: Stenosis calculations for CT, MRA and conventional angiography are based upon determination of the distal ICA diameter in accordance with the NASCET methodology. Stenosis calculations for Doppler studies are derived from validated velocity criteria which are known to correlate with NASCET methodology of determining stenosis. Electronically signed by: Thee Lyons MD (05/06/2018 8:07 AM) [facility]
--- NOTE | 2018-05-06 09:37 | PDOC2 ---
ANDRY TAO ACCOUNT SERVICE ASSOCIATE 05/06/18 0937: CARDIAC CONSULT DATE OF CONSULT Date of Consult DATE: 05/06/18 TIME: 0840 REASON FOR CONSULT Reason for Consult: Malignant HTN REFERRING PHYSICIAN Referring Physician: fullbright SOURCE Source: Chart review HISTORY OF PRESENT ILLNESS HISTORY OF PRESENT ILLNESS This is a 72 yo AA female admitted for noted increased right side weakness and decreased mentation. She was noted initially at home with BG in the 30s. and upon further check her BP was very high. Accdg to staff as family is not around that pt typically uses a walker and has some right side hemiparesis but was noted that her right has became weaker hence stroke was suspected. Presently pt is not in any distress and nods yes no to closed ended questions and no CP nor SOA. She follow directions and she was able to move her left arm as instructed and able to do thumbs up as instructed. There was no notation of any pas CAD but significant for past CVA. PAST MEDICAL HISTORY Cardiovascular: HTN, Hyperlipidemia CENTRAL NERVOUS SYSTEM: CVA (right side hemiparesis and aphasia) Musculoskeletal: Osteoarthritis ENT: Other (glaucoma) Endocrine: Diabetes (2) PAST SURGICAL HISTORY Past Surgical History: Hysterectomy FAMILY HISTORY Family History: Family History Unknown SOCIAL HISTORY Smoke: No ALCOHOL: none Drugs: None Lives: with Family CURRENT MEDICATIONS CURRENT MEDICATIONS Current Medications Medications (Trade) Dose Ordered Sig/Nirali Route PRN Reason Start Time Stop Time Status Last Admin Dose Admin Sodium Chloride 1,000 ml @ 1,000 mls/hr Q1H IV 05/05/18 09:53 05/05/18 10:52 DC 05/05/18 10:30 Dextrose/Sodium Chloride 1,000 ml @ 75 mls/hr 1X ONCE IV 05/05/18 10:00 05/05/18 15:56 DC 05/05/18 10:30 Sodium Chloride 1,000 ml @ 75 mls/hr [id number] IV 05/05/18 16:00 05/06/18 06:31 Enalaprilat (Vasotec Inj) 1.25 mg PRN Q6HRS PRN IVP HYPERTENSION, SEE COMMENTS 05/05/18 16:15 05/05/18 16:30 Ceftriaxone Sodium (Rocephin) 1 gm Q24H IVP 05/05/18 17:00 05/05/18 17:20 Levofloxacin/ Dextrose 100 ml @ 100 mls/hr Q24H IV 05/05/18 17:00 05/05/18 17:20 Enalaprilat (Vasotec Inj) 2.5 mg 1X ONCE IVP 05/05/18 17:15 05/05/18 17:16 DC 05/05/18 17:12 Nicardipine/ Sodium Chloride 200 ml @ 27 mls/hr CONT PRN IV SEE I/O RECORD 05/05/18 17:45 05/06/18 06:53 ALLERGIES ALLERGIES: Coded Allergies: No Known Drug Allergies (Unverified , 01/30/15) ROS Review of System unreliable with aphasia PHYSICAL EXAM General: Alert, Cooperative, No acute distress HEENT: Atraumatic, Mucous membr. moist/pink Lungs: Clear to auscultation Heart: Regular rate (SR no significant ectopies), Normal S1, Normal S2, Other ( 2/6 systolic murmur to LLS border) Abdomen: Soft, No tenderness Extremities: No cyanosis, Other (trace LE edema) Skin: No significant lesion Neuro: Sensation intact, Other (aphasia) Psych/Mental Status: Other (cooperative) MUSCULOSKELETAL: Osteoarthritic changes both hands, Other (right side hemiparesis) VITALS VITALS Vital Signs Date Time Temp Pulse Resp B/P (MAP) Pulse Ox O2 Delivery O2 Flow Rate FiO2 05/06/18 07:00 76 16 160/59 (92) 97 Room Air 05/06/18 04:00 98.9 98.9 LABS Lab: Laboratory Tests Test 05/05/18 09:49 05/05/18 10:09 05/05/18 10:33 05/05/18 11:15 Glucose (Fingerstick) 173 mg/dL (70-99) Urine Collection Type U cath Urine Color Yellow Urine Clarity Clear Urine pH 6.0 Urine Specific [place] 1.020 Urine Protein Negative mg/dL (NEG-TRACE) Urine Glucose (UA) >=1000 mg/dL (NEG) Urine Ketones (Stick) 40 mg/dL (NEG) Urine Blood Trace (NEG) Urine Nitrite Negative (NEG) Urine Bilirubin Negative (NEG) Urine Urobilinogen Dipstick 1.0 mg/dL (0.2 mg/dL) Urine Leukocyte Esterase Small (NEG) Urine RBC 3-5 /HPF (0-2) Urine WBC 6-10 /HPF (0-4) Urine Squamous Epithelial Cells Few /LPF Urine Bacteria Many /HPF (0-FEW) Urine Mucus Mod /LPF Sodium Level 144 mmol/L (136-145) Potassium Level 3.7 mmol/L (3.5-5.1) Chloride Level 109 mmol/L (98-107) Carbon Dioxide Level 25 mmol/L (21-32) Anion Gap 10 (6-14) Blood Urea Nitrogen 14 mg/dL (7-20) Creatinine 0.9 mg/dL (0.6-1.0) Estimated GFR (Cockcroft-Gault) 74.3 BUN/Creatinine Ratio 16 (6-20) Glucose Level 131 mg/dL (70-99) Lactic Acid Level 0.8 mmol/L (0.4-2.0) Calcium Level 8.9 mg/dL (8.5-10.1) Magnesium Level 2.1 mg/dL (1.8-2.4) Total Bilirubin 0.6 mg/dL (0.2-1.0) Aspartate Amino Transf (AST/SGOT) 18 U/L (15-37) Alanine Aminotransferase (ALT/SGPT) 27 U/L (14-59) Alkaline Phosphatase 103 U/L (46-116) Ammonia 16 mcmol/L (11-34) Creatine Kinase 164 U/L (26-192) Creatine Kinase MB (Mass) 0.9 ng/mL (0.0-3.6) Creatine Kinase MB Relative Index 0.5 % (0-4) Troponin I Quantitative < 0.017 ng/mL (0.000-0.055) OJ-Bae-J-Type Natriuretic Peptide 125 pg/mL (0-124) Total Protein 7.3 g/dL (6.4-8.2) Albumin 3.5 g/dL (3.4-5.0) Albumin/Globulin Ratio 0.9 (1.0-1.7) Prothrombin Time 13.2 SEC (11.7-14.0) Prothromb Time International Ratio 1.1 (0.8-1.1) Activated Partial Thromboplast Time 24 SEC (24-38) Test 05/05/18 11:35 05/05/18 12:30 05/05/18 15:32 05/05/18 17:00 White Blood Count 5.2 x10^3/uL (4.0-11.0) Red Blood Count 5.06 x10^6/uL (3.50-5.40) Hemoglobin 13.2 g/dL (12.0-15.5) Hematocrit 38.7 % (36.0-47.0) Mean Corpuscular Volume 77 fL (79-100) Mean Corpuscular Hemoglobin 26 pg (25-35) Mean Corpuscular Hemoglobin Concent 34 g/dL (31-37) Red Cell Distribution Width 15.2 % (11.5-14.5) Platelet Count 227 x10^3/uL (140-400) Neutrophils (%) (Auto) 54 % (31-73) Lymphocytes (%) (Auto) 35 % (24-48) Monocytes (%) (Auto) 9 % (0-9) Eosinophils (%) (Auto) 2 % (0-3) Basophils (%) (Auto) 1 % (0-3) Neutrophils # (Auto) 2.8 x10^3uL (1.8-7.7) Lymphocytes # (Auto) 1.8 x10^3/uL (1.0-4.8) Monocytes # (Auto) 0.5 x10^3/uL (0.0-1.1) Eosinophils # (Auto) 0.1 x10^3/uL (0.0-0.7) Basophils # (Auto) 0.0 x10^3/uL (0.0-0.2) Albumin 3.4 g/dL (3.4-5.0) Vitamin B12 Level 414 pg/mL (247-911) Thyroid Stimulating Hormone (TSH) 0.312 uIU/mL (0.358-3.74) Glucose (Fingerstick) 107 mg/dL (70-99) Nasal Screen MRSA (PCR) Negative (Negative) Test 05/05/18 18:30 05/05/18 20:27 05/06/18 06:00 Troponin I Quantitative < 0.017 ng/mL (0.000-0.055) Glucose (Fingerstick) 101 mg/dL (70-99) White Blood Count 7.1 x10^3/uL (4.0-11.0) Red Blood Count 5.23 x10^6/uL (3.50-5.40) Hemoglobin 13.5 g/dL (12.0-15.5) Hematocrit 40.1 % (36.0-47.0) Mean Corpuscular Volume 77 fL (79-100) Mean Corpuscular Hemoglobin 26 pg (25-35) Mean Corpuscular Hemoglobin Concent 34 g/dL (31-37) Red Cell Distribution Width 15.3 % (11.5-14.5) Platelet Count 247 x10^3/uL (140-400) Neutrophils (%) (Auto) 56 % (31-73) Lymphocytes (%) (Auto) 32 % (24-48) Monocytes (%) (Auto) 7 % (0-9) Eosinophils (%) (Auto) 4 % (0-3) Basophils (%) (Auto) 1 % (0-3) Neutrophils # (Auto) 4.0 x10^3uL (1.8-7.7) Lymphocytes # (Auto) 2.3 x10^3/uL (1.0-4.8) Monocytes # (Auto) 0.5 x10^3/uL (0.0-1.1) Eosinophils # (Auto) 0.2 x10^3/uL (0.0-0.7) Basophils # (Auto) 0.1 x10^3/uL (0.0-0.2) Sodium Level 142 mmol/L (136-145) Potassium Level 3.6 mmol/L (3.5-5.1) Chloride Level 108 mmol/L (98-107) Carbon Dioxide Level 21 mmol/L (21-32) Anion Gap 13 (6-14) Blood Urea Nitrogen 10 mg/dL (7-20) Creatinine 0.9 mg/dL (0.6-1.0) Estimated GFR (Cockcroft-Gault) 74.3 BUN/Creatinine Ratio 11 (6-20) Glucose Level 139 mg/dL (70-99) Calcium Level 8.6 mg/dL (8.5-10.1) Total Bilirubin 0.5 mg/dL (0.2-1.0) Aspartate Amino Transf (AST/SGOT) 15 U/L (15-37) Alanine Aminotransferase (ALT/SGPT) 23 U/L (14-59) Alkaline Phosphatase 101 U/L (46-116) Total Protein 7.1 g/dL (6.4-8.2) Albumin 3.2 g/dL (3.4-5.0) Albumin/Globulin Ratio 0.8 (1.0-1.7) Triglycerides Level 64 mg/dL (0-150) Cholesterol Level 194 mg/dL (0-200) LDL Cholesterol, Calculated 102 mg/dL (0-100) VLDL Cholesterol, Calculated 13 mg/dL (0-40) Non-HDL Cholesterol Calculated 115 mg/dL (0-129) HDL Cholesterol 79 mg/dL (40-60) Cholesterol/HDL Ratio 2.5 ASSESSMENT/PLAN ASSESSMENT/PLAN 1. Suspect Metabolic/hypertensive encephalopathy rather than acute CVA: initial BG was in the 30s. MRI pending. 2. Hx of CVA 3. Malignant HTN; better with cardene 4. DM2/HLP Recommendations 1. Continue with cardene. Pt is able to follow instructions. Will have speech evaluate swallowing and if OK then will transition to PO BP meds. 2. TTE, lipids. 3. Rectal ASA x1. 4. Could not confirm med compliance as family is not available. discussed with RN. DON VILLASEÑOR MD 05/06/18 1652: CARDIAC CONSULT ASSESSMENT/PLAN ASSESSMENT/PLAN Pt. seen and examined. Agree with above METAL HANDLER note BG stroke. Continue neuro w/u. Meds slowly weaning. Supportive care. Echo with normal LV function. If no obvious vascular source, will consider EUN tomorrow. Thanks. ANDRY TAO APRN May 06, 2018 09:37 DON VILLASEÑOR MD May 06, 2018 16:52
[2018-05-06] MEDS ORDERED: ASPIRIN 300 MG SUPP.RECT PR ONE (10:00)
--- NOTE | 2018-05-06 10:48 | RAD ---
MRI of the brain without contrast 05/06/2018 Clinical History: Altered mental status. Right-sided weakness. Technique: Unenhanced T1-weighted sagittal and axial, T2-weighted axial and coronal and FLAIR, gradient echo and diffusion-weighted axial images of the brain were obtained. Findings: Comparison is made to the patient's CT scan of the head dated 05/05/2018. Additional comparison is made to the patient's previous MRI of the brain dated 09/27/2016. There is generalized parenchymal atrophy. Patchy, confluent and multiple focal areas of increased signal intensity are seen within the periventricular and subcortical white matter of both cerebral hemispheres along with the leif on the FLAIR and T2-weighted images consistent with areas of fairly extensive small vessel ischemic disease. An old area of lacunar infarction is seen involving left basal ganglia region extending to involve the periventricular white matter of the left frontotemporal lobe. This measures 1.5 cm in greatest diameter. Old areas of lacunar infarction are seen involving the left and right thalamus. These measure 1.6 cm and 6 mm in size. An oval-shaped area of restricted diffusion is seen which extends from the lateral posterior aspect of the left basal ganglia region, superiorly involving the periventricular white matter of the left posterior temporal lobe. This measures 2.6 cm in greatest diameter. It is consistent with an area of acute ischemia/infarction. There is mild surrounding edema without evidence of significant mass effect. No additional acute parenchymal abnormality is seen. No extra-axial fluid collection is noted Mild mucosal thickening in seen scattered throughout the paranasal sinuses. Normal flow voids are seen within the major vascular structures surrounding the brain parenchyma. Impression: Area of acute ischemia/infarction is seen involving lateral posterior aspect of the left basal ganglia region extending superiorly as outlined above. There is mild surrounding edema without significant mass effect. The patient's nurse was notified of this finding. Electronically signed by: Patel Kendrick MD (05/06/2018 10:45 AM) [id number]
[2018-05-06] MEDS: CLOPIDOGREL BISULFATE 75 MG TABLET PO SCH (12:00)
--- NOTE | 2018-05-06 12:34 | CARD ---
MR#: [id number] Date of Study: 05/06/2018 Ordering Physician: ANDRY TAO, Referring Physician: RADHA AQUINO, Tech: Alejandra Wilcox APPROVED REPORT EXAM: Two-dimensional and M-mode echocardiogram with Doppler and color Doppler. Other Information Quality : AverageHR: 129bpm INDICATION CVA/TIA Chest Pain Echo Enhancing Agent Indication: Rule Out Septal Defect Agent/Amount Used: Agitated Saline 8mL 2D DIMENSIONS RVDd2.5 (2.9-3.5cm)Left Atrium(2D)2.9 (1.6-4.0cm) IVSd0.8 (0.7-1.1cm)Aortic Root(2D)2.6 (2.0-3.7cm) LVDd3.9 (3.9-5.9cm)LVOT Diameter2.1 (1.8-2.4cm) PWd1.2 (0.7-1.1cm)LVDs2.5 (2.5-4.0cm) FS (%) 35.5 %SV43.4 ml LVEF(%)65.6 (>50%) Aortic Valve AoV Peak Ori.212.6cm/sAoV VTI38.8cm AO Peak GR.18.1mmHgAO Mean GR.10mmHg Mitral Valve MV E Yslifjbq105.3cm/sMV DECEL CHND391il MV A Hpicvxcf588.6cm/sE/A Ratio0.9 TDI Lateral E' P. V7.99cm/sMedial E' P. V8.23cm/s E/Lateral E'12.6E/Medial E'12.2 Tricuspid Valve TR P. Fvexlqzr187jx/sRAP KEWDWNUB6klEc TR Peak Gr.90hyKmRCYM65jxKs Pulmonary Vein S1 Opvnautn99.9cm/sS2 Fnljtmtb53.49cm/s D2 Ttessixs41.5cm/s LEFT VENTRICLE The left ventricle is normal size. There is borderline concentric left ventricular hypertrophy. The l eft ventricular systolic function is normal. The Ejection Fraction is 55-60%. There is normal LV segm ental wall motion. Transmitral Doppler flow pattern is Grade I-abnormal relaxation pattern. RIGHT VENTRICLE The right ventricle is normal size. There is normal right ventricular wall thickness. The right ventr icular systolic function is normal. ATRIA The left atrium size is normal. The right atrium size is normal. The interatrial septum is intact wit h no evidence for an atrial septal defect or patent foramen ovale as noted on 2-D or Doppler imaging. AORTIC VALVE The aortic valve is normal in structure and function. Doppler and Color Flow revealed no significant aortic regurgitation. There is no significant aortic valvular stenosis. MITRAL VALVE The mitral valve is normal in structure and function. There is no mitral valve stenosis. Doppler and Color-flow revealed trace mitral regurgitation. TRICUSPID VALVE The tricuspid valve is not well visualized. Doppler and Color Flow revealed trace tricuspid regurgita tion. There is no tricuspid valve stenosis. PULMONIC VALVE The pulmonic valve is not well visualized. Doppler and Color Flow revealed trace pulmonic valvular re gurgitation. GREAT VESSELS The aortic root is normal in size. The IVC is normal in size and collapses >50% with inspiration. PERICARDIAL EFFUSION There is no evidence of significant pericardial effusion. Critical Notification Critical Value: No <Conclusion> The left ventricular systolic function is normal. The Ejection Fraction is 55-60%. There is normal LV segmental wall motion. Transmitral Doppler flow pattern is Grade I-abnormal relaxation pattern. Trace mitral regurgitation. Trace tricuspid regurgitation. There is no evidence of significant pericardial effusion. Bubble study technically difficult but appears to be negative. Signed by : Bg Jay, Electronically Approved : 05/06/2018 12:33:33
--- NOTE | 2018-05-06 14:25 | PDOC ---
PROGRESS NOTES Assessment Assessment Hypertensive emergency, SBP 218 mmHg. Acute/subacute 2.6 cm infarct in the posterior aspect of the left BG. Cerebral edema. Hypertensive encephalopathy. Metabolic encephalopathy. Increased weakness in right UE. Hypoglycemia, glucose level 39. DM. UTI. Fall. HTN. HLD. Pulmonary hypertension, PA pressure 55. 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 RECOMMENDATIONS/PLAN: BP control. ASA 300 mg RC daily, change to Plavix 75 mg daily if can take PO. Lipitor 20 mg HS. Treat UTI. Treat medical diseases. EEG. OT/PT. Discussed with her at bedside in ICU on 05/06/18. CT : Old CVA. CTA: Negative. Brain MRI: see above stroke. HISTORY OF THE PRESENT ILLNESS: 72-y-old AA female patient with above medical diseases and previous stroke with right side hemiplegia. She has mental status changes as unresponsiveness, so EMS was called and her glucose level was revealed 39. she was administrated dextrose, but her MS did not improve. She was brought to the ER of [facility] and her SBP was 218 mmHg. Past Medical History CVA, Diabetes-Type II, Hypertension, HLD. Cardiovascular: HTN Pulmonary: Asthma CENTRAL NERVOUS SYSTEM: CVA GI: Constipation Infectious disease: No pertinent hx Renal/: No pertinent hx Endocrine: Diabetes Dermatology: No pertinent hx Past Surgical History Hysterectomy, tumor in neck removed. Family History Diabetes, Other (mother had cva) ALLERGY: NKDA MEDICATIONS: Refer to MAR. SOCIAL HISTORY: Denies smoking, drinking, and illicit drug use. REVIEW OF SYSTEMS: Constitutional: Obesity. Head: No recent traumatic brain or head injury. Skin: No edema, or rash. Ear: No infection. Eyes: No vision loss or color blindness. Nose: No bleeding or purulent discharges. Hearing: No hearing decrease. Neck: No injury. Breast: No history of cancer, masses,or discharges. Cardiac: HTN, HLD. Pulmonary: No COPD. GI: No GI ulcer, GI bleeding. Urinary/genital: UTI. Endocrinologic: Diabetes Mellitus, hypothyroidism, obesity. Skeletomuscular: Right side hemiplegia. Neurological: see HP. Psychiatric: Denies drug use/abuse. Otherwise, not [id number] review of systems. PHYSICAL EXAMINATION: General appearance is in subacute distress. HEENT: Normocephalic and nontraumatic. Eyes, nose, ears, and throat are unremarkable. Neck is supple. No lymphadenopathy. No crepitus. Cardiovascular: S1, S2, regular rate and rhythm. Pulmonary: Clear to auscultation bilaterally. Abdomen: Bowel sounds are positive. Extremities: No rash, lesions, or edema. No restriction of range of motion NEUROLOGICAL EXAMINATION: Eyes open from time to time. In confusional state. Not oriented to time, place but knew person. PERRL. EOMI, but slow. CN: chronic right VII palsy. Muscle tone: Fluctuated in right UE and LE, normal in left side. Muscle strength: 2+ right side. 5- left side. DTR: 2 right side. Plantar reflex: Extensor response, right side. response bilaterally Gait: Unable to walk. Sensory exam: no acute abnormal findings. Not able to access cerebellar signs due to not follow commands. F-T-N test not performed due to not follow commands. Objective Objective Vital Signs Date Time Temp Pulse Resp B/P (MAP) Pulse Ox O2 Delivery O2 Flow Rate FiO2 05/06/18 11:00 84 16 184/65 (104) 100 Room Air 05/06/18 08:00 98.7 98.7 Intake and Output 05/06/18 07:00 Intake Total 2503 ml Output Total 1625 ml Balance 878 ml IV Total 2503 ml Output Urine Total 1625 ml Vitals Signs Vitals VS - Last 72 Hours, by Label Date Time Temp Pulse Resp B/P (MAP) Pulse Ox O2 Delivery O2 Flow Rate FiO2 05/06/18 11:00 84 16 184/65 (104) 100 Room Air 05/06/18 10:00 80 16 182/76 (111) 100 Room Air 05/06/18 09:00 80 16 157/58 (91) 98 Room Air 05/06/18 08:00 Room Air 05/06/18 08:00 98.7 80 16 170/59 (96) 97 Room Air 98.7 05/06/18 07:00 76 16 160/59 (92) 97 Room Air 05/06/18 06:45 80 144/65 (91) 05/06/18 06:30 77 198/116 (143) 05/06/18 06:00 79 15 167/64 (98) 97 Room Air 05/06/18 05:00 79 16 183/56 (98) 98 Room Air 05/06/18 04:00 98.9 75 17 169/69 (102) 99 Room Air 98.9 05/06/18 04:00 Room Air 05/06/18 03:30 75 166/64 (98) 05/06/18 03:15 74 174/78 (110) 05/06/18 03:00 73 14 160/61 (94) 98 Room Air 05/06/18 02:45 74 174/64 (100) 05/06/18 02:30 74 186/60 (102) 05/06/18 02:00 72 12 183/84 (117) 98 Room Air 05/06/18 01:00 72 15 171/64 (99) 98 Room Air 05/06/18 00:45 74 178/79 (112) 05/06/18 00:30 74 181/101 (127) 05/06/18 00:15 74 203/84 (123) 05/06/18 00:00 98.6 73 17 174/71 (105) 98 Room Air 98.6 05/06/18 00:00 Room Air 05/05/18 23:00 70 14 181/69 (106) 98 Room Air 05/05/18 22:00 71 14 171/64 (99) 98 Room Air 05/05/18 21:15 70 162/77 (105) 05/05/18 21:00 76 14 200/64 (109) 98 Room Air 05/05/18 20:45 74 174/76 (108) 05/05/18 20:30 71 188/65 (106) 05/05/18 20:00 Room Air 05/05/18 20:00 97.8 74 17 174/71 (105) 97 Room Air 97.8 05/05/18 19:39 98 Room Air 05/05/18 19:00 69 14 189/76 (113) 100 Room Air 05/05/18 18:00 60 14 194/76 (115) 99 Room Air 05/05/18 17:12 57 225/85 05/05/18 17:00 56 14 206/83 (124) 99 Room Air 05/05/18 16:45 56 14 202/89 (126) 98 Room Air 05/05/18 16:30 57 12 198/85 (122) 98 Room Air 05/05/18 16:30 56 198/85 05/05/18 16:15 56 14 219/87 (131) 98 Room Air 05/05/18 16:00 56 14 214/105 (141) 99 Room Air 05/05/18 16:00 Room Air 05/05/18 15:45 98.2 55 14 205/107 (139) 99 Room Air 98.2 05/05/18 15:00 67 16 99 05/05/18 14:30 67 16 99 05/05/18 13:30 68 15 99 05/05/18 12:31 62 99 05/05/18 11:46 64 16 99 05/05/18 11:16 66 16 99 05/05/18 11:01 66 15 98 05/05/18 10:46 62 16 98 05/05/18 10:31 62 15 98 05/05/18 10:16 78 16 98 05/05/18 09:50 97.9 75 15 218/89 (132) 97 Room Air 97.9 Laboratory Laboratory Laboratory Tests Test 05/05/18 15:32 05/05/18 17:00 05/05/18 18:30 05/05/18 20:27 Glucose (Fingerstick) 107 mg/dL (70-99) 101 mg/dL (70-99) Nasal Screen MRSA (PCR) Negative (Negative) Troponin I Quantitative < 0.017 ng/mL (0.000-0.055) Test 05/06/18 06:00 White Blood Count 7.1 x10^3/uL (4.0-11.0) Red Blood Count 5.23 x10^6/uL (3.50-5.40) Hemoglobin 13.5 g/dL (12.0-15.5) Hematocrit 40.1 % (36.0-47.0) Mean Corpuscular Volume 77 fL (79-100) Mean Corpuscular Hemoglobin 26 pg (25-35) Mean Corpuscular Hemoglobin Concent 34 g/dL (31-37) Red Cell Distribution Width 15.3 % (11.5-14.5) Platelet Count 247 x10^3/uL (140-400) Neutrophils (%) (Auto) 56 % (31-73) Lymphocytes (%) (Auto) 32 % (24-48) Monocytes (%) (Auto) 7 % (0-9) Eosinophils (%) (Auto) 4 % (0-3) Basophils (%) (Auto) 1 % (0-3) Neutrophils # (Auto) 4.0 x10^3uL (1.8-7.7) Lymphocytes # (Auto) 2.3 x10^3/uL (1.0-4.8) Monocytes # (Auto) 0.5 x10^3/uL (0.0-1.1) Eosinophils # (Auto) 0.2 x10^3/uL (0.0-0.7) Basophils # (Auto) 0.1 x10^3/uL (0.0-0.2) Sodium Level 142 mmol/L (136-145) Potassium Level 3.6 mmol/L (3.5-5.1) Chloride Level 108 mmol/L (98-107) Carbon Dioxide Level 21 mmol/L (21-32) Anion Gap 13 (6-14) Blood Urea Nitrogen 10 mg/dL (7-20) Creatinine 0.9 mg/dL (0.6-1.0) Estimated GFR (Cockcroft-Gault) 74.3 BUN/Creatinine Ratio 11 (6-20) Glucose Level 139 mg/dL (70-99) Calcium Level 8.6 mg/dL (8.5-10.1) Total Bilirubin 0.5 mg/dL (0.2-1.0) Aspartate Amino Transf (AST/SGOT) 15 U/L (15-37) Alanine Aminotransferase (ALT/SGPT) 23 U/L (14-59) Alkaline Phosphatase 101 U/L (46-116) Total Protein 7.1 g/dL (6.4-8.2) Albumin 3.2 g/dL (3.4-5.0) Albumin/Globulin Ratio 0.8 (1.0-1.7) Triglycerides Level 64 mg/dL (0-150) Cholesterol Level 194 mg/dL (0-200) LDL Cholesterol, Calculated 102 mg/dL (0-100) VLDL Cholesterol, Calculated 13 mg/dL (0-40) Non-HDL Cholesterol Calculated 115 mg/dL (0-129) HDL Cholesterol 79 mg/dL (40-60) Cholesterol/HDL Ratio 2.5 Medication Medications Current Medications Acetaminophen (Tylenol Supp) 650 mg PRN Q4HRS PRN ND TEMP OVER 100.4F OR MILD PAIN; Start 05/05/18 at 17:00 Albuterol Sulfate (Ventolin Neb Soln) 2.5 mg PRN Q4HRS PRN NEB SHORTNESS OF BREATH; Start 05/05/18 at 17:00 Aspirin (Aspirin) 300 mg 1X ONCE ND ; Start 05/06/18 at 10:00; Stop 05/06/18 at 10:01; Status DC Aspirin (Ev Aspirin) 325 mg DAILYWBKFT PO ; Start 05/05/18 at 19:00 Atorvastatin Calcium (Lipitor) 20 mg QHS PO ; Start 05/06/18 at 21:00 Ceftriaxone Sodium 1 gm/ Dextrose 50 ml @ 100 mls/hr Q24H IV ; Start 05/05/18 at 17:00; Status UNV Ceftriaxone Sodium (Rocephin) 1 gm Q24H IVP Last administered on 05/05/18at 17: 20; Start 05/05/18 at 17:00 Clopidogrel Bisulfate (Plavix) 75 mg DAILYWBKFT PO ; Start 05/06/18 at 12:00 Enalaprilat (Vasotec Inj) 1.25 mg PRN Q6HRS PRN IVP HYPERTENSION, SEE COMMENTS Last administered on 05/05/18at 16:30; Start 05/05/18 at 16:15 Enalaprilat (Vasotec Inj) 2.5 mg 1X ONCE IVP Last administered on 05/05/18at 17:12; Start 05/05/18 at 17:15; Stop 05/05/18 at 17:16; Status DC Levofloxacin/ Dextrose 100 ml @ 100 mls/hr Q24H IV Last administered on at 17:20; Start 05/05/18 at 17:00 Nicardipine HCl 50 mg/Sodium Chloride 270 ml @ 27 mls/hr CONT PRN IV SEE I/O RECORD; Start 05/05/18 at 17:45; Stop 05/05/18 at 17:45; Status DC Nicardipine/ Sodium Chloride 200 ml @ 27 mls/hr CONT PRN IV SEE I/O RECORD Last administered on 05/06/18at 13:44; Start 05/05/18 at 17:45 Ondansetron HCl (Zofran) 4 mg PRN Q4HRS PRN IV NAUSEA/VOMITING; Start at 17:00 Sodium Chloride 1,000 ml @ 75 mls/hr [id number] IV Last administered on at 06:31; Start 05/05/18 at 16:00 Sodium Chloride (Normal Saline Flush 3ml) 3 ml QSHIFT PRN IV AFTER MEDS AND BLOOD DRAWS; Start 05/05/18 at 17:00 Comment Review of Relevant I have reviewed the following items angelica (where applicable) has been applied. ALVARO FOUNTAIN MD May 06, 2018 14:25
--- NOTE | 2018-05-06 14:34 | PDOC ---
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 H/o HTN H/o HLD History of Present Illness History of Present Illness Pt seen and examined in the ICU Discussed with RN Pt sitting upright in bed, she is awake but unable to speak Vitals Vitals Vital Signs Date Time Temp Pulse Resp B/P (MAP) Pulse Ox O2 Delivery O2 Flow Rate FiO2 05/06/18 11:00 84 16 184/65 (104) 100 Room Air 05/06/18 08:00 98.7 98.7 Physical Exam Physical Exam Expressive aphasia General: Alert, Cooperative, No acute distress Heart: Regular rate (SR no significant ectopies), Normal S1, Normal S2, Other ( 2/6 systolic murmur to LLS border) Lungs: Clear Abdomen: Soft, No tenderness Extremities: No clubbing, No cyanosis, Other (trace LE edema) Skin: No rashes, No breakdown Labs LABS Laboratory Tests Test 05/05/18 15:32 05/05/18 17:00 05/05/18 18:30 05/05/18 20:27 Glucose (Fingerstick) 107 mg/dL (70-99) 101 mg/dL (70-99) Nasal Screen MRSA (PCR) Negative (Negative) Troponin I Quantitative < 0.017 ng/mL (0.000-0.055) Test 05/06/18 06:00 White Blood Count 7.1 x10^3/uL (4.0-11.0) Red Blood Count 5.23 x10^6/uL (3.50-5.40) Hemoglobin 13.5 g/dL (12.0-15.5) Hematocrit 40.1 % (36.0-47.0) Mean Corpuscular Volume 77 fL (79-100) Mean Corpuscular Hemoglobin 26 pg (25-35) Mean Corpuscular Hemoglobin Concent 34 g/dL (31-37) Red Cell Distribution Width 15.3 % (11.5-14.5) Platelet Count 247 x10^3/uL (140-400) Neutrophils (%) (Auto) 56 % (31-73) Lymphocytes (%) (Auto) 32 % (24-48) Monocytes (%) (Auto) 7 % (0-9) Eosinophils (%) (Auto) 4 % (0-3) Basophils (%) (Auto) 1 % (0-3) Neutrophils # (Auto) 4.0 x10^3uL (1.8-7.7) Lymphocytes # (Auto) 2.3 x10^3/uL (1.0-4.8) Monocytes # (Auto) 0.5 x10^3/uL (0.0-1.1) Eosinophils # (Auto) 0.2 x10^3/uL (0.0-0.7) Basophils # (Auto) 0.1 x10^3/uL (0.0-0.2) Sodium Level 142 mmol/L (136-145) Potassium Level 3.6 mmol/L (3.5-5.1) Chloride Level 108 mmol/L (98-107) Carbon Dioxide Level 21 mmol/L (21-32) Anion Gap 13 (6-14) Blood Urea Nitrogen 10 mg/dL (7-20) Creatinine 0.9 mg/dL (0.6-1.0) Estimated GFR (Cockcroft-Gault) 74.3 BUN/Creatinine Ratio 11 (6-20) Glucose Level 139 mg/dL (70-99) Calcium Level 8.6 mg/dL (8.5-10.1) Total Bilirubin 0.5 mg/dL (0.2-1.0) Aspartate Amino Transf (AST/SGOT) 15 U/L (15-37) Alanine Aminotransferase (ALT/SGPT) 23 U/L (14-59) Alkaline Phosphatase 101 U/L (46-116) Total Protein 7.1 g/dL (6.4-8.2) Albumin 3.2 g/dL (3.4-5.0) Albumin/Globulin Ratio 0.8 (1.0-1.7) Triglycerides Level 64 mg/dL (0-150) Cholesterol Level 194 mg/dL (0-200) LDL Cholesterol, Calculated 102 mg/dL (0-100) VLDL Cholesterol, Calculated 13 mg/dL (0-40) Non-HDL Cholesterol Calculated 115 mg/dL (0-129) HDL Cholesterol 79 mg/dL (40-60) Cholesterol/HDL Ratio 2.5 Review of Systems Review of Systems Pt with expressive aphasia. Unable to obtain. 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 Labs Laboratory Tests Test 05/05/18 09:49 05/05/18 10:09 05/05/18 10:33 05/05/18 11:15 Glucose (Fingerstick) 173 mg/dL (70-99) Urine Collection Type U cath Urine Color Yellow Urine Clarity Clear Urine pH 6.0 Urine Specific [place] 1.020 Urine Protein Negative mg/dL (NEG-TRACE) Urine Glucose (UA) >=1000 mg/dL (NEG) Urine Ketones (Stick) 40 mg/dL (NEG) Urine Blood Trace (NEG) Urine Nitrite Negative (NEG) Urine Bilirubin Negative (NEG) Urine Urobilinogen Dipstick 1.0 mg/dL (0.2 mg/dL) Urine Leukocyte Esterase Small (NEG) Urine RBC 3-5 /HPF (0-2) Urine WBC 6-10 /HPF (0-4) Urine Squamous Epithelial Cells Few /LPF Urine Bacteria Many /HPF (0-FEW) Urine Mucus Mod /LPF Sodium Level 144 mmol/L (136-145) Potassium Level 3.7 mmol/L (3.5-5.1) Chloride Level 109 mmol/L (98-107) Carbon Dioxide Level 25 mmol/L (21-32) Anion Gap 10 (6-14) Blood Urea Nitrogen 14 mg/dL (7-20) Creatinine 0.9 mg/dL (0.6-1.0) Estimated GFR (Cockcroft-Gault) 74.3 BUN/Creatinine Ratio 16 (6-20) Glucose Level 131 mg/dL (70-99) Lactic Acid Level 0.8 mmol/L (0.4-2.0) Calcium Level 8.9 mg/dL (8.5-10.1) Magnesium Level 2.1 mg/dL (1.8-2.4) Total Bilirubin 0.6 mg/dL (0.2-1.0) Aspartate Amino Transf (AST/SGOT) 18 U/L (15-37) Alanine Aminotransferase (ALT/SGPT) 27 U/L (14-59) Alkaline Phosphatase 103 U/L (46-116) Ammonia 16 mcmol/L (11-34) Creatine Kinase 164 U/L (26-192) Creatine Kinase MB (Mass) 0.9 ng/mL (0.0-3.6) Creatine Kinase MB Relative Index 0.5 % (0-4) Troponin I Quantitative < 0.017 ng/mL (0.000-0.055) FX-[id number]-Type Natriuretic Peptide 125 pg/mL (0-124) Total Protein 7.3 g/dL (6.4-8.2) Albumin 3.5 g/dL (3.4-5.0) Albumin/Globulin Ratio 0.9 (1.0-1.7) Prothrombin Time 13.2 SEC (11.7-14.0) Prothromb Time International Ratio 1.1 (0.8-1.1) Activated Partial Thromboplast Time 24 SEC (24-38) Test 05/05/18 11:35 05/05/18 12:30 05/05/18 15:32 05/05/18 17:00 White Blood Count 5.2 x10^3/uL (4.0-11.0) Red Blood Count 5.06 x10^6/uL (3.50-5.40) Hemoglobin 13.2 g/dL (12.0-15.5) Hematocrit 38.7 % (36.0-47.0) Mean Corpuscular Volume 77 fL (79-100) Mean Corpuscular Hemoglobin 26 pg (25-35) Mean Corpuscular Hemoglobin Concent 34 g/dL (31-37) Red Cell Distribution Width 15.2 % (11.5-14.5) Platelet Count 227 x10^3/uL (140-400) Neutrophils (%) (Auto) 54 % (31-73) Lymphocytes (%) (Auto) 35 % (24-48) Monocytes (%) (Auto) 9 % (0-9) Eosinophils (%) (Auto) 2 % (0-3) Basophils (%) (Auto) 1 % (0-3) Neutrophils # (Auto) 2.8 x10^3uL (1.8-7.7) Lymphocytes # (Auto) 1.8 x10^3/uL (1.0-4.8) Monocytes # (Auto) 0.5 x10^3/uL (0.0-1.1) Eosinophils # (Auto) 0.1 x10^3/uL (0.0-0.7) Basophils # (Auto) 0.0 x10^3/uL (0.0-0.2) Albumin 3.4 g/dL (3.4-5.0) Vitamin B12 Level 414 pg/mL (247-911) Thyroid Stimulating Hormone (TSH) 0.312 uIU/mL (0.358-3.74) Glucose (Fingerstick) 107 mg/dL (70-99) Nasal Screen MRSA (PCR) Negative (Negative) Test 05/05/18 18:30 05/05/18 20:27 05/06/18 06:00 Troponin I Quantitative < 0.017 ng/mL (0.000-0.055) Glucose (Fingerstick) 101 mg/dL (70-99) White Blood Count 7.1 x10^3/uL (4.0-11.0) Red Blood Count 5.23 x10^6/uL (3.50-5.40) Hemoglobin 13.5 g/dL (12.0-15.5) Hematocrit 40.1 % (36.0-47.0) Mean Corpuscular Volume 77 fL (79-100) Mean Corpuscular Hemoglobin 26 pg (25-35) Mean Corpuscular Hemoglobin Concent 34 g/dL (31-37) Red Cell Distribution Width 15.3 % (11.5-14.5) Platelet Count 247 x10^3/uL (140-400) Neutrophils (%) (Auto) 56 % (31-73) Lymphocytes (%) (Auto) 32 % (24-48) Monocytes (%) (Auto) 7 % (0-9) Eosinophils (%) (Auto) 4 % (0-3) Basophils (%) (Auto) 1 % (0-3) Neutrophils # (Auto) 4.0 x10^3uL (1.8-7.7) Lymphocytes # (Auto) 2.3 x10^3/uL (1.0-4.8) Monocytes # (Auto) 0.5 x10^3/uL (0.0-1.1) Eosinophils # (Auto) 0.2 x10^3/uL (0.0-0.7) Basophils # (Auto) 0.1 x10^3/uL (0.0-0.2) Sodium Level 142 mmol/L (136-145) Potassium Level 3.6 mmol/L (3.5-5.1) Chloride Level 108 mmol/L (98-107) Carbon Dioxide Level 21 mmol/L (21-32) Anion Gap 13 (6-14) Blood Urea Nitrogen 10 mg/dL (7-20) Creatinine 0.9 mg/dL (0.6-1.0) Estimated GFR (Cockcroft-Gault) 74.3 BUN/Creatinine Ratio 11 (6-20) Glucose Level 139 mg/dL (70-99) Calcium Level 8.6 mg/dL (8.5-10.1) Total Bilirubin 0.5 mg/dL (0.2-1.0) Aspartate Amino Transf (AST/SGOT) 15 U/L (15-37) Alanine Aminotransferase (ALT/SGPT) 23 U/L (14-59) Alkaline Phosphatase 101 U/L (46-116) Total Protein 7.1 g/dL (6.4-8.2) Albumin 3.2 g/dL (3.4-5.0) Albumin/Globulin Ratio 0.8 (1.0-1.7) Triglycerides Level 64 mg/dL (0-150) Cholesterol Level 194 mg/dL (0-200) LDL Cholesterol, Calculated 102 mg/dL (0-100) VLDL Cholesterol, Calculated 13 mg/dL (0-40) Non-HDL Cholesterol Calculated 115 mg/dL (0-129) HDL Cholesterol 79 mg/dL (40-60) Cholesterol/HDL Ratio 2.5 Laboratory Tests Test 05/05/18 15:32 05/05/18 17:00 05/05/18 18:30 05/05/18 20:27 Glucose (Fingerstick) 107 mg/dL (70-99) 101 mg/dL (70-99) Nasal Screen MRSA (PCR) Negative (Negative) Troponin I Quantitative < 0.017 ng/mL (0.000-0.055) Test 05/06/18 06:00 White Blood Count 7.1 x10^3/uL (4.0-11.0) Red Blood Count 5.23 x10^6/uL (3.50-5.40) Hemoglobin 13.5 g/dL (12.0-15.5) Hematocrit 40.1 % (36.0-47.0) Mean Corpuscular Volume 77 fL (79-100) Mean Corpuscular Hemoglobin 26 pg (25-35) Mean Corpuscular Hemoglobin Concent 34 g/dL (31-37) Red Cell Distribution Width 15.3 % (11.5-14.5) Platelet Count 247 x10^3/uL (140-400) Neutrophils (%) (Auto) 56 % (31-73) Lymphocytes (%) (Auto) 32 % (24-48) Monocytes (%) (Auto) 7 % (0-9) Eosinophils (%) (Auto) 4 % (0-3) Basophils (%) (Auto) 1 % (0-3) Neutrophils # (Auto) 4.0 x10^3uL (1.8-7.7) Lymphocytes # (Auto) 2.3 x10^3/uL (1.0-4.8) Monocytes # (Auto) 0.5 x10^3/uL (0.0-1.1) Eosinophils # (Auto) 0.2 x10^3/uL (0.0-0.7) Basophils # (Auto) 0.1 x10^3/uL (0.0-0.2) Sodium Level 142 mmol/L (136-145) Potassium Level 3.6 mmol/L (3.5-5.1) Chloride Level 108 mmol/L (98-107) Carbon Dioxide Level 21 mmol/L (21-32) Anion Gap 13 (6-14) Blood Urea Nitrogen 10 mg/dL (7-20) Creatinine 0.9 mg/dL (0.6-1.0) Estimated GFR (Cockcroft-Gault) 74.3 BUN/Creatinine Ratio 11 (6-20) Glucose Level 139 mg/dL (70-99) Calcium Level 8.6 mg/dL (8.5-10.1) Total Bilirubin 0.5 mg/dL (0.2-1.0) Aspartate Amino Transf (AST/SGOT) 15 U/L (15-37) Alanine Aminotransferase (ALT/SGPT) 23 U/L (14-59) Alkaline Phosphatase 101 U/L (46-116) Total Protein 7.1 g/dL (6.4-8.2) Albumin 3.2 g/dL (3.4-5.0) Albumin/Globulin Ratio 0.8 (1.0-1.7) Triglycerides Level 64 mg/dL (0-150) Cholesterol Level 194 mg/dL (0-200) LDL Cholesterol, Calculated 102 mg/dL (0-100) VLDL Cholesterol, Calculated 13 mg/dL (0-40) Non-HDL Cholesterol Calculated 115 mg/dL (0-129) HDL Cholesterol 79 mg/dL (40-60) Cholesterol/HDL Ratio 2.5 Medications Current Medications Sodium Chloride 1,000 ml @ 1,000 mls/hr Q1H IV Last administered on at 10:30; Start 05/05/18 at 09:53; Stop 05/05/18 at 10:52; Status DC Dextrose/Sodium Chloride 1,000 ml @ 75 mls/hr 1X ONCE IV Last administered on 05/05/18at 10:30; Start 05/05/18 at 10:00; Stop 05/05/18 at 15:56; Status DC Iohexol (Omnipaque 300 Mg/ml) 75 ml 1X ONCE IV ; Start 05/05/18 at 11:15; Stop 05/05/18 at 11:18; Status DC Info (CONTRAST GIVEN -- Rx MONITORING) 1 each PRN DAILY PRN MC SEE COMMENTS; Start 05/05/18 at 11:30; Stop 05/07/18 at 11:29 Sodium Chloride 1,000 ml @ 75 mls/hr [id number] IV Last administered on at 06:31; Start 05/05/18 at 16:00 Enalaprilat (Vasotec Inj) 1.25 mg PRN Q6HRS PRN IVP HYPERTENSION, SEE COMMENTS Last administered on 05/05/18at 16:30; Start 05/05/18 at 16:15 Ceftriaxone Sodium 1 gm/ Dextrose 50 ml @ 100 mls/hr Q24H IV ; Start 05/05/18 at 17:00; Status UNV Ceftriaxone Sodium (Rocephin) 1 gm Q24H IVP Last administered on 05/05/18at 17: 20; Start 05/05/18 at 17:00 Sodium Chloride (Normal Saline Flush 3ml) 3 ml QSHIFT PRN IV AFTER MEDS AND BLOOD DRAWS; Start 05/05/18 at 17:00 Ondansetron HCl (Zofran) 4 mg PRN Q4HRS PRN IV NAUSEA/VOMITING; Start at 17:00 Acetaminophen (Tylenol Supp) 650 mg PRN Q4HRS PRN HI TEMP OVER 100.4F OR MILD PAIN; Start 05/05/18 at 17:00 Albuterol Sulfate (Ventolin Neb Soln) 2.5 mg PRN Q4HRS PRN NEB SHORTNESS OF BREATH; Start 05/05/18 at 17:00 Levofloxacin/ Dextrose 100 ml @ 100 mls/hr Q24H IV Last administered on at 17:20; Start 05/05/18 at 17:00 Enalaprilat (Vasotec Inj) 2.5 mg 1X ONCE IVP Last administered on 05/05/18at 17:12; Start 05/05/18 at 17:15; Stop 05/05/18 at 17:16; Status DC Nicardipine HCl 50 mg/Sodium Chloride 270 ml @ 27 mls/hr CONT PRN IV SEE I/O RECORD; Start 05/05/18 at 17:45; Stop 05/05/18 at 17:45; Status DC Nicardipine/ Sodium Chloride 200 ml @ 27 mls/hr CONT PRN IV SEE I/O RECORD Last administered on 05/06/18at 13:44; Start 05/05/18 at 17:45 Aspirin (Ev Aspirin) 325 mg DAILYWBKFT PO ; Start 05/05/18 at 19:00 Aspirin (Aspirin) 300 mg 1X ONCE HI ; Start 05/06/18 at 10:00; Stop 05/06/18 at 10:01; Status DC Clopidogrel Bisulfate (Plavix) 75 mg DAILYWBKFT PO ; Start 05/06/18 at 12:00 Atorvastatin Calcium (Lipitor) 20 mg QHS PO ; Start 05/06/18 at 21:00 Aspirin (Aspirin) 300 mg DAILY HI ; Start 05/07/18 at 09:00 Active Scripts Active Reported Latanoprost 2.5 Ml Drops 1 Drop EACHEYE QHS Citalopram Hbr (Citalopram Hydrobromide) 10 Mg Tablet 1 Tab PO DAILY Dorzolamide Hcl 10 Ml Drops 1 Drop EACHEYE BID Metoprolol Succinate ( Xl ) (Metoprolol Succinate) 100 Mg Tab.er.24h 1 Tab PO DAILY Atorvastatin Calcium 40 Mg Tablet 1 Tab PO DAILY Lisinopril 40 Mg Tablet 1 Tab PO DAILY Amlodipine Besylate 10 Mg Tablet 10 Mg PO DAILY Metformin Hcl 500 Mg Tablet 500 Mg PO DAILY Lantus Solostar (Insulin Glargine,Hum.rec.anlog) 100 Unit/1 Ml Insuln.pen 30 Unit SQ QHS Vitals/I & O Vital Sign - Last 24 Hours 05/05/18 05/05/18 05/05/18 05/05/18 15:00 15:45 16:00 16:00 Temp 98.2 98.2 Pulse 67 55 56 Resp 16 14 14 B/P (MAP) 205/107 (139) 214/105 (141) Pulse Ox 99 99 99 O2 Delivery Room Air Room Air Room Air 05/05/18 05/05/18 05/05/18 05/05/18 16:15 16:30 16:30 16:45 Pulse 56 56 57 56 Resp 14 12 14 B/P (MAP) 219/87 (131) 198/85 198/85 (122) 202/89 (126) Pulse Ox 98 98 98 O2 Delivery Room Air Room Air Room Air 05/05/18 05/05/18 05/05/18 05/05/18 17:00 17:12 18:00 19:00 Pulse 56 57 60 69 Resp 14 14 14 B/P (MAP) 206/83 (124) 225/85 194/76 (115) 189/76 (113) Pulse Ox 99 99 100 O2 Delivery Room Air Room Air Room Air 05/05/18 05/05/18 05/05/18 05/05/18 19:39 20:00 20:00 20:30 Temp 97.8 97.8 Pulse 74 71 Resp 17 B/P (MAP) 174/71 (105) 188/65 (106) Pulse Ox 98 97 O2 Delivery Room Air Room Air Room Air 05/05/18 05/05/18 05/05/18 05/05/18 20:45 21:00 21:15 22:00 Pulse 74 76 70 71 Resp 14 14 B/P (MAP) 174/76 (108) 200/64 (109) 162/77 (105) 171/64 (99) Pulse Ox 98 98 O2 Delivery Room Air Room Air 05/05/18 05/06/18 05/06/18 05/06/18 23:00 00:00 00:00 00:15 Temp 98.6 98.6 Pulse 70 73 74 Resp 14 17 B/P (MAP) 181/69 (106) 174/71 (105) 203/84 (123) Pulse Ox 98 98 O2 Delivery Room Air Room Air Room Air 05/06/18 05/06/18 05/06/18 05/06/18 00:30 00:45 01:00 02:00 Pulse 74 74 72 72 Resp 15 12 B/P (MAP) 181/101 (127) 178/79 (112) 171/64 (99) 183/84 (117) Pulse Ox 98 98 O2 Delivery Room Air Room Air 05/06/18 05/06/18 05/06/18 05/06/18 02:30 02:45 03:00 03:15 Pulse 74 74 73 74 Resp 14 B/P (MAP) 186/60 (102) 174/64 (100) 160/61 (94) 174/78 (110) Pulse Ox 98 O2 Delivery Room Air 05/06/18 05/06/18 05/06/18 05/06/18 03:30 04:00 04:00 05:00 Temp 98.9 98.9 Pulse 75 75 79 Resp 17 16 B/P (MAP) 166/64 (98) 169/69 (102) 183/56 (98) Pulse Ox 99 98 O2 Delivery Room Air Room Air Room Air 05/06/18 05/06/18 05/06/18 05/06/18 06:00 06:30 06:45 07:00 Pulse 79 77 80 76 Resp 15 16 B/P (MAP) 167/64 (98) 198/116 (143) 144/65 (91) 160/59 (92) Pulse Ox 97 97 O2 Delivery Room Air Room Air 05/06/18 05/06/18 05/06/18 05/06/18 08:00 08:00 09:00 10:00 Temp 98.7 98.7 Pulse 80 80 80 Resp 16 16 16 B/P (MAP) 170/59 (96) 157/58 (91) 182/76 (111) Pulse Ox 97 98 100 O2 Delivery Room Air Room Air Room Air Room Air 05/06/18 11:00 Pulse 84 Resp 16 B/P (MAP) 184/65 (104) Pulse Ox 100 O2 Delivery Room Air Intake and Output 05/05/18 05/05/18 05/06/18 15:00 23:00 07:00 Intake Total 1000 ml 1503 ml Output Total 900 ml 450 ml 275 ml Balance 100 ml -450 ml 1228 ml MELISSA DONG III DO May 06, 2018 14:34
[2018-05-06] MEDS ORDERED: DEXTROSE 50% 25 GM / 50ML DISP.SYRIN. IV PRN ×2 (16:45→19:15)
[2018-05-06] MEDS ORDERED: INSULIN LISPRO 300 UNITS/3 ML INSULN.PEN. SQ SCH (17:00)
[2018-05-06] MEDS: cefTRIAXone IV Push 1 GM VIAL. IVP SCH (17:20)
[2018-05-06] MEDS ORDERED: IV NORMAL SALINE 500ML BAG 500 ML IV ONE (18:15)
--- NOTE | 2018-05-06 18:26 | EEG ---
DATE OF SERVICE: 05/06/2018 EEG NUMBER: [id number]. OBJECTIVE: This is a 72-year-old female patient with history of mental status changes. EEG was requested to evaluate cerebral activity. METHODS: Twenty electrodes were applied according to the international 10-20 electrode placement system. EKG monitoring, hyperventilation, intermittent photic stimulation, monopolar and bipolar montages are routinely utilized. The record was obtained on a digital system with video monitoring. FINDINGS: 1. Background: The patient was recorded in the awake and drowsy states. No actual sleep state was recorded. The overall background amplitude is 10-20 microvolts. A posterior dominant rhythm of 6-8 Hz is observed with superimposed slowing in the theta frequency. 2. Abnormalities: No specific epileptiform discharge or electrographic seizure is seen. Slowing in theta frequency is noted throughout the entire recording. 3. Activation: Hyperventilation was not performed because the patient was unable to follow the commands. Intermittent photic stimulation was performed with photic driving. IMPRESSION: This EEG is an abnormal study for the awake and drowsy states. No actual sleep state was recorded. The posterior dominant rhythm of 6-8 Hz is slow for age. There is superimposed slowing in the theta frequency throughout the entire recording. No focal, lateralizing, specific epileptiform discharge, or electrographic seizure is seen. This pattern of EEG is suggestive of encephalopathy. ALVARO FOUNTAIN MD DR: HEIDY/laura JOB#: [id number] / [id number] BRANDON
[2018-05-06] MEDS: ATORVASTATIN CALCIUM 20 MG TABLET PO SCH (19:40)
[2018-05-06] MEDS ORDERED: IV NORMAL SALINE 1000ML BAG 1,000 ML IV ONE (21:30)
[2018-05-07] VITALS (24 sets, daily range): BP systolic 117–187; BP diastolic 55–80
[2018-05-07] MEDS: IV NORMAL SALINE 1000ML BAG 1,000 ML IV SCH ×4 (02:36→21:17)
[2018-05-07] MEDS: INSULIN LISPRO 300 UNITS/3 ML INSULN.PEN. SQ SCH ×4 (06:00→17:04)
[2018-05-07 06:29] LABS: BASO # 0.1 x10^3/uL (0.0-0.2); BASO % 1 % (0-3); EOS # 0.2 x10^3/uL (0.0-0.7); EOS % 4 % (0-3); HEMATOCRIT 34.5 % (36.0-47.0); HEMOGLOBIN 11.7 g/dL (12.0-15.5); LYMPH # 1.3 x10^3/uL (1.0-4.8); LYMPH % 21 % (24-48); MEAN CORPUSCULAR HEMOGLOBIN 26 pg (25-35); MEAN CORPUSCULAR HGB CONC 34 g/dL (31-37); MEAN CORPUSCULAR VOLUME 77 fL (79-100); MONO # 0.4 x10^3/uL (0.0-1.1); MONO % 7 % (0-9); NEUT # 4.5 x10^3uL (1.8-7.7); NEUT % 68 % (31-73); PLATELET COUNT 223 x10^3/uL (140-400); RED BLOOD COUNT 4.49 x10^6/uL (3.50-5.40); RED CELL DISTRIBUTION WIDTH 15.1 % (11.5-14.5); WHITE BLOOD COUNT 6.6 x10^3/uL (4.0-11.0)
[2018-05-07 06:49] LABS: CALCIUM 8.7 mg/dL (8.5-10.1); GFR 65.8; POTASSIUM 3.8 mmol/L (3.5-5.1)
[2018-05-07] MEDS: CLOPIDOGREL BISULFATE 75 MG TABLET PO SCH (08:00)
[2018-05-07] MEDS: ASPIRIN 325 MG TABLET PO SCH (08:00)
[2018-05-07] MEDS: ASPIRIN 300 MG SUPP.RECT PR SCH (09:25)
--- NOTE | 2018-05-07 09:46 | PDOC ---
Provider Note Provider Note 05/07/2018 0920 Pt remains NPO and BP controlled with cardene. No obvious source for her BG CVA. she is significant for aphasia. TTE revealed normal EF and WM without significant valvular disease. Pt appears comfortable and in no distress. Contacted spouse Maurcie in regards to EUN for further eval and note any intracardiac source , risks and benefits explained and agreeable to proceed. Maintain SR and no significant ectopies. ANDRY TAO APRN May 07, 2018 09:46
[2018-05-07] MEDS ORDERED: BENZOCAINE ONE 20% MUCOSAL SPRAY. MM (11:15)
[2018-05-07] MEDS ORDERED: LIDOCAINE 2% VISCOUS 15 ML SOLUTION. MM ONE (11:15)
[2018-05-07] MEDS ORDERED: 0.9 % SODIUM CHLORIDE 10 ML DISP.SYRIN. IV PRN (11:15)
[2018-05-07] MEDS ORDERED: LIDOCAINE 2% TOPICAL JELLY 5GM TUBE. TP ONE (11:15)
[2018-05-07] MEDS ORDERED: PROPOFOL 20 ML IV ONE (11:25)
--- NOTE | 2018-05-07 12:10 | PDOC ---
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 H/o HTN H/o HLD History of Present Illness History of Present Illness Pt seen and examined in the ICU Discussed with RN Pt sitting upright in chair, she is awake but unable to speak Vitals Vitals Vital Signs Date Time Temp Pulse Resp B/P (MAP) Pulse Ox O2 Delivery O2 Flow Rate FiO2 05/07/18 11:00 92 15 155/66 (95) 99 Room Air 05/07/18 08:00 98.9 98.9 Physical Exam Physical Exam Expressive aphasia General: Alert, Cooperative, No acute distress Heart: Regular rate (SR no significant ectopies), Normal S1, Normal S2, Other ( 2/6 systolic murmur to LLS border) Lungs: Clear Abdomen: Soft, No tenderness Extremities: No clubbing, No cyanosis, Other (trace LE edema) Skin: No rashes, No breakdown Labs LABS Laboratory Tests Test 05/06/18 16:26 05/07/18 00:09 05/07/18 06:00 05/07/18 06:24 Glucose (Fingerstick) 247 mg/dL (70-99) 175 mg/dL (70-99) 162 mg/dL (70-99) White Blood Count 6.6 x10^3/uL (4.0-11.0) Red Blood Count 4.49 x10^6/uL (3.50-5.40) Hemoglobin 11.7 g/dL (12.0-15.5) Hematocrit 34.5 % (36.0-47.0) Mean Corpuscular Volume 77 fL (79-100) Mean Corpuscular Hemoglobin 26 pg (25-35) Mean Corpuscular Hemoglobin Concent 34 g/dL (31-37) Red Cell Distribution Width 15.1 % (11.5-14.5) Platelet Count 223 x10^3/uL (140-400) Neutrophils (%) (Auto) 68 % (31-73) Lymphocytes (%) (Auto) 21 % (24-48) Monocytes (%) (Auto) 7 % (0-9) Eosinophils (%) (Auto) 4 % (0-3) Basophils (%) (Auto) 1 % (0-3) Neutrophils # (Auto) 4.5 x10^3uL (1.8-7.7) Lymphocytes # (Auto) 1.3 x10^3/uL (1.0-4.8) Monocytes # (Auto) 0.4 x10^3/uL (0.0-1.1) Eosinophils # (Auto) 0.2 x10^3/uL (0.0-0.7) Basophils # (Auto) 0.1 x10^3/uL (0.0-0.2) Sodium Level 145 mmol/L (136-145) Potassium Level 3.8 mmol/L (3.5-5.1) Chloride Level 111 mmol/L (98-107) Carbon Dioxide Level 20 mmol/L (21-32) Anion Gap 14 (6-14) Blood Urea Nitrogen 14 mg/dL (7-20) Creatinine 1.0 mg/dL (0.6-1.0) Estimated GFR (Cockcroft-Gault) 65.8 Glucose Level 168 mg/dL (70-99) Calcium Level 8.7 mg/dL (8.5-10.1) Review of Systems Review of Systems Pt denies CP and SOA. Assessment and Plan Assessmemt and Plan Problems Medical Problems: (1) Acute encephalopathy Status: Acute (2) CVA (cerebral vascular accident) Status: Acute Assessment: Acute encephalopathy Hypertensive emergency with SBP 200s CVA UTI T2DM Hypoglycemia, glucose level 39 on admission H/o left BG lacunar infarct with right sided hemiplegia H/o HTN H/o HLD Plan: ICU monitoring Labs PT/OT/ST Home meds BP control Appreciate neuro and cardio input Hope to get off cardene, once off transfer to telemetry DVT ppx Discharge disposition pending Comment Review of Relevant I have reviewed the following items angelica (where applicable) has been applied. Labs Laboratory Tests Test 05/05/18 12:30 05/05/18 15:32 05/05/18 17:00 05/05/18 18:30 Albumin 3.4 g/dL (3.4-5.0) Vitamin B12 Level 414 pg/mL (247-911) Thyroid Stimulating Hormone (TSH) 0.312 uIU/mL (0.358-3.74) Glucose (Fingerstick) 107 mg/dL (70-99) Nasal Screen MRSA (PCR) Negative (Negative) Troponin I Quantitative < 0.017 ng/mL (0.000-0.055) Test 05/05/18 20:27 05/06/18 06:00 05/06/18 16:26 05/07/18 00:09 Glucose (Fingerstick) 101 mg/dL (70-99) 247 mg/dL (70-99) 175 mg/dL (70-99) White Blood Count 7.1 x10^3/uL (4.0-11.0) Red Blood Count 5.23 x10^6/uL (3.50-5.40) Hemoglobin 13.5 g/dL (12.0-15.5) Hematocrit 40.1 % (36.0-47.0) Mean Corpuscular Volume 77 fL (79-100) Mean Corpuscular Hemoglobin 26 pg (25-35) Mean Corpuscular Hemoglobin Concent 34 g/dL (31-37) Red Cell Distribution Width 15.3 % (11.5-14.5) Platelet Count 247 x10^3/uL (140-400) Neutrophils (%) (Auto) 56 % (31-73) Lymphocytes (%) (Auto) 32 % (24-48) Monocytes (%) (Auto) 7 % (0-9) Eosinophils (%) (Auto) 4 % (0-3) Basophils (%) (Auto) 1 % (0-3) Neutrophils # (Auto) 4.0 x10^3uL (1.8-7.7) Lymphocytes # (Auto) 2.3 x10^3/uL (1.0-4.8) Monocytes # (Auto) 0.5 x10^3/uL (0.0-1.1) Eosinophils # (Auto) 0.2 x10^3/uL (0.0-0.7) Basophils # (Auto) 0.1 x10^3/uL (0.0-0.2) Sodium Level 142 mmol/L (136-145) Potassium Level 3.6 mmol/L (3.5-5.1) Chloride Level 108 mmol/L (98-107) Carbon Dioxide Level 21 mmol/L (21-32) Anion Gap 13 (6-14) Blood Urea Nitrogen 10 mg/dL (7-20) Creatinine 0.9 mg/dL (0.6-1.0) Estimated GFR (Cockcroft-Gault) 74.3 BUN/Creatinine Ratio 11 (6-20) Glucose Level 139 mg/dL (70-99) Calcium Level 8.6 mg/dL (8.5-10.1) Total Bilirubin 0.5 mg/dL (0.2-1.0) Aspartate Amino Transf (AST/SGOT) 15 U/L (15-37) Alanine Aminotransferase (ALT/SGPT) 23 U/L (14-59) Alkaline Phosphatase 101 U/L (46-116) Total Protein 7.1 g/dL (6.4-8.2) Albumin 3.2 g/dL (3.4-5.0) Albumin/Globulin Ratio 0.8 (1.0-1.7) Triglycerides Level 64 mg/dL (0-150) Cholesterol Level 194 mg/dL (0-200) LDL Cholesterol, Calculated 102 mg/dL (0-100) VLDL Cholesterol, Calculated 13 mg/dL (0-40) Non-HDL Cholesterol Calculated 115 mg/dL (0-129) HDL Cholesterol 79 mg/dL (40-60) Cholesterol/HDL Ratio 2.5 Test 05/07/18 06:00 05/07/18 06:24 White Blood Count 6.6 x10^3/uL (4.0-11.0) Red Blood Count 4.49 x10^6/uL (3.50-5.40) Hemoglobin 11.7 g/dL (12.0-15.5) Hematocrit 34.5 % (36.0-47.0) Mean Corpuscular Volume 77 fL (79-100) Mean Corpuscular Hemoglobin 26 pg (25-35) Mean Corpuscular Hemoglobin Concent 34 g/dL (31-37) Red Cell Distribution Width 15.1 % (11.5-14.5) Platelet Count 223 x10^3/uL (140-400) Neutrophils (%) (Auto) 68 % (31-73) Lymphocytes (%) (Auto) 21 % (24-48) Monocytes (%) (Auto) 7 % (0-9) Eosinophils (%) (Auto) 4 % (0-3) Basophils (%) (Auto) 1 % (0-3) Neutrophils # (Auto) 4.5 x10^3uL (1.8-7.7) Lymphocytes # (Auto) 1.3 x10^3/uL (1.0-4.8) Monocytes # (Auto) 0.4 x10^3/uL (0.0-1.1) Eosinophils # (Auto) 0.2 x10^3/uL (0.0-0.7) Basophils # (Auto) 0.1 x10^3/uL (0.0-0.2) Sodium Level 145 mmol/L (136-145) Potassium Level 3.8 mmol/L (3.5-5.1) Chloride Level 111 mmol/L (98-107) Carbon Dioxide Level 20 mmol/L (21-32) Anion Gap 14 (6-14) Blood Urea Nitrogen 14 mg/dL (7-20) Creatinine 1.0 mg/dL (0.6-1.0) Estimated GFR (Cockcroft-Gault) 65.8 Glucose Level 168 mg/dL (70-99) Calcium Level 8.7 mg/dL (8.5-10.1) Glucose (Fingerstick) 162 mg/dL (70-99) Laboratory Tests Test 05/06/18 16:26 05/07/18 00:09 05/07/18 06:00 05/07/18 06:24 Glucose (Fingerstick) 247 mg/dL (70-99) 175 mg/dL (70-99) 162 mg/dL (70-99) White Blood Count 6.6 x10^3/uL (4.0-11.0) Red Blood Count 4.49 x10^6/uL (3.50-5.40) Hemoglobin 11.7 g/dL (12.0-15.5) Hematocrit 34.5 % (36.0-47.0) Mean Corpuscular Volume 77 fL (79-100) Mean Corpuscular Hemoglobin 26 pg (25-35) Mean Corpuscular Hemoglobin Concent 34 g/dL (31-37) Red Cell Distribution Width 15.1 % (11.5-14.5) Platelet Count 223 x10^3/uL (140-400) Neutrophils (%) (Auto) 68 % (31-73) Lymphocytes (%) (Auto) 21 % (24-48) Monocytes (%) (Auto) 7 % (0-9) Eosinophils (%) (Auto) 4 % (0-3) Basophils (%) (Auto) 1 % (0-3) Neutrophils # (Auto) 4.5 x10^3uL (1.8-7.7) Lymphocytes # (Auto) 1.3 x10^3/uL (1.0-4.8) Monocytes # (Auto) 0.4 x10^3/uL (0.0-1.1) Eosinophils # (Auto) 0.2 x10^3/uL (0.0-0.7) Basophils # (Auto) 0.1 x10^3/uL (0.0-0.2) Sodium Level 145 mmol/L (136-145) Potassium Level 3.8 mmol/L (3.5-5.1) Chloride Level 111 mmol/L (98-107) Carbon Dioxide Level 20 mmol/L (21-32) Anion Gap 14 (6-14) Blood Urea Nitrogen 14 mg/dL (7-20) Creatinine 1.0 mg/dL (0.6-1.0) Estimated GFR (Cockcroft-Gault) 65.8 Glucose Level 168 mg/dL (70-99) Calcium Level 8.7 mg/dL (8.5-10.1) Microbiology 05/05/18 Blood Culture - Preliminary, Resulted NO GROWTH AFTER 1 DAY Medications Current Medications Sodium Chloride 1,000 ml @ 1,000 mls/hr Q1H IV Last administered on at 10:30; Start 05/05/18 at 09:53; Stop 05/05/18 at 10:52; Status DC Dextrose/Sodium Chloride 1,000 ml @ 75 mls/hr 1X ONCE IV Last administered on 05/05/18at 10:30; Start 05/05/18 at 10:00; Stop 05/05/18 at 15:56; Status DC Iohexol (Omnipaque 300 Mg/ml) 75 ml 1X ONCE IV ; Start 05/05/18 at 11:15; Stop 05/05/18 at 11:18; Status DC Info (CONTRAST GIVEN -- Rx MONITORING) 1 each PRN DAILY PRN MC SEE COMMENTS; Start 05/05/18 at 11:30; Stop 05/07/18 at 11:29; Status DC Sodium Chloride 1,000 ml @ 100 mls/hr Q10H IV Last administered on 05/07/18at 02:36; Start 05/05/18 at 16:00 Enalaprilat (Vasotec Inj) 1.25 mg PRN Q6HRS PRN IVP HYPERTENSION, SEE COMMENTS Last administered on 05/05/18at 16:30; Start 05/05/18 at 16:15 Ceftriaxone Sodium 1 gm/ Dextrose 50 ml @ 100 mls/hr Q24H IV ; Start 05/05/18 at 17:00; Status UNV Ceftriaxone Sodium (Rocephin) 1 gm Q24H IVP Last administered on 05/06/18at 17: 20; Start 05/05/18 at 17:00 Sodium Chloride (Normal Saline Flush 3ml) 3 ml QSHIFT PRN IV AFTER MEDS AND BLOOD DRAWS; Start 05/05/18 at 17:00 Ondansetron HCl (Zofran) 4 mg PRN Q4HRS PRN IV NAUSEA/VOMITING; Start at 17:00 Acetaminophen (Tylenol Supp) 650 mg PRN Q4HRS PRN WI TEMP OVER 100.4F OR MILD PAIN; Start 05/05/18 at 17:00 Albuterol Sulfate (Ventolin Neb Soln) 2.5 mg PRN Q4HRS PRN NEB SHORTNESS OF BREATH; Start 05/05/18 at 17:00 Levofloxacin/ Dextrose 100 ml @ 100 mls/hr Q24H IV Last administered on at 17:20; Start 05/05/18 at 17:00; Stop 05/06/18 at 16:22; Status DC Enalaprilat (Vasotec Inj) 2.5 mg 1X ONCE IVP Last administered on 05/05/18at 17:12; Start 05/05/18 at 17:15; Stop 05/05/18 at 17:16; Status DC Nicardipine HCl 50 mg/Sodium Chloride 270 ml @ 27 mls/hr CONT PRN IV SEE I/O RECORD; Start 05/05/18 at 17:45; Stop 05/05/18 at 17:45; Status DC Nicardipine/ Sodium Chloride 200 ml @ 27 mls/hr CONT PRN IV SEE I/O RECORD Last administered on 05/07/18at 02:46; Start 05/05/18 at 17:45; Stop 05/07/18 at 09:40; Status DC Aspirin (Ev Aspirin) 325 mg DAILYWBKFT PO ; Start 05/05/18 at 19:00; Stop 05/07/18 at 09:43; Status DC Aspirin (Aspirin) 300 mg 1X ONCE WI ; Start 05/06/18 at 10:00; Stop 05/06/18 at 10:01; Status DC Clopidogrel Bisulfate (Plavix) 75 mg DAILYWBKFT PO ; Start 05/06/18 at 12:00 Atorvastatin Calcium (Lipitor) 20 mg QHS PO ; Start 05/06/18 at 21:00 Aspirin (Aspirin) 300 mg DAILY WI Last administered on 05/07/18at 09:25; Start 05/07/18 at 09:00 Insulin Human Lispro (HumaLOG) 0-7 UNITS TIDWMEALS SQ Last administered on at 17:21; Start 05/06/18 at 17:00; Stop 05/06/18 at 19:17; Status DC Dextrose (Dextrose 50%-Water Syringe) 12.5 gm PRN Q15MIN PRN IV SEE COMMENTS; Start 05/06/18 at 16:45; Stop 05/06/18 at 19:20; Status DC Sodium Chloride 500 ml @ 500 mls/hr 1X ONCE IV ; Start 05/06/18 at 18:15; Stop 05/06/18 at 19:14; Status DC Sodium Chloride 1,000 ml @ 100 mls/hr Q10H IV Last administered on 05/06/18at 19:39; Start 05/06/18 at 18:15 Insulin Human Lispro (HumaLOG) 0-9 UNITS Q6HRS SQ ; Start 05/07/18 at 00:00 Dextrose (Dextrose 50%-Water Syringe) 12.5 gm PRN Q15MIN PRN IV SEE COMMENTS; Start 05/06/18 at 19:15 Sodium Chloride 1,000 ml @ 1,000 mls/hr 1X ONCE IV Last administered on 05/06at 21:35; Start 05/06/18 at 21:30; Stop 05/06/18 at 22:29; Status DC Nicardipine HCl 50 mg/Sodium Chloride 270 ml @ 0 mls/hr CONT PRN IV SEE I/O RECORD Last administered on 05/07/18at 09:26; Start 05/07/18 at 07:15 Sodium Chloride (Normal Saline Flush) 10 ml QSHIFT PRN IV AFTER MEDS AND BLOOD DRAWS; Start 05/07/18 at 11:15 Lidocaine HCl (Xylocaine 2% Topical 5gm Tube) 1 yuliya 1X ONCE TP ; Start at 11:15; Stop 05/07/18 at 11:19; Status DC Lidocaine HCl (Viscous Lidocaine) 15 ml 1X ONCE MM ; Start 05/07/18 at 11:15; Stop 05/07/18 at 11:19; Status DC Benzocaine (Hurricaine One) 3 spray 1X ONCE MM ; Start 05/07/18 at 11:15; Stop 05/07/18 at 11:19; Status DC Propofol 20 ml @ As Directed STK-MED ONCE IV ; Start 05/07/18 at 11:25; Stop 05/07/18 at 11:26; Status DC Active Scripts Active Reported Latanoprost 2.5 Ml Drops 1 Drop EACHEYE QHS Citalopram Hbr (Citalopram Hydrobromide) 10 Mg Tablet 1 Tab PO DAILY Dorzolamide Hcl 10 Ml Drops 1 Drop EACHEYE BID Metoprolol Succinate ( Xl ) (Metoprolol Succinate) 100 Mg Tab.er.24h 1 Tab PO DAILY Atorvastatin Calcium 40 Mg Tablet 1 Tab PO DAILY Lisinopril 40 Mg Tablet 1 Tab PO DAILY Amlodipine Besylate 10 Mg Tablet 10 Mg PO DAILY Metformin Hcl 500 Mg Tablet 500 Mg PO DAILY Lantus Solostar (Insulin Glargine,Hum.rec.anlog) 100 Unit/1 Ml Insuln.pen 30 Unit SQ QHS Vitals/I & O Vital Sign - Last 24 Hours 05/06/18 05/06/18 05/06/18 05/06/18 13:00 14:00 15:00 16:00 Temp 98.2 98.2 Pulse 90 86 85 Resp 16 16 16 B/P (MAP) 198/64 (108) 163/83 (109) 129/69 (89) Pulse Ox 100 100 100 O2 Delivery Room Air Room Air Room Air Room Air 05/06/18 05/06/18 05/06/18 05/06/18 16:00 17:00 18:00 19:30 Temp 98.6 98.6 Pulse 90 84 82 86 Resp 16 16 16 17 B/P (MAP) 116/61 (79) 141/56 (84) 140/59 (86) 150/58 (88) Pulse Ox 100 100 99 100 O2 Delivery Room Air Room Air Room Air Room Air 05/06/18 05/06/18 05/06/18 05/06/18 20:00 20:34 21:13 22:14 Pulse 92 86 85 Resp 15 14 14 B/P (MAP) 142/63 (89) 143/56 (85) 140/61 (87) Pulse Ox 99 99 99 O2 Delivery Room Air Room Air Room Air Room Air 05/06/18 05/06/18 05/07/18 05/07/18 23:06 23:55 00:13 01:09 Temp 98.4 98.4 Pulse 85 86 85 Resp 14 15 14 B/P (MAP) 143/58 (86) 135/58 (83) 130/61 (84) Pulse Ox 99 99 99 O2 Delivery Room Air Room Air Room Air Room Air 05/07/18 05/07/18 05/07/18 05/07/18 02:25 03:25 03:36 04:26 Pulse 92 90 95 Resp 20 19 18 B/P (MAP) 144/61 (88) 138/59 (85) 144/67 (92) Pulse Ox 98 99 99 O2 Delivery Room Air Room Air Room Air Room Air 05/07/18 05/07/18 05/07/18 05/07/18 05:00 06:28 07:00 08:00 Temp 98.4 98.4 Pulse 94 87 86 Resp 21 20 18 B/P (MAP) 143/65 (91) 138/66 (90) 117/57 (77) Pulse Ox 100 99 99 O2 Delivery Room Air Room Air Room Air Room Air 05/07/18 05/07/18 05/07/18 05/07/18 08:00 09:00 10:00 11:00 Temp 98.9 98.9 Pulse 84 107 110 92 Resp 17 21 22 15 B/P (MAP) 134/58 (83) 140/58 (85) 148/59 (88) 155/66 (95) Pulse Ox 98 100 98 99 O2 Delivery Room Air Room Air Room Air Room Air Intake and Output 05/06/18 05/06/18 05/07/18 15:00 23:00 07:00 Intake Total 0 ml 200 ml 2400 ml Output Total 0 ml 55 ml 268 ml Balance 0 ml 145 ml 2132 ml MELISSA DONG III DO May 07, 2018 12:10
--- NOTE | 2018-05-07 14:22 | CARD ---
MR#: [id number] Date of Study: 05/07/2018 Ordering Physician: RADHA AQUINO, Referring Physician: RADHA AQUINO, Tech: Alejandra Wilcox APPROVED REPORT EXAM: Transesophageal echocardiogram with color flow Doppler. INDICATION CVA/TIA Reason For Test : Rule out Intracardiac Thrombus. PROCEDURE After obtaining informed consent, patient underwent transesophageal echo in the ICU. Type of Sedation : General Anesthesia Sedation was administered by Sushma OCHOA. Sedation was achieved with Propofol 180mg intravenously. Transesophageal probe was inserted and advanced into esophagus by Sean Morrison MD. The EUN was performed without complications. Throughout the procedure, the blood pressure, pulse oximetry, cardiac rhythm, and rate were monitored . LEFT VENTRICLE The left ventricle is normal size. There is normal left ventricular wall thickness. The left ventricu lar systolic function is normal and the ejection fraction is within normal range. There is normal LV segmental wall motion. The left ventricular diastolic function and filling is normal for age. No left ventricle thrombus noted on this study. There is no ventricular septal defect visualized. RIGHT VENTRICLE The right ventricle is normal size. There is normal right ventricular wall thickness. The right ventr icular systolic function is normal. ATRIA The left atrium size is normal. The right atrium size is normal. The interatrial septum is intact wit h no evidence for an atrial septal defect or patent foramen ovale as noted on 2-D or Doppler imaging. There is no thrombus noted in the left atrial appendage. AORTIC VALVE The aortic valve is normal in structure and function. Doppler and Color Flow revealed trace to mild a ortic regurgitation. There is no significant aortic valvular stenosis. There is no aortic valvular ve getation. MITRAL VALVE The mitral valve is normal in structure and function. There is no evidence of mitral valve prolapse. There is no mitral valve stenosis. Doppler and Color-flow revealed trace mitral regurgitation. TRICUSPID VALVE The tricuspid valve is normal in structure and function. Doppler and Color Flow revealed trace tricus pid regurgitation. There is no tricuspid valve prolapse or vegetation. There is no tricuspid valve st enosis. PULMONIC VALVE The pulmonary valve is normal in structure and function. Doppler and Color Flow revealed no pulmonic valvular regurgitation. There is no pulmonic valvular stenosis. GREAT VESSELS The aortic root is normal in size. The ascending aorta is normal in size. The IVC is normal in size a nd collapses >50% with inspiration. PERICARDIAL EFFUSION There is no pleural effusion. Critical Notification Critical Value: No <Conclusion> Normal LV function/wall motion. EF 65% No significant valvular disease. No GUILHERME thrombus or valvular pathology noted. Signed by : Reginald Morrison, Electronically Approved : 05/07/2018 14:22:23
--- NOTE | 2018-05-07 15:01 | PDOC ---
PROGRESS NOTES Assessment Assessment Hypertensive emergency, SBP 218 mmHg. Acute/subacute 2.6 cm infarct in the posterior aspect of the left BG. Cerebral edema. Hypertensive encephalopathy. Metabolic encephalopathy. Increased weakness in right UE. Hypoglycemia, glucose level 39. DM. UTI. Fall. HTN. HLD. Pulmonary hypertension, PA pressure 55. 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 RECOMMENDATIONS/PLAN: BP control. ASA 300 mg RC daily, change to Plavix 75 mg daily if can take PO. Lipitor 20 mg HS. Treat medical diseases. OT/PT. Rehab. Discussed with her at bedside in ICU on 05/06/18. CT : Old CVA. CTA: Negative. Brain MRI: see above stroke. EEG on 05/06/18: Encephalopathy. HISTORY OF THE PRESENT ILLNESS: 72-y-old AA female patient with above medical diseases and previous stroke with right side hemiplegia. She has mental status changes as unresponsiveness, so EMS was called and her glucose level was revealed 39. she was administrated dextrose, but her MS did not improve. She was brought to the ER of [facility] and her SBP was 218 mmHg. Past Medical History CVA, Diabetes-Type II, Hypertension, HLD. Cardiovascular: HTN Pulmonary: Asthma CENTRAL NERVOUS SYSTEM: CVA GI: Constipation Infectious disease: No pertinent hx Renal/: No pertinent hx Endocrine: Diabetes Dermatology: No pertinent hx Past Surgical History Hysterectomy, tumor in neck removed. Family History Diabetes, Other (mother had cva) ALLERGY: NKDA MEDICATIONS: Refer to MAR. SOCIAL HISTORY: Denies smoking, drinking, and illicit drug use. REVIEW OF SYSTEMS: Constitutional: Obesity. Head: No recent traumatic brain or head injury. Skin: No edema, or rash. Ear: No infection. Eyes: No vision loss or color blindness. Nose: No bleeding or purulent discharges. Hearing: No hearing decrease. Neck: No injury. Breast: No history of cancer, masses,or discharges. Cardiac: HTN, HLD. Pulmonary: No COPD. GI: No GI ulcer, GI bleeding. Urinary/genital: UTI. Endocrinologic: Diabetes Mellitus, hypothyroidism, obesity. Skeletomuscular: Right side hemiplegia. Neurological: see HP. Psychiatric: Denies drug use/abuse. Otherwise, not [id number] review of systems. PHYSICAL EXAMINATION: General appearance is in subacute distress. HEENT: Normocephalic and nontraumatic. Eyes, nose, ears, and throat are unremarkable. Neck is supple. No lymphadenopathy. No crepitus. Cardiovascular: S1, S2, regular rate and rhythm. Pulmonary: Clear to auscultation bilaterally. Abdomen: Bowel sounds are positive. Extremities: No rash, lesions, or edema. No restriction of range of motion NEUROLOGICAL EXAMINATION: Awake. In confusional state. Not oriented to time, place but knew person. Able to follow a few commands. PERRL. EOMI. CN: chronic right VII palsy. Muscle tone: Decreased in right UE and LE, normal in left side. Muscle strength: 0-1 right UE, 2 right LE. 5- left side. DTR: 1 right side. Plantar reflex: Extensor response, right side. response bilaterally Gait: Unable to walk. Sensory exam: no acute abnormal findings. Not able to access cerebellar signs due to not follow commands. F-T-N test not performed due to not follow commands. Objective Objective Vital Signs Date Time Temp Pulse Resp B/P (MAP) Pulse Ox O2 Delivery O2 Flow Rate FiO2 05/07/18 14:00 86 18 140/64 (89) 99 Room Air 05/07/18 12:00 2.0 05/07/18 12:00 98.0 98.0 Intake and Output 05/07/18 07:00 Intake Total 2600 ml Output Total 323 ml Balance 2277 ml Intake Oral 0 ml IV Total 2600 ml Output Urine Total 323 ml # Voids 1 Vitals Signs Vitals VS - Last 72 Hours, by Label Date Time Temp Pulse Resp B/P (MAP) Pulse Ox O2 Delivery O2 Flow Rate FiO2 05/07/18 14:00 86 18 140/64 (89) 99 Room Air 05/07/18 13:00 95 18 142/61 (88) 99 Room Air 05/07/18 12:00 Nasal Cannula 2.0 05/07/18 12:00 98.0 98 17 158/75 (102) 99 Nasal Cannula 2.0 98.0 05/07/18 11:00 92 15 155/66 (95) 99 Room Air 05/07/18 10:00 110 22 148/59 (88) 98 Room Air 05/07/18 09:00 107 21 140/58 (85) 100 Room Air 05/07/18 08:00 98.9 84 17 134/58 (83) 98 Room Air 98.9 05/07/18 08:00 Room Air 05/07/18 07:00 86 18 117/57 (77) 99 Room Air 05/07/18 06:28 87 20 138/66 (90) 99 Room Air 05/07/18 05:00 98.4 94 21 143/65 (91) 100 Room Air 98.4 05/07/18 04:26 95 18 144/67 (92) 99 Room Air 05/07/18 03:36 Room Air 05/07/18 03:25 90 19 138/59 (85) 99 Room Air 05/07/18 02:25 92 20 144/61 (88) 98 Room Air 05/07/18 01:09 85 14 130/61 (84) 99 Room Air 05/07/18 00:13 98.4 86 15 135/58 (83) 99 Room Air 98.4 05/06/18 23:55 Room Air 05/06/18 23:06 85 14 143/58 (86) 99 Room Air 05/06/18 22:14 85 14 140/61 (87) 99 Room Air 05/06/18 21:13 86 14 143/56 (85) 99 Room Air 05/06/18 20:34 92 15 142/63 (89) 99 Room Air 05/06/18 20:00 Room Air 05/06/18 19:30 98.6 86 17 150/58 (88) 100 Room Air 98.6 05/06/18 18:00 82 16 140/59 (86) 99 Room Air 05/06/18 17:00 84 16 141/56 (84) 100 Room Air 05/06/18 16:00 90 16 116/61 (79) 100 Room Air 05/06/18 16:00 Room Air 05/06/18 15:00 98.2 85 16 129/69 (89) 100 Room Air 98.2 05/06/18 14:00 86 16 163/83 (109) 100 Room Air 05/06/18 13:00 90 16 198/64 (108) 100 Room Air 05/06/18 12:00 Room Air 05/06/18 12:00 92 16 175/68 (103) 100 Room Air 05/06/18 11:00 84 16 184/65 (104) 100 Room Air 05/06/18 10:00 80 16 182/76 (111) 100 Room Air 05/06/18 09:00 80 16 157/58 (91) 98 Room Air 05/06/18 08:00 Room Air 05/06/18 08:00 98.7 80 16 170/59 (96) 97 Room Air 98.7 05/06/18 07:00 76 16 160/59 (92) 97 Room Air Laboratory Laboratory Laboratory Tests Test 05/06/18 16:26 05/07/18 00:09 05/07/18 06:00 05/07/18 06:24 Glucose (Fingerstick) 247 mg/dL (70-99) 175 mg/dL (70-99) 162 mg/dL (70-99) White Blood Count 6.6 x10^3/uL (4.0-11.0) Red Blood Count 4.49 x10^6/uL (3.50-5.40) Hemoglobin 11.7 g/dL (12.0-15.5) Hematocrit 34.5 % (36.0-47.0) Mean Corpuscular Volume 77 fL (79-100) Mean Corpuscular Hemoglobin 26 pg (25-35) Mean Corpuscular Hemoglobin Concent 34 g/dL (31-37) Red Cell Distribution Width 15.1 % (11.5-14.5) Platelet Count 223 x10^3/uL (140-400) Neutrophils (%) (Auto) 68 % (31-73) Lymphocytes (%) (Auto) 21 % (24-48) Monocytes (%) (Auto) 7 % (0-9) Eosinophils (%) (Auto) 4 % (0-3) Basophils (%) (Auto) 1 % (0-3) Neutrophils # (Auto) 4.5 x10^3uL (1.8-7.7) Lymphocytes # (Auto) 1.3 x10^3/uL (1.0-4.8) Monocytes # (Auto) 0.4 x10^3/uL (0.0-1.1) Eosinophils # (Auto) 0.2 x10^3/uL (0.0-0.7) Basophils # (Auto) 0.1 x10^3/uL (0.0-0.2) Sodium Level 145 mmol/L (136-145) Potassium Level 3.8 mmol/L (3.5-5.1) Chloride Level 111 mmol/L (98-107) Carbon Dioxide Level 20 mmol/L (21-32) Anion Gap 14 (6-14) Blood Urea Nitrogen 14 mg/dL (7-20) Creatinine 1.0 mg/dL (0.6-1.0) Estimated GFR (Cockcroft-Gault) 65.8 Glucose Level 168 mg/dL (70-99) Calcium Level 8.7 mg/dL (8.5-10.1) Test 05/07/18 12:57 Glucose (Fingerstick) 150 mg/dL (70-99) Microbiology 05/05/18 Blood Culture - Preliminary, Resulted NO GROWTH AFTER 1 DAY Medication Medications Current Medications Aspirin (Aspirin) 300 mg DAILY MN Last administered on 05/07/18at 09:25; Start 05/07/18 at 09:00 Atorvastatin Calcium (Lipitor) 20 mg QHS PO ; Start 05/06/18 at 21:00 Benzocaine (Hurricaine One) 3 spray 1X ONCE MM ; Start 05/07/18 at 11:15; Stop 05/07/18 at 11:19; Status DC Dextrose (Dextrose 50%-Water Syringe) 12.5 gm PRN Q15MIN PRN IV SEE COMMENTS; Start 05/06/18 at 16:45; Stop 05/06/18 at 19:20; Status DC Dextrose (Dextrose 50%-Water Syringe) 12.5 gm PRN Q15MIN PRN IV SEE COMMENTS; Start 05/06/18 at 19:15 Insulin Human Lispro (HumaLOG) 0-7 UNITS TIDWMEALS SQ Last administered on at 17:21; Start 05/06/18 at 17:00; Stop 05/06/18 at 19:17; Status DC Insulin Human Lispro (HumaLOG) 0-9 UNITS Q6HRS SQ ; Start 05/07/18 at 00:00 Labetalol HCl (Normodyne Iv Push) 20 mg Q4HRS IVP ; Start 05/07/18 at 16:00 Lidocaine HCl (Viscous Lidocaine) 15 ml 1X ONCE MM ; Start 05/07/18 at 11:15; Stop 05/07/18 at 11:19; Status DC Lidocaine HCl (Xylocaine 2% Topical 5gm Tube) 1 yuliya 1X ONCE TP ; Start at 11:15; Stop 05/07/18 at 11:19; Status DC Nicardipine HCl 50 mg/Sodium Chloride 270 ml @ 0 mls/hr CONT PRN IV SEE I/O RECORD Last administered on 05/07/18at 09:26; Start 05/07/18 at 07:15 Propofol 20 ml @ As Directed STK-MED ONCE IV ; Start 05/07/18 at 11:25; Stop 05/07/18 at 11:26; Status DC Sodium Chloride 500 ml @ 500 mls/hr 1X ONCE IV ; Start 05/06/18 at 18:15; Stop 05/06/18 at 19:14; Status DC Sodium Chloride 1,000 ml @ 100 mls/hr Q10H IV Last administered on 05/06/18at 19:39; Start 05/06/18 at 18:15; Stop 05/07/18 at 13:03; Status DC Sodium Chloride 1,000 ml @ 1,000 mls/hr 1X ONCE IV Last administered on 05/06at 21:35; Start 05/06/18 at 21:30; Stop 05/06/18 at 22:29; Status DC Sodium Chloride (Normal Saline Flush) 10 ml QSHIFT PRN IV AFTER MEDS AND BLOOD DRAWS; Start 05/07/18 at 11:15 Comment Review of Relevant I have reviewed the following items angelica (where applicable) has been applied. ALVARO FOUNTAIN MD May 07, 2018 15:01
[2018-05-07] MEDS: LABETALOL 20 MG/4 ML DISP.SYRIN. IVP SCH ×2 (17:00→20:07)
[2018-05-07] MEDS: cefTRIAXone IV Push 1 GM VIAL. IVP SCH (17:02)
[2018-05-07] MEDS: ATORVASTATIN CALCIUM 20 MG TABLET PO SCH (21:00)
[2018-05-08] VITALS (14 sets, daily range): BP systolic 115–164; BP diastolic 53–76
[2018-05-08] MEDS: LABETALOL 20 MG/4 ML DISP.SYRIN. IVP SCH ×6 (00:18→20:00)
[2018-05-08 05:47] LABS: BASO # 0.1 x10^3/uL (0.0-0.2); BASO % 1 % (0-3); EOS # 0.3 x10^3/uL (0.0-0.7); EOS % 5 % (0-3); HEMATOCRIT 31.1 % (36.0-47.0); HEMOGLOBIN 10.6 g/dL (12.0-15.5); LYMPH # 1.6 x10^3/uL (1.0-4.8); LYMPH % 24 % (24-48); MEAN CORPUSCULAR HEMOGLOBIN 26 pg (25-35); MEAN CORPUSCULAR HGB CONC 34 g/dL (31-37); MEAN CORPUSCULAR VOLUME 76 fL (79-100); MONO # 0.5 x10^3/uL (0.0-1.1); MONO % 9 % (0-9); NEUT # 3.9 x10^3uL (1.8-7.7); NEUT % 61 % (31-73); PLATELET COUNT 178 x10^3/uL (140-400); RED BLOOD COUNT 4.09 x10^6/uL (3.50-5.40); RED CELL DISTRIBUTION WIDTH 15.1 % (11.5-14.5); WHITE BLOOD COUNT 6.4 x10^3/uL (4.0-11.0)
[2018-05-08] MEDS: INSULIN LISPRO 300 UNITS/3 ML INSULN.PEN. SQ SCH ×4 (05:57→17:35)
[2018-05-08 06:03] LABS: CALCIUM 8.1 mg/dL (8.5-10.1); CREATININE 0.7 mg/dL (0.6-1.0); GFR 99.2; POTASSIUM 3.3 mmol/L (3.5-5.1)
[2018-05-08] MEDS: CLOPIDOGREL BISULFATE 75 MG TABLET PO SCH (08:00)
[2018-05-08] MEDS: IV NORMAL SALINE 1000ML BAG 1,000 ML IV SCH (08:49)
--- NOTE | 2018-05-08 08:52 | PDOC ---
ANDRY TAO RESEARCH DIRECTOR 05/08/18 0852: CARDIO Progress Notes Date and Time Date of Service 05/08/2018 Time of Evaluation 0840 Subjective Subjective: Other (not in distress, awake and cooperative, aphasia) Vitals Vitals Vital Signs Date Time Temp Pulse Resp B/P (MAP) Pulse Ox O2 Delivery O2 Flow Rate FiO2 05/08/18 08:07 Room Air 05/08/18 08:05 98.4 87 18 147/58 (87) 100 2.0 98.4 Weight Weight [ ] Input and Output Intake and Output Intake and Output 05/08/18 07:00 Intake Total 3430 ml Output Total 1741 ml Balance 1689 ml IV Total 3430 ml Output Urine Total 1741 ml Laboratory Labs Laboratory Tests Test 05/07/18 12:57 05/07/18 17:03 05/07/18 23:53 05/08/18 05:35 Glucose (Fingerstick) 150 mg/dL (70-99) 149 mg/dL (70-99) 128 mg/dL (70-99) White Blood Count 6.4 x10^3/uL (4.0-11.0) Red Blood Count 4.09 x10^6/uL (3.50-5.40) Hemoglobin 10.6 g/dL (12.0-15.5) Hematocrit 31.1 % (36.0-47.0) Mean Corpuscular Volume 76 fL (79-100) Mean Corpuscular Hemoglobin 26 pg (25-35) Mean Corpuscular Hemoglobin Concent 34 g/dL (31-37) Red Cell Distribution Width 15.1 % (11.5-14.5) Platelet Count 178 x10^3/uL (140-400) Neutrophils (%) (Auto) 61 % (31-73) Lymphocytes (%) (Auto) 24 % (24-48) Monocytes (%) (Auto) 9 % (0-9) Eosinophils (%) (Auto) 5 % (0-3) Basophils (%) (Auto) 1 % (0-3) Neutrophils # (Auto) 3.9 x10^3uL (1.8-7.7) Lymphocytes # (Auto) 1.6 x10^3/uL (1.0-4.8) Monocytes # (Auto) 0.5 x10^3/uL (0.0-1.1) Eosinophils # (Auto) 0.3 x10^3/uL (0.0-0.7) Basophils # (Auto) 0.1 x10^3/uL (0.0-0.2) Sodium Level 146 mmol/L (136-145) Potassium Level 3.3 mmol/L (3.5-5.1) Chloride Level 113 mmol/L (98-107) Carbon Dioxide Level 21 mmol/L (21-32) Anion Gap 12 (6-14) Blood Urea Nitrogen 7 mg/dL (7-20) Creatinine 0.7 mg/dL (0.6-1.0) Estimated GFR (Cockcroft-Gault) 99.2 Glucose Level 126 mg/dL (70-99) Calcium Level 8.1 mg/dL (8.5-10.1) Test 05/08/18 05:44 Glucose (Fingerstick) 127 mg/dL (70-99) Microbiology Micro Microbiology 05/05/18 Blood Culture - Preliminary, Resulted NO GROWTH AFTER 2 DAYS 05/05/18 Urine Culture - Preliminary, Resulted 05/05/18 Urine Culture Result 1 (JULIÁN) - Preliminary, Resulted Physical Exam HEENT: Neck Supple W Full Motion Chest: Symmetric LUNGS: Other (diminished bases) Heart: S1S2, RRR (SR) Abdomen: Soft N/T Extremities: No Calf Tenderness, Other (right arm flaccid) Neurology: alert, follow commands Assessment Assessment 1. Acute BG CVA 2. Hx of CVA 3. Malignant HTN; better with cardene 4. DM2/HLP Recommendations 1. EUN revealed nml EF/WM without thrombus or septal defects. Continue with ASA 2. Continue with cardene then transition to her regular PO BP meds once PO or PEG access is in place. DON VILLASEÑOR MD 05/11/18 1745: CARDIO Progress Notes Plan Plan Late entry for 05/08/2018. Patient seen and examined. Agree with above nurse practitioner note. Supportive care from a cardiac standpoint. Medication titration when able to take oral meds. ANDRY TAO APRN May 08, 2018 08:52 DON VILLASEÑOR MD May 11, 2018 17:45
[2018-05-08] MEDS ORDERED: POTASSIUM CHLORIDE 20 MEQ TABLET.ER. PO ONE (09:00)
[2018-05-08] MEDS: POTASSIUM CHLORIDE 20MEQ 50 ML IV SCH ×2 (10:05→11:22)
[2018-05-08] MEDS: ASPIRIN 300 MG SUPP.RECT PR SCH (11:31)
--- NOTE | 2018-05-08 11:57 | PDOC ---
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 H/o HTN H/o HLD History of Present Illness History of Present Illness Pt seen and examined in the ICU Discussed with RN Pt laying in bed, resting Vitals Vitals Vital Signs Date Time Temp Pulse Resp B/P (MAP) Pulse Ox O2 Delivery O2 Flow Rate FiO2 05/08/18 10:08 98.4 77 151/64 (93) 100 Room Air 2.0 98.4 05/08/18 09:04 18 Physical Exam General: No acute distress, Other (resting) Heart: Regular rate (SR no significant ectopies), Normal S1, Normal S2, Other ( 2/6 systolic murmur to LLS border) Lungs: Clear Abdomen: Soft, No tenderness Extremities: No clubbing, No cyanosis, Other (trace LE edema) Skin: No rashes, No breakdown Labs LABS Laboratory Tests Test 05/07/18 12:57 05/07/18 17:03 05/07/18 23:53 05/08/18 05:35 Glucose (Fingerstick) 150 mg/dL (70-99) 149 mg/dL (70-99) 128 mg/dL (70-99) White Blood Count 6.4 x10^3/uL (4.0-11.0) Red Blood Count 4.09 x10^6/uL (3.50-5.40) Hemoglobin 10.6 g/dL (12.0-15.5) Hematocrit 31.1 % (36.0-47.0) Mean Corpuscular Volume 76 fL (79-100) Mean Corpuscular Hemoglobin 26 pg (25-35) Mean Corpuscular Hemoglobin Concent 34 g/dL (31-37) Red Cell Distribution Width 15.1 % (11.5-14.5) Platelet Count 178 x10^3/uL (140-400) Neutrophils (%) (Auto) 61 % (31-73) Lymphocytes (%) (Auto) 24 % (24-48) Monocytes (%) (Auto) 9 % (0-9) Eosinophils (%) (Auto) 5 % (0-3) Basophils (%) (Auto) 1 % (0-3) Neutrophils # (Auto) 3.9 x10^3uL (1.8-7.7) Lymphocytes # (Auto) 1.6 x10^3/uL (1.0-4.8) Monocytes # (Auto) 0.5 x10^3/uL (0.0-1.1) Eosinophils # (Auto) 0.3 x10^3/uL (0.0-0.7) Basophils # (Auto) 0.1 x10^3/uL (0.0-0.2) Sodium Level 146 mmol/L (136-145) Potassium Level 3.3 mmol/L (3.5-5.1) Chloride Level 113 mmol/L (98-107) Carbon Dioxide Level 21 mmol/L (21-32) Anion Gap 12 (6-14) Blood Urea Nitrogen 7 mg/dL (7-20) Creatinine 0.7 mg/dL (0.6-1.0) Estimated GFR (Cockcroft-Gault) 99.2 Glucose Level 126 mg/dL (70-99) Calcium Level 8.1 mg/dL (8.5-10.1) Test 05/08/18 05:44 Glucose (Fingerstick) 127 mg/dL (70-99) Review of Systems Review of Systems Pt laying in bed resting, unable to obtain. Assessment and Plan Assessmemt and Plan Problems Medical Problems: (1) Acute encephalopathy Status: Acute (2) CVA (cerebral vascular accident) Status: Acute Assessment: Acute encephalopathy Hypertensive emergency with SBP 200s CVA Hypokalemia Microcytic anemia UTI T2DM Hypoglycemia, glucose level 39 on admission H/o left BG lacunar infarct with right sided hemiplegia H/o HTN H/o HLD Plan: ICU monitoring Labs PT/OT/ST Home meds IV potassium 40mg for correction of hypokalemia BP control, hope to get off cardene drip Consult GI for anemia Follow Hgb daily Check guaiac stool DVT ppx Discharge disposition pending Comment Review of Relevant I have reviewed the following items angelica (where applicable) has been applied. Labs Laboratory Tests Test 05/06/18 16:26 05/07/18 00:09 05/07/18 06:00 05/07/18 06:24 Glucose (Fingerstick) 247 mg/dL (70-99) 175 mg/dL (70-99) 162 mg/dL (70-99) White Blood Count 6.6 x10^3/uL (4.0-11.0) Red Blood Count 4.49 x10^6/uL (3.50-5.40) Hemoglobin 11.7 g/dL (12.0-15.5) Hematocrit 34.5 % (36.0-47.0) Mean Corpuscular Volume 77 fL (79-100) Mean Corpuscular Hemoglobin 26 pg (25-35) Mean Corpuscular Hemoglobin Concent 34 g/dL (31-37) Red Cell Distribution Width 15.1 % (11.5-14.5) Platelet Count 223 x10^3/uL (140-400) Neutrophils (%) (Auto) 68 % (31-73) Lymphocytes (%) (Auto) 21 % (24-48) Monocytes (%) (Auto) 7 % (0-9) Eosinophils (%) (Auto) 4 % (0-3) Basophils (%) (Auto) 1 % (0-3) Neutrophils # (Auto) 4.5 x10^3uL (1.8-7.7) Lymphocytes # (Auto) 1.3 x10^3/uL (1.0-4.8) Monocytes # (Auto) 0.4 x10^3/uL (0.0-1.1) Eosinophils # (Auto) 0.2 x10^3/uL (0.0-0.7) Basophils # (Auto) 0.1 x10^3/uL (0.0-0.2) Sodium Level 145 mmol/L (136-145) Potassium Level 3.8 mmol/L (3.5-5.1) Chloride Level 111 mmol/L (98-107) Carbon Dioxide Level 20 mmol/L (21-32) Anion Gap 14 (6-14) Blood Urea Nitrogen 14 mg/dL (7-20) Creatinine 1.0 mg/dL (0.6-1.0) Estimated GFR (Cockcroft-Gault) 65.8 Glucose Level 168 mg/dL (70-99) Calcium Level 8.7 mg/dL (8.5-10.1) Test 05/07/18 12:57 05/07/18 17:03 05/07/18 23:53 05/08/18 05:35 Glucose (Fingerstick) 150 mg/dL (70-99) 149 mg/dL (70-99) 128 mg/dL (70-99) White Blood Count 6.4 x10^3/uL (4.0-11.0) Red Blood Count 4.09 x10^6/uL (3.50-5.40) Hemoglobin 10.6 g/dL (12.0-15.5) Hematocrit 31.1 % (36.0-47.0) Mean Corpuscular Volume 76 fL (79-100) Mean Corpuscular Hemoglobin 26 pg (25-35) Mean Corpuscular Hemoglobin Concent 34 g/dL (31-37) Red Cell Distribution Width 15.1 % (11.5-14.5) Platelet Count 178 x10^3/uL (140-400) Neutrophils (%) (Auto) 61 % (31-73) Lymphocytes (%) (Auto) 24 % (24-48) Monocytes (%) (Auto) 9 % (0-9) Eosinophils (%) (Auto) 5 % (0-3) Basophils (%) (Auto) 1 % (0-3) Neutrophils # (Auto) 3.9 x10^3uL (1.8-7.7) Lymphocytes # (Auto) 1.6 x10^3/uL (1.0-4.8) Monocytes # (Auto) 0.5 x10^3/uL (0.0-1.1) Eosinophils # (Auto) 0.3 x10^3/uL (0.0-0.7) Basophils # (Auto) 0.1 x10^3/uL (0.0-0.2) Sodium Level 146 mmol/L (136-145) Potassium Level 3.3 mmol/L (3.5-5.1) Chloride Level 113 mmol/L (98-107) Carbon Dioxide Level 21 mmol/L (21-32) Anion Gap 12 (6-14) Blood Urea Nitrogen 7 mg/dL (7-20) Creatinine 0.7 mg/dL (0.6-1.0) Estimated GFR (Cockcroft-Gault) 99.2 Glucose Level 126 mg/dL (70-99) Calcium Level 8.1 mg/dL (8.5-10.1) Test 05/08/18 05:44 Glucose (Fingerstick) 127 mg/dL (70-99) Laboratory Tests Test 05/07/18 12:57 05/07/18 17:03 05/07/18 23:53 05/08/18 05:35 Glucose (Fingerstick) 150 mg/dL (70-99) 149 mg/dL (70-99) 128 mg/dL (70-99) White Blood Count 6.4 x10^3/uL (4.0-11.0) Red Blood Count 4.09 x10^6/uL (3.50-5.40) Hemoglobin 10.6 g/dL (12.0-15.5) Hematocrit 31.1 % (36.0-47.0) Mean Corpuscular Volume 76 fL (79-100) Mean Corpuscular Hemoglobin 26 pg (25-35) Mean Corpuscular Hemoglobin Concent 34 g/dL (31-37) Red Cell Distribution Width 15.1 % (11.5-14.5) Platelet Count 178 x10^3/uL (140-400) Neutrophils (%) (Auto) 61 % (31-73) Lymphocytes (%) (Auto) 24 % (24-48) Monocytes (%) (Auto) 9 % (0-9) Eosinophils (%) (Auto) 5 % (0-3) Basophils (%) (Auto) 1 % (0-3) Neutrophils # (Auto) 3.9 x10^3uL (1.8-7.7) Lymphocytes # (Auto) 1.6 x10^3/uL (1.0-4.8) Monocytes # (Auto) 0.5 x10^3/uL (0.0-1.1) Eosinophils # (Auto) 0.3 x10^3/uL (0.0-0.7) Basophils # (Auto) 0.1 x10^3/uL (0.0-0.2) Sodium Level 146 mmol/L (136-145) Potassium Level 3.3 mmol/L (3.5-5.1) Chloride Level 113 mmol/L (98-107) Carbon Dioxide Level 21 mmol/L (21-32) Anion Gap 12 (6-14) Blood Urea Nitrogen 7 mg/dL (7-20) Creatinine 0.7 mg/dL (0.6-1.0) Estimated GFR (Cockcroft-Gault) 99.2 Glucose Level 126 mg/dL (70-99) Calcium Level 8.1 mg/dL (8.5-10.1) Test 05/08/18 05:44 Glucose (Fingerstick) 127 mg/dL (70-99) Microbiology 05/05/18 Blood Culture - Preliminary, Resulted NO GROWTH AFTER 2 DAYS 05/05/18 Urine Culture - Preliminary, Resulted 05/05/18 Urine Culture Result 1 (JULIÁN) - Preliminary, Resulted Medications Current Medications Sodium Chloride 1,000 ml @ 1,000 mls/hr Q1H IV Last administered on at 10:30; Start 05/05/18 at 09:53; Stop 05/05/18 at 10:52; Status DC Dextrose/Sodium Chloride 1,000 ml @ 75 mls/hr 1X ONCE IV Last administered on 05/05/18at 10:30; Start 05/05/18 at 10:00; Stop 05/05/18 at 15:56; Status DC Iohexol (Omnipaque 300 Mg/ml) 75 ml 1X ONCE IV ; Start 05/05/18 at 11:15; Stop 05/05/18 at 11:18; Status DC Info (CONTRAST GIVEN -- Rx MONITORING) 1 each PRN DAILY PRN MC SEE COMMENTS; Start 05/05/18 at 11:30; Stop 05/07/18 at 11:29; Status DC Sodium Chloride 1,000 ml @ 100 mls/hr Q10H IV Last administered on 05/08/18at 08:49; Start 05/05/18 at 16:00 Enalaprilat (Vasotec Inj) 1.25 mg PRN Q6HRS PRN IVP HYPERTENSION, SEE COMMENTS Last administered on 05/05/18at 16:30; Start 05/05/18 at 16:15 Ceftriaxone Sodium 1 gm/ Dextrose 50 ml @ 100 mls/hr Q24H IV ; Start 05/05/18 at 17:00; Status UNV Ceftriaxone Sodium (Rocephin) 1 gm Q24H IVP Last administered on 05/07/18at 17: 02; Start 05/05/18 at 17:00 Sodium Chloride (Normal Saline Flush 3ml) 3 ml QSHIFT PRN IV AFTER MEDS AND BLOOD DRAWS; Start 05/05/18 at 17:00 Ondansetron HCl (Zofran) 4 mg PRN Q4HRS PRN IV NAUSEA/VOMITING; Start at 17:00 Acetaminophen (Tylenol Supp) 650 mg PRN Q4HRS PRN FL TEMP OVER 100.4F OR MILD PAIN; Start 05/05/18 at 17:00 Albuterol Sulfate (Ventolin Neb Soln) 2.5 mg PRN Q4HRS PRN NEB SHORTNESS OF BREATH; Start 05/05/18 at 17:00 Levofloxacin/ Dextrose 100 ml @ 100 mls/hr Q24H IV Last administered on at 17:20; Start 05/05/18 at 17:00; Stop 05/06/18 at 16:22; Status DC Enalaprilat (Vasotec Inj) 2.5 mg 1X ONCE IVP Last administered on 05/05/18at 17:12; Start 05/05/18 at 17:15; Stop 05/05/18 at 17:16; Status DC Nicardipine HCl 50 mg/Sodium Chloride 270 ml @ 27 mls/hr CONT PRN IV SEE I/O RECORD; Start 05/05/18 at 17:45; Stop 05/05/18 at 17:45; Status DC Nicardipine/ Sodium Chloride 200 ml @ 27 mls/hr CONT PRN IV SEE I/O RECORD Last administered on 05/07/18at 02:46; Start 05/05/18 at 17:45; Stop 05/07/18 at 09:40; Status DC Aspirin (Ev Aspirin) 325 mg DAILYWBKFT PO ; Start 05/05/18 at 19:00; Stop 05/07/18 at 09:43; Status DC Aspirin (Aspirin) 300 mg 1X ONCE FL ; Start 05/06/18 at 10:00; Stop 05/06/18 at 10:01; Status DC Clopidogrel Bisulfate (Plavix) 75 mg DAILYWBKFT PO ; Start 05/06/18 at 12:00 Atorvastatin Calcium (Lipitor) 20 mg QHS PO ; Start 05/06/18 at 21:00 Aspirin (Aspirin) 300 mg DAILY FL Last administered on 05/08/18at 11:31; Start 05/07/18 at 09:00 Insulin Human Lispro (HumaLOG) 0-7 UNITS TIDWMEALS SQ Last administered on at 17:21; Start 05/06/18 at 17:00; Stop 05/06/18 at 19:17; Status DC Dextrose (Dextrose 50%-Water Syringe) 12.5 gm PRN Q15MIN PRN IV SEE COMMENTS; Start 05/06/18 at 16:45; Stop 05/06/18 at 19:20; Status DC Sodium Chloride 500 ml @ 500 mls/hr 1X ONCE IV ; Start 05/06/18 at 18:15; Stop 05/06/18 at 19:14; Status DC Sodium Chloride 1,000 ml @ 100 mls/hr Q10H IV Last administered on 05/06/18at 19:39; Start 05/06/18 at 18:15; Stop 05/07/18 at 13:03; Status DC Insulin Human Lispro (HumaLOG) 0-9 UNITS Q6HRS SQ ; Start 05/07/18 at 00:00 Dextrose (Dextrose 50%-Water Syringe) 12.5 gm PRN Q15MIN PRN IV SEE COMMENTS; Start 05/06/18 at 19:15 Sodium Chloride 1,000 ml @ 1,000 mls/hr 1X ONCE IV Last administered on 05/06at 21:35; Start 05/06/18 at 21:30; Stop 05/06/18 at 22:29; Status DC Nicardipine HCl 50 mg/Sodium Chloride 270 ml @ 0 mls/hr CONT PRN IV SEE I/O RECORD Last administered on 05/07/18at 22:59; Start 05/07/18 at 07:15 Sodium Chloride (Normal Saline Flush) 10 ml QSHIFT PRN IV AFTER MEDS AND BLOOD DRAWS; Start 05/07/18 at 11:15 Lidocaine HCl (Xylocaine 2% Topical 5gm Tube) 1 yuliya 1X ONCE TP ; Start at 11:15; Stop 05/07/18 at 11:19; Status DC Lidocaine HCl (Viscous Lidocaine) 15 ml 1X ONCE MM ; Start 05/07/18 at 11:15; Stop 05/07/18 at 11:19; Status DC Benzocaine (Hurricaine One) 3 spray 1X ONCE MM ; Start 05/07/18 at 11:15; Stop 05/07/18 at 11:19; Status DC Propofol 20 ml @ As Directed STK-MED ONCE IV ; Start 05/07/18 at 11:25; Stop 05/07/18 at 11:26; Status DC Labetalol HCl (Normodyne Iv Push) 20 mg Q4HRS IVP Last administered on at 08:50; Start 05/07/18 at 16:00 Potassium Chloride (Klor-Con) 40 meq 1X ONCE PO ; Start 05/08/18 at 09:00; Stop 05/08/18 at 09:43; Status DC Potassium Chloride/Water 50 ml @ 50 mls/hr Q1H IV Last administered on at 11:22; Start 05/08/18 at 10:00; Stop 05/08/18 at 11:59 Active Scripts Active Reported Latanoprost 2.5 Ml Drops 1 Drop EACHEYE QHS Citalopram Hbr (Citalopram Hydrobromide) 10 Mg Tablet 1 Tab PO DAILY Dorzolamide Hcl 10 Ml Drops 1 Drop EACHEYE BID Metoprolol Succinate ( Xl ) (Metoprolol Succinate) 100 Mg Tab.er.24h 1 Tab PO DAILY Atorvastatin Calcium 40 Mg Tablet 1 Tab PO DAILY Lisinopril 40 Mg Tablet 1 Tab PO DAILY Amlodipine Besylate 10 Mg Tablet 10 Mg PO DAILY Metformin Hcl 500 Mg Tablet 500 Mg PO DAILY Lantus Solostar (Insulin Glargine,Hum.rec.anlog) 100 Unit/1 Ml Insuln.pen 30 Unit SQ QHS Vitals/I & O Vital Sign - Last 24 Hours 05/07/18 05/07/18 05/07/18 05/07/18 12:00 12:00 13:00 14:00 Temp 98.0 98.0 Pulse 98 95 86 Resp 17 18 18 B/P (MAP) 158/75 (102) 142/61 (88) 140/64 (89) Pulse Ox 99 99 99 O2 Delivery Nasal Cannula Nasal Cannula Room Air Room Air O2 Flow Rate 2.0 2.0 05/07/18 05/07/18 05/07/18 05/07/18 15:00 16:00 17:00 17:00 Temp 98.5 98.5 Pulse 93 93 84 Resp 16 15 B/P (MAP) 158/71 (100) 146/56 146/56 (86) Pulse Ox 96 99 O2 Delivery Room Air Nasal Cannula Room Air O2 Flow Rate 2.0 05/07/18 05/07/18 05/07/18 05/07/18 18:00 19:00 20:00 20:00 Temp 98.4 98.4 Pulse 87 91 90 Resp 16 13 14 B/P (MAP) 135/55 (81) 157/59 (91) 164/61 (95) Pulse Ox 100 100 100 O2 Delivery Room Air Room Air Room Air Room Air 05/07/18 05/07/18 05/07/18 05/07/18 20:07 21:00 22:00 22:15 Pulse 90 84 84 Resp 15 15 B/P (MAP) 164/61 160/61 (94) 176/76 (109) 187/80 (115) Pulse Ox 99 97 O2 Delivery Room Air Room Air 05/07/18 05/08/18 05/08/18 05/08/18 23:00 00:00 00:00 00:18 Temp 98.4 98.4 Pulse 88 90 88 Resp 14 13 B/P (MAP) 156/66 (96) 164/61 (95) 165/66 Pulse Ox 100 100 O2 Delivery Room Air Room Air Room Air 05/08/18 05/08/18 05/08/18 05/08/18 01:00 02:00 03:00 04:00 Temp 98.3 98.3 Pulse 82 Resp 16 B/P (MAP) 148/59 (88) 115/53 (73) 145/57 (86) Pulse Ox 97 99 O2 Delivery Room Air Room Air Room Air 05/08/18 05/08/18 05/08/18 05/08/18 04:00 04:06 05:00 06:00 Pulse 87 B/P (MAP) 162/71 (101) 162/71 149/66 (93) 153/67 (95) Pulse Ox 99 100 O2 Delivery Room Air Room Air 05/08/18 05/08/18 05/08/18 05/08/18 08:05 08:07 08:50 09:04 Temp 98.4 98.4 98.4 98.4 Pulse 87 87 87 Resp 18 18 B/P (MAP) 147/58 (87) 147/58 140/59 (86) Pulse Ox 100 100 O2 Delivery Room Air Room Air Room Air O2 Flow Rate 2.0 2.0 05/08/18 10:08 Temp 98.4 98.4 Pulse 77 B/P (MAP) 151/64 (93) Pulse Ox 100 O2 Delivery Room Air O2 Flow Rate 2.0 Intake and Output 05/07/18 05/07/18 05/08/18 15:00 23:00 07:00 Intake Total 789 ml 1244 ml 1397 ml Output Total 265 ml 816 ml 660 ml Balance 524 ml 428 ml 737 ml MELISSA DONG III DO May 08, 2018 11:57
--- NOTE | 2018-05-08 14:16 | PDOC2 ---
TIMI BEAVERS 05/08/18 1416: GI CONSULT Reason For Consult: Anemia HPI: HPI: 72 y/o female s/p stroke who has failed swallow eval. Per RN, GI consult requested re: possible PEG placement. History from chart, staff, family, and patient. GI-willis, no reflux/heartburn, previous dysphagia, n/v, abd pain, diarrhea, constipation, hematochezia, melena, or weight loss. S/p cholecystectomy (?and ERCP @ [facility]) - although I wonder if her is referring to cystoscopy/ ureteroscopy and stent placement. No previous EGD. Thinks normal colonoscopy at one point. No liver or pancreas history. PMH: PMH: HTN, HLD, CVA, OA, DM, glaucoma, nephrolithiasis, left orbit fracture, hysterectomy, cysto-ureteroscopy w/ stent placement, ?cholecystectomy FH: Family History: No pertinent hx Social History: Smoke: No ALCOHOL: none (used to enjoy an occasional whiskey sour, but none for years) Drugs: None ROS: GEN: Denies fevers, chills, sweats HEENT: Denies blurred vision, sore throat CV: Denies chest pain RESP: Denies shortness of air, cough GI: Per HPI : Denies hematuria, dysuria ENDO: Denies weight changes NEURO: Denies confusion, dizziness MSK: +weakness SKIN: Denies jaundice, pruritus Vitals: Vitals: Vital Signs Date Time Temp Pulse Resp B/P (MAP) Pulse Ox O2 Delivery O2 Flow Rate FiO2 05/08/18 12:37 81 156/65 05/08/18 12:19 99 Room Air 05/08/18 12:00 98.4 98.4 05/08/18 09:04 18 Labs: Labs: Laboratory Tests Test 05/07/18 17:03 05/07/18 23:53 05/08/18 05:35 05/08/18 05:44 Glucose (Fingerstick) 149 mg/dL (70-99) 128 mg/dL (70-99) 127 mg/dL (70-99) White Blood Count 6.4 x10^3/uL (4.0-11.0) Red Blood Count 4.09 x10^6/uL (3.50-5.40) Hemoglobin 10.6 g/dL (12.0-15.5) Hematocrit 31.1 % (36.0-47.0) Mean Corpuscular Volume 76 fL (79-100) Mean Corpuscular Hemoglobin 26 pg (25-35) Mean Corpuscular Hemoglobin Concent 34 g/dL (31-37) Red Cell Distribution Width 15.1 % (11.5-14.5) Platelet Count 178 x10^3/uL (140-400) Neutrophils (%) (Auto) 61 % (31-73) Lymphocytes (%) (Auto) 24 % (24-48) Monocytes (%) (Auto) 9 % (0-9) Eosinophils (%) (Auto) 5 % (0-3) Basophils (%) (Auto) 1 % (0-3) Neutrophils # (Auto) 3.9 x10^3uL (1.8-7.7) Lymphocytes # (Auto) 1.6 x10^3/uL (1.0-4.8) Monocytes # (Auto) 0.5 x10^3/uL (0.0-1.1) Eosinophils # (Auto) 0.3 x10^3/uL (0.0-0.7) Basophils # (Auto) 0.1 x10^3/uL (0.0-0.2) Sodium Level 146 mmol/L (136-145) Potassium Level 3.3 mmol/L (3.5-5.1) Chloride Level 113 mmol/L (98-107) Carbon Dioxide Level 21 mmol/L (21-32) Anion Gap 12 (6-14) Blood Urea Nitrogen 7 mg/dL (7-20) Creatinine 0.7 mg/dL (0.6-1.0) Estimated GFR (Cockcroft-Gault) 99.2 Glucose Level 126 mg/dL (70-99) Calcium Level 8.1 mg/dL (8.5-10.1) Test 05/08/18 12:42 Glucose (Fingerstick) 152 mg/dL (70-99) Allergies: Coded Allergies: No Known Drug Allergies (Unverified , 01/30/15) Medications: Current Medications Medications (Trade) Dose Ordered Sig/Nirali Route PRN Reason Start Time Stop Time Status Last Admin Dose Admin Labetalol HCl (Normodyne Iv Push) 20 mg Q4HRS IVP 05/07/18 16:00 05/08/18 12:37 Potassium Chloride/Water 50 ml @ 50 mls/hr Q1H IV 05/08/18 10:00 05/08/18 11:59 DC 05/08/18 11:22 Imaging: Imaging: Head CT IMPRESSION: 1. No acute intracranial abnormality. 2. Age-related cerebral atrophy and periventricular white matter changes of chronic small vessel ischemic disease. 3. Old left basal ganglia lacunar infarct. CXR Impression: 1. No acute cardiopulmonary process. Head/Neck CTA IMPRESSION: Normal CTA head and neck findings. Carotid Doppler IMPRESSION: No duplex evidence of significant carotid stenosis in the neck. Brain MRI Impression: Area of acute ischemia/infarction is seen involving lateral posterior aspect of the left basal ganglia region extending superiorly as outlined above. There is mild surrounding edema without significant mass effect. EUN <Conclusion> Normal LV function/wall motion. EF 65% No significant valvular disease. No GUILHERME thrombus or valvular pathology noted. The interatrial septum is intact and mildly aneurymsmal with no evidence for an atrial septal defect or patent foramen ovale as noted on 2-D or Doppler imaging. Agitated saline contrast study revealed delayed right to left shunt likely suggestive of pulmonary AVM. [employer] Bedside Swallow Eval: Pt demo's incomplete oral swallow and at least mod'ly impaired pharyngeal swallow w/ single ice chip and small bolus puree trials. Majority of puree bolus was retained in anterior sulcus & required removal by [employer]. Pt is at high risk for aspiration w/ all PO currently. Dysphagia appears c/w acute CVA. Duration of need for NPO dependent on progress over next few days. See full [employer] Bedside Swallow Eval for details. Recommendations: NPO w/ frequent oral care. Will continue [employer] f/u to determine safety of PO intake. PE: GEN: NAD HEENT: Atraumatic, PERRL LUNGS: CTAB HEART: RRR ABD: NABS, S/ND/NT EXTREMITY: No edema SKIN: No rashes, no jaundice NEURO/PSYCH: A & O 3, right-sided weakness A/P: A/P: Acute BG CVA w/ dysphagia Microcytic anemia CRC screen - past colonoscopy at some point -- Discussed PEG procedure and associated risks. Family wishes to discuss. Will check anemia parameters. 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 RN asking on TPN - will review w/ Dr. Blancas. AVERY BLANCAS MD 05/08/18 1444: TIMI BEAVERS May 08, 2018 14:16 AVERY BLANCAS MD May 08, 2018 14:44
--- NOTE | 2018-05-08 15:14 | PDOC ---
PROGRESS NOTES Assessment Assessment Hypertensive emergency, SBP 218 mmHg. Acute/subacute 2.6 cm infarct in the posterior aspect of the left BG. Cerebral edema. Hypertensive encephalopathy. Metabolic encephalopathy. Increased weakness in right UE. Hypoglycemia, glucose level 39. DM. UTI. Fall. HTN. HLD. Pulmonary hypertension, PA pressure 55. 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 Dysphagia. RECOMMENDATIONS/PLAN: BP control. ASA 300 mg RC daily, change to Plavix 75 mg daily if can take PO or have PEG. Lipitor 20 mg HS. Treat medical diseases. PEG placement. OT/PT. Rehab. Discussed with her and son in all detail at bedside in ICU on 05/08/18. CT : Old CVA. CTA: Negative. Brain MRI: see above stroke. EEG on 05/06/18: Encephalopathy. HISTORY OF THE PRESENT ILLNESS: 72-y-old AA female patient with above medical diseases and previous stroke with right side hemiplegia. She has mental status changes as unresponsiveness, so EMS was called and her glucose level was revealed 39. she was administrated dextrose, but her MS did not improve. She was brought to the ER of [facility] and her SBP was 218 mmHg. Past Medical History CVA, Diabetes-Type II, Hypertension, HLD. Cardiovascular: HTN Pulmonary: Asthma CENTRAL NERVOUS SYSTEM: CVA GI: Constipation Infectious disease: No pertinent hx Renal/: No pertinent hx Endocrine: Diabetes Dermatology: No pertinent hx Past Surgical History Hysterectomy, tumor in neck removed. Family History Diabetes, Other (mother had cva) ALLERGY: NKDA MEDICATIONS: Refer to MAR. SOCIAL HISTORY: Denies smoking, drinking, and illicit drug use. REVIEW OF SYSTEMS: Constitutional: Obesity. Head: No recent traumatic brain or head injury. Skin: No edema, or rash. Ear: No infection. Eyes: No vision loss or color blindness. Nose: No bleeding or purulent discharges. Hearing: No hearing decrease. Neck: No injury. Breast: No history of cancer, masses,or discharges. Cardiac: HTN, HLD. Pulmonary: No COPD. GI: No GI ulcer, GI bleeding. Urinary/genital: UTI. Endocrinologic: Diabetes Mellitus, hypothyroidism, obesity. Skeletomuscular: Right side hemiplegia. Neurological: see HP. Psychiatric: Denies drug use/abuse. Otherwise, not [id number] review of systems. PHYSICAL EXAMINATION: General appearance is in subacute distress. HEENT: Normocephalic and nontraumatic. Eyes, nose, ears, and throat are unremarkable. Neck is supple. No lymphadenopathy. No crepitus. Cardiovascular: S1, S2, regular rate and rhythm. Pulmonary: Clear to auscultation bilaterally. Abdomen: Bowel sounds are positive. Extremities: No rash, lesions, or edema. No restriction of range of motion NEUROLOGICAL EXAMINATION: Awake. Able to sit. Not oriented to time, but knew place and person. Able to follow a few commands. PERRL. EOMI. 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 Muscle tone: Decreased in right UE and LE, normal in left side. Muscle strength: 0-1 right UE, 2 right LE. 5- left side. DTR: 0 right UE, 1 right LE, 2 left side. Plantar reflex: Extensor response, right side. Gait: Unable to walk. Sensory exam: no acute abnormal findings. No cerebellar signs elicited. F-T-N test fine on the left side. Objective Objective Vital Signs Date Time Temp Pulse Resp B/P (MAP) Pulse Ox O2 Delivery O2 Flow Rate FiO2 05/08/18 12:37 81 156/65 05/08/18 12:19 99 Room Air 05/08/18 12:00 98.4 98.4 05/08/18 09:04 18 Intake and Output 05/08/18 07:00 Intake Total 3430 ml Output Total 1741 ml Balance 1689 ml IV Total 3430 ml Output Urine Total 1741 ml Vitals Signs Vitals VS - Last 72 Hours, by Label Date Time Temp Pulse Resp B/P (MAP) Pulse Ox O2 Delivery O2 Flow Rate FiO2 05/08/18 12:37 81 156/65 05/08/18 12:19 99 Room Air 05/08/18 12:00 98.4 77 155/65 (95) 100 Room Air 98.4 05/08/18 12:00 Room Air 05/08/18 11:00 98.4 77 151/64 (93) 100 Room Air 2.0 98.4 05/08/18 10:08 98.4 77 151/64 (93) 100 Room Air 2.0 98.4 05/08/18 09:04 98.4 87 18 140/59 (86) 100 Room Air 2.0 98.4 05/08/18 08:50 87 147/58 05/08/18 08:07 Room Air 05/08/18 08:05 98.4 87 18 147/58 (87) 100 Room Air 2.0 98.4 05/08/18 06:00 153/67 (95) 05/08/18 05:00 149/66 (93) 100 Room Air 05/08/18 04:06 87 162/71 05/08/18 04:00 162/71 (101) 99 Room Air 05/08/18 04:00 Room Air 05/08/18 03:00 98.3 145/57 (86) 99 Room Air 98.3 05/08/18 02:00 82 16 115/53 (73) 97 Room Air 05/08/18 01:00 148/59 (88) 05/08/18 00:18 88 165/66 05/08/18 00:00 98.4 90 13 164/61 (95) 100 Room Air 98.4 05/08/18 00:00 Room Air 05/07/18 23:00 88 14 156/66 (96) 100 Room Air 05/07/18 22:15 187/80 (115) 05/07/18 22:00 84 15 176/76 (109) 97 Room Air 05/07/18 21:00 84 15 160/61 (94) 99 Room Air 05/07/18 20:07 90 164/61 05/07/18 20:00 Room Air 05/07/18 20:00 98.4 90 14 164/61 (95) 100 Room Air 98.4 05/07/18 19:00 91 13 157/59 (91) 100 Room Air 05/07/18 18:00 87 16 135/55 (81) 100 Room Air 05/07/18 17:00 98.5 84 15 146/56 (86) 99 Room Air 98.5 05/07/18 17:00 93 146/56 05/07/18 16:00 Nasal Cannula 2.0 05/07/18 15:00 93 16 158/71 (100) 96 Room Air 05/07/18 14:00 86 18 140/64 (89) 99 Room Air 05/07/18 13:00 95 18 142/61 (88) 99 Room Air 05/07/18 12:00 Nasal Cannula 2.0 05/07/18 12:00 98.0 98 17 158/75 (102) 99 Nasal Cannula 2.0 98.0 05/07/18 11:00 92 15 155/66 (95) 99 Room Air 05/07/18 10:00 110 22 148/59 (88) 98 Room Air 05/07/18 09:00 107 21 140/58 (85) 100 Room Air 05/07/18 08:00 98.9 84 17 134/58 (83) 98 Room Air 98.9 05/07/18 08:00 Room Air 05/07/18 07:00 86 18 117/57 (77) 99 Room Air Laboratory Laboratory Laboratory Tests Test 05/07/18 17:03 05/07/18 23:53 05/08/18 05:35 05/08/18 05:44 Glucose (Fingerstick) 149 mg/dL (70-99) 128 mg/dL (70-99) 127 mg/dL (70-99) White Blood Count 6.4 x10^3/uL (4.0-11.0) Red Blood Count 4.09 x10^6/uL (3.50-5.40) Hemoglobin 10.6 g/dL (12.0-15.5) Hematocrit 31.1 % (36.0-47.0) Mean Corpuscular Volume 76 fL (79-100) Mean Corpuscular Hemoglobin 26 pg (25-35) Mean Corpuscular Hemoglobin Concent 34 g/dL (31-37) Red Cell Distribution Width 15.1 % (11.5-14.5) Platelet Count 178 x10^3/uL (140-400) Neutrophils (%) (Auto) 61 % (31-73) Lymphocytes (%) (Auto) 24 % (24-48) Monocytes (%) (Auto) 9 % (0-9) Eosinophils (%) (Auto) 5 % (0-3) Basophils (%) (Auto) 1 % (0-3) Neutrophils # (Auto) 3.9 x10^3uL (1.8-7.7) Lymphocytes # (Auto) 1.6 x10^3/uL (1.0-4.8) Monocytes # (Auto) 0.5 x10^3/uL (0.0-1.1) Eosinophils # (Auto) 0.3 x10^3/uL (0.0-0.7) Basophils # (Auto) 0.1 x10^3/uL (0.0-0.2) Sodium Level 146 mmol/L (136-145) Potassium Level 3.3 mmol/L (3.5-5.1) Chloride Level 113 mmol/L (98-107) Carbon Dioxide Level 21 mmol/L (21-32) Anion Gap 12 (6-14) Blood Urea Nitrogen 7 mg/dL (7-20) Creatinine 0.7 mg/dL (0.6-1.0) Estimated GFR (Cockcroft-Gault) 99.2 Glucose Level 126 mg/dL (70-99) Calcium Level 8.1 mg/dL (8.5-10.1) Test 05/08/18 12:42 Glucose (Fingerstick) 152 mg/dL (70-99) Microbiology 05/05/18 Blood Culture - Preliminary, Resulted NO GROWTH AFTER 2 DAYS 05/05/18 Urine Culture - Preliminary, Resulted 05/05/18 Urine Culture Result 1 (JULIÁN) - Preliminary, Resulted Medication Medications Current Medications Famotidine (Pepcid Vial) 20 mg QHS IVP ; Start 05/08/18 at 21:00 Labetalol HCl (Normodyne Iv Push) 20 mg Q4HRS IVP Last administered on at 12:37; Start 05/07/18 at 16:00 Potassium Chloride/Water 50 ml @ 50 mls/hr Q1H IV Last administered on at 11:22; Start 05/08/18 at 10:00; Stop 05/08/18 at 11:59; Status DC Potassium Chloride (Klor-Con) 40 meq 1X ONCE PO ; Start 05/08/18 at 09:00; Stop 05/08/18 at 09:43; Status DC Comment Review of Relevant I have reviewed the following items angelica (where applicable) has been applied. ALVARO FOUNTAIN MD May 08, 2018 15:14
[2018-05-08 17:10] LABS: CREATININE 0.7 mg/dL (0.6-1.0); GFR 99.2
[2018-05-08] MEDS: cefTRIAXone IV Push 1 GM VIAL. IVP SCH (17:21)
[2018-05-08] MEDS: AMINO AC 3%/ELECTROLYTE/GLYCER 1,000 ML IV SCH (17:24)
[2018-05-08] MEDS: ATORVASTATIN CALCIUM 20 MG TABLET PO SCH (20:09)
[2018-05-08] MEDS: FAMOTIDINE 20 MG/2 ML VIAL IVP SCH (21:46)
[2018-05-09] VITALS (7 sets, daily range): BP systolic 141–173; BP diastolic 58–84
[2018-05-09] MEDS: LABETALOL 20 MG/4 ML DISP.SYRIN. IVP SCH ×7 (00:06→23:48)
[2018-05-09] MEDS: INSULIN LISPRO 300 UNITS/3 ML INSULN.PEN. SQ SCH ×5 (06:00→23:33)
[2018-05-09 07:16] LABS: BASO # 0.1 x10^3/uL (0.0-0.2); BASO % 2 % (0-3); EOS # 0.3 x10^3/uL (0.0-0.7); EOS % 6 % (0-3); HEMATOCRIT 31.8 % (36.0-47.0); LYMPH # 1.6 x10^3/uL (1.0-4.8); LYMPH % 30 % (24-48); MEAN CORPUSCULAR HEMOGLOBIN 26 pg (25-35); MEAN CORPUSCULAR HGB CONC 35 g/dL (31-37); MEAN CORPUSCULAR VOLUME 75 fL (79-100); MONO # 0.5 x10^3/uL (0.0-1.1); MONO % 9 % (0-9); NEUT # 2.9 x10^3uL (1.8-7.7); NEUT % 53 % (31-73); PLATELET COUNT 178 x10^3/uL (140-400); RED BLOOD COUNT 4.23 x10^6/uL (3.50-5.40); WHITE BLOOD COUNT 5.4 x10^3/uL (4.0-11.0)
[2018-05-09] MEDS: CLOPIDOGREL BISULFATE 75 MG TABLET PO SCH (07:21)
[2018-05-09 07:23] LABS: CALCIUM 8.6 mg/dL (8.5-10.1); CREATININE 0.7 mg/dL (0.6-1.0); GFR 99.2; POTASSIUM 3.6 mmol/L (3.5-5.1)
[2018-05-09] MEDS: AMINO AC 3%/ELECTROLYTE/GLYCER 1,000 ML IV SCH ×2 (07:58→20:29)
[2018-05-09] MEDS: ASPIRIN 300 MG SUPP.RECT PR SCH (08:03)
--- NOTE | 2018-05-09 08:54 | PDOC2 ---
CONSULT Date of Consult Date of Consult DATE: 05/09/18 TIME: 08:44 Reason for Consult Reason for Consult: Low UOP Referring Physician Referring Physician: Dr. Flores Source Source: Chart review, Patient History of Present Illness Reason for Visit: This is a 72 yo AA female admitted for increased right side weakness and decreased mentation. She was noted initially at home with BG in the 30s. and upon further check her BP was very high. Presently pt is not in any distress and nods yes no to closed ended questions and no CP nor SOA. Renal Consulted for Decreased UOP. She has a Grubbs. Has Good UOP as per RN as well . No Other specific concerns voiced by Nursing PMHx-- HTN, CVA (right side hemiparesis and aphasia),Diabetes (2) Past Medical History Cardiovascular: HTN, Hyperlipidemia Pulmonary: Asthma CENTRAL NERVOUS SYSTEM: CVA (right side hemiparesis and aphasia) GI: Constipation Musculoskeletal: Osteoarthritis Infectious disease: No pertinent hx ENT: Other (glaucoma) Renal/: No pertinent hx Endocrine: Diabetes (2) Dermatology: No pertinent hx Past Surgical History Past Surgical History: Hysterectomy Family History Family History: Family History Unknown Social History Social History: Parent No ALCOHOL: none (used to enjoy an occasional whiskey sour, but none for years) Drugs: None Lives: with Family Current Problem List Problem List Problems Medical Problems: (1) Acute encephalopathy Status: Acute (2) CVA (cerebral vascular accident) Status: Acute Current Medications Current Medications Current Medications Sodium Chloride 1,000 ml @ 1,000 mls/hr Q1H IV Last administered on at 10:30; Start 05/05/18 at 09:53; Stop 05/05/18 at 10:52; Status DC Dextrose/Sodium Chloride 1,000 ml @ 75 mls/hr 1X ONCE IV Last administered on 05/05/18at 10:30; Start 05/05/18 at 10:00; Stop 05/05/18 at 15:56; Status DC Iohexol (Omnipaque 300 Mg/ml) 75 ml 1X ONCE IV ; Start 05/05/18 at 11:15; Stop 05/05/18 at 11:18; Status DC Info (CONTRAST GIVEN -- Rx MONITORING) 1 each PRN DAILY PRN MC SEE COMMENTS; Start 05/05/18 at 11:30; Stop 05/07/18 at 11:29; Status DC Sodium Chloride 1,000 ml @ 100 mls/hr Q10H IV Last administered on 05/08/18at 08:49; Start 05/05/18 at 16:00; Stop 05/08/18 at 16:46; Status DC Enalaprilat (Vasotec Inj) 1.25 mg PRN Q6HRS PRN IVP HYPERTENSION, SEE COMMENTS Last administered on 05/05/18at 16:30; Start 05/05/18 at 16:15 Ceftriaxone Sodium 1 gm/ Dextrose 50 ml @ 100 mls/hr Q24H IV ; Start 05/05/18 at 17:00; Status UNV Ceftriaxone Sodium (Rocephin) 1 gm Q24H IVP Last administered on 05/08/18at 17: 21; Start 05/05/18 at 17:00 Sodium Chloride (Normal Saline Flush 3ml) 3 ml QSHIFT PRN IV AFTER MEDS AND BLOOD DRAWS; Start 05/05/18 at 17:00 Ondansetron HCl (Zofran) 4 mg PRN Q4HRS PRN IV NAUSEA/VOMITING; Start at 17:00 Acetaminophen (Tylenol Supp) 650 mg PRN Q4HRS PRN NE TEMP OVER 100.4F OR MILD PAIN; Start 05/05/18 at 17:00 Albuterol Sulfate (Ventolin Neb Soln) 2.5 mg PRN Q4HRS PRN NEB SHORTNESS OF BREATH; Start 05/05/18 at 17:00 Levofloxacin/ Dextrose 100 ml @ 100 mls/hr Q24H IV Last administered on at 17:20; Start 05/05/18 at 17:00; Stop 05/06/18 at 16:22; Status DC Enalaprilat (Vasotec Inj) 2.5 mg 1X ONCE IVP Last administered on 05/05/18at 17:12; Start 05/05/18 at 17:15; Stop 05/05/18 at 17:16; Status DC Nicardipine HCl 50 mg/Sodium Chloride 270 ml @ 27 mls/hr CONT PRN IV SEE I/O RECORD; Start 05/05/18 at 17:45; Stop 05/05/18 at 17:45; Status DC Nicardipine/ Sodium Chloride 200 ml @ 27 mls/hr CONT PRN IV SEE I/O RECORD Last administered on 05/07/18at 02:46; Start 05/05/18 at 17:45; Stop 05/07/18 at 09:40; Status DC Aspirin (Ev Aspirin) 325 mg DAILYWBKFT PO ; Start 05/05/18 at 19:00; Stop 05/07/18 at 09:43; Status DC Aspirin (Aspirin) 300 mg 1X ONCE NE ; Start 05/06/18 at 10:00; Stop 05/06/18 at 10:01; Status DC Clopidogrel Bisulfate (Plavix) 75 mg DAILYWBKFT PO ; Start 05/06/18 at 12:00 Atorvastatin Calcium (Lipitor) 20 mg QHS PO ; Start 05/06/18 at 21:00 Aspirin (Aspirin) 300 mg DAILY NE Last administered on 05/09/18at 08:03; Start 05/07/18 at 09:00 Insulin Human Lispro (HumaLOG) 0-7 UNITS TIDWMEALS SQ Last administered on at 17:21; Start 05/06/18 at 17:00; Stop 05/06/18 at 19:17; Status DC Dextrose (Dextrose 50%-Water Syringe) 12.5 gm PRN Q15MIN PRN IV SEE COMMENTS; Start 05/06/18 at 16:45; Stop 05/06/18 at 19:20; Status DC Sodium Chloride 500 ml @ 500 mls/hr 1X ONCE IV ; Start 05/06/18 at 18:15; Stop 05/06/18 at 19:14; Status DC Sodium Chloride 1,000 ml @ 100 mls/hr Q10H IV Last administered on 05/06/18at 19:39; Start 05/06/18 at 18:15; Stop 05/07/18 at 13:03; Status DC Insulin Human Lispro (HumaLOG) 0-9 UNITS Q6HRS SQ ; Start 05/07/18 at 00:00 Dextrose (Dextrose 50%-Water Syringe) 12.5 gm PRN Q15MIN PRN IV SEE COMMENTS; Start 05/06/18 at 19:15 Sodium Chloride 1,000 ml @ 1,000 mls/hr 1X ONCE IV Last administered on 05/06at 21:35; Start 05/06/18 at 21:30; Stop 05/06/18 at 22:29; Status DC Nicardipine HCl 50 mg/Sodium Chloride 270 ml @ 0 mls/hr CONT PRN IV SEE I/O RECORD Last administered on 05/07/18at 22:59; Start 05/07/18 at 07:15 Sodium Chloride (Normal Saline Flush) 10 ml QSHIFT PRN IV AFTER MEDS AND BLOOD DRAWS; Start 05/07/18 at 11:15 Lidocaine HCl (Xylocaine 2% Topical 5gm Tube) 1 yuliya 1X ONCE TP ; Start at 11:15; Stop 05/07/18 at 11:19; Status DC Lidocaine HCl (Viscous Lidocaine) 15 ml 1X ONCE MM ; Start 05/07/18 at 11:15; Stop 05/07/18 at 11:19; Status DC Benzocaine (Hurricaine One) 3 spray 1X ONCE MM ; Start 05/07/18 at 11:15; Stop 05/07/18 at 11:19; Status DC Propofol 20 ml @ As Directed STK-MED ONCE IV ; Start 05/07/18 at 11:25; Stop 05/07/18 at 11:26; Status DC Labetalol HCl (Normodyne Iv Push) 20 mg Q4HRS IVP Last administered on at 08:00; Start 05/07/18 at 16:00 Potassium Chloride (Klor-Con) 40 meq 1X ONCE PO ; Start 05/08/18 at 09:00; Stop 05/08/18 at 09:43; Status DC Potassium Chloride/Water 50 ml @ 50 mls/hr Q1H IV Last administered on at 11:22; Start 05/08/18 at 10:00; Stop 05/08/18 at 11:59; Status DC Famotidine (Pepcid Vial) 20 mg QHS IVP Last administered on 05/08/18at 21:46; Start 05/08/18 at 21:00 Amino Acids/ Glycerin/ Electrolytes 1,000 ml @ 75 mls/hr [id number] IV Last administered on 05/09/18at 07:58; Start 05/08/18 at 16:45 Active Scripts Active Reported Latanoprost 2.5 Ml Drops 1 Drop EACHEYE QHS Citalopram Hbr (Citalopram Hydrobromide) 10 Mg Tablet 1 Tab PO DAILY Dorzolamide Hcl 10 Ml Drops 1 Drop EACHEYE BID Metoprolol Succinate ( Xl ) (Metoprolol Succinate) 100 Mg Tab.er.24h 1 Tab PO DAILY Atorvastatin Calcium 40 Mg Tablet 1 Tab PO DAILY Lisinopril 40 Mg Tablet 1 Tab PO DAILY Amlodipine Besylate 10 Mg Tablet 10 Mg PO DAILY Metformin Hcl 500 Mg Tablet 500 Mg PO DAILY Lantus Solostar (Insulin Glargine,Hum.rec.anlog) 100 Unit/1 Ml Insuln.pen 30 Unit SQ QHS Allergies Allergies: Coded Allergies: No Known Drug Allergies (Unverified , 01/30/15) ROS Review of System Pt Mostly just Nods , ROS as per HPI Physical Exam Physical Exam General: No acute distress HEENT: Mucous membr. moist/pink Neck No JVD Lungs: Clear to auscultation Heart: Regular rate Normal S1, Normal S2, 2/6 systolic murmur to LLS border Abdomen: Soft, No tenderness Extremities: No Edema Skin: No rash Neuro: aphasia) Psych/Mental Status: cooperative) - Grubbs + Vital Signs Vital Signs Date Time Temp Pulse Resp B/P (MAP) Pulse Ox O2 Delivery O2 Flow Rate FiO2 05/09/18 08:00 75 165/71 05/09/18 08:00 Room Air 05/09/18 07:51 98.6 16 98.6 05/09/18 04:03 95 05/08/18 12:00 Assessment & Plan Decreased UOP -Renal consulted for decreased uop Urine output is adequate DW RN , just emptied another 1000 ml Creatinine Normal, E-Lytes Normal Acute BG CVA- as per neuro Hx of CVA HTN; better with cardene Cardiology following DW RN at bedside Will sign off Labs Labs Laboratory Tests Test 05/07/18 12:57 05/07/18 17:03 05/07/18 23:53 05/08/18 05:35 Glucose (Fingerstick) 150 mg/dL (70-99) 149 mg/dL (70-99) 128 mg/dL (70-99) White Blood Count 6.4 x10^3/uL (4.0-11.0) Red Blood Count 4.09 x10^6/uL (3.50-5.40) Hemoglobin 10.6 g/dL (12.0-15.5) Hematocrit 31.1 % (36.0-47.0) Mean Corpuscular Volume 76 fL (79-100) Mean Corpuscular Hemoglobin 26 pg (25-35) Mean Corpuscular Hemoglobin Concent 34 g/dL (31-37) Red Cell Distribution Width 15.1 % (11.5-14.5) Platelet Count 178 x10^3/uL (140-400) Neutrophils (%) (Auto) 61 % (31-73) Lymphocytes (%) (Auto) 24 % (24-48) Monocytes (%) (Auto) 9 % (0-9) Eosinophils (%) (Auto) 5 % (0-3) Basophils (%) (Auto) 1 % (0-3) Neutrophils # (Auto) 3.9 x10^3uL (1.8-7.7) Lymphocytes # (Auto) 1.6 x10^3/uL (1.0-4.8) Monocytes # (Auto) 0.5 x10^3/uL (0.0-1.1) Eosinophils # (Auto) 0.3 x10^3/uL (0.0-0.7) Basophils # (Auto) 0.1 x10^3/uL (0.0-0.2) Reticulocyte Count (auto) 0.6 % (0.5-2.5) Sodium Level 146 mmol/L (136-145) Potassium Level 3.3 mmol/L (3.5-5.1) Chloride Level 113 mmol/L (98-107) Carbon Dioxide Level 21 mmol/L (21-32) Anion Gap 12 (6-14) Blood Urea Nitrogen 7 mg/dL (7-20) Creatinine 0.7 mg/dL (0.6-1.0) Estimated GFR (Cockcroft-Gault) 99.2 Glucose Level 126 mg/dL (70-99) Calcium Level 8.1 mg/dL (8.5-10.1) Iron Level 28 ug/dL (50-170) Total Iron Binding Capacity 149 ug/dL (250-450) Iron Saturation 19 % (15-34) Vitamin B12 Level 334 pg/mL (247-911) Test 05/08/18 05:44 05/08/18 12:42 05/08/18 16:50 05/08/18 23:58 Glucose (Fingerstick) 127 mg/dL (70-99) 152 mg/dL (70-99) 128 mg/dL (70-99) Sodium Level 144 mmol/L (136-145) Potassium Level 4.0 mmol/L (3.5-5.1) Chloride Level 111 mmol/L (98-107) Carbon Dioxide Level 22 mmol/L (21-32) Anion Gap 11 (6-14) Blood Urea Nitrogen 8 mg/dL (7-20) Creatinine 0.7 mg/dL (0.6-1.0) Estimated GFR (Cockcroft-Gault) 99.2 Glucose Level 134 mg/dL (70-99) Calcium Level 8.0 mg/dL (8.5-10.1) Test 05/09/18 06:11 05/09/18 07:00 Glucose (Fingerstick) 106 mg/dL (70-99) White Blood Count 5.4 x10^3/uL (4.0-11.0) Red Blood Count 4.23 x10^6/uL (3.50-5.40) Hemoglobin 11.0 g/dL (12.0-15.5) Hematocrit 31.8 % (36.0-47.0) Mean Corpuscular Volume 75 fL (79-100) Mean Corpuscular Hemoglobin 26 pg (25-35) Mean Corpuscular Hemoglobin Concent 35 g/dL (31-37) Red Cell Distribution Width 15.0 % (11.5-14.5) Platelet Count 178 x10^3/uL (140-400) Neutrophils (%) (Auto) 53 % (31-73) Lymphocytes (%) (Auto) 30 % (24-48) Monocytes (%) (Auto) 9 % (0-9) Eosinophils (%) (Auto) 6 % (0-3) Basophils (%) (Auto) 2 % (0-3) Neutrophils # (Auto) 2.9 x10^3uL (1.8-7.7) Lymphocytes # (Auto) 1.6 x10^3/uL (1.0-4.8) Monocytes # (Auto) 0.5 x10^3/uL (0.0-1.1) Eosinophils # (Auto) 0.3 x10^3/uL (0.0-0.7) Basophils # (Auto) 0.1 x10^3/uL (0.0-0.2) Sodium Level 141 mmol/L (136-145) Potassium Level 3.6 mmol/L (3.5-5.1) Chloride Level 107 mmol/L (98-107) Carbon Dioxide Level 26 mmol/L (21-32) Anion Gap 8 (6-14) Blood Urea Nitrogen 9 mg/dL (7-20) Creatinine 0.7 mg/dL (0.6-1.0) Estimated GFR (Cockcroft-Gault) 99.2 Glucose Level 136 mg/dL (70-99) Calcium Level 8.6 mg/dL (8.5-10.1) Laboratory Tests Test 05/08/18 12:42 05/08/18 16:50 05/08/18 23:58 05/09/18 06:11 Glucose (Fingerstick) 152 mg/dL (70-99) 128 mg/dL (70-99) 106 mg/dL (70-99) Sodium Level 144 mmol/L (136-145) Potassium Level 4.0 mmol/L (3.5-5.1) Chloride Level 111 mmol/L (98-107) Carbon Dioxide Level 22 mmol/L (21-32) Anion Gap 11 (6-14) Blood Urea Nitrogen 8 mg/dL (7-20) Creatinine 0.7 mg/dL (0.6-1.0) Estimated GFR (Cockcroft-Gault) 99.2 Glucose Level 134 mg/dL (70-99) Calcium Level 8.0 mg/dL (8.5-10.1) Test 05/09/18 07:00 White Blood Count 5.4 x10^3/uL (4.0-11.0) Red Blood Count 4.23 x10^6/uL (3.50-5.40) Hemoglobin 11.0 g/dL (12.0-15.5) Hematocrit 31.8 % (36.0-47.0) Mean Corpuscular Volume 75 fL (79-100) Mean Corpuscular Hemoglobin 26 pg (25-35) Mean Corpuscular Hemoglobin Concent 35 g/dL (31-37) Red Cell Distribution Width 15.0 % (11.5-14.5) Platelet Count 178 x10^3/uL (140-400) Neutrophils (%) (Auto) 53 % (31-73) Lymphocytes (%) (Auto) 30 % (24-48) Monocytes (%) (Auto) 9 % (0-9) Eosinophils (%) (Auto) 6 % (0-3) Basophils (%) (Auto) 2 % (0-3) Neutrophils # (Auto) 2.9 x10^3uL (1.8-7.7) Lymphocytes # (Auto) 1.6 x10^3/uL (1.0-4.8) Monocytes # (Auto) 0.5 x10^3/uL (0.0-1.1) Eosinophils # (Auto) 0.3 x10^3/uL (0.0-0.7) Basophils # (Auto) 0.1 x10^3/uL (0.0-0.2) Sodium Level 141 mmol/L (136-145) Potassium Level 3.6 mmol/L (3.5-5.1) Chloride Level 107 mmol/L (98-107) Carbon Dioxide Level 26 mmol/L (21-32) Anion Gap 8 (6-14) Blood Urea Nitrogen 9 mg/dL (7-20) Creatinine 0.7 mg/dL (0.6-1.0) Estimated GFR (Cockcroft-Gault) 99.2 Glucose Level 136 mg/dL (70-99) Calcium Level 8.6 mg/dL (8.5-10.1) Review All relevant outside records, renal labs, imaging studies, telemetry/EKG's were reviewed. BALTAZAR GODDARD MD May 09, 2018 08:54
--- NOTE | 2018-05-09 13:01 | PDOC ---
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 H/o HTN H/o HLD History of Present Illness History of Present Illness Pt seen and examined in the ICU at bedside Discussed with RN Pt laying in bed, resting Vitals Vitals Vital Signs Date Time Temp Pulse Resp B/P (MAP) Pulse Ox O2 Delivery O2 Flow Rate FiO2 05/09/18 12:52 75 163/67 05/09/18 11:00 98.7 16 99 Room Air 98.7 05/08/18 12:00 Physical Exam General: Alert, No acute distress Heart: Regular rate (SR no significant ectopies), Normal S1, Normal S2, Other ( 2/6 systolic murmur to LLS border) Lungs: Clear Abdomen: Soft, No tenderness Extremities: No clubbing, No cyanosis, Other (trace LE edema) Skin: No rashes, No breakdown Labs LABS Laboratory Tests Test 05/08/18 16:50 05/08/18 23:58 05/09/18 06:11 05/09/18 07:00 Sodium Level 144 mmol/L (136-145) 141 mmol/L (136-145) Potassium Level 4.0 mmol/L (3.5-5.1) 3.6 mmol/L (3.5-5.1) Chloride Level 111 mmol/L (98-107) 107 mmol/L (98-107) Carbon Dioxide Level 22 mmol/L (21-32) 26 mmol/L (21-32) Anion Gap 11 (6-14) 8 (6-14) Blood Urea Nitrogen 8 mg/dL (7-20) 9 mg/dL (7-20) Creatinine 0.7 mg/dL (0.6-1.0) 0.7 mg/dL (0.6-1.0) Estimated GFR (Cockcroft-Gault) 99.2 99.2 Glucose Level 134 mg/dL (70-99) 136 mg/dL (70-99) Calcium Level 8.0 mg/dL (8.5-10.1) 8.6 mg/dL (8.5-10.1) Glucose (Fingerstick) 128 mg/dL (70-99) 106 mg/dL (70-99) White Blood Count 5.4 x10^3/uL (4.0-11.0) Red Blood Count 4.23 x10^6/uL (3.50-5.40) Hemoglobin 11.0 g/dL (12.0-15.5) Hematocrit 31.8 % (36.0-47.0) Mean Corpuscular Volume 75 fL (79-100) Mean Corpuscular Hemoglobin 26 pg (25-35) Mean Corpuscular Hemoglobin Concent 35 g/dL (31-37) Red Cell Distribution Width 15.0 % (11.5-14.5) Platelet Count 178 x10^3/uL (140-400) Neutrophils (%) (Auto) 53 % (31-73) Lymphocytes (%) (Auto) 30 % (24-48) Monocytes (%) (Auto) 9 % (0-9) Eosinophils (%) (Auto) 6 % (0-3) Basophils (%) (Auto) 2 % (0-3) Neutrophils # (Auto) 2.9 x10^3uL (1.8-7.7) Lymphocytes # (Auto) 1.6 x10^3/uL (1.0-4.8) Monocytes # (Auto) 0.5 x10^3/uL (0.0-1.1) Eosinophils # (Auto) 0.3 x10^3/uL (0.0-0.7) Basophils # (Auto) 0.1 x10^3/uL (0.0-0.2) Test 05/09/18 12:20 Glucose (Fingerstick) 153 mg/dL (70-99) Review of Systems Review of Systems Pt denies any fevers, chills, ESCOBEDO, CP, or SOA. Assessment and Plan Assessmemt and Plan Problems Medical Problems: (1) Acute encephalopathy Status: Acute (2) CVA (cerebral vascular accident) Status: Acute Assessment: Acute encephalopathy Hypertensive emergency with SBP 200s CVA Hypokalemia Microcytic anemia UTI T2DM Hypoglycemia, glucose level 39 on admission H/o left BG lacunar infarct with right sided hemiplegia H/o HTN H/o HLD Plan: Transfer to cardiovascular care floor Cardiac monitoring Labs PT/OT/ST Home meds Off cardene drip BP control PEG and TPN per GI DVT ppx Discharge to SNU vs. rehab on Friday Comment Review of Relevant I have reviewed the following items angelica (where applicable) has been applied. Labs Laboratory Tests Test 05/07/18 17:03 05/07/18 23:53 05/08/18 05:35 05/08/18 05:44 Glucose (Fingerstick) 149 mg/dL (70-99) 128 mg/dL (70-99) 127 mg/dL (70-99) White Blood Count 6.4 x10^3/uL (4.0-11.0) Red Blood Count 4.09 x10^6/uL (3.50-5.40) Hemoglobin 10.6 g/dL (12.0-15.5) Hematocrit 31.1 % (36.0-47.0) Mean Corpuscular Volume 76 fL (79-100) Mean Corpuscular Hemoglobin 26 pg (25-35) Mean Corpuscular Hemoglobin Concent 34 g/dL (31-37) Red Cell Distribution Width 15.1 % (11.5-14.5) Platelet Count 178 x10^3/uL (140-400) Neutrophils (%) (Auto) 61 % (31-73) Lymphocytes (%) (Auto) 24 % (24-48) Monocytes (%) (Auto) 9 % (0-9) Eosinophils (%) (Auto) 5 % (0-3) Basophils (%) (Auto) 1 % (0-3) Neutrophils # (Auto) 3.9 x10^3uL (1.8-7.7) Lymphocytes # (Auto) 1.6 x10^3/uL (1.0-4.8) Monocytes # (Auto) 0.5 x10^3/uL (0.0-1.1) Eosinophils # (Auto) 0.3 x10^3/uL (0.0-0.7) Basophils # (Auto) 0.1 x10^3/uL (0.0-0.2) Reticulocyte Count (auto) 0.6 % (0.5-2.5) Sodium Level 146 mmol/L (136-145) Potassium Level 3.3 mmol/L (3.5-5.1) Chloride Level 113 mmol/L (98-107) Carbon Dioxide Level 21 mmol/L (21-32) Anion Gap 12 (6-14) Blood Urea Nitrogen 7 mg/dL (7-20) Creatinine 0.7 mg/dL (0.6-1.0) Estimated GFR (Cockcroft-Gault) 99.2 Glucose Level 126 mg/dL (70-99) Calcium Level 8.1 mg/dL (8.5-10.1) Iron Level 28 ug/dL (50-170) Total Iron Binding Capacity 149 ug/dL (250-450) Iron Saturation 19 % (15-34) Vitamin B12 Level 334 pg/mL (247-911) Test 05/08/18 12:42 05/08/18 16:50 05/08/18 23:58 05/09/18 06:11 Glucose (Fingerstick) 152 mg/dL (70-99) 128 mg/dL (70-99) 106 mg/dL (70-99) Sodium Level 144 mmol/L (136-145) Potassium Level 4.0 mmol/L (3.5-5.1) Chloride Level 111 mmol/L (98-107) Carbon Dioxide Level 22 mmol/L (21-32) Anion Gap 11 (6-14) Blood Urea Nitrogen 8 mg/dL (7-20) Creatinine 0.7 mg/dL (0.6-1.0) Estimated GFR (Cockcroft-Gault) 99.2 Glucose Level 134 mg/dL (70-99) Calcium Level 8.0 mg/dL (8.5-10.1) Test 05/09/18 07:00 05/09/18 12:20 White Blood Count 5.4 x10^3/uL (4.0-11.0) Red Blood Count 4.23 x10^6/uL (3.50-5.40) Hemoglobin 11.0 g/dL (12.0-15.5) Hematocrit 31.8 % (36.0-47.0) Mean Corpuscular Volume 75 fL (79-100) Mean Corpuscular Hemoglobin 26 pg (25-35) Mean Corpuscular Hemoglobin Concent 35 g/dL (31-37) Red Cell Distribution Width 15.0 % (11.5-14.5) Platelet Count 178 x10^3/uL (140-400) Neutrophils (%) (Auto) 53 % (31-73) Lymphocytes (%) (Auto) 30 % (24-48) Monocytes (%) (Auto) 9 % (0-9) Eosinophils (%) (Auto) 6 % (0-3) Basophils (%) (Auto) 2 % (0-3) Neutrophils # (Auto) 2.9 x10^3uL (1.8-7.7) Lymphocytes # (Auto) 1.6 x10^3/uL (1.0-4.8) Monocytes # (Auto) 0.5 x10^3/uL (0.0-1.1) Eosinophils # (Auto) 0.3 x10^3/uL (0.0-0.7) Basophils # (Auto) 0.1 x10^3/uL (0.0-0.2) Sodium Level 141 mmol/L (136-145) Potassium Level 3.6 mmol/L (3.5-5.1) Chloride Level 107 mmol/L (98-107) Carbon Dioxide Level 26 mmol/L (21-32) Anion Gap 8 (6-14) Blood Urea Nitrogen 9 mg/dL (7-20) Creatinine 0.7 mg/dL (0.6-1.0) Estimated GFR (Cockcroft-Gault) 99.2 Glucose Level 136 mg/dL (70-99) Calcium Level 8.6 mg/dL (8.5-10.1) Glucose (Fingerstick) 153 mg/dL (70-99) Laboratory Tests Test 05/08/18 16:50 05/08/18 23:58 05/09/18 06:11 05/09/18 07:00 Sodium Level 144 mmol/L (136-145) 141 mmol/L (136-145) Potassium Level 4.0 mmol/L (3.5-5.1) 3.6 mmol/L (3.5-5.1) Chloride Level 111 mmol/L (98-107) 107 mmol/L (98-107) Carbon Dioxide Level 22 mmol/L (21-32) 26 mmol/L (21-32) Anion Gap 11 (6-14) 8 (6-14) Blood Urea Nitrogen 8 mg/dL (7-20) 9 mg/dL (7-20) Creatinine 0.7 mg/dL (0.6-1.0) 0.7 mg/dL (0.6-1.0) Estimated GFR (Cockcroft-Gault) 99.2 99.2 Glucose Level 134 mg/dL (70-99) 136 mg/dL (70-99) Calcium Level 8.0 mg/dL (8.5-10.1) 8.6 mg/dL (8.5-10.1) Glucose (Fingerstick) 128 mg/dL (70-99) 106 mg/dL (70-99) White Blood Count 5.4 x10^3/uL (4.0-11.0) Red Blood Count 4.23 x10^6/uL (3.50-5.40) Hemoglobin 11.0 g/dL (12.0-15.5) Hematocrit 31.8 % (36.0-47.0) Mean Corpuscular Volume 75 fL (79-100) Mean Corpuscular Hemoglobin 26 pg (25-35) Mean Corpuscular Hemoglobin Concent 35 g/dL (31-37) Red Cell Distribution Width 15.0 % (11.5-14.5) Platelet Count 178 x10^3/uL (140-400) Neutrophils (%) (Auto) 53 % (31-73) Lymphocytes (%) (Auto) 30 % (24-48) Monocytes (%) (Auto) 9 % (0-9) Eosinophils (%) (Auto) 6 % (0-3) Basophils (%) (Auto) 2 % (0-3) Neutrophils # (Auto) 2.9 x10^3uL (1.8-7.7) Lymphocytes # (Auto) 1.6 x10^3/uL (1.0-4.8) Monocytes # (Auto) 0.5 x10^3/uL (0.0-1.1) Eosinophils # (Auto) 0.3 x10^3/uL (0.0-0.7) Basophils # (Auto) 0.1 x10^3/uL (0.0-0.2) Test 05/09/18 12:20 Glucose (Fingerstick) 153 mg/dL (70-99) Microbiology 05/05/18 Blood Culture - Preliminary, Resulted NO GROWTH AFTER 3 DAYS 05/05/18 Urine Culture - Final, Complete 05/05/18 Urine Culture Result 1 (JULIÁN) - Final, Complete 05/05/18 Antimicrobic Susceptibility - Final, Complete Medications Current Medications Sodium Chloride 1,000 ml @ 1,000 mls/hr Q1H IV Last administered on at 10:30; Start 05/05/18 at 09:53; Stop 05/05/18 at 10:52; Status DC Dextrose/Sodium Chloride 1,000 ml @ 75 mls/hr 1X ONCE IV Last administered on 05/05/18at 10:30; Start 05/05/18 at 10:00; Stop 05/05/18 at 15:56; Status DC Iohexol (Omnipaque 300 Mg/ml) 75 ml 1X ONCE IV ; Start 05/05/18 at 11:15; Stop 05/05/18 at 11:18; Status DC Info (CONTRAST GIVEN -- Rx MONITORING) 1 each PRN DAILY PRN MC SEE COMMENTS; Start 05/05/18 at 11:30; Stop 05/07/18 at 11:29; Status DC Sodium Chloride 1,000 ml @ 100 mls/hr Q10H IV Last administered on 05/08/18at 08:49; Start 05/05/18 at 16:00; Stop 05/08/18 at 16:46; Status DC Enalaprilat (Vasotec Inj) 1.25 mg PRN Q6HRS PRN IVP HYPERTENSION, SEE COMMENTS Last administered on 05/05/18at 16:30; Start 05/05/18 at 16:15 Ceftriaxone Sodium 1 gm/ Dextrose 50 ml @ 100 mls/hr Q24H IV ; Start 05/05/18 at 17:00; Status UNV Ceftriaxone Sodium (Rocephin) 1 gm Q24H IVP Last administered on 05/08/18at 17: 21; Start 05/05/18 at 17:00 Sodium Chloride (Normal Saline Flush 3ml) 3 ml QSHIFT PRN IV AFTER MEDS AND BLOOD DRAWS; Start 05/05/18 at 17:00 Ondansetron HCl (Zofran) 4 mg PRN Q4HRS PRN IV NAUSEA/VOMITING; Start at 17:00 Acetaminophen (Tylenol Supp) 650 mg PRN Q4HRS PRN DE TEMP OVER 100.4F OR MILD PAIN; Start 05/05/18 at 17:00 Albuterol Sulfate (Ventolin Neb Soln) 2.5 mg PRN Q4HRS PRN NEB SHORTNESS OF BREATH; Start 05/05/18 at 17:00 Levofloxacin/ Dextrose 100 ml @ 100 mls/hr Q24H IV Last administered on at 17:20; Start 05/05/18 at 17:00; Stop 05/06/18 at 16:22; Status DC Enalaprilat (Vasotec Inj) 2.5 mg 1X ONCE IVP Last administered on 05/05/18at 17:12; Start 05/05/18 at 17:15; Stop 05/05/18 at 17:16; Status DC Nicardipine HCl 50 mg/Sodium Chloride 270 ml @ 27 mls/hr CONT PRN IV SEE I/O RECORD; Start 05/05/18 at 17:45; Stop 05/05/18 at 17:45; Status DC Nicardipine/ Sodium Chloride 200 ml @ 27 mls/hr CONT PRN IV SEE I/O RECORD Last administered on 05/07/18at 02:46; Start 05/05/18 at 17:45; Stop 05/07/18 at 09:40; Status DC Aspirin (Ev Aspirin) 325 mg DAILYWBKFT PO ; Start 05/05/18 at 19:00; Stop 05/07/18 at 09:43; Status DC Aspirin (Aspirin) 300 mg 1X ONCE DE ; Start 05/06/18 at 10:00; Stop 05/06/18 at 10:01; Status DC Clopidogrel Bisulfate (Plavix) 75 mg DAILYWBKFT PO ; Start 05/06/18 at 12:00 Atorvastatin Calcium (Lipitor) 20 mg QHS PO ; Start 05/06/18 at 21:00 Aspirin (Aspirin) 300 mg DAILY DE Last administered on 05/09/18at 08:03; Start 05/07/18 at 09:00 Insulin Human Lispro (HumaLOG) 0-7 UNITS TIDWMEALS SQ Last administered on at 17:21; Start 05/06/18 at 17:00; Stop 05/06/18 at 19:17; Status DC Dextrose (Dextrose 50%-Water Syringe) 12.5 gm PRN Q15MIN PRN IV SEE COMMENTS; Start 05/06/18 at 16:45; Stop 05/06/18 at 19:20; Status DC Sodium Chloride 500 ml @ 500 mls/hr 1X ONCE IV ; Start 05/06/18 at 18:15; Stop 05/06/18 at 19:14; Status DC Sodium Chloride 1,000 ml @ 100 mls/hr Q10H IV Last administered on 05/06/18at 19:39; Start 05/06/18 at 18:15; Stop 05/07/18 at 13:03; Status DC Insulin Human Lispro (HumaLOG) 0-9 UNITS Q6HRS SQ Last administered on at 12:57; Start 05/07/18 at 00:00 Dextrose (Dextrose 50%-Water Syringe) 12.5 gm PRN Q15MIN PRN IV SEE COMMENTS; Start 05/06/18 at 19:15 Sodium Chloride 1,000 ml @ 1,000 mls/hr 1X ONCE IV Last administered on 05/06at 21:35; Start 05/06/18 at 21:30; Stop 05/06/18 at 22:29; Status DC Nicardipine HCl 50 mg/Sodium Chloride 270 ml @ 0 mls/hr CONT PRN IV SEE I/O RECORD Last administered on 05/07/18at 22:59; Start 05/07/18 at 07:15 Sodium Chloride (Normal Saline Flush) 10 ml QSHIFT PRN IV AFTER MEDS AND BLOOD DRAWS; Start 05/07/18 at 11:15 Lidocaine HCl (Xylocaine 2% Topical 5gm Tube) 1 yuliya 1X ONCE TP ; Start at 11:15; Stop 05/07/18 at 11:19; Status DC Lidocaine HCl (Viscous Lidocaine) 15 ml 1X ONCE MM ; Start 05/07/18 at 11:15; Stop 05/07/18 at 11:19; Status DC Benzocaine (Hurricaine One) 3 spray 1X ONCE MM ; Start 05/07/18 at 11:15; Stop 05/07/18 at 11:19; Status DC Propofol 20 ml @ As Directed STK-MED ONCE IV ; Start 05/07/18 at 11:25; Stop 05/07/18 at 11:26; Status DC Labetalol HCl (Normodyne Iv Push) 20 mg Q4HRS IVP Last administered on at 12:52; Start 05/07/18 at 16:00 Potassium Chloride (Klor-Con) 40 meq 1X ONCE PO ; Start 05/08/18 at 09:00; Stop 05/08/18 at 09:43; Status DC Potassium Chloride/Water 50 ml @ 50 mls/hr Q1H IV Last administered on at 11:22; Start 05/08/18 at 10:00; Stop 05/08/18 at 11:59; Status DC Famotidine (Pepcid Vial) 20 mg QHS IVP Last administered on 05/08/18at 21:46; Start 05/08/18 at 21:00 Amino Acids/ Glycerin/ Electrolytes 1,000 ml @ 75 mls/hr [id number] IV Last administered on 05/09/18at 07:58; Start 05/08/18 at 16:45 Active Scripts Active Reported Latanoprost 2.5 Ml Drops 1 Drop EACHEYE QHS Citalopram Hbr (Citalopram Hydrobromide) 10 Mg Tablet 1 Tab PO DAILY Dorzolamide Hcl 10 Ml Drops 1 Drop EACHEYE BID Metoprolol Succinate ( Xl ) (Metoprolol Succinate) 100 Mg Tab.er.24h 1 Tab PO DAILY Atorvastatin Calcium 40 Mg Tablet 1 Tab PO DAILY Lisinopril 40 Mg Tablet 1 Tab PO DAILY Amlodipine Besylate 10 Mg Tablet 10 Mg PO DAILY Metformin Hcl 500 Mg Tablet 500 Mg PO DAILY Lantus Solostar (Insulin Glargine,Hum.rec.anlog) 100 Unit/1 Ml Insuln.pen 30 Unit SQ QHS Vitals/I & O Vital Sign - Last 24 Hours 05/08/18 05/08/18 05/08/18 05/08/18 16:19 16:20 17:19 20:00 Temp 98.4 98.4 Pulse 81 81 78 Resp 17 B/P (MAP) 160/67 (98) 160/67 156/76 Pulse Ox 99 O2 Delivery Room Air Room Air 05/08/18 05/09/18 05/09/18 05/09/18 20:12 00:06 00:35 04:00 Temp 98.2 98.2 Pulse 78 77 77 74 Resp 18 18 B/P (MAP) 156/76 (102) 173/84 173/84 (113) 141/58 Pulse Ox 96 95 O2 Delivery Room Air Room Air 10/05/09/18 05/09/18 05/09/18 04:03 07:51 08:00 08:00 Temp 98.2 98.6 98.2 98.6 Pulse 74 75 75 Resp 18 16 B/P (MAP) 141/58 (85) 165/71 (102) 165/71 Pulse Ox 95 O2 Delivery Room Air Room Air Room Air 05/09/18 05/09/18 11:00 12:52 Temp 98.7 98.7 Pulse 75 75 Resp 16 B/P (MAP) 163/67 (99) 163/67 Pulse Ox 99 O2 Delivery Room Air Intake and Output 05/08/18 05/08/18 05/09/18 15:00 23:00 07:00 Intake Total 0 ml Output Total 950 ml Balance -950 ml MELISSA DONG III DO May 09, 2018 13:01
--- NOTE | 2018-05-09 15:10 | PDOC ---
PROGRESS NOTES Assessment Assessment Acute/subacute 2.6 cm infarct in the posterior aspect of the left BG. Hypertensive emergency, SBP 218 mmHg. Cerebral edema. Hypertensive encephalopathy. Metabolic encephalopathy. Increased weakness in right UE. Hypoglycemia, glucose level 39. DM. UTI. Fall. HTN. HLD. Pulmonary hypertension, PA pressure 55. 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 Dysphagia. RECOMMENDATIONS/PLAN: BP control. ASA 300 mg RC daily, change to Plavix 75 mg daily if can take PO or have PEG. Lipitor 20 mg HS. Treat medical diseases. PEG placement if unable to swallow. OT/PT. Rehab. Discussed with her and son in all detail at bedside in ICU on 05/08/18. CT : Old CVA. CTA: Negative. Brain MRI: see above stroke. EEG on 05/06/18: Encephalopathy. HISTORY OF THE PRESENT ILLNESS: 72-y-old AA female patient with above medical diseases and previous stroke with right side hemiplegia. She has mental status changes as unresponsiveness, so EMS was called and her glucose level was revealed 39. she was administrated dextrose, but her MS did not improve. She was brought to the ER of [facility] and her SBP was 218 mmHg. Past Medical History CVA, Diabetes-Type II, Hypertension, HLD. Cardiovascular: HTN Pulmonary: Asthma CENTRAL NERVOUS SYSTEM: CVA GI: Constipation Infectious disease: No pertinent hx Renal/: No pertinent hx Endocrine: Diabetes Dermatology: No pertinent hx Past Surgical History Hysterectomy, tumor in neck removed. Family History Diabetes, Other (mother had cva) ALLERGY: NKDA MEDICATIONS: Refer to MAR. SOCIAL HISTORY: Denies smoking, drinking, and illicit drug use. REVIEW OF SYSTEMS: Constitutional: Obesity. Head: No recent traumatic brain or head injury. Skin: No edema, or rash. Ear: No infection. Eyes: No vision loss or color blindness. Nose: No bleeding or purulent discharges. Hearing: No hearing decrease. Neck: No injury. Breast: No history of cancer, masses,or discharges. Cardiac: HTN, HLD. Pulmonary: No COPD. GI: No GI ulcer, GI bleeding. Urinary/genital: UTI. Endocrinologic: Diabetes Mellitus, hypothyroidism, obesity. Skeletomuscular: Right side hemiplegia. Neurological: see HP. Psychiatric: Denies drug use/abuse. Otherwise, not [id number] review of systems. PHYSICAL EXAMINATION: General appearance is in subacute distress. HEENT: Normocephalic and nontraumatic. Eyes, nose, ears, and throat are unremarkable. Neck is supple. No lymphadenopathy. No crepitus. Cardiovascular: S1, S2, regular rate and rhythm. Pulmonary: Clear to auscultation bilaterally. Abdomen: Bowel sounds are positive. Extremities: No rash, lesions, or edema. No restriction of range of motion NEUROLOGICAL EXAMINATION: Awake. Not oriented to time, but knew place and person. Able to follow a few commands. PERRL. EOMI. 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 Muscle tone: Decreased in right UE and LE, normal in left side. Muscle strength: 0 right UE, 1-2 right LE. 5- left side. DTR: 0 right UE, 1 right LE, 2 left side. Plantar reflex: Extensor response, right side. Gait: Unable to walk. Sensory exam: Decreased in right UE and LE, and no abnormal findings on the left side. No acute cerebellar signs elicited. F-T-N test fine on the left side. Objective Objective Vital Signs Date Time Temp Pulse Resp B/P (MAP) Pulse Ox O2 Delivery O2 Flow Rate FiO2 05/09/18 12:52 75 163/67 05/09/18 11:00 98.7 16 99 Room Air 98.7 05/08/18 12:00 Intake and Output 05/09/18 07:00 Intake Total 0 ml Output Total 950 ml Balance -950 ml Intake Oral 0 ml Output Urine Total 950 ml Vitals Signs Vitals VS - Last 72 Hours, by Label Date Time Temp Pulse Resp B/P (MAP) Pulse Ox O2 Delivery O2 Flow Rate FiO2 05/09/18 12:52 75 163/67 05/09/18 11:00 98.7 75 16 163/67 (99) 99 Room Air 98.7 05/09/18 08:00 75 165/71 05/09/18 08:00 Room Air 05/09/18 07:51 98.6 75 16 165/71 (102) Room Air 98.6 05/09/18 04:03 98.2 74 18 141/58 (85) 95 Room Air 98.2 05/09/18 04:00 74 141/58 05/09/18 00:35 77 18 173/84 (113) 95 Room Air 05/09/18 00:06 77 173/84 05/08/18 20:12 98.2 78 18 156/76 (102) 96 Room Air 98.2 05/08/18 20:00 78 156/76 05/08/18 17:19 81 160/67 05/08/18 16:20 98.4 81 17 160/67 (98) 99 Room Air 98.4 05/08/18 16:19 Room Air 05/08/18 12:37 81 156/65 05/08/18 12:19 99 Room Air 05/08/18 12:00 98.4 77 155/65 (95) 100 Room Air 98.4 05/08/18 12:00 Room Air 05/08/18 11:00 98.4 77 151/64 (93) 100 Room Air 2.0 98.4 05/08/18 10:08 98.4 77 151/64 (93) 100 Room Air 2.0 98.4 05/08/18 09:04 98.4 87 18 140/59 (86) 100 Room Air 2.0 98.4 05/08/18 08:50 87 147/58 05/08/18 08:07 Room Air 05/08/18 08:05 98.4 87 18 147/58 (87) 100 Room Air 2.0 98.4 Laboratory Laboratory Laboratory Tests Test 05/08/18 16:50 05/08/18 23:58 05/09/18 06:11 05/09/18 07:00 Sodium Level 144 mmol/L (136-145) 141 mmol/L (136-145) Potassium Level 4.0 mmol/L (3.5-5.1) 3.6 mmol/L (3.5-5.1) Chloride Level 111 mmol/L (98-107) 107 mmol/L (98-107) Carbon Dioxide Level 22 mmol/L (21-32) 26 mmol/L (21-32) Anion Gap 11 (6-14) 8 (6-14) Blood Urea Nitrogen 8 mg/dL (7-20) 9 mg/dL (7-20) Creatinine 0.7 mg/dL (0.6-1.0) 0.7 mg/dL (0.6-1.0) Estimated GFR (Cockcroft-Gault) 99.2 99.2 Glucose Level 134 mg/dL (70-99) 136 mg/dL (70-99) Calcium Level 8.0 mg/dL (8.5-10.1) 8.6 mg/dL (8.5-10.1) Glucose (Fingerstick) 128 mg/dL (70-99) 106 mg/dL (70-99) White Blood Count 5.4 x10^3/uL (4.0-11.0) Red Blood Count 4.23 x10^6/uL (3.50-5.40) Hemoglobin 11.0 g/dL (12.0-15.5) Hematocrit 31.8 % (36.0-47.0) Mean Corpuscular Volume 75 fL (79-100) Mean Corpuscular Hemoglobin 26 pg (25-35) Mean Corpuscular Hemoglobin Concent 35 g/dL (31-37) Red Cell Distribution Width 15.0 % (11.5-14.5) Platelet Count 178 x10^3/uL (140-400) Neutrophils (%) (Auto) 53 % (31-73) Lymphocytes (%) (Auto) 30 % (24-48) Monocytes (%) (Auto) 9 % (0-9) Eosinophils (%) (Auto) 6 % (0-3) Basophils (%) (Auto) 2 % (0-3) Neutrophils # (Auto) 2.9 x10^3uL (1.8-7.7) Lymphocytes # (Auto) 1.6 x10^3/uL (1.0-4.8) Monocytes # (Auto) 0.5 x10^3/uL (0.0-1.1) Eosinophils # (Auto) 0.3 x10^3/uL (0.0-0.7) Basophils # (Auto) 0.1 x10^3/uL (0.0-0.2) Test 05/09/18 12:20 Glucose (Fingerstick) 153 mg/dL (70-99) Microbiology 05/05/18 Blood Culture - Preliminary, Resulted NO GROWTH AFTER 3 DAYS 05/05/18 Urine Culture - Final, Complete 05/05/18 Urine Culture Result 1 (JULIÁN) - Final, Complete 05/05/18 Antimicrobic Susceptibility - Final, Complete Medication Medications Current Medications Amino Acids/ Glycerin/ Electrolytes 1,000 ml @ 75 mls/hr [id number] IV Last administered on 05/09/18at 07:58; Start 05/08/18 at 16:45 Famotidine (Pepcid Vial) 20 mg QHS IVP Last administered on 05/08/18at 21:46; Start 05/08/18 at 21:00 Comment Review of Relevant I have reviewed the following items angelica (where applicable) has been applied. ALVARO FOUNTAIN MD May 09, 2018 15:10
[2018-05-09] MEDS: cefTRIAXone IV Push 1 GM VIAL. IVP SCH (17:23)
[2018-05-09] MEDS: FAMOTIDINE 20 MG/2 ML VIAL IVP SCH (20:21)
[2018-05-09] MEDS: ATORVASTATIN CALCIUM 20 MG TABLET PO SCH (20:31)
[2018-05-10 03:57] VITALS: BP 148/81
[2018-05-10] MEDS: LABETALOL 20 MG/4 ML DISP.SYRIN. IVP SCH ×5 (04:00→20:00)
[2018-05-10 05:23] LABS: BASO % 1 % (0-3); EOS # 0.5 x10^3/uL (0.0-0.7); EOS % 8 % (0-3); HEMATOCRIT 32.4 % (36.0-47.0); HEMOGLOBIN 11.1 g/dL (12.0-15.5); LYMPH # 1.7 x10^3/uL (1.0-4.8); LYMPH % 27 % (24-48); MEAN CORPUSCULAR HEMOGLOBIN 26 pg (25-35); MEAN CORPUSCULAR HGB CONC 34 g/dL (31-37); MEAN CORPUSCULAR VOLUME 76 fL (79-100); MONO # 0.6 x10^3/uL (0.0-1.1); MONO % 10 % (0-9); NEUT # 3.5 x10^3uL (1.8-7.7); NEUT % 55 % (31-73); PLATELET COUNT 175 x10^3/uL (140-400); RED BLOOD COUNT 4.28 x10^6/uL (3.50-5.40); RED CELL DISTRIBUTION WIDTH 14.8 % (11.5-14.5); WHITE BLOOD COUNT 6.4 x10^3/uL (4.0-11.0)
[2018-05-10 05:38] LABS: CALCIUM 8.2 mg/dL (8.5-10.1); CREATININE 0.8 mg/dL (0.6-1.0); GFR 85.1; POTASSIUM 3.6 mmol/L (3.5-5.1)
[2018-05-10] MEDS: INSULIN LISPRO 300 UNITS/3 ML INSULN.PEN. SQ SCH ×4 (05:46→23:20)
[2018-05-10 07:00] VITALS: BP 167/78
[2018-05-10] MEDS: CLOPIDOGREL BISULFATE 75 MG TABLET PO SCH (08:00)
[2018-05-10] MEDS: AMINO AC 3%/ELECTROLYTE/GLYCER 1,000 ML IV SCH ×2 (08:11→21:37)
[2018-05-10] MEDS: ASPIRIN 300 MG SUPP.RECT PR SCH (08:11)
[2018-05-10 11:00] VITALS: BP 154/74
--- NOTE | 2018-05-10 12:47 | PDOC ---
PROGRESS NOTES Assessment Assessment Acute/subacute 2.6 cm infarct in the posterior aspect of the left BG. Hypertensive emergency, SBP 218 mmHg. Cerebral edema. Hypertensive encephalopathy. Metabolic encephalopathy. Increased weakness in right UE. Hypoglycemia, glucose level 39. DM. UTI. Fall. HTN. HLD. Pulmonary hypertension, PA pressure 55. 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 Dysphagia. RECOMMENDATIONS/PLAN: BP control. ASA 300 mg RC daily, change to Plavix 75 mg daily if can take PO or have PEG. Lipitor 20 mg HS. Treat medical diseases. PEG placement planned on 05/11. OT/PT. Rehab. Discussed with her and son in all detail at bedside in ICU on 05/10/18. CT : Old CVA. CTA: Negative. Brain MRI: see above stroke. EEG on 05/06/18: Encephalopathy. HISTORY OF THE PRESENT ILLNESS: 72-y-old AA female patient with above medical diseases and previous stroke with right side hemiplegia. She has mental status changes as unresponsiveness, so EMS was called and her glucose level was revealed 39. she was administrated dextrose, but her MS did not improve. She was brought to the ER of [facility] and her SBP was 218 mmHg. Past Medical History CVA, Diabetes-Type II, Hypertension, HLD. Cardiovascular: HTN Pulmonary: Asthma CENTRAL NERVOUS SYSTEM: CVA GI: Constipation Infectious disease: No pertinent hx Renal/: No pertinent hx Endocrine: Diabetes Dermatology: No pertinent hx Past Surgical History Hysterectomy, tumor in neck removed. Family History Diabetes, Other (mother had cva) ALLERGY: NKDA MEDICATIONS: Refer to MAR. SOCIAL HISTORY: Denies smoking, drinking, and illicit drug use. REVIEW OF SYSTEMS: Constitutional: Obesity. Head: No recent traumatic brain or head injury. Skin: No edema, or rash. Ear: No infection. Eyes: No vision loss or color blindness. Nose: No bleeding or purulent discharges. Hearing: No hearing decrease. Neck: No injury. Breast: No history of cancer, masses,or discharges. Cardiac: HTN, HLD. Pulmonary: No COPD. GI: No GI ulcer, GI bleeding. Urinary/genital: UTI. Endocrinologic: Diabetes Mellitus, hypothyroidism, obesity. Skeletomuscular: Right side hemiplegia. Neurological: see HP. Psychiatric: Denies drug use/abuse. Otherwise, not [id number] review of systems. PHYSICAL EXAMINATION: General appearance is in subacute distress. HEENT: Normocephalic and nontraumatic. Eyes, nose, ears, and throat are unremarkable. Neck is supple. No lymphadenopathy. No crepitus. Cardiovascular: S1, S2, regular rate and rhythm. Pulmonary: Clear to auscultation bilaterally. Abdomen: Bowel sounds are positive. Extremities: No rash, lesions, or edema. No restriction of range of motion NEUROLOGICAL EXAMINATION: Awake. Not oriented to time, but knew place and person. Able to follow a few commands. PERRL. EOMI. 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 Muscle tone: Decreased in right UE and LE, normal in left side. Muscle strength: 0 right UE, 1 right LE. 5- left side. DTR: 0 right UE, 2 right LE, brisy right LE, 2 left side. Plantar reflex: Extensor response, right side. Gait: Unable to walk. Sensory exam: Decreased in right UE and LE, but no abnormal findings on the left side. No acute cerebellar signs elicited. F-T-N test fine on the left side. Objective Objective Vital Signs Date Time Temp Pulse Resp B/P (MAP) Pulse Ox O2 Delivery O2 Flow Rate FiO2 05/10/18 12:00 73 154/74 05/10/18 11:00 99.2 18 95 Room Air 99.2 05/10/18 08:00 2.0 Intake and Output 05/10/18 07:00 Intake Total 450 ml Output Total 4750 ml Balance -4300 ml Intake Oral 0 ml IV Total 450 ml Output Urine Total 4750 ml Vitals Signs Vitals VS - Last 72 Hours, by Label Date Time Temp Pulse Resp B/P (MAP) Pulse Ox O2 Delivery O2 Flow Rate FiO2 05/10/18 12:00 73 154/74 05/10/18 11:00 99.2 73 18 154/74 (100) 95 Room Air 99.2 05/10/18 08:11 75 167/78 05/10/18 08:00 Room Air 2.0 05/10/18 07:00 98.2 75 18 167/78 (107) 98 Room Air 98.2 05/10/18 04:00 79 148/81 05/10/18 03:57 98.0 79 16 148/81 (103) 100 Room Air 98.0 05/09/18 23:48 78 165/75 05/09/18 23:26 98.8 78 14 165/75 (105) 99 Room Air 98.8 05/09/18 20:21 85 166/67 05/09/18 19:30 99.2 85 16 166/67 (100) 99 Room Air 99.2 05/09/18 19:11 Room Air 05/09/18 16:00 75 157/67 05/09/18 15:00 99.5 77 16 157/67 (97) 100 Room Air 99.5 05/09/18 12:52 75 163/67 05/09/18 11:00 98.7 75 16 163/67 (99) 99 Room Air 98.7 05/09/18 08:00 75 165/71 05/09/18 08:00 Room Air 05/09/18 07:51 98.6 75 16 165/71 (102) Room Air 98.6 Laboratory Laboratory Laboratory Tests Test 05/09/18 17:27 05/09/18 23:22 05/10/18 04:40 05/10/18 06:16 Glucose (Fingerstick) 118 mg/dL (70-99) 132 mg/dL (70-99) 137 mg/dL (70-99) White Blood Count 6.4 x10^3/uL (4.0-11.0) Red Blood Count 4.28 x10^6/uL (3.50-5.40) Hemoglobin 11.1 g/dL (12.0-15.5) Hematocrit 32.4 % (36.0-47.0) Mean Corpuscular Volume 76 fL (79-100) Mean Corpuscular Hemoglobin 26 pg (25-35) Mean Corpuscular Hemoglobin Concent 34 g/dL (31-37) Red Cell Distribution Width 14.8 % (11.5-14.5) Platelet Count 175 x10^3/uL (140-400) Neutrophils (%) (Auto) 55 % (31-73) Lymphocytes (%) (Auto) 27 % (24-48) Monocytes (%) (Auto) 10 % (0-9) Eosinophils (%) (Auto) 8 % (0-3) Basophils (%) (Auto) 1 % (0-3) Neutrophils # (Auto) 3.5 x10^3uL (1.8-7.7) Lymphocytes # (Auto) 1.7 x10^3/uL (1.0-4.8) Monocytes # (Auto) 0.6 x10^3/uL (0.0-1.1) Eosinophils # (Auto) 0.5 x10^3/uL (0.0-0.7) Basophils # (Auto) 0.0 x10^3/uL (0.0-0.2) Sodium Level 142 mmol/L (136-145) Potassium Level 3.6 mmol/L (3.5-5.1) Chloride Level 107 mmol/L (98-107) Carbon Dioxide Level 28 mmol/L (21-32) Anion Gap 7 (6-14) Blood Urea Nitrogen 9 mg/dL (7-20) Creatinine 0.8 mg/dL (0.6-1.0) Estimated GFR (Cockcroft-Gault) 85.1 Glucose Level 131 mg/dL (70-99) Calcium Level 8.2 mg/dL (8.5-10.1) Microbiology 05/05/18 Blood Culture - Preliminary, Resulted NO GROWTH AFTER 4 DAYS 05/05/18 Urine Culture - Final, Complete 05/05/18 Urine Culture Result 1 (JULIÁN) - Final, Complete 05/05/18 Antimicrobic Susceptibility - Final, Complete Comment Review of Relevant I have reviewed the following items angelica (where applicable) has been applied. ALVARO FOUNTAIN MD May 10, 2018 12:47
--- NOTE | 2018-05-10 13:09 | PDOC ---
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 H/o HTN H/o HLD History of Present Illness History of Present Illness Pt seen and examined at bedside Discussed with RN Pt laying in bed, calm, cooperative Vitals Vitals Vital Signs Date Time Temp Pulse Resp B/P (MAP) Pulse Ox O2 Delivery O2 Flow Rate FiO2 05/10/18 12:00 73 154/74 05/10/18 11:00 99.2 18 95 Room Air 99.2 05/10/18 08:00 2.0 Physical Exam General: Alert, No acute distress Heart: Regular rate (SR no significant ectopies), Normal S1, Normal S2, Other ( 2/6 systolic murmur to LLS border) Lungs: Clear Abdomen: Soft, No tenderness Extremities: No clubbing, No cyanosis, Other (trace LE edema) Skin: No rashes, No breakdown Labs LABS Laboratory Tests Test 05/09/18 17:27 05/09/18 23:22 05/10/18 04:40 05/10/18 06:16 Glucose (Fingerstick) 118 mg/dL (70-99) 132 mg/dL (70-99) 137 mg/dL (70-99) White Blood Count 6.4 x10^3/uL (4.0-11.0) Red Blood Count 4.28 x10^6/uL (3.50-5.40) Hemoglobin 11.1 g/dL (12.0-15.5) Hematocrit 32.4 % (36.0-47.0) Mean Corpuscular Volume 76 fL (79-100) Mean Corpuscular Hemoglobin 26 pg (25-35) Mean Corpuscular Hemoglobin Concent 34 g/dL (31-37) Red Cell Distribution Width 14.8 % (11.5-14.5) Platelet Count 175 x10^3/uL (140-400) Neutrophils (%) (Auto) 55 % (31-73) Lymphocytes (%) (Auto) 27 % (24-48) Monocytes (%) (Auto) 10 % (0-9) Eosinophils (%) (Auto) 8 % (0-3) Basophils (%) (Auto) 1 % (0-3) Neutrophils # (Auto) 3.5 x10^3uL (1.8-7.7) Lymphocytes # (Auto) 1.7 x10^3/uL (1.0-4.8) Monocytes # (Auto) 0.6 x10^3/uL (0.0-1.1) Eosinophils # (Auto) 0.5 x10^3/uL (0.0-0.7) Basophils # (Auto) 0.0 x10^3/uL (0.0-0.2) Sodium Level 142 mmol/L (136-145) Potassium Level 3.6 mmol/L (3.5-5.1) Chloride Level 107 mmol/L (98-107) Carbon Dioxide Level 28 mmol/L (21-32) Anion Gap 7 (6-14) Blood Urea Nitrogen 9 mg/dL (7-20) Creatinine 0.8 mg/dL (0.6-1.0) Estimated GFR (Cockcroft-Gault) 85.1 Glucose Level 131 mg/dL (70-99) Calcium Level 8.2 mg/dL (8.5-10.1) Review of Systems Review of Systems Pt denies any fevers, chills, ESCOBEDO, CP, SOA, or N/V/D. Assessment and Plan Assessmemt and Plan Problems Medical Problems: (1) Acute encephalopathy Status: Acute (2) CVA (cerebral vascular accident) Status: Acute Assessment: Acute encephalopathy Hypertensive emergency with SBP 200s CVA Hypokalemia Microcytic anemia UTI T2DM Hypoglycemia, glucose level 39 on admission H/o left BG lacunar infarct with right sided hemiplegia H/o HTN H/o HLD Plan: Cardiac monitoring Labs PT/OT/ST Home meds BP control Continue procalamine DVT ppx Discharge to SNU vs. rehab on Friday Comment Review of Relevant I have reviewed the following items angelica (where applicable) has been applied. Labs Laboratory Tests Test 05/08/18 16:50 05/08/18 23:58 05/09/18 06:11 05/09/18 07:00 Sodium Level 144 mmol/L (136-145) 141 mmol/L (136-145) Potassium Level 4.0 mmol/L (3.5-5.1) 3.6 mmol/L (3.5-5.1) Chloride Level 111 mmol/L (98-107) 107 mmol/L (98-107) Carbon Dioxide Level 22 mmol/L (21-32) 26 mmol/L (21-32) Anion Gap 11 (6-14) 8 (6-14) Blood Urea Nitrogen 8 mg/dL (7-20) 9 mg/dL (7-20) Creatinine 0.7 mg/dL (0.6-1.0) 0.7 mg/dL (0.6-1.0) Estimated GFR (Cockcroft-Gault) 99.2 99.2 Glucose Level 134 mg/dL (70-99) 136 mg/dL (70-99) Calcium Level 8.0 mg/dL (8.5-10.1) 8.6 mg/dL (8.5-10.1) Glucose (Fingerstick) 128 mg/dL (70-99) 106 mg/dL (70-99) White Blood Count 5.4 x10^3/uL (4.0-11.0) Red Blood Count 4.23 x10^6/uL (3.50-5.40) Hemoglobin 11.0 g/dL (12.0-15.5) Hematocrit 31.8 % (36.0-47.0) Mean Corpuscular Volume 75 fL (79-100) Mean Corpuscular Hemoglobin 26 pg (25-35) Mean Corpuscular Hemoglobin Concent 35 g/dL (31-37) Red Cell Distribution Width 15.0 % (11.5-14.5) Platelet Count 178 x10^3/uL (140-400) Neutrophils (%) (Auto) 53 % (31-73) Lymphocytes (%) (Auto) 30 % (24-48) Monocytes (%) (Auto) 9 % (0-9) Eosinophils (%) (Auto) 6 % (0-3) Basophils (%) (Auto) 2 % (0-3) Neutrophils # (Auto) 2.9 x10^3uL (1.8-7.7) Lymphocytes # (Auto) 1.6 x10^3/uL (1.0-4.8) Monocytes # (Auto) 0.5 x10^3/uL (0.0-1.1) Eosinophils # (Auto) 0.3 x10^3/uL (0.0-0.7) Basophils # (Auto) 0.1 x10^3/uL (0.0-0.2) Test 05/09/18 12:20 05/09/18 17:27 05/09/18 23:22 05/10/18 04:40 Glucose (Fingerstick) 153 mg/dL (70-99) 118 mg/dL (70-99) 132 mg/dL (70-99) White Blood Count 6.4 x10^3/uL (4.0-11.0) Red Blood Count 4.28 x10^6/uL (3.50-5.40) Hemoglobin 11.1 g/dL (12.0-15.5) Hematocrit 32.4 % (36.0-47.0) Mean Corpuscular Volume 76 fL (79-100) Mean Corpuscular Hemoglobin 26 pg (25-35) Mean Corpuscular Hemoglobin Concent 34 g/dL (31-37) Red Cell Distribution Width 14.8 % (11.5-14.5) Platelet Count 175 x10^3/uL (140-400) Neutrophils (%) (Auto) 55 % (31-73) Lymphocytes (%) (Auto) 27 % (24-48) Monocytes (%) (Auto) 10 % (0-9) Eosinophils (%) (Auto) 8 % (0-3) Basophils (%) (Auto) 1 % (0-3) Neutrophils # (Auto) 3.5 x10^3uL (1.8-7.7) Lymphocytes # (Auto) 1.7 x10^3/uL (1.0-4.8) Monocytes # (Auto) 0.6 x10^3/uL (0.0-1.1) Eosinophils # (Auto) 0.5 x10^3/uL (0.0-0.7) Basophils # (Auto) 0.0 x10^3/uL (0.0-0.2) Sodium Level 142 mmol/L (136-145) Potassium Level 3.6 mmol/L (3.5-5.1) Chloride Level 107 mmol/L (98-107) Carbon Dioxide Level 28 mmol/L (21-32) Anion Gap 7 (6-14) Blood Urea Nitrogen 9 mg/dL (7-20) Creatinine 0.8 mg/dL (0.6-1.0) Estimated GFR (Cockcroft-Gault) 85.1 Glucose Level 131 mg/dL (70-99) Calcium Level 8.2 mg/dL (8.5-10.1) Test 05/10/18 06:16 Glucose (Fingerstick) 137 mg/dL (70-99) Laboratory Tests Test 05/09/18 17:27 05/09/18 23:22 05/10/18 04:40 05/10/18 06:16 Glucose (Fingerstick) 118 mg/dL (70-99) 132 mg/dL (70-99) 137 mg/dL (70-99) White Blood Count 6.4 x10^3/uL (4.0-11.0) Red Blood Count 4.28 x10^6/uL (3.50-5.40) Hemoglobin 11.1 g/dL (12.0-15.5) Hematocrit 32.4 % (36.0-47.0) Mean Corpuscular Volume 76 fL (79-100) Mean Corpuscular Hemoglobin 26 pg (25-35) Mean Corpuscular Hemoglobin Concent 34 g/dL (31-37) Red Cell Distribution Width 14.8 % (11.5-14.5) Platelet Count 175 x10^3/uL (140-400) Neutrophils (%) (Auto) 55 % (31-73) Lymphocytes (%) (Auto) 27 % (24-48) Monocytes (%) (Auto) 10 % (0-9) Eosinophils (%) (Auto) 8 % (0-3) Basophils (%) (Auto) 1 % (0-3) Neutrophils # (Auto) 3.5 x10^3uL (1.8-7.7) Lymphocytes # (Auto) 1.7 x10^3/uL (1.0-4.8) Monocytes # (Auto) 0.6 x10^3/uL (0.0-1.1) Eosinophils # (Auto) 0.5 x10^3/uL (0.0-0.7) Basophils # (Auto) 0.0 x10^3/uL (0.0-0.2) Sodium Level 142 mmol/L (136-145) Potassium Level 3.6 mmol/L (3.5-5.1) Chloride Level 107 mmol/L (98-107) Carbon Dioxide Level 28 mmol/L (21-32) Anion Gap 7 (6-14) Blood Urea Nitrogen 9 mg/dL (7-20) Creatinine 0.8 mg/dL (0.6-1.0) Estimated GFR (Cockcroft-Gault) 85.1 Glucose Level 131 mg/dL (70-99) Calcium Level 8.2 mg/dL (8.5-10.1) Microbiology 05/05/18 Blood Culture - Preliminary, Resulted NO GROWTH AFTER 4 DAYS 05/05/18 Urine Culture - Final, Complete 05/05/18 Urine Culture Result 1 (JULIÁN) - Final, Complete 05/05/18 Antimicrobic Susceptibility - Final, Complete Medications Current Medications Sodium Chloride 1,000 ml @ 1,000 mls/hr Q1H IV Last administered on at 10:30; Start 05/05/18 at 09:53; Stop 05/05/18 at 10:52; Status DC Dextrose/Sodium Chloride 1,000 ml @ 75 mls/hr 1X ONCE IV Last administered on 05/05/18at 10:30; Start 05/05/18 at 10:00; Stop 05/05/18 at 15:56; Status DC Iohexol (Omnipaque 300 Mg/ml) 75 ml 1X ONCE IV ; Start 05/05/18 at 11:15; Stop 05/05/18 at 11:18; Status DC Info (CONTRAST GIVEN -- Rx MONITORING) 1 each PRN DAILY PRN MC SEE COMMENTS; Start 05/05/18 at 11:30; Stop 05/07/18 at 11:29; Status DC Sodium Chloride 1,000 ml @ 100 mls/hr Q10H IV Last administered on 05/08/18at 08:49; Start 05/05/18 at 16:00; Stop 05/08/18 at 16:46; Status DC Enalaprilat (Vasotec Inj) 1.25 mg PRN Q6HRS PRN IVP HYPERTENSION, SEE COMMENTS Last administered on 05/05/18at 16:30; Start 05/05/18 at 16:15 Ceftriaxone Sodium 1 gm/ Dextrose 50 ml @ 100 mls/hr Q24H IV ; Start 05/05/18 at 17:00; Status UNV Ceftriaxone Sodium (Rocephin) 1 gm Q24H IVP Last administered on 05/09/18at 17: 23; Start 05/05/18 at 17:00 Sodium Chloride (Normal Saline Flush 3ml) 3 ml QSHIFT PRN IV AFTER MEDS AND BLOOD DRAWS; Start 05/05/18 at 17:00 Ondansetron HCl (Zofran) 4 mg PRN Q4HRS PRN IV NAUSEA/VOMITING; Start at 17:00 Acetaminophen (Tylenol Supp) 650 mg PRN Q4HRS PRN NV TEMP OVER 100.4F OR MILD PAIN; Start 05/05/18 at 17:00 Albuterol Sulfate (Ventolin Neb Soln) 2.5 mg PRN Q4HRS PRN NEB SHORTNESS OF BREATH; Start 05/05/18 at 17:00 Levofloxacin/ Dextrose 100 ml @ 100 mls/hr Q24H IV Last administered on at 17:20; Start 05/05/18 at 17:00; Stop 05/06/18 at 16:22; Status DC Enalaprilat (Vasotec Inj) 2.5 mg 1X ONCE IVP Last administered on 05/05/18at 17:12; Start 05/05/18 at 17:15; Stop 05/05/18 at 17:16; Status DC Nicardipine HCl 50 mg/Sodium Chloride 270 ml @ 27 mls/hr CONT PRN IV SEE I/O RECORD; Start 05/05/18 at 17:45; Stop 05/05/18 at 17:45; Status DC Nicardipine/ Sodium Chloride 200 ml @ 27 mls/hr CONT PRN IV SEE I/O RECORD Last administered on 05/07/18at 02:46; Start 05/05/18 at 17:45; Stop 05/07/18 at 09:40; Status DC Aspirin (Ev Aspirin) 325 mg DAILYWBKFT PO ; Start 05/05/18 at 19:00; Stop 05/07/18 at 09:43; Status DC Aspirin (Aspirin) 300 mg 1X ONCE NV ; Start 05/06/18 at 10:00; Stop 05/06/18 at 10:01; Status DC Clopidogrel Bisulfate (Plavix) 75 mg DAILYWBKFT PO ; Start 05/06/18 at 12:00 Atorvastatin Calcium (Lipitor) 20 mg QHS PO ; Start 05/06/18 at 21:00 Aspirin (Aspirin) 300 mg DAILY NV Last administered on 05/10/18at 08:11; Start 05/07/18 at 09:00 Insulin Human Lispro (HumaLOG) 0-7 UNITS TIDWMEALS SQ Last administered on at 17:21; Start 05/06/18 at 17:00; Stop 05/06/18 at 19:17; Status DC Dextrose (Dextrose 50%-Water Syringe) 12.5 gm PRN Q15MIN PRN IV SEE COMMENTS; Start 05/06/18 at 16:45; Stop 05/06/18 at 19:20; Status DC Sodium Chloride 500 ml @ 500 mls/hr 1X ONCE IV ; Start 05/06/18 at 18:15; Stop 05/06/18 at 19:14; Status DC Sodium Chloride 1,000 ml @ 100 mls/hr Q10H IV Last administered on 05/06/18at 19:39; Start 05/06/18 at 18:15; Stop 05/07/18 at 13:03; Status DC Insulin Human Lispro (HumaLOG) 0-9 UNITS Q6HRS SQ Last administered on at 12:57; Start 05/07/18 at 00:00 Dextrose (Dextrose 50%-Water Syringe) 12.5 gm PRN Q15MIN PRN IV SEE COMMENTS; Start 05/06/18 at 19:15 Sodium Chloride 1,000 ml @ 1,000 mls/hr 1X ONCE IV Last administered on 05/06at 21:35; Start 05/06/18 at 21:30; Stop 05/06/18 at 22:29; Status DC Nicardipine HCl 50 mg/Sodium Chloride 270 ml @ 0 mls/hr CONT PRN IV SEE I/O RECORD Last administered on 05/07/18at 22:59; Start 05/07/18 at 07:15 Sodium Chloride (Normal Saline Flush) 10 ml QSHIFT PRN IV AFTER MEDS AND BLOOD DRAWS; Start 05/07/18 at 11:15 Lidocaine HCl (Xylocaine 2% Topical 5gm Tube) 1 yuliya 1X ONCE TP ; Start at 11:15; Stop 05/07/18 at 11:19; Status DC Lidocaine HCl (Viscous Lidocaine) 15 ml 1X ONCE MM ; Start 05/07/18 at 11:15; Stop 05/07/18 at 11:19; Status DC Benzocaine (Hurricaine One) 3 spray 1X ONCE MM ; Start 05/07/18 at 11:15; Stop 05/07/18 at 11:19; Status DC Propofol 20 ml @ As Directed STK-MED ONCE IV ; Start 05/07/18 at 11:25; Stop 05/07/18 at 11:26; Status DC Labetalol HCl (Normodyne Iv Push) 20 mg Q4HRS IVP Last administered on at 08:11; Start 05/07/18 at 16:00 Potassium Chloride (Klor-Con) 40 meq 1X ONCE PO ; Start 05/08/18 at 09:00; Stop 05/08/18 at 09:43; Status DC Potassium Chloride/Water 50 ml @ 50 mls/hr Q1H IV Last administered on at 11:22; Start 05/08/18 at 10:00; Stop 05/08/18 at 11:59; Status DC Famotidine (Pepcid Vial) 20 mg QHS IVP Last administered on 05/09/18at 20:21; Start 05/08/18 at 21:00 Amino Acids/ Glycerin/ Electrolytes 1,000 ml @ 75 mls/hr [id number] IV Last administered on 05/10/18at 08:11; Start 05/08/18 at 16:45 Active Scripts Active Reported Latanoprost 2.5 Ml Drops 1 Drop EACHEYE QHS Citalopram Hbr (Citalopram Hydrobromide) 10 Mg Tablet 1 Tab PO DAILY Dorzolamide Hcl 10 Ml Drops 1 Drop EACHEYE BID Metoprolol Succinate ( Xl ) (Metoprolol Succinate) 100 Mg Tab.er.24h 1 Tab PO DAILY Atorvastatin Calcium 40 Mg Tablet 1 Tab PO DAILY Lisinopril 40 Mg Tablet 1 Tab PO DAILY Amlodipine Besylate 10 Mg Tablet 10 Mg PO DAILY Metformin Hcl 500 Mg Tablet 500 Mg PO DAILY Lantus Solostar (Insulin Glargine,Hum.rec.anlog) 100 Unit/1 Ml Insuln.pen 30 Unit SQ QHS Vitals/I & O Vital Sign - Last 24 Hours 1005/09/18 05/09/18 05/09/18 15:00 16:00 19:11 19:30 Temp 99.5 99.2 99.5 99.2 Pulse 77 75 85 Resp 16 16 B/P (MAP) 157/67 (97) 157/67 166/67 (100) Pulse Ox 100 99 O2 Delivery Room Air Room Air Room Air 05/09/18 05/09/18 05/09/18 05/10/18 20:21 23:26 23:48 03:57 Temp 98.8 98.0 98.8 98.0 Pulse 85 78 78 79 Resp 14 16 B/P (MAP) 166/67 165/75 (105) 165/75 148/81 (103) Pulse Ox 99 100 O2 Delivery Room Air Room Air 05/10/18 05/10/18 05/10/18 05/10/18 04:00 07:00 08:00 08:11 Temp 98.2 98.2 Pulse 79 75 75 Resp 18 B/P (MAP) 148/81 167/78 (107) 167/78 Pulse Ox 98 O2 Delivery Room Air Room Air O2 Flow Rate 2.0 05/10/18 05/10/18 11:00 12:00 Temp 99.2 99.2 Pulse 73 73 Resp 18 B/P (MAP) 154/74 (100) 154/74 Pulse Ox 95 O2 Delivery Room Air Intake and Output 05/09/18 05/09/18 05/10/18 15:00 23:00 07:00 Intake Total 0 ml 450 ml Output Total 1000 ml 1800 ml 1950 ml Balance -1000 ml -1800 ml -1500 ml MELISSA DONG III DO May 10, 2018 13:09
[2018-05-10 15:00] VITALS: BP 172/86
[2018-05-10] MEDS: cefTRIAXone IV Push 1 GM VIAL. IVP SCH (16:21)
[2018-05-10 19:30] VITALS: BP 156/74
[2018-05-10] MEDS: ATORVASTATIN CALCIUM 20 MG TABLET PO SCH (21:00)
[2018-05-10] MEDS: FAMOTIDINE 20 MG/2 ML VIAL IVP SCH (21:37)
[2018-05-10 23:00] VITALS: BP 140/62
[2018-05-11 03:28] VITALS: BP 157/73
[2018-05-11] MEDS: LABETALOL 20 MG/4 ML DISP.SYRIN. IVP SCH ×7 (04:00→23:54)
[2018-05-11] MEDS: INSULIN LISPRO 300 UNITS/3 ML INSULN.PEN. SQ SCH ×4 (06:00→23:42)
[2018-05-11 06:37] LABS: CALCIUM 8.7 mg/dL (8.5-10.1); CREATININE 0.8 mg/dL (0.6-1.0); GFR 85.1; POTASSIUM 3.8 mmol/L (3.5-5.1)
[2018-05-11 06:42] LABS: BASO # 0.1 x10^3/uL (0.0-0.2); BASO % 1 % (0-3); EOS # 0.4 x10^3/uL (0.0-0.7); EOS % 8 % (0-3); HEMOGLOBIN 11.2 g/dL (12.0-15.5); LYMPH # 1.4 x10^3/uL (1.0-4.8); LYMPH % 28 % (24-48); MEAN CORPUSCULAR HEMOGLOBIN 26 pg (25-35); MEAN CORPUSCULAR HGB CONC 34 g/dL (31-37); MEAN CORPUSCULAR VOLUME 76 fL (79-100); MONO # 0.4 x10^3/uL (0.0-1.1); MONO % 9 % (0-9); NEUT # 2.7 x10^3uL (1.8-7.7); NEUT % 54 % (31-73); PLATELET COUNT 189 x10^3/uL (140-400); RED BLOOD COUNT 4.34 x10^6/uL (3.50-5.40); RED CELL DISTRIBUTION WIDTH 15.2 % (11.5-14.5)
[2018-05-11 07:00] VITALS: BP 186/84
[2018-05-11] MEDS: CLOPIDOGREL BISULFATE 75 MG TABLET PO SCH (08:00)
[2018-05-11] MEDS: ASPIRIN 300 MG SUPP.RECT PR SCH (09:00)
--- NOTE | 2018-05-11 09:46 | PDOC ---
Objective: Objective: Reviewed w/ RN - wondering about timing of PEG - today? On PPN and IV H2 chio. ASA not given yet this morning. Vital Signs: Vital Signs Date Time Temp Pulse Resp B/P (MAP) Pulse Ox O2 Delivery O2 Flow Rate FiO2 05/11/18 08:52 78 186/84 05/11/18 07:00 98.3 18 96 Room Air 98.3 05/10/18 15:00 2.0 Labs: Laboratory Tests Test 05/10/18 12:31 05/10/18 12:55 05/10/18 18:07 05/10/18 23:12 Glucose (Fingerstick) 145 mg/dL 151 mg/dL 138 mg/dL 139 mg/dL Test 05/11/18 05:45 05/11/18 06:13 White Blood Count 5.0 x10^3/uL Red Blood Count 4.34 x10^6/uL Hemoglobin 11.2 g/dL Hematocrit 33.0 % Mean Corpuscular Volume 76 fL Mean Corpuscular Hemoglobin 26 pg Mean Corpuscular Hemoglobin Concent 34 g/dL Red Cell Distribution Width 15.2 % Platelet Count 189 x10^3/uL Neutrophils (%) (Auto) 54 % Lymphocytes (%) (Auto) 28 % Monocytes (%) (Auto) 9 % Eosinophils (%) (Auto) 8 % Basophils (%) (Auto) 1 % Neutrophils # (Auto) 2.7 x10^3uL Lymphocytes # (Auto) 1.4 x10^3/uL Monocytes # (Auto) 0.4 x10^3/uL Eosinophils # (Auto) 0.4 x10^3/uL Basophils # (Auto) 0.1 x10^3/uL Sodium Level 141 mmol/L Potassium Level 3.8 mmol/L Chloride Level 105 mmol/L Carbon Dioxide Level 28 mmol/L Anion Gap 8 Blood Urea Nitrogen 12 mg/dL Creatinine 0.8 mg/dL Estimated GFR (Cockcroft-Gault) 85.1 Glucose Level 132 mg/dL Calcium Level 8.7 mg/dL Glucose (Fingerstick) 156 mg/dL URINE CULTURE Final Final report URINE CULTURE RES 1 Final Proteus mirabilis BLOOD CULTURE Final NO GROWTH AFTER 5 DAYS PE: GEN: NAD LUNGS: CTAB HEART: RRR ABD: S/ND/NT NEURO/PSYCH: A & O 3 A/P: S/p stroke w/ dysphagia HTN Anemia - probably chronic disease, though B12 lowish UTI - on IV atbx -- RN to confirm family's decision re: PEG. If they wish to proceed, hold ASA today and proceed w/ PEG placement tomorrow afternoon - called to [facility] and GI lab. TIMI BEAVERS May 11, 2018 09:46
--- NOTE | 2018-05-11 10:19 | PDOC ---
PROGRESS NOTES Assessment Problems Medical Problems: (1) Acute encephalopathy Status: Acute (2) CVA (cerebral vascular accident) Status: Acute Acute/subacute 2.6 cm infarct in the posterior aspect of the left BG. Hypertensive emergency, SBP 218 mmHg. Cerebral edema. Hypertensive encephalopathy. Metabolic encephalopathy. Dysphagia. Plan BP control. ASA 300 mg RC daily, change to Plavix 75 mg daily p PEG. Lipitor 20 mg HS. Treat medical diseases. PEG placement planned for today. OT/PT. Rehab. Subjective No complaints Objective Vital Signs Date Time Temp Pulse Resp B/P (MAP) Pulse Ox O2 Delivery O2 Flow Rate FiO2 05/11/18 08:52 78 186/84 05/11/18 07:00 98.3 18 96 Room Air 98.3 05/10/18 15:00 2.0 Intake and Output 05/11/18 07:00 Intake Total 0 ml Output Total 1200 ml Balance -1200 ml Intake Oral 0 ml Output Urine Total 1200 ml PHYSICAL EXAM Alert. Oriented to time, place and person. PERRL. EOMI. CN: no focal findings. Muscle tone: decreased on right, normal on left. Muscle strength: 1-2/5 on right, 5-/5 on left DTR: 2+, brisker on the right Plantar reflex: extensor on the right, silent on left Gait: not examined in bed. Sensory exam: no abnormal findings. No cerebellar signs elicited, out of proportion to weakness. Review of Relevant I have reviewed the following items angelica (where applicable) has been applied. Labs Laboratory Tests Test 05/09/18 12:20 05/09/18 17:27 05/09/18 23:22 05/10/18 04:40 Glucose (Fingerstick) 153 mg/dL (70-99) 118 mg/dL (70-99) 132 mg/dL (70-99) White Blood Count 6.4 x10^3/uL (4.0-11.0) Red Blood Count 4.28 x10^6/uL (3.50-5.40) Hemoglobin 11.1 g/dL (12.0-15.5) Hematocrit 32.4 % (36.0-47.0) Mean Corpuscular Volume 76 fL (79-100) Mean Corpuscular Hemoglobin 26 pg (25-35) Mean Corpuscular Hemoglobin Concent 34 g/dL (31-37) Red Cell Distribution Width 14.8 % (11.5-14.5) Platelet Count 175 x10^3/uL (140-400) Neutrophils (%) (Auto) 55 % (31-73) Lymphocytes (%) (Auto) 27 % (24-48) Monocytes (%) (Auto) 10 % (0-9) Eosinophils (%) (Auto) 8 % (0-3) Basophils (%) (Auto) 1 % (0-3) Neutrophils # (Auto) 3.5 x10^3uL (1.8-7.7) Lymphocytes # (Auto) 1.7 x10^3/uL (1.0-4.8) Monocytes # (Auto) 0.6 x10^3/uL (0.0-1.1) Eosinophils # (Auto) 0.5 x10^3/uL (0.0-0.7) Basophils # (Auto) 0.0 x10^3/uL (0.0-0.2) Sodium Level 142 mmol/L (136-145) Potassium Level 3.6 mmol/L (3.5-5.1) Chloride Level 107 mmol/L (98-107) Carbon Dioxide Level 28 mmol/L (21-32) Anion Gap 7 (6-14) Blood Urea Nitrogen 9 mg/dL (7-20) Creatinine 0.8 mg/dL (0.6-1.0) Estimated GFR (Cockcroft-Gault) 85.1 Glucose Level 131 mg/dL (70-99) Calcium Level 8.2 mg/dL (8.5-10.1) Thyroxine (T4) 4.5 ug/dL (4.5-12.0) Free Triiodothyronine (T3) pg/mL 0.90 pg/mL (2.18-3.98) Test 05/10/18 06:16 05/10/18 12:31 05/10/18 12:55 05/10/18 18:07 Glucose (Fingerstick) 137 mg/dL (70-99) 145 mg/dL (70-99) 151 mg/dL (70-99) 138 mg/dL (70-99) Test 05/10/18 23:12 05/11/18 05:45 05/11/18 06:13 Glucose (Fingerstick) 139 mg/dL (70-99) 156 mg/dL (70-99) White Blood Count 5.0 x10^3/uL (4.0-11.0) Red Blood Count 4.34 x10^6/uL (3.50-5.40) Hemoglobin 11.2 g/dL (12.0-15.5) Hematocrit 33.0 % (36.0-47.0) Mean Corpuscular Volume 76 fL (79-100) Mean Corpuscular Hemoglobin 26 pg (25-35) Mean Corpuscular Hemoglobin Concent 34 g/dL (31-37) Red Cell Distribution Width 15.2 % (11.5-14.5) Platelet Count 189 x10^3/uL (140-400) Neutrophils (%) (Auto) 54 % (31-73) Lymphocytes (%) (Auto) 28 % (24-48) Monocytes (%) (Auto) 9 % (0-9) Eosinophils (%) (Auto) 8 % (0-3) Basophils (%) (Auto) 1 % (0-3) Neutrophils # (Auto) 2.7 x10^3uL (1.8-7.7) Lymphocytes # (Auto) 1.4 x10^3/uL (1.0-4.8) Monocytes # (Auto) 0.4 x10^3/uL (0.0-1.1) Eosinophils # (Auto) 0.4 x10^3/uL (0.0-0.7) Basophils # (Auto) 0.1 x10^3/uL (0.0-0.2) Sodium Level 141 mmol/L (136-145) Potassium Level 3.8 mmol/L (3.5-5.1) Chloride Level 105 mmol/L (98-107) Carbon Dioxide Level 28 mmol/L (21-32) Anion Gap 8 (6-14) Blood Urea Nitrogen 12 mg/dL (7-20) Creatinine 0.8 mg/dL (0.6-1.0) Estimated GFR (Cockcroft-Gault) 85.1 Glucose Level 132 mg/dL (70-99) Calcium Level 8.7 mg/dL (8.5-10.1) Laboratory Tests Test 05/10/18 12:31 05/10/18 12:55 05/10/18 18:07 05/10/18 23:12 Glucose (Fingerstick) 145 mg/dL (70-99) 151 mg/dL (70-99) 138 mg/dL (70-99) 139 mg/dL (70-99) Test 05/11/18 05:45 05/11/18 06:13 White Blood Count 5.0 x10^3/uL (4.0-11.0) Red Blood Count 4.34 x10^6/uL (3.50-5.40) Hemoglobin 11.2 g/dL (12.0-15.5) Hematocrit 33.0 % (36.0-47.0) Mean Corpuscular Volume 76 fL (79-100) Mean Corpuscular Hemoglobin 26 pg (25-35) Mean Corpuscular Hemoglobin Concent 34 g/dL (31-37) Red Cell Distribution Width 15.2 % (11.5-14.5) Platelet Count 189 x10^3/uL (140-400) Neutrophils (%) (Auto) 54 % (31-73) Lymphocytes (%) (Auto) 28 % (24-48) Monocytes (%) (Auto) 9 % (0-9) Eosinophils (%) (Auto) 8 % (0-3) Basophils (%) (Auto) 1 % (0-3) Neutrophils # (Auto) 2.7 x10^3uL (1.8-7.7) Lymphocytes # (Auto) 1.4 x10^3/uL (1.0-4.8) Monocytes # (Auto) 0.4 x10^3/uL (0.0-1.1) Eosinophils # (Auto) 0.4 x10^3/uL (0.0-0.7) Basophils # (Auto) 0.1 x10^3/uL (0.0-0.2) Sodium Level 141 mmol/L (136-145) Potassium Level 3.8 mmol/L (3.5-5.1) Chloride Level 105 mmol/L (98-107) Carbon Dioxide Level 28 mmol/L (21-32) Anion Gap 8 (6-14) Blood Urea Nitrogen 12 mg/dL (7-20) Creatinine 0.8 mg/dL (0.6-1.0) Estimated GFR (Cockcroft-Gault) 85.1 Glucose Level 132 mg/dL (70-99) Calcium Level 8.7 mg/dL (8.5-10.1) Glucose (Fingerstick) 156 mg/dL (70-99) Microbiology 05/05/18 Blood Culture - Final, Complete NO GROWTH AFTER 5 DAYS 05/05/18 Urine Culture - Final, Complete 05/05/18 Urine Culture Result 1 (JULIÁN) - Final, Complete 05/05/18 Antimicrobic Susceptibility - Final, Complete Medications Current Medications Sodium Chloride 1,000 ml @ 1,000 mls/hr Q1H IV Last administered on at 10:30; Start 05/05/18 at 09:53; Stop 05/05/18 at 10:52; Status DC Dextrose/Sodium Chloride 1,000 ml @ 75 mls/hr 1X ONCE IV Last administered on 05/05/18at 10:30; Start 05/05/18 at 10:00; Stop 05/05/18 at 15:56; Status DC Iohexol (Omnipaque 300 Mg/ml) 75 ml 1X ONCE IV ; Start 05/05/18 at 11:15; Stop 05/05/18 at 11:18; Status DC Info (CONTRAST GIVEN -- Rx MONITORING) 1 each PRN DAILY PRN MC SEE COMMENTS; Start 05/05/18 at 11:30; Stop 05/07/18 at 11:29; Status DC Sodium Chloride 1,000 ml @ 100 mls/hr Q10H IV Last administered on 05/08/18at 08:49; Start 05/05/18 at 16:00; Stop 05/08/18 at 16:46; Status DC Enalaprilat (Vasotec Inj) 1.25 mg PRN Q6HRS PRN IVP HYPERTENSION, SEE COMMENTS Last administered on 05/05/18at 16:30; Start 05/05/18 at 16:15 Ceftriaxone Sodium 1 gm/ Dextrose 50 ml @ 100 mls/hr Q24H IV ; Start 05/05/18 at 17:00; Status UNV Ceftriaxone Sodium (Rocephin) 1 gm Q24H IVP Last administered on 05/10/18at 16: 21; Start 05/05/18 at 17:00 Sodium Chloride (Normal Saline Flush 3ml) 3 ml QSHIFT PRN IV AFTER MEDS AND BLOOD DRAWS; Start 05/05/18 at 17:00 Ondansetron HCl (Zofran) 4 mg PRN Q4HRS PRN IV NAUSEA/VOMITING; Start at 17:00 Acetaminophen (Tylenol Supp) 650 mg PRN Q4HRS PRN NM TEMP OVER 100.4F OR MILD PAIN; Start 05/05/18 at 17:00 Albuterol Sulfate (Ventolin Neb Soln) 2.5 mg PRN Q4HRS PRN NEB SHORTNESS OF BREATH; Start 05/05/18 at 17:00 Levofloxacin/ Dextrose 100 ml @ 100 mls/hr Q24H IV Last administered on at 17:20; Start 05/05/18 at 17:00; Stop 05/06/18 at 16:22; Status DC Enalaprilat (Vasotec Inj) 2.5 mg 1X ONCE IVP Last administered on 05/05/18at 17:12; Start 05/05/18 at 17:15; Stop 05/05/18 at 17:16; Status DC Nicardipine HCl 50 mg/Sodium Chloride 270 ml @ 27 mls/hr CONT PRN IV SEE I/O RECORD; Start 05/05/18 at 17:45; Stop 05/05/18 at 17:45; Status DC Nicardipine/ Sodium Chloride 200 ml @ 27 mls/hr CONT PRN IV SEE I/O RECORD Last administered on 05/07/18at 02:46; Start 05/05/18 at 17:45; Stop 05/07/18 at 09:40; Status DC Aspirin (Ev Aspirin) 325 mg DAILYWBKFT PO ; Start 05/05/18 at 19:00; Stop 05/07/18 at 09:43; Status DC Aspirin (Aspirin) 300 mg 1X ONCE NM ; Start 05/06/18 at 10:00; Stop 05/06/18 at 10:01; Status DC Clopidogrel Bisulfate (Plavix) 75 mg DAILYWBKFT PO ; Start 05/06/18 at 12:00 Atorvastatin Calcium (Lipitor) 20 mg QHS PO ; Start 05/06/18 at 21:00 Aspirin (Aspirin) 300 mg DAILY NM Last administered on 05/10/18at 08:11; Start 05/07/18 at 09:00 Insulin Human Lispro (HumaLOG) 0-7 UNITS TIDWMEALS SQ Last administered on at 17:21; Start 05/06/18 at 17:00; Stop 05/06/18 at 19:17; Status DC Dextrose (Dextrose 50%-Water Syringe) 12.5 gm PRN Q15MIN PRN IV SEE COMMENTS; Start 05/06/18 at 16:45; Stop 05/06/18 at 19:20; Status DC Sodium Chloride 500 ml @ 500 mls/hr 1X ONCE IV ; Start 05/06/18 at 18:15; Stop 05/06/18 at 19:14; Status DC Sodium Chloride 1,000 ml @ 100 mls/hr Q10H IV Last administered on 05/06/18at 19:39; Start 05/06/18 at 18:15; Stop 05/07/18 at 13:03; Status DC Insulin Human Lispro (HumaLOG) 0-9 UNITS Q6HRS SQ Last administered on at 12:57; Start 05/07/18 at 00:00 Dextrose (Dextrose 50%-Water Syringe) 12.5 gm PRN Q15MIN PRN IV SEE COMMENTS; Start 05/06/18 at 19:15 Sodium Chloride 1,000 ml @ 1,000 mls/hr 1X ONCE IV Last administered on 05/06at 21:35; Start 05/06/18 at 21:30; Stop 05/06/18 at 22:29; Status DC Nicardipine HCl 50 mg/Sodium Chloride 270 ml @ 0 mls/hr CONT PRN IV SEE I/O RECORD Last administered on 05/07/18at 22:59; Start 05/07/18 at 07:15 Sodium Chloride (Normal Saline Flush) 10 ml QSHIFT PRN IV AFTER MEDS AND BLOOD DRAWS; Start 05/07/18 at 11:15 Lidocaine HCl (Xylocaine 2% Topical 5gm Tube) 1 yuliya 1X ONCE TP ; Start at 11:15; Stop 05/07/18 at 11:19; Status DC Lidocaine HCl (Viscous Lidocaine) 15 ml 1X ONCE MM ; Start 05/07/18 at 11:15; Stop 05/07/18 at 11:19; Status DC Benzocaine (Hurricaine One) 3 spray 1X ONCE MM ; Start 05/07/18 at 11:15; Stop 05/07/18 at 11:19; Status DC Propofol 20 ml @ As Directed STK-MED ONCE IV ; Start 05/07/18 at 11:25; Stop 05/07/18 at 11:26; Status DC Labetalol HCl (Normodyne Iv Push) 20 mg Q4HRS IVP Last administered on at 08:52; Start 05/07/18 at 16:00 Potassium Chloride (Klor-Con) 40 meq 1X ONCE PO ; Start 05/08/18 at 09:00; Stop 05/08/18 at 09:43; Status DC Potassium Chloride/Water 50 ml @ 50 mls/hr Q1H IV Last administered on at 11:22; Start 05/08/18 at 10:00; Stop 05/08/18 at 11:59; Status DC Famotidine (Pepcid Vial) 20 mg QHS IVP Last administered on 05/10/18at 21:37; Start 05/08/18 at 21:00 Amino Acids/ Glycerin/ Electrolytes 1,000 ml @ 75 mls/hr [id number] IV Last administered on 05/10/18at 21:37; Start 05/08/18 at 16:45 Active Scripts Active Reported Latanoprost 2.5 Ml Drops 1 Drop EACHEYE QHS Citalopram Hbr (Citalopram Hydrobromide) 10 Mg Tablet 1 Tab PO DAILY Dorzolamide Hcl 10 Ml Drops 1 Drop EACHEYE BID Metoprolol Succinate ( Xl ) (Metoprolol Succinate) 100 Mg Tab.er.24h 1 Tab PO DAILY Atorvastatin Calcium 40 Mg Tablet 1 Tab PO DAILY Lisinopril 40 Mg Tablet 1 Tab PO DAILY Amlodipine Besylate 10 Mg Tablet 10 Mg PO DAILY Metformin Hcl 500 Mg Tablet 500 Mg PO DAILY Lantus Solostar (Insulin Glargine,Hum.rec.anlog) 100 Unit/1 Ml Insuln.pen 30 Unit SQ QHS Vitals/I & O Vital Sign - Last 24 Hours 05/10/18 05/10/18 05/10/18 05/10/18 11:00 12:00 15:00 16:21 Temp 99.2 98.4 99.2 98.4 Pulse 73 73 74 74 Resp 18 18 B/P (MAP) 154/74 (100) 154/74 172/86 (114) 172/86 Pulse Ox 95 100 O2 Delivery Room Air Room Air O2 Flow Rate 2.0 05/10/18 05/10/18 05/10/18 05/10/18 19:12 19:30 20:00 23:00 Temp 98.3 98.3 98.3 98.3 Pulse 77 77 77 Resp 18 18 B/P (MAP) 156/74 (101) 156/74 140/62 (88) Pulse Ox 99 99 O2 Delivery Room Air Room Air Room Air 05/11/18 05/11/18 05/11/18 05/11/18 00:00 03:28 04:00 07:00 Temp 98.2 98.3 98.2 98.3 Pulse 77 74 74 78 Resp 18 18 B/P (MAP) 140/62 157/73 (101) 151/76 186/84 (118) Pulse Ox 99 96 O2 Delivery Room Air Room Air 05/11/18 08:52 Pulse 78 B/P (MAP) 186/84 Intake and Output 05/10/18 05/10/18 05/11/18 15:00 23:00 07:00 Intake Total 0 ml Output Total 1200 ml Balance -1200 ml J CARLOS CASTRO MD May 11, 2018 10:18
[2018-05-11] MEDS: AMINO AC 3%/ELECTROLYTE/GLYCER 1,000 ML IV SCH (10:23)
[2018-05-11 11:15] VITALS: BP 148/81
--- NOTE | 2018-05-11 12:19 | PDOC ---
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 Vitals Vitals Vital Signs Date Time Temp Pulse Resp B/P (MAP) Pulse Ox O2 Delivery O2 Flow Rate FiO2 05/11/18 11:15 98.7 74 18 148/81 (103) 97 Room Air 98.7 05/10/18 15:00 2.0 Physical Exam General: Alert, No acute distress Heart: Regular rate (SR no significant ectopies), Normal S1, Normal S2, Other ( 2/6 systolic murmur to LLS border) Lungs: Clear Abdomen: Soft, No tenderness Extremities: No clubbing, No cyanosis, Other (trace LE edema) Skin: No rashes, No breakdown Labs LABS Laboratory Tests Test 05/10/18 12:31 05/10/18 12:55 05/10/18 18:07 05/10/18 23:12 Glucose (Fingerstick) 145 mg/dL (70-99) 151 mg/dL (70-99) 138 mg/dL (70-99) 139 mg/dL (70-99) Test 05/11/18 05:45 05/11/18 06:13 05/11/18 11:31 White Blood Count 5.0 x10^3/uL (4.0-11.0) Red Blood Count 4.34 x10^6/uL (3.50-5.40) Hemoglobin 11.2 g/dL (12.0-15.5) Hematocrit 33.0 % (36.0-47.0) Mean Corpuscular Volume 76 fL (79-100) Mean Corpuscular Hemoglobin 26 pg (25-35) Mean Corpuscular Hemoglobin Concent 34 g/dL (31-37) Red Cell Distribution Width 15.2 % (11.5-14.5) Platelet Count 189 x10^3/uL (140-400) Neutrophils (%) (Auto) 54 % (31-73) Lymphocytes (%) (Auto) 28 % (24-48) Monocytes (%) (Auto) 9 % (0-9) Eosinophils (%) (Auto) 8 % (0-3) Basophils (%) (Auto) 1 % (0-3) Neutrophils # (Auto) 2.7 x10^3uL (1.8-7.7) Lymphocytes # (Auto) 1.4 x10^3/uL (1.0-4.8) Monocytes # (Auto) 0.4 x10^3/uL (0.0-1.1) Eosinophils # (Auto) 0.4 x10^3/uL (0.0-0.7) Basophils # (Auto) 0.1 x10^3/uL (0.0-0.2) Sodium Level 141 mmol/L (136-145) Potassium Level 3.8 mmol/L (3.5-5.1) Chloride Level 105 mmol/L (98-107) Carbon Dioxide Level 28 mmol/L (21-32) Anion Gap 8 (6-14) Blood Urea Nitrogen 12 mg/dL (7-20) Creatinine 0.8 mg/dL (0.6-1.0) Estimated GFR (Cockcroft-Gault) 85.1 Glucose Level 132 mg/dL (70-99) Calcium Level 8.7 mg/dL (8.5-10.1) Glucose (Fingerstick) 156 mg/dL (70-99) 171 mg/dL (70-99) Review of Systems Review of Systems Pt denies CP and SOA. 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 rehab Comment Review of Relevant I have reviewed the following items angelica (where applicable) has been applied. Labs Laboratory Tests Test 05/09/18 12:20 05/09/18 17:27 05/09/18 23:22 05/10/18 04:40 Glucose (Fingerstick) 153 mg/dL (70-99) 118 mg/dL (70-99) 132 mg/dL (70-99) White Blood Count 6.4 x10^3/uL (4.0-11.0) Red Blood Count 4.28 x10^6/uL (3.50-5.40) Hemoglobin 11.1 g/dL (12.0-15.5) Hematocrit 32.4 % (36.0-47.0) Mean Corpuscular Volume 76 fL (79-100) Mean Corpuscular Hemoglobin 26 pg (25-35) Mean Corpuscular Hemoglobin Concent 34 g/dL (31-37) Red Cell Distribution Width 14.8 % (11.5-14.5) Platelet Count 175 x10^3/uL (140-400) Neutrophils (%) (Auto) 55 % (31-73) Lymphocytes (%) (Auto) 27 % (24-48) Monocytes (%) (Auto) 10 % (0-9) Eosinophils (%) (Auto) 8 % (0-3) Basophils (%) (Auto) 1 % (0-3) Neutrophils # (Auto) 3.5 x10^3uL (1.8-7.7) Lymphocytes # (Auto) 1.7 x10^3/uL (1.0-4.8) Monocytes # (Auto) 0.6 x10^3/uL (0.0-1.1) Eosinophils # (Auto) 0.5 x10^3/uL (0.0-0.7) Basophils # (Auto) 0.0 x10^3/uL (0.0-0.2) Sodium Level 142 mmol/L (136-145) Potassium Level 3.6 mmol/L (3.5-5.1) Chloride Level 107 mmol/L (98-107) Carbon Dioxide Level 28 mmol/L (21-32) Anion Gap 7 (6-14) Blood Urea Nitrogen 9 mg/dL (7-20) Creatinine 0.8 mg/dL (0.6-1.0) Estimated GFR (Cockcroft-Gault) 85.1 Glucose Level 131 mg/dL (70-99) Calcium Level 8.2 mg/dL (8.5-10.1) Thyroxine (T4) 4.5 ug/dL (4.5-12.0) Free Triiodothyronine (T3) pg/mL 0.90 pg/mL (2.18-3.98) Test 05/10/18 06:16 05/10/18 12:31 05/10/18 12:55 05/10/18 18:07 Glucose (Fingerstick) 137 mg/dL (70-99) 145 mg/dL (70-99) 151 mg/dL (70-99) 138 mg/dL (70-99) Test 05/10/18 23:12 05/11/18 05:45 05/11/18 06:13 05/11/18 11:31 Glucose (Fingerstick) 139 mg/dL (70-99) 156 mg/dL (70-99) 171 mg/dL (70-99) White Blood Count 5.0 x10^3/uL (4.0-11.0) Red Blood Count 4.34 x10^6/uL (3.50-5.40) Hemoglobin 11.2 g/dL (12.0-15.5) Hematocrit 33.0 % (36.0-47.0) Mean Corpuscular Volume 76 fL (79-100) Mean Corpuscular Hemoglobin 26 pg (25-35) Mean Corpuscular Hemoglobin Concent 34 g/dL (31-37) Red Cell Distribution Width 15.2 % (11.5-14.5) Platelet Count 189 x10^3/uL (140-400) Neutrophils (%) (Auto) 54 % (31-73) Lymphocytes (%) (Auto) 28 % (24-48) Monocytes (%) (Auto) 9 % (0-9) Eosinophils (%) (Auto) 8 % (0-3) Basophils (%) (Auto) 1 % (0-3) Neutrophils # (Auto) 2.7 x10^3uL (1.8-7.7) Lymphocytes # (Auto) 1.4 x10^3/uL (1.0-4.8) Monocytes # (Auto) 0.4 x10^3/uL (0.0-1.1) Eosinophils # (Auto) 0.4 x10^3/uL (0.0-0.7) Basophils # (Auto) 0.1 x10^3/uL (0.0-0.2) Sodium Level 141 mmol/L (136-145) Potassium Level 3.8 mmol/L (3.5-5.1) Chloride Level 105 mmol/L (98-107) Carbon Dioxide Level 28 mmol/L (21-32) Anion Gap 8 (6-14) Blood Urea Nitrogen 12 mg/dL (7-20) Creatinine 0.8 mg/dL (0.6-1.0) Estimated GFR (Cockcroft-Gault) 85.1 Glucose Level 132 mg/dL (70-99) Calcium Level 8.7 mg/dL (8.5-10.1) Laboratory Tests Test 05/10/18 12:31 05/10/18 12:55 05/10/18 18:07 05/10/18 23:12 Glucose (Fingerstick) 145 mg/dL (70-99) 151 mg/dL (70-99) 138 mg/dL (70-99) 139 mg/dL (70-99) Test 05/11/18 05:45 05/11/18 06:13 05/11/18 11:31 White Blood Count 5.0 x10^3/uL (4.0-11.0) Red Blood Count 4.34 x10^6/uL (3.50-5.40) Hemoglobin 11.2 g/dL (12.0-15.5) Hematocrit 33.0 % (36.0-47.0) Mean Corpuscular Volume 76 fL (79-100) Mean Corpuscular Hemoglobin 26 pg (25-35) Mean Corpuscular Hemoglobin Concent 34 g/dL (31-37) Red Cell Distribution Width 15.2 % (11.5-14.5) Platelet Count 189 x10^3/uL (140-400) Neutrophils (%) (Auto) 54 % (31-73) Lymphocytes (%) (Auto) 28 % (24-48) Monocytes (%) (Auto) 9 % (0-9) Eosinophils (%) (Auto) 8 % (0-3) Basophils (%) (Auto) 1 % (0-3) Neutrophils # (Auto) 2.7 x10^3uL (1.8-7.7) Lymphocytes # (Auto) 1.4 x10^3/uL (1.0-4.8) Monocytes # (Auto) 0.4 x10^3/uL (0.0-1.1) Eosinophils # (Auto) 0.4 x10^3/uL (0.0-0.7) Basophils # (Auto) 0.1 x10^3/uL (0.0-0.2) Sodium Level 141 mmol/L (136-145) Potassium Level 3.8 mmol/L (3.5-5.1) Chloride Level 105 mmol/L (98-107) Carbon Dioxide Level 28 mmol/L (21-32) Anion Gap 8 (6-14) Blood Urea Nitrogen 12 mg/dL (7-20) Creatinine 0.8 mg/dL (0.6-1.0) Estimated GFR (Cockcroft-Gault) 85.1 Glucose Level 132 mg/dL (70-99) Calcium Level 8.7 mg/dL (8.5-10.1) Glucose (Fingerstick) 156 mg/dL (70-99) 171 mg/dL (70-99) Microbiology 05/05/18 Blood Culture - Final, Complete NO GROWTH AFTER 5 DAYS 05/05/18 Urine Culture - Final, Complete 05/05/18 Urine Culture Result 1 (JULIÁN) - Final, Complete 05/05/18 Antimicrobic Susceptibility - Final, Complete Medications Current Medications Sodium Chloride 1,000 ml @ 1,000 mls/hr Q1H IV Last administered on at 10:30; Start 05/05/18 at 09:53; Stop 05/05/18 at 10:52; Status DC Dextrose/Sodium Chloride 1,000 ml @ 75 mls/hr 1X ONCE IV Last administered on 05/05/18at 10:30; Start 05/05/18 at 10:00; Stop 05/05/18 at 15:56; Status DC Iohexol (Omnipaque 300 Mg/ml) 75 ml 1X ONCE IV ; Start 05/05/18 at 11:15; Stop 05/05/18 at 11:18; Status DC Info (CONTRAST GIVEN -- Rx MONITORING) 1 each PRN DAILY PRN MC SEE COMMENTS; Start 05/05/18 at 11:30; Stop 05/07/18 at 11:29; Status DC Sodium Chloride 1,000 ml @ 100 mls/hr Q10H IV Last administered on 05/08/18at 08:49; Start 05/05/18 at 16:00; Stop 05/08/18 at 16:46; Status DC Enalaprilat (Vasotec Inj) 1.25 mg PRN Q6HRS PRN IVP HYPERTENSION, SEE COMMENTS Last administered on 05/05/18at 16:30; Start 05/05/18 at 16:15 Ceftriaxone Sodium 1 gm/ Dextrose 50 ml @ 100 mls/hr Q24H IV ; Start 05/05/18 at 17:00; Status UNV Ceftriaxone Sodium (Rocephin) 1 gm Q24H IVP Last administered on 05/10/18at 16: 21; Start 05/05/18 at 17:00 Sodium Chloride (Normal Saline Flush 3ml) 3 ml QSHIFT PRN IV AFTER MEDS AND BLOOD DRAWS; Start 05/05/18 at 17:00 Ondansetron HCl (Zofran) 4 mg PRN Q4HRS PRN IV NAUSEA/VOMITING; Start at 17:00 Acetaminophen (Tylenol Supp) 650 mg PRN Q4HRS PRN [place] TEMP OVER 100.4F OR MILD PAIN; Start 05/05/18 at 17:00 Albuterol Sulfate (Ventolin Neb Soln) 2.5 mg PRN Q4HRS PRN NEB SHORTNESS OF BREATH; Start 05/05/18 at 17:00 Levofloxacin/ Dextrose 100 ml @ 100 mls/hr Q24H IV Last administered on at 17:20; Start 05/05/18 at 17:00; Stop 05/06/18 at 16:22; Status DC Enalaprilat (Vasotec Inj) 2.5 mg 1X ONCE IVP Last administered on 05/05/18at 17:12; Start 05/05/18 at 17:15; Stop 05/05/18 at 17:16; Status DC Nicardipine HCl 50 mg/Sodium Chloride 270 ml @ 27 mls/hr CONT PRN IV SEE I/O RECORD; Start 05/05/18 at 17:45; Stop 05/05/18 at 17:45; Status DC Nicardipine/ Sodium Chloride 200 ml @ 27 mls/hr CONT PRN IV SEE I/O RECORD Last administered on 05/07/18at 02:46; Start 05/05/18 at 17:45; Stop 05/07/18 at 09:40; Status DC Aspirin (Ev Aspirin) 325 mg DAILYWBKFT PO ; Start 05/05/18 at 19:00; Stop 05/07/18 at 09:43; Status DC Aspirin (Aspirin) 300 mg 1X ONCE MO ; Start 05/06/18 at 10:00; Stop 05/06/18 at 10:01; Status DC Clopidogrel Bisulfate (Plavix) 75 mg DAILYWBKFT PO ; Start 05/06/18 at 12:00 Atorvastatin Calcium (Lipitor) 20 mg QHS PO ; Start 05/06/18 at 21:00 Aspirin (Aspirin) 300 mg DAILY MO Last administered on 05/10/18at 08:11; Start 05/07/18 at 09:00 Insulin Human Lispro (HumaLOG) 0-7 UNITS TIDWMEALS SQ Last administered on at 17:21; Start 05/06/18 at 17:00; Stop 05/06/18 at 19:17; Status DC Dextrose (Dextrose 50%-Water Syringe) 12.5 gm PRN Q15MIN PRN IV SEE COMMENTS; Start 05/06/18 at 16:45; Stop 05/06/18 at 19:20; Status DC Sodium Chloride 500 ml @ 500 mls/hr 1X ONCE IV ; Start 05/06/18 at 18:15; Stop 05/06/18 at 19:14; Status DC Sodium Chloride 1,000 ml @ 100 mls/hr Q10H IV Last administered on 05/06/18at 19:39; Start 05/06/18 at 18:15; Stop 05/07/18 at 13:03; Status DC Insulin Human Lispro (HumaLOG) 0-9 UNITS Q6HRS SQ Last administered on at 12:57; Start 05/07/18 at 00:00 Dextrose (Dextrose 50%-Water Syringe) 12.5 gm PRN Q15MIN PRN IV SEE COMMENTS; Start 05/06/18 at 19:15 Sodium Chloride 1,000 ml @ 1,000 mls/hr 1X ONCE IV Last administered on 05/06at 21:35; Start 05/06/18 at 21:30; Stop 05/06/18 at 22:29; Status DC Nicardipine HCl 50 mg/Sodium Chloride 270 ml @ 0 mls/hr CONT PRN IV SEE I/O RECORD Last administered on 05/07/18at 22:59; Start 05/07/18 at 07:15 Sodium Chloride (Normal Saline Flush) 10 ml QSHIFT PRN IV AFTER MEDS AND BLOOD DRAWS; Start 05/07/18 at 11:15 Lidocaine HCl (Xylocaine 2% Topical 5gm Tube) 1 yuliya 1X ONCE TP ; Start at 11:15; Stop 05/07/18 at 11:19; Status DC Lidocaine HCl (Viscous Lidocaine) 15 ml 1X ONCE MM ; Start 05/07/18 at 11:15; Stop 05/07/18 at 11:19; Status DC Benzocaine (Hurricaine One) 3 spray 1X ONCE MM ; Start 05/07/18 at 11:15; Stop 05/07/18 at 11:19; Status DC Propofol 20 ml @ As Directed STK-MED ONCE IV ; Start 05/07/18 at 11:25; Stop 05/07/18 at 11:26; Status DC Labetalol HCl (Normodyne Iv Push) 20 mg Q4HRS IVP Last administered on at 08:52; Start 05/07/18 at 16:00 Potassium Chloride (Klor-Con) 40 meq 1X ONCE PO ; Start 05/08/18 at 09:00; Stop 05/08/18 at 09:43; Status DC Potassium Chloride/Water 50 ml @ 50 mls/hr Q1H IV Last administered on at 11:22; Start 05/08/18 at 10:00; Stop 05/08/18 at 11:59; Status DC Famotidine (Pepcid Vial) 20 mg QHS IVP Last administered on 05/10/18at 21:37; Start 05/08/18 at 21:00 Amino Acids/ Glycerin/ Electrolytes 1,000 ml @ 75 mls/hr [id number] IV Last administered on 05/11/18at 10:23; Start 05/08/18 at 16:45 Active Scripts Active Reported Latanoprost 2.5 Ml Drops 1 Drop EACHEYE QHS Citalopram Hbr (Citalopram Hydrobromide) 10 Mg Tablet 1 Tab PO DAILY Dorzolamide Hcl 10 Ml Drops 1 Drop EACHEYE BID Metoprolol Succinate ( Xl ) (Metoprolol Succinate) 100 Mg Tab.er.24h 1 Tab PO DAILY Atorvastatin Calcium 40 Mg Tablet 1 Tab PO DAILY Lisinopril 40 Mg Tablet 1 Tab PO DAILY Amlodipine Besylate 10 Mg Tablet 10 Mg PO DAILY Metformin Hcl 500 Mg Tablet 500 Mg PO DAILY Lantus Solostar (Insulin Glargine,Hum.rec.anlog) 100 Unit/1 Ml Insuln.pen 30 Unit SQ QHS Vitals/I & O Vital Sign - Last 24 Hours 05/10/18 05/10/18 05/10/18 05/10/18 15:00 16:21 19:12 19:30 Temp 98.4 98.3 98.4 98.3 Pulse 74 74 77 Resp 18 18 B/P (MAP) 172/86 (114) 172/86 156/74 (101) Pulse Ox 100 99 O2 Delivery Room Air Room Air Room Air O2 Flow Rate 2.0 05/10/18 05/10/18 05/11/18 05/11/18 20:00 23:00 00:00 03:28 Temp 98.3 98.2 98.3 98.2 Pulse 77 77 77 74 Resp 18 18 B/P (MAP) 156/74 140/62 (88) 140/62 157/73 (101) Pulse Ox 99 99 O2 Delivery Room Air Room Air 05/11/18 05/11/18 05/11/18 05/11/18 04:00 07:00 08:00 08:52 Temp 98.3 98.3 Pulse 74 78 78 Resp 18 B/P (MAP) 151/76 186/84 (118) 186/84 Pulse Ox 96 O2 Delivery Room Air Room Air 05/11/18 11:15 Temp 98.7 98.7 Pulse 74 Resp 18 B/P (MAP) 148/81 (103) Pulse Ox 97 O2 Delivery Room Air Intake and Output 05/10/18 05/10/18 05/11/18 15:00 23:00 07:00 Intake Total 0 ml Output Total 1200 ml Balance -1200 ml MELISSA DONG III DO May 11, 2018 12:19
[2018-05-11 14:46] VITALS: BP 185/91
[2018-05-11] MEDS ORDERED: cloNIDine TTS-3 1 PATCH PATCH.TDWK TD SCH (15:30)
[2018-05-11] MEDS: cefTRIAXone IV Push 1 GM VIAL. IVP SCH (17:04)
[2018-05-11 19:05] VITALS: BP 164/74
[2018-05-11] MEDS: ATORVASTATIN CALCIUM 20 MG TABLET PO SCH (20:01)
[2018-05-11] MEDS: FAMOTIDINE 20 MG/2 ML VIAL IVP SCH (20:36)
[2018-05-11 23:45] VITALS: BP 154/69
[2018-05-12] MEDS: AMINO AC 3%/ELECTROLYTE/GLYCER 1,000 ML IV SCH ×2 (00:45→14:05)
[2018-05-12 03:45] VITALS: BP 152/74
[2018-05-12] MEDS: LABETALOL 20 MG/4 ML DISP.SYRIN. IVP SCH ×4 (04:00→17:02)
[2018-05-12] MEDS: INSULIN LISPRO 300 UNITS/3 ML INSULN.PEN. SQ SCH ×2 (06:00→12:00)
[2018-05-12 07:00] VITALS: BP 188/73
[2018-05-12] MEDS ORDERED: ALTEPLASE 2 MG VIAL INT CAT ONE (07:00)
[2018-05-12] MEDS: CLOPIDOGREL BISULFATE 75 MG TABLET PO SCH (07:47)
[2018-05-12] MEDS: ASPIRIN 300 MG SUPP.RECT PR SCH (09:00)
[2018-05-12] MEDS ORDERED: BARIUM SULFATE 40% (APPLE) 148 GM PWD. PO ONE (09:15)
--- NOTE | 2018-05-12 09:59 | PDOC ---
PROGRESS NOTES Assessment Problems Medical Problems: (1) Acute encephalopathy Status: Acute (2) CVA (cerebral vascular accident) Status: Acute Acute/subacute 2.6 cm infarct in the posterior aspect of the left BG. Hypertensive emergency, SBP 218 mmHg. Cerebral edema. Hypertensive encephalopathy. Metabolic encephalopathy. Dysphagia. Plan BP control. ASA 300 mg RC daily, change to Plavix 75 mg daily p PEG. Lipitor 20 mg HS. Treat medical diseases. PEG placement was held yesterday, patient getting repeat video swallow today. OT/PT. Rehab. Subjective No complaints Objective Vital Signs Date Time Temp Pulse Resp B/P (MAP) Pulse Ox O2 Delivery O2 Flow Rate FiO2 05/12/18 09:04 84 188/73 05/12/18 08:00 Room Air 05/12/18 07:00 98.1 20 99 98.1 Intake and Output 05/12/18 07:00 Intake Total 3800 ml Output Total 2000 ml Balance 1800 ml Intake Oral 0 ml IV Total 3800 ml Output Urine Total 2000 ml PHYSICAL EXAM Alert. Oriented to time, place and person. PERRL. EOMI. CN: right central facial weakness otherwise no focal findings Muscle tone: decreased on right, normal on left. Muscle strength: 1-2/5 on right, 5-/5 on left DTR: 2+, brisker on the right Plantar reflex: extensor on the right, silent on left Gait: not examined in bed. Sensory exam: no abnormal findings. No cerebellar signs elicited, out of proportion to weakness. Review of Relevant I have reviewed the following items angelica (where applicable) has been applied. Labs Laboratory Tests Test 05/10/18 12:31 05/10/18 12:55 05/10/18 18:07 05/10/18 23:12 Glucose (Fingerstick) 145 mg/dL (70-99) 151 mg/dL (70-99) 138 mg/dL (70-99) 139 mg/dL (70-99) Test 05/11/18 05:45 05/11/18 06:13 05/11/18 11:31 05/11/18 17:00 White Blood Count 5.0 x10^3/uL (4.0-11.0) Red Blood Count 4.34 x10^6/uL (3.50-5.40) Hemoglobin 11.2 g/dL (12.0-15.5) Hematocrit 33.0 % (36.0-47.0) Mean Corpuscular Volume 76 fL (79-100) Mean Corpuscular Hemoglobin 26 pg (25-35) Mean Corpuscular Hemoglobin Concent 34 g/dL (31-37) Red Cell Distribution Width 15.2 % (11.5-14.5) Platelet Count 189 x10^3/uL (140-400) Neutrophils (%) (Auto) 54 % (31-73) Lymphocytes (%) (Auto) 28 % (24-48) Monocytes (%) (Auto) 9 % (0-9) Eosinophils (%) (Auto) 8 % (0-3) Basophils (%) (Auto) 1 % (0-3) Neutrophils # (Auto) 2.7 x10^3uL (1.8-7.7) Lymphocytes # (Auto) 1.4 x10^3/uL (1.0-4.8) Monocytes # (Auto) 0.4 x10^3/uL (0.0-1.1) Eosinophils # (Auto) 0.4 x10^3/uL (0.0-0.7) Basophils # (Auto) 0.1 x10^3/uL (0.0-0.2) Sodium Level 141 mmol/L (136-145) Potassium Level 3.8 mmol/L (3.5-5.1) Chloride Level 105 mmol/L (98-107) Carbon Dioxide Level 28 mmol/L (21-32) Anion Gap 8 (6-14) Blood Urea Nitrogen 12 mg/dL (7-20) Creatinine 0.8 mg/dL (0.6-1.0) Estimated GFR (Cockcroft-Gault) 85.1 Glucose Level 132 mg/dL (70-99) Calcium Level 8.7 mg/dL (8.5-10.1) Glucose (Fingerstick) 156 mg/dL (70-99) 171 mg/dL (70-99) 141 mg/dL (70-99) Test 05/11/18 23:33 05/12/18 06:04 Glucose (Fingerstick) 125 mg/dL (70-99) 136 mg/dL (70-99) Laboratory Tests Test 05/11/18 11:31 05/11/18 17:00 05/11/18 23:33 05/12/18 06:04 Glucose (Fingerstick) 171 mg/dL (70-99) 141 mg/dL (70-99) 125 mg/dL (70-99) 136 mg/dL (70-99) Microbiology 05/05/18 Blood Culture - Final, Complete NO GROWTH AFTER 5 DAYS 05/05/18 Urine Culture - Final, Complete 05/05/18 Urine Culture Result 1 (JULIÁN) - Final, Complete 05/05/18 Antimicrobic Susceptibility - Final, Complete Medications Current Medications Sodium Chloride 1,000 ml @ 1,000 mls/hr Q1H IV Last administered on at 10:30; Start 05/05/18 at 09:53; Stop 05/05/18 at 10:52; Status DC Dextrose/Sodium Chloride 1,000 ml @ 75 mls/hr 1X ONCE IV Last administered on 05/05/18at 10:30; Start 05/05/18 at 10:00; Stop 05/05/18 at 15:56; Status DC Iohexol (Omnipaque 300 Mg/ml) 75 ml 1X ONCE IV ; Start 05/05/18 at 11:15; Stop 05/05/18 at 11:18; Status DC Info (CONTRAST GIVEN -- Rx MONITORING) 1 each PRN DAILY PRN MC SEE COMMENTS; Start 05/05/18 at 11:30; Stop 05/07/18 at 11:29; Status DC Sodium Chloride 1,000 ml @ 100 mls/hr Q10H IV Last administered on 05/08/18at 08:49; Start 05/05/18 at 16:00; Stop 05/08/18 at 16:46; Status DC Enalaprilat (Vasotec Inj) 1.25 mg PRN Q6HRS PRN IVP HYPERTENSION, SEE COMMENTS Last administered on 05/05/18at 16:30; Start 05/05/18 at 16:15 Ceftriaxone Sodium 1 gm/ Dextrose 50 ml @ 100 mls/hr Q24H IV ; Start 05/05/18 at 17:00; Status UNV Ceftriaxone Sodium (Rocephin) 1 gm Q24H IVP Last administered on 05/11/18at 17: 04; Start 05/05/18 at 17:00 Sodium Chloride (Normal Saline Flush 3ml) 3 ml QSHIFT PRN IV AFTER MEDS AND BLOOD DRAWS; Start 05/05/18 at 17:00 Ondansetron HCl (Zofran) 4 mg PRN Q4HRS PRN IV NAUSEA/VOMITING; Start at 17:00 Acetaminophen (Tylenol Supp) 650 mg PRN Q4HRS PRN [place] TEMP OVER 100.4F OR MILD PAIN; Start 05/05/18 at 17:00 Albuterol Sulfate (Ventolin Neb Soln) 2.5 mg PRN Q4HRS PRN NEB SHORTNESS OF BREATH; Start 05/05/18 at 17:00 Levofloxacin/ Dextrose 100 ml @ 100 mls/hr Q24H IV Last administered on at 17:20; Start 05/05/18 at 17:00; Stop 05/06/18 at 16:22; Status DC Enalaprilat (Vasotec Inj) 2.5 mg 1X ONCE IVP Last administered on 05/05/18at 17:12; Start 05/05/18 at 17:15; Stop 05/05/18 at 17:16; Status DC Nicardipine HCl 50 mg/Sodium Chloride 270 ml @ 27 mls/hr CONT PRN IV SEE I/O RECORD; Start 05/05/18 at 17:45; Stop 05/05/18 at 17:45; Status DC Nicardipine/ Sodium Chloride 200 ml @ 27 mls/hr CONT PRN IV SEE I/O RECORD Last administered on 05/07/18at 02:46; Start 05/05/18 at 17:45; Stop 05/07/18 at 09:40; Status DC Aspirin (Ev Aspirin) 325 mg DAILYWBKFT PO ; Start 05/05/18 at 19:00; Stop 05/07/18 at 09:43; Status DC Aspirin (Aspirin) 300 mg 1X ONCE VA ; Start 05/06/18 at 10:00; Stop 05/06/18 at 10:01; Status DC Clopidogrel Bisulfate (Plavix) 75 mg DAILYWBKFT PO ; Start 05/06/18 at 12:00 Atorvastatin Calcium (Lipitor) 20 mg QHS PO ; Start 05/06/18 at 21:00 Aspirin (Aspirin) 300 mg DAILY VA Last administered on 05/10/18at 08:11; Start 05/07/18 at 09:00 Insulin Human Lispro (HumaLOG) 0-7 UNITS TIDWMEALS SQ Last administered on at 17:21; Start 05/06/18 at 17:00; Stop 05/06/18 at 19:17; Status DC Dextrose (Dextrose 50%-Water Syringe) 12.5 gm PRN Q15MIN PRN IV SEE COMMENTS; Start 05/06/18 at 16:45; Stop 05/06/18 at 19:20; Status DC Sodium Chloride 500 ml @ 500 mls/hr 1X ONCE IV ; Start 05/06/18 at 18:15; Stop 05/06/18 at 19:14; Status DC Sodium Chloride 1,000 ml @ 100 mls/hr Q10H IV Last administered on 05/06/18at 19:39; Start 05/06/18 at 18:15; Stop 05/07/18 at 13:03; Status DC Insulin Human Lispro (HumaLOG) 0-9 UNITS Q6HRS SQ Last administered on at 12:57; Start 05/07/18 at 00:00 Dextrose (Dextrose 50%-Water Syringe) 12.5 gm PRN Q15MIN PRN IV SEE COMMENTS; Start 05/06/18 at 19:15 Sodium Chloride 1,000 ml @ 1,000 mls/hr 1X ONCE IV Last administered on 05/06at 21:35; Start 05/06/18 at 21:30; Stop 05/06/18 at 22:29; Status DC Nicardipine HCl 50 mg/Sodium Chloride 270 ml @ 0 mls/hr CONT PRN IV SEE I/O RECORD Last administered on 05/07/18at 22:59; Start 05/07/18 at 07:15 Sodium Chloride (Normal Saline Flush) 10 ml QSHIFT PRN IV AFTER MEDS AND BLOOD DRAWS; Start 05/07/18 at 11:15 Lidocaine HCl (Xylocaine 2% Topical 5gm Tube) 1 yuliya 1X ONCE TP ; Start at 11:15; Stop 05/07/18 at 11:19; Status DC Lidocaine HCl (Viscous Lidocaine) 15 ml 1X ONCE MM ; Start 05/07/18 at 11:15; Stop 05/07/18 at 11:19; Status DC Benzocaine (Hurricaine One) 3 spray 1X ONCE MM ; Start 05/07/18 at 11:15; Stop 05/07/18 at 11:19; Status DC Propofol 20 ml @ As Directed STK-MED ONCE IV ; Start 05/07/18 at 11:25; Stop 05/07/18 at 11:26; Status DC Labetalol HCl (Normodyne Iv Push) 20 mg Q4HRS IVP Last administered on at 09:04; Start 05/07/18 at 16:00 Potassium Chloride (Klor-Con) 40 meq 1X ONCE PO ; Start 05/08/18 at 09:00; Stop 05/08/18 at 09:43; Status DC Potassium Chloride/Water 50 ml @ 50 mls/hr Q1H IV Last administered on at 11:22; Start 05/08/18 at 10:00; Stop 05/08/18 at 11:59; Status DC Famotidine (Pepcid Vial) 20 mg QHS IVP Last administered on 05/11/18at 20:36; Start 05/08/18 at 21:00 Amino Acids/ Glycerin/ Electrolytes 1,000 ml @ 75 mls/hr [id number] IV Last administered on 05/12/18at 00:45; Start 05/08/18 at 16:45 Clonidine HCl (Catapres Tts-3) 1 patch WEEKLY TD Last administered on at 16:58; Start 05/11/18 at 15:30 Alteplase, Recombinant (Cathflo) 2 mg 1X ONCE INT CAT Last administered on at 06:37; Start 05/12/18 at 07:00; Stop 05/12/18 at 07:01; Status DC Barium Sulfate (Varibar Thin Liquid Apple) 148 gm 1X ONCE PO ; Start 05/12/18 at 09:15; Stop 05/12/18 at 09:16; Status DC Active Scripts Active Reported Latanoprost 2.5 Ml Drops 1 Drop EACHEYE QHS Citalopram Hbr (Citalopram Hydrobromide) 10 Mg Tablet 1 Tab PO DAILY Dorzolamide Hcl 10 Ml Drops 1 Drop EACHEYE BID Metoprolol Succinate ( Xl ) (Metoprolol Succinate) 100 Mg Tab.er.24h 1 Tab PO DAILY Atorvastatin Calcium 40 Mg Tablet 1 Tab PO DAILY Lisinopril 40 Mg Tablet 1 Tab PO DAILY Amlodipine Besylate 10 Mg Tablet 10 Mg PO DAILY Metformin Hcl 500 Mg Tablet 500 Mg PO DAILY Lantus Solostar (Insulin Glargine,Hum.rec.anlog) 100 Unit/1 Ml Insuln.pen 30 Unit SQ QHS Vitals/I & O Vital Sign - Last 24 Hours 05/11/18 05/11/18 05/11/18 05/11/18 10:48 11:15 12:00 14:46 Temp 98.7 98.3 98.7 98.3 Pulse 74 74 78 Resp 18 18 B/P (MAP) 148/81 (103) 148/81 185/91 (122) Pulse Ox 97 96 O2 Delivery Room Air Room Air Room Air 05/11/18 05/11/18 05/11/18 05/11/18 16:57 19:05 20:00 20:35 Temp 98.4 98.4 Pulse 78 76 76 Resp 18 B/P (MAP) 185/91 164/74 (104) 164/74 Pulse Ox 98 O2 Delivery Room Air Room Air 05/11/18 05/11/18 05/12/18 05/12/18 23:45 23:54 03:45 04:00 Temp 98.3 98.3 98.3 98.3 Pulse 79 79 86 86 Resp 18 20 B/P (MAP) 154/69 (97) 154/69 152/74 (100) 152/74 Pulse Ox 99 99 O2 Delivery Room Air Room Air 05/12/18 05/12/18 05/12/18 05/12/18 07:00 07:47 08:00 09:04 Temp 98.1 98.1 Pulse 84 84 Resp 20 B/P (MAP) 188/73 (111) 188/73 Pulse Ox 99 O2 Delivery Room Air Room Air Room Air Intake and Output 05/11/18 05/11/18 05/12/18 15:00 23:00 07:00 Intake Total 0 ml 0 ml 3800 ml Output Total 800 ml 1200 ml Balance 0 ml -800 ml 2600 ml J CARLOS CASTRO MD May 12, 2018 09:59
[2018-05-12 11:00] VITALS: BP 169/81
--- NOTE | 2018-05-12 11:39 | PDOC ---
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 Vitals Vitals Vital Signs Date Time Temp Pulse Resp B/P (MAP) Pulse Ox O2 Delivery O2 Flow Rate FiO2 05/12/18 09:04 84 188/73 05/12/18 08:00 Room Air 05/12/18 07:00 98.1 20 99 98.1 Physical Exam General: Alert, No acute distress Heart: Regular rate (SR no significant ectopies), Normal S1, Normal S2, Other ( 2/6 systolic murmur to LLS border) Lungs: Clear Abdomen: Soft, No tenderness Extremities: No clubbing, No cyanosis, Other (trace LE edema) Skin: No rashes, No breakdown Labs LABS Laboratory Tests Test 05/11/18 17:00 05/11/18 23:33 05/12/18 06:04 Glucose (Fingerstick) 141 mg/dL (70-99) 125 mg/dL (70-99) 136 mg/dL (70-99) Review of Systems Review of Systems Pt denies CP, SOA, and abdominal pain. Assessment and Plan Assessmemt and Plan Problems Medical Problems: (1) Acute encephalopathy Status: Acute (2) CVA (cerebral vascular accident) Status: Acute Assessment: Acute encephalopathy Hypertensive emergency with SBP 200s CVA Hypokalemia Microcytic anemia UTI T2DM Hypoglycemia, glucose level 39 on admission H/o left BG lacunar infarct with right sided hemiplegia H/o HTN H/o HLD Plan: Pt passed swallow study, no longer needs PEG placement Cardiac monitoring Monitor labs PT/OT/ST Home meds BP control DVT ppx Discharge to SNU vs. rehab Comment Review of Relevant I have reviewed the following items angelica (where applicable) has been applied. Labs Laboratory Tests Test 05/10/18 12:31 05/10/18 12:55 05/10/18 18:07 05/10/18 23:12 Glucose (Fingerstick) 145 mg/dL (70-99) 151 mg/dL (70-99) 138 mg/dL (70-99) 139 mg/dL (70-99) Test 05/11/18 05:45 05/11/18 06:13 05/11/18 11:31 05/11/18 17:00 White Blood Count 5.0 x10^3/uL (4.0-11.0) Red Blood Count 4.34 x10^6/uL (3.50-5.40) Hemoglobin 11.2 g/dL (12.0-15.5) Hematocrit 33.0 % (36.0-47.0) Mean Corpuscular Volume 76 fL (79-100) Mean Corpuscular Hemoglobin 26 pg (25-35) Mean Corpuscular Hemoglobin Concent 34 g/dL (31-37) Red Cell Distribution Width 15.2 % (11.5-14.5) Platelet Count 189 x10^3/uL (140-400) Neutrophils (%) (Auto) 54 % (31-73) Lymphocytes (%) (Auto) 28 % (24-48) Monocytes (%) (Auto) 9 % (0-9) Eosinophils (%) (Auto) 8 % (0-3) Basophils (%) (Auto) 1 % (0-3) Neutrophils # (Auto) 2.7 x10^3uL (1.8-7.7) Lymphocytes # (Auto) 1.4 x10^3/uL (1.0-4.8) Monocytes # (Auto) 0.4 x10^3/uL (0.0-1.1) Eosinophils # (Auto) 0.4 x10^3/uL (0.0-0.7) Basophils # (Auto) 0.1 x10^3/uL (0.0-0.2) Sodium Level 141 mmol/L (136-145) Potassium Level 3.8 mmol/L (3.5-5.1) Chloride Level 105 mmol/L (98-107) Carbon Dioxide Level 28 mmol/L (21-32) Anion Gap 8 (6-14) Blood Urea Nitrogen 12 mg/dL (7-20) Creatinine 0.8 mg/dL (0.6-1.0) Estimated GFR (Cockcroft-Gault) 85.1 Glucose Level 132 mg/dL (70-99) Calcium Level 8.7 mg/dL (8.5-10.1) Glucose (Fingerstick) 156 mg/dL (70-99) 171 mg/dL (70-99) 141 mg/dL (70-99) Test 05/11/18 23:33 05/12/18 06:04 Glucose (Fingerstick) 125 mg/dL (70-99) 136 mg/dL (70-99) Laboratory Tests Test 05/11/18 17:00 05/11/18 23:33 05/12/18 06:04 Glucose (Fingerstick) 141 mg/dL (70-99) 125 mg/dL (70-99) 136 mg/dL (70-99) Microbiology 05/05/18 Blood Culture - Final, Complete NO GROWTH AFTER 5 DAYS 05/05/18 Urine Culture - Final, Complete 05/05/18 Urine Culture Result 1 (JULIÁN) - Final, Complete 05/05/18 Antimicrobic Susceptibility - Final, Complete Medications Current Medications Sodium Chloride 1,000 ml @ 1,000 mls/hr Q1H IV Last administered on at 10:30; Start 05/05/18 at 09:53; Stop 05/05/18 at 10:52; Status DC Dextrose/Sodium Chloride 1,000 ml @ 75 mls/hr 1X ONCE IV Last administered on 05/05/18at 10:30; Start 05/05/18 at 10:00; Stop 05/05/18 at 15:56; Status DC Iohexol (Omnipaque 300 Mg/ml) 75 ml 1X ONCE IV ; Start 05/05/18 at 11:15; Stop 05/05/18 at 11:18; Status DC Info (CONTRAST GIVEN -- Rx MONITORING) 1 each PRN DAILY PRN MC SEE COMMENTS; Start 05/05/18 at 11:30; Stop 05/07/18 at 11:29; Status DC Sodium Chloride 1,000 ml @ 100 mls/hr Q10H IV Last administered on 05/08/18at 08:49; Start 05/05/18 at 16:00; Stop 05/08/18 at 16:46; Status DC Enalaprilat (Vasotec Inj) 1.25 mg PRN Q6HRS PRN IVP HYPERTENSION, SEE COMMENTS Last administered on 05/05/18at 16:30; Start 05/05/18 at 16:15 Ceftriaxone Sodium 1 gm/ Dextrose 50 ml @ 100 mls/hr Q24H IV ; Start 05/05/18 at 17:00; Status UNV Ceftriaxone Sodium (Rocephin) 1 gm Q24H IVP Last administered on 05/11/18at 17: 04; Start 05/05/18 at 17:00 Sodium Chloride (Normal Saline Flush 3ml) 3 ml QSHIFT PRN IV AFTER MEDS AND BLOOD DRAWS; Start 05/05/18 at 17:00 Ondansetron HCl (Zofran) 4 mg PRN Q4HRS PRN IV NAUSEA/VOMITING; Start at 17:00 Acetaminophen (Tylenol Supp) 650 mg PRN Q4HRS PRN OH TEMP OVER 100.4F OR MILD PAIN; Start 05/05/18 at 17:00 Albuterol Sulfate (Ventolin Neb Soln) 2.5 mg PRN Q4HRS PRN NEB SHORTNESS OF BREATH; Start 05/05/18 at 17:00 Levofloxacin/ Dextrose 100 ml @ 100 mls/hr Q24H IV Last administered on at 17:20; Start 05/05/18 at 17:00; Stop 05/06/18 at 16:22; Status DC Enalaprilat (Vasotec Inj) 2.5 mg 1X ONCE IVP Last administered on 05/05/18at 17:12; Start 05/05/18 at 17:15; Stop 05/05/18 at 17:16; Status DC Nicardipine HCl 50 mg/Sodium Chloride 270 ml @ 27 mls/hr CONT PRN IV SEE I/O RECORD; Start 05/05/18 at 17:45; Stop 05/05/18 at 17:45; Status DC Nicardipine/ Sodium Chloride 200 ml @ 27 mls/hr CONT PRN IV SEE I/O RECORD Last administered on 05/07/18at 02:46; Start 05/05/18 at 17:45; Stop 05/07/18 at 09:40; Status DC Aspirin (Ev Aspirin) 325 mg DAILYWBKFT PO ; Start 05/05/18 at 19:00; Stop 05/07/18 at 09:43; Status DC Aspirin (Aspirin) 300 mg 1X ONCE OH ; Start 05/06/18 at 10:00; Stop 05/06/18 at 10:01; Status DC Clopidogrel Bisulfate (Plavix) 75 mg DAILYWBKFT PO ; Start 05/06/18 at 12:00 Atorvastatin Calcium (Lipitor) 20 mg QHS PO ; Start 05/06/18 at 21:00 Aspirin (Aspirin) 300 mg DAILY OH Last administered on 05/10/18at 08:11; Start 05/07/18 at 09:00 Insulin Human Lispro (HumaLOG) 0-7 UNITS TIDWMEALS SQ Last administered on at 17:21; Start 05/06/18 at 17:00; Stop 05/06/18 at 19:17; Status DC Dextrose (Dextrose 50%-Water Syringe) 12.5 gm PRN Q15MIN PRN IV SEE COMMENTS; Start 05/06/18 at 16:45; Stop 05/06/18 at 19:20; Status DC Sodium Chloride 500 ml @ 500 mls/hr 1X ONCE IV ; Start 05/06/18 at 18:15; Stop 05/06/18 at 19:14; Status DC Sodium Chloride 1,000 ml @ 100 mls/hr Q10H IV Last administered on 05/06/18at 19:39; Start 05/06/18 at 18:15; Stop 05/07/18 at 13:03; Status DC Insulin Human Lispro (HumaLOG) 0-9 UNITS Q6HRS SQ Last administered on at 12:57; Start 05/07/18 at 00:00 Dextrose (Dextrose 50%-Water Syringe) 12.5 gm PRN Q15MIN PRN IV SEE COMMENTS; Start 05/06/18 at 19:15 Sodium Chloride 1,000 ml @ 1,000 mls/hr 1X ONCE IV Last administered on 05/06at 21:35; Start 05/06/18 at 21:30; Stop 05/06/18 at 22:29; Status DC Nicardipine HCl 50 mg/Sodium Chloride 270 ml @ 0 mls/hr CONT PRN IV SEE I/O RECORD Last administered on 05/07/18at 22:59; Start 05/07/18 at 07:15 Sodium Chloride (Normal Saline Flush) 10 ml QSHIFT PRN IV AFTER MEDS AND BLOOD DRAWS; Start 05/07/18 at 11:15 Lidocaine HCl (Xylocaine 2% Topical 5gm Tube) 1 yuliya 1X ONCE TP ; Start at 11:15; Stop 05/07/18 at 11:19; Status DC Lidocaine HCl (Viscous Lidocaine) 15 ml 1X ONCE MM ; Start 05/07/18 at 11:15; Stop 05/07/18 at 11:19; Status DC Benzocaine (Hurricaine One) 3 spray 1X ONCE MM ; Start 05/07/18 at 11:15; Stop 05/07/18 at 11:19; Status DC Propofol 20 ml @ As Directed STK-MED ONCE IV ; Start 05/07/18 at 11:25; Stop 05/07/18 at 11:26; Status DC Labetalol HCl (Normodyne Iv Push) 20 mg Q4HRS IVP Last administered on at 09:04; Start 05/07/18 at 16:00 Potassium Chloride (Klor-Con) 40 meq 1X ONCE PO ; Start 05/08/18 at 09:00; Stop 05/08/18 at 09:43; Status DC Potassium Chloride/Water 50 ml @ 50 mls/hr Q1H IV Last administered on at 11:22; Start 05/08/18 at 10:00; Stop 05/08/18 at 11:59; Status DC Famotidine (Pepcid Vial) 20 mg QHS IVP Last administered on 05/11/18at 20:36; Start 05/08/18 at 21:00 Amino Acids/ Glycerin/ Electrolytes 1,000 ml @ 75 mls/hr A47H16H IV Last administered on 05/12/18at 00:45; Start 05/08/18 at 16:45 Clonidine HCl (Catapres Tts-3) 1 patch WEEKLY TD Last administered on at 16:58; Start 05/11/18 at 15:30 Alteplase, Recombinant (Cathflo) 2 mg 1X ONCE INT CAT Last administered on at 06:37; Start 05/12/18 at 07:00; Stop 05/12/18 at 07:01; Status DC Barium Sulfate (Varibar Thin Liquid Apple) 148 gm 1X ONCE PO Last administered on 05/12/18at 09:58; Start 05/12/18 at 09:15; Stop 05/12/18 at 09 :16; Status DC Active Scripts Active Reported Latanoprost 2.5 Ml Drops 1 Drop EACHEYE QHS Citalopram Hbr (Citalopram Hydrobromide) 10 Mg Tablet 1 Tab PO DAILY Dorzolamide Hcl 10 Ml Drops 1 Drop EACHEYE BID Metoprolol Succinate ( Xl ) (Metoprolol Succinate) 100 Mg Tab.er.24h 1 Tab PO DAILY Atorvastatin Calcium 40 Mg Tablet 1 Tab PO DAILY Lisinopril 40 Mg Tablet 1 Tab PO DAILY Amlodipine Besylate 10 Mg Tablet 10 Mg PO DAILY Metformin Hcl 500 Mg Tablet 500 Mg PO DAILY Lantus Solostar (Insulin Glargine,Hum.rec.anlog) 100 Unit/1 Ml Insuln.pen 30 Unit SQ QHS Vitals/I & O Vital Sign - Last 24 Hours 05/11/18 05/11/18 05/11/18 05/11/18 12:00 14:46 16:57 19:05 Temp 98.3 98.4 98.3 98.4 Pulse 74 78 78 76 Resp 18 18 B/P (MAP) 148/81 185/91 (122) 185/91 164/74 (104) Pulse Ox 96 98 O2 Delivery Room Air Room Air 05/11/18 05/11/18 05/11/18 05/11/18 20:00 20:35 23:45 23:54 Temp 98.3 98.3 Pulse 76 79 79 Resp 18 B/P (MAP) 164/74 154/69 (97) 154/69 Pulse Ox 99 O2 Delivery Room Air Room Air 05/12/18 05/12/18 05/12/18 05/12/18 03:45 04:00 07:00 07:47 Temp 98.3 98.1 98.3 98.1 Pulse 86 86 84 Resp 20 20 B/P (MAP) 152/74 (100) 152/74 188/73 (111) Pulse Ox 99 99 O2 Delivery Room Air Room Air Room Air 05/12/18 05/12/18 08:00 09:04 Pulse 84 B/P (MAP) 188/73 O2 Delivery Room Air Intake and Output 05/11/18 05/11/18 05/12/18 15:00 23:00 07:00 Intake Total 0 ml 0 ml 3800 ml Output Total 800 ml 1200 ml Balance 0 ml -800 ml 2600 ml CASTLE,NIAL K III DO May 12, 2018 11:39
[2018-05-12 12:30] LABS: BASO # 0.1 x10^3/uL (0.0-0.2); BASO % 3 % (0-3); EOS # 0.4 x10^3/uL (0.0-0.7); EOS % 8 % (0-3); HEMATOCRIT 30.9 % (36.0-47.0); HEMOGLOBIN 10.6 g/dL (12.0-15.5); LYMPH # 1.2 x10^3/uL (1.0-4.8); LYMPH % 27 % (24-48); MEAN CORPUSCULAR HEMOGLOBIN 26 pg (25-35); MEAN CORPUSCULAR HGB CONC 34 g/dL (31-37); MEAN CORPUSCULAR VOLUME 77 fL (79-100); MONO # 0.4 x10^3/uL (0.0-1.1); MONO % 10 % (0-9); NEUT # 2.3 x10^3uL (1.8-7.7); NEUT % 52 % (31-73); PLATELET COUNT 208 x10^3/uL (140-400); RED CELL DISTRIBUTION WIDTH 14.9 % (11.5-14.5); WHITE BLOOD COUNT 4.4 x10^3/uL (4.0-11.0)
[2018-05-12 12:39] LABS: CALCIUM 8.5 mg/dL (8.5-10.1); CREATININE 0.8 mg/dL (0.6-1.0); GFR 85.1; POTASSIUM 5.4 mmol/L (3.5-5.1)
--- NOTE | 2018-05-12 13:53 | PDOC ---
Subjective: Subjective: Glad to be eating, was really hungry. helping her with sadiq. Objective: Objective: D/w BEAUTY ADVISOR earlier - okay for dysphagia diet. Vital Signs: Vital Signs Date Time Temp Pulse Resp B/P (MAP) Pulse Ox O2 Delivery O2 Flow Rate FiO2 05/12/18 12:47 77 169/81 05/12/18 11:00 99.0 18 98 Room Air 99.0 Labs: Laboratory Tests Test 05/11/18 17:00 05/11/18 23:33 05/12/18 06:04 05/12/18 11:44 Glucose (Fingerstick) 141 mg/dL 125 mg/dL 136 mg/dL 188 mg/dL Test 05/12/18 12:18 White Blood Count 4.4 x10^3/uL Red Blood Count 4.00 x10^6/uL Hemoglobin 10.6 g/dL Hematocrit 30.9 % Mean Corpuscular Volume 77 fL Mean Corpuscular Hemoglobin 26 pg Mean Corpuscular Hemoglobin Concent 34 g/dL Red Cell Distribution Width 14.9 % Platelet Count 208 x10^3/uL Neutrophils (%) (Auto) 52 % Lymphocytes (%) (Auto) 27 % Monocytes (%) (Auto) 10 % Eosinophils (%) (Auto) 8 % Basophils (%) (Auto) 3 % Neutrophils # (Auto) 2.3 x10^3uL Lymphocytes # (Auto) 1.2 x10^3/uL Monocytes # (Auto) 0.4 x10^3/uL Eosinophils # (Auto) 0.4 x10^3/uL Basophils # (Auto) 0.1 x10^3/uL Sodium Level 133 mmol/L Potassium Level 5.4 mmol/L Chloride Level 100 mmol/L Carbon Dioxide Level 27 mmol/L Anion Gap 6 Blood Urea Nitrogen 11 mg/dL Creatinine 0.8 mg/dL Estimated GFR (Cockcroft-Gault) 85.1 Glucose Level 159 mg/dL Calcium Level 8.5 mg/dL Imaging: Videoswallow (pending) BEAUTY ADVISOR Preliminary Videoswallow Eval: Pt demo'd primarily WFL oropharyngeal swallow w/ puree and honey thick liquids. SILENT aspiration was noted w/ thin liquids via cup. Primary deficits are prolonged oral phase and delayed initiation of pharyngeal swallow, which result in spillage into valleculae and pyriform sinuses prior to initiation of pharyngeal swallow. Mod oral residues were noted but no pharyngeal residues. Anticipate safe PO intake w/ recommended modified diet, though overall swallow is slow which may interfere with po intake amounts. Will need repeat videoswallow prior to upgrade of liquids. Full report to follow. Recommendations: Initiate Dysphagia I diet (puree) w/ honey thick liquids. Will continue BEAUTY ADVISOR f/u to address dysphagia and communication. Continue trench pipe layer f/u to address adequacy of PO intake. PE: GEN: NAD LUNGS: CTAB HEART: RRR ABD: S/ND/NT NEURO/PSYCH: A & O 3 - more perky today A/P: S/p stroke Dysphagia - improved Anemia - stable -- Tolerating dysphagia diet. DC per primary. TIMI BEAVERS May 12, 2018 13:53
[2018-05-12 15:00] VITALS: BP 123/72
--- NOTE | 2018-05-12 15:23 | DISCH ---
DISCHARGE DISCHARGE INFORMATION: FINAL DIAGNOSIS Problems Medical Problems: (1) Acute encephalopathy Status: Acute (2) CVA (cerebral vascular accident) Status: Acute CONDITION ON DISCHARGE: Stable CODE STATUS: Code Status: Full GROUP HOME: SNF STAY <30 DAYS: Yes HOSPICE: HOSPICE: No HOSPICE EVAL & TREAT: No LTAC: ADMIT TO LTAC: Yes POST DISCHARGE ORDERS: ACTIVITY ORDERS: Activity as tolerated WEIGHT BEARING STATUS: As tolerated, Other, see below (per pt/ot recs) DIET AFTER DISCHARGE: pureed cardiac diet CHECKS AFTER DISCHARGE: CHECKS AFTER DISCHARGE: Check blood sugar, ac/hs TREATMENT/EQUIPMENT ORDERS: Physical Therapy For: Evalulation/Treatment Occupational Therapy For: Evaluation/Treatment Speech Language Pathology For: Evaluation/Treatment DISCHARGE MEDICATIONS: Home Meds Reported Medications Latanoprost (LATANOPROST) 2.5 Ml Drops, 1 DROP EACHEYE QHS, #7.5 ML 3 Refills 05/05/18 Citalopram Hydrobromide (CITALOPRAM HBR) 10 Mg Tablet, 1 TAB PO DAILY, #30 TAB 3 Refills 05/05/18 Dorzolamide Hcl (DORZOLAMIDE HCL) 10 Ml Drops, 1 DROP EACHEYE BID, #30 ML 3 Refills 05/05/18 Metoprolol Succinate (METOPROLOL SUCCINATE ( XL )) 100 Mg Tab.er.24h, 1 TAB PO DAILY, #30 TAB 5 Refills 05/05/18 Atorvastatin Calcium (ATORVASTATIN CALCIUM) 40 Mg Tablet, 1 TAB PO DAILY, #30 TAB 5 Refills 05/05/18 Lisinopril (LISINOPRIL) 40 Mg Tablet, 1 TAB PO DAILY, #30 TAB 5 Refills 05/05/18 Amlodipine Besylate (AMLODIPINE BESYLATE) 10 Mg Tablet, 10 MG PO DAILY, TAB 05/05/18 Metformin Hcl (METFORMIN HCL) 500 Mg Tablet, 500 MG PO DAILY for ANTI-DIABETIC, TAB 0 Refills 05/05/18 Insulin Glargine,Hum.rec.anlog (LANTUS SOLOSTAR) 100 Unit/1 Ml Insuln.pen, 30 UNIT SQ QHS, #15 ML 3 Refills 01/30/15 Discontinued Reported Medications Insulin Glargine,Hum.rec.anlog (LANTUS SOLOSTAR) 100 Unit/1 Ml Insuln.pen, 40 UNIT SQ TIDBFRMEAL, #15 ML 3 Refills 05/05/18 Metformin Hcl (METFORMIN HCL) 1,000 Mg Tablet, 1 TAB PO BID, #60 TAB 5 Refills 09/27/16 Metoprolol Succinate (Metoprolol Succinate) 50 Mg Tab.er.24h, 50 MG PO DAILY 01/30/15 Lisinopril (LISINOPRIL) 40 Mg Tablet, 1 TAB PO DAILY, #30 TAB 5 Refills 01/30/15 Hydrochlorothiazide (HYDROCHLOROTHIAZIDE TABLET ) 25 Mg Tablet, 1 TAB PO DAILY, #30 TAB 5 Refills 01/30/15 MELISSA DONG III DO May 12, 2018 15:23
--- NOTE | 2018-05-12 16:07 | RAD ---
Indication: Dysphagia TECHNIQUE: Fluoroscopy-guided video swallow study with total fluoroscopy time of 3.0 minutes and multiple cine loops. COMPARISON: None FINDINGS: Delayed swallow initiation was seen. Silent aspiration with thin liquids seen. Other food consistencies demonstrated no aspiration or penetration. IMPRESSION: As above. Please see detailed notes by speech pathologist in patient's chart for full information. Electronically signed by: Randall Alfred DO (05/12/2018 4:04 PM) [facility]
[2018-05-12 17:02] VITALS: BP 123/72
[2018-05-12] MEDS: cefTRIAXone IV Push 1 GM VIAL. IVP SCH (17:03)
[2018-05-12] MEDS ORDERED: FAMOTIDINE 20 MG TABLET. PO SCH (21:00)
== END 2018-05-12 17:52 | DRG 64 ==
LOC: ER 09:46 → 1 WEST ICU 13:30 → 2 NORTH 05-09 11:38
PROVIDERS: ADMIT Family Medicine; ATTEND Family Medicine
PROC: 02HV33Z Insertion of Infusion Device into Superior Vena Cava, Percutaneous Approach (ICD-10-PCS; principal; 2018-05-07)
PROC: B548ZZA Ultrasonography of Superior Vena Cava, Guidance (ICD-10-PCS; 2018-05-07)
DX: I63.9 Cerebral infarction, unspecified (principal); G93.41 Metabolic encephalopathy; G93.6 Cerebral edema; N39.0 Urinary tract infection, site not specified; I16.1 Hypertensive emergency; I69.351 Hemiplegia and hemiparesis following cerebral infarction affecting right dominant side; R47.01 Aphasia; Z90.710 Acquired absence of both cervix and uterus; I10 Essential (primary) hypertension; E11.649 Type 2 diabetes mellitus with hypoglycemia without coma; J45.909 Unspecified asthma, uncomplicated; E78.5 Hyperlipidemia, unspecified; H40.9 Unspecified glaucoma; D50.9 Iron deficiency anemia, unspecified; R13.12 Dysphagia, oropharyngeal phase; I27.20 Pulmonary hypertension, unspecified; E87.6 Hypokalemia; E04.1 Nontoxic single thyroid nodule; M47.812 Spondylosis without myelopathy or radiculopathy, cervical region; W19.XXXA Unspecified fall, initial encounter; I69.391 Dysphagia following cerebral infarction; I69.392 Facial weakness following cerebral infarction; Y93.89 Activity, other specified; Y92.89 Other specified places as the place of occurrence of the external cause; Y99.8 Other external cause status; Z79.82 Long term (current) use of aspirin; Z90.49 Acquired absence of other specified parts of digestive tract; Z83.3 Family history of diabetes mellitus; Z82.3 Family history of stroke
CPT/HCPCS: 51702; 93325; 99291; C8929; 36415; 36569; 70450; 70496; 70498; 70551; 71045; 74230; 76376; 80048; 80053; 80061; 81001; 82040; 82140; 82553; 82607; 82962; 83540; 83550; 83605; 83735; 83880; 84436; 84443; 84481; 84484; 85025; 85045; 85610; 85730; 87040; 87086; 87186; 87641; 93005; 93312; 93320; 93880; 94760; 95816; 96360; J0696; J1815; J1956; J2704; J2997; J3480; J3490; J7030; J7042; J7050; 92523; 92526; 92610; 92611; 97110; 97112; 97530; 97535

== ENCOUNTER 2018-07-11 12:16 | Inpatient (IN) | payer OTHER ==
[~2018-07-11] VITALS: Ht 172.7 cm; Wt 66.7 kg
[~2018-07-11 12:16] MED LIST changes: +AMLO10TA6 PO; +ATOR40TA59 PO; +CITA10TA4 PO; +DORZ10DR6 EACHEYE; +HYDR-2145 PO; -HYDR25TA9 PO; +METF500T16 PO; +METO-247 PO
[2018-07-11] MEDS ORDERED: PROMETHAZINE 25 MG SUPP.RECT. PR PRN (13:00)
[2018-07-11] MEDS ORDERED: ACETAMINOPHEN 650 MG SUPP.RECT. PR PRN (13:00)
[2018-07-11] MEDS ORDERED: ATROPINE 1% OPHTH SOLUTION 5ML BOTTLE. SL PRN (13:00)
[2018-07-11] MEDS ORDERED: MORPHINE SULFATE 20 MG/ML CONC SOLUTION. SL PRN (13:00)
[2018-07-11] MEDS ORDERED: MORPHINE SULFATE 2 MG/ML VIAL. IV PRN (13:00)
[2018-07-11] MEDS ORDERED: BISACODYL 10 MG SUPP.RECT. PR PRN (13:00)
--- NOTE | 2018-07-11 15:30 | PDOC ---
PROGRESS NOTES Assessment Assessment Metabolic encephalopathy. Respiratory failure. 2.6 cm infarct in the posterior aspect of the left BG in 04/2018. Hypertensive emergency, SBP 218 mmHg in 04/30. Hypertensive encephalopathy. Increased weakness in right UE. Hypoglycemia.. Hyperglycemia. DM. UTI. Fall. HTN. HLD. Pulmonary hypertension, PA pressure 55. 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 Dysphagia. RECOMMENDATIONS/PLAN: Palliative care per family's decision. Past Medical History CVA, Diabetes-Type II, Hypertension, HLD. Cardiovascular: HTN Pulmonary: Asthma CENTRAL NERVOUS SYSTEM: CVA GI: Constipation Infectious disease: No pertinent hx Renal/: No pertinent hx Endocrine: Diabetes Dermatology: No pertinent hx Past Surgical History Hysterectomy, tumor in neck removed. Family History Diabetes, Other (mother had cva) ALLERGY: NKDA MEDICATIONS: Refer to MAR. SOCIAL HISTORY: Denies smoking, drinking, and illicit drug use. REVIEW OF SYSTEMS: Constitutional: Obesity. Head: No recent traumatic brain or head injury. Skin: No edema, or rash. Ear: No infection. Eyes: No vision loss or color blindness. Nose: No bleeding or purulent discharges. Hearing: No hearing decrease. Neck: No injury. Breast: No history of cancer, masses,or discharges. Cardiac: HTN, HLD. Pulmonary: No COPD. GI: No GI ulcer, GI bleeding. Urinary/genital: UTI. Endocrinologic: Diabetes Mellitus, hypothyroidism, obesity. Skeletomuscular: Right side hemiplegia. Neurological: see HP. Psychiatric: Denies drug use/abuse. Otherwise, not [id number] review of systems. PHYSICAL EXAMINATION: General appearance is in subacute distress. HEENT: Normocephalic and nontraumatic. Eyes, nose, ears, and throat are unremarkable. Neck is supple. No lymphadenopathy. No crepitus. Cardiovascular: S1, S2, regular rate and rhythm. Pulmonary: Clear to auscultation bilaterally. Abdomen: Bowel sounds are positive. Extremities: No rash, lesions, or edema. No restriction of range of motion NEUROLOGICAL EXAMINATION: Minimal response. Not oriented to time, place and person. Unable to follow commands. PERRL. EOMI not elicited. CN: Chronic right VII palsy. Muscle tone: increased. Muscle strength: Minimal movements to stimuli. DTR: 2-3 Plantar reflex: Extensor response. Gait: Unable to walk. Sensory exam: minimal response. Not able to access cerebellar signs. F-T-N test not performed due to minimal response. Medication Medications Current Medications Acetaminophen (Tylenol Supp) 650 mg PRN Q6HRS PRN GA MILD PAIN / TEMP; Start 07/11/18 at 13:00 Atropine Sulfate (Isopto Atropine) 3 drop PRN Q6HRS PRN SL SECRETIONS; Start 07/11/18 at 13:00 Bisacodyl (Dulcolax Supp) 10 mg PRN DAILY PRN GA CONSTIPATION; Start 07/11/18 at 13:00 Lorazepam (Ativan Intensol) 1 mg PRN Q2HRS PRN SL ANXIETY / AGITATION; Start 07/11/18 at 13:00 Morphine Sulfate (Morphine Sulfate) 2 mg PRN Q4HRS PRN IV PAIN; Start at 13:00 Morphine Sulfate (Roxanol Conc) 10 mg PRN Q2HRS PRN SL PAIN; Start 07/11/18 at 13:00 Promethazine HCl (Phenergan Supp) 25 mg PRN Q6HRS PRN GA NAUSEA/VOMITING; Start 07/11/18 at 13:00 Comment Review of Relevant I have reviewed the following items angelica (where applicable) has been applied. ALVARO FOUNTAIN MD Jul 11, 2018 15:30
--- NOTE | 2018-07-11 16:48 | NUR ---
Patient has been discharged from inpatient and readmitted as hospice care after extubation. Patient code status is DNR per previous record. Post extubation patient placed on 2.l NC for comfort care. Orders placed per Dr. Lovelace with consideration to [facility]. Patient resting comfortably with family at bedside. POC for [facility] is Kizzy Guevara RN [phone]. Patient transferring to sixth floor. Report called. Plan to DC home back to home with Hospice tomorrow if stable.
--- NOTE | 2018-07-11 17:55 | NUR ---
Received patient transfer from [facility] in ICU, patient resting comfortably in room with family present.
[2018-07-11 19:00] VITALS: BP 137/78
[2018-07-11 23:39] VITALS: BP 164/67
[2018-07-12 03:48] VITALS: BP 143/66
[2018-07-12 07:00] VITALS: BP 156/63
--- NOTE | 2018-07-12 09:37 | NUR ---
Nursing insurance sales supervisor notified of order to set up [facility].
--- NOTE | 2018-07-12 11:43 | PDOC1 ---
History and Physical Date of Admission Date of Admission DATE: 07/12/18 TIME: 11:38 Identification/Chief Complaint Chief Complaint admitted for hospice arrangement Source Source: Caregiver, Chart review History of Present Illness History of Present Illness 72 AA female, was just dcd yesterday, for the below: Acute/subacute CVA - with prior right sided weakness and new left sided weakness. Neuro consulted. MRI and EEG complete. Likely will not survive extubation for very long, however she is breathing comfortably now, but not handling her secretions Hypernatremia - likely 2/2 limited free water intake vs central DI with her large CVA. Prior cerebral edema was noted. Hypotonic fluids for now. Seen by nephrology, will stop lab draws Prior CVA - 2.6 cm infarct in the posterior aspect of the left BG, evolving Hypoglycemia - stopped glucose checks HTN - sedated, has low BP now, will keep on BB only, hold CCB Metabolic encephalopathy - hypoglycemia, will monitor, likely anoxic brain injury occurred based on EEG Dysphagia - prior was considering PEG, will go with comfort feeds for now Discharge and readmit to hospice inpatient. IPC will continue to follow with new H&P. BUT came back with needs to have hospice arrangement. Seen with the at bedside, patient has bilateral upper extremity contracture, nothing by mouth, has an IV line but no IV fluids. No PEG. DNR. Extubated and so far breathing on own. We are unable to arrange hospice this Friday but will have social work tomorrow to arrange for hospice and discharged then on. DNR Refusing PEG. No blood draws. No need for IV ProcalAmine etc. Dw at bedside Past Medical History Cardiovascular: CAD, HTN Pulmonary: Bronchitis CENTRAL NERVOUS SYSTEM: CVA GI: Constipation Psych: Anxiety, Depression Musculoskeletal: low back pain Infectious disease: No pertinent hx Renal/: UTI, Other Endocrine: Diabetes Past Surgical History Past Surgical History: Cataract Removal, Hysterectomy, Other Family History Family History: Family History Unknown Family History: Parent Social History Smoke: No ALCOHOL: none Drugs: None Current Medications Current Medications Current Medications Morphine Sulfate (Roxanol Conc) 10 mg PRN Q2HRS PRN SL PAIN; Start 07/11/18 at 13:00 Morphine Sulfate (Morphine Sulfate) 2 mg PRN Q4HRS PRN IV PAIN; Start at 13:00 Lorazepam (Ativan Intensol) 1 mg PRN Q2HRS PRN SL ANXIETY / AGITATION; Start 07/11/18 at 13:00 Atropine Sulfate (Isopto Atropine) 3 drop PRN Q6HRS PRN SL SECRETIONS; Start 07/11/18 at 13:00 Acetaminophen (Tylenol Supp) 650 mg PRN Q6HRS PRN [place] MILD PAIN / TEMP; Start 07/11/18 at 13:00 Bisacodyl (Dulcolax Supp) 10 mg PRN DAILY PRN [place] CONSTIPATION; Start 07/11/18 at 13:00 Promethazine HCl (Phenergan Supp) 25 mg PRN Q6HRS PRN [place] NAUSEA/VOMITING; Start 07/11/18 at 13:00 Active Scripts Active Reported Latanoprost 2.5 Ml Drops 1 Drop EACHEYE QHS Citalopram Hbr (Citalopram Hydrobromide) 10 Mg Tablet 1 Tab PO DAILY Dorzolamide Hcl 10 Ml Drops 1 Drop EACHEYE BID Metoprolol Succinate ( Xl ) (Metoprolol Succinate) 100 Mg Tab.er.24h 1 Tab PO DAILY Atorvastatin Calcium 40 Mg Tablet 1 Tab PO DAILY Lisinopril 40 Mg Tablet 1 Tab PO DAILY Amlodipine Besylate 10 Mg Tablet 10 Mg PO DAILY Metformin Hcl 500 Mg Tablet 500 Mg PO DAILY Lantus Solostar (Insulin Glargine,Hum.rec.anlog) 100 Unit/1 Ml Insuln.pen 30 Unit SQ QHS Allergies Allergies: Coded Allergies: No Known Drug Allergies (Unverified , 01/30/15) ROS Review of System unable to obtain Physical Exam General: No acute distress, Other (nonverbal, bilateral upper extremity are contracted but able to move spontaneously) HEENT: Atraumatic Lungs: Normal air movement, Other (dec breath sounds, some crackles bases but no wheezing) Heart: S1S2, no gallops, no murmurs Cardiovascular: S1, S2 Abdomen: Normal bowel sounds, Soft, No tenderness, No hepatosplenomegaly, No masses Rectal Exam: not examined PELVIC: Nml ext genitalia Extremities: No cyanosis, No edema, Normal pulses Skin: No rashes, No breakdown, No significant lesion Vitals Vitals Vital Signs Date Time Temp Pulse Resp B/P (MAP) Pulse Ox O2 Delivery O2 Flow Rate FiO2 07/12/18 08:00 2.0 12/30/18 07:00 99.2 88 20 156/63 94 97 Nasal Cannula 99.2 VTE Prophylaxis Ordered VTE Prophylaxis Devices: Yes VTE Pharmacological Prophylaxi: Yes Assessment/Plan Assessment/Plan Acute/subacute CVA - non verbal, some contractures - hospice Hypernatremia - Prior CVA - Hypoglycemia - resolved PErisistence encephalopathy NEurogenic dysphagia PLAN: DNR HOspice NO blood draws etc Hospice packet SW consult ELVIRA FLORES MD Jul 12, 2018 11:43
[2018-07-12 23:10] VITALS: BP 110/56
[2018-07-13 03:56] VITALS: BP 115/58
--- NOTE | 2018-07-13 09:51 | PDOC ---
PROGRESS NOTES History of Present Illness History of Present Illness Assessment/Plan Assessment/Plan Acute/subacute CVA - non verbal, some contractures - hospice Hypernatremia - Prior CVA - Hypoglycemia - resolved PErisistence encephalopathy NEurogenic dysphagia Prior CVA - 2.6 cm infarct in the posterior aspect of the left BG, evolving Hypoglycemia - stopped glucose checks HTN - sedated, has low BP now, will keep on BB only, hold CCB Metabolic encephalopathy - hypoglycemia, will monitor, likely anoxic brain injury occurred based on EEG Dysphagia - prior was considering PEG, will go with comfort feeds for now Discharge and readmit to hospice inpatient. IPC will continue to follow with new H&P. PLAN: DNR HOspice NO blood draws etc Hospice packet SW consult Vitals Vitals Vital Signs Date Time Temp Pulse Resp B/P (MAP) Pulse Ox O2 Delivery O2 Flow Rate FiO2 07/13/18 07:21 Room Air 07/13/18 03:56 98.1 100 18 115/58 (77) 97 98.1 07/12/18 23:10 2.0 Physical Exam General: No acute distress, Other (nonverbal, bilateral upper extremity are contracted but able to move spontaneously) Lungs: Clear Abdomen: Normal bowel sounds, Soft, No tenderness, No hepatosplenomegaly, No masses Extremities: No cyanosis, No edema, Normal pulses Skin: No rashes, No breakdown, No significant lesion Comment Review of Relevant I have reviewed the following items angelica (where applicable) has been applied. Medications Current Medications Morphine Sulfate (Roxanol Conc) 10 mg PRN Q2HRS PRN SL PAIN; Start 07/11/18 at 13:00 Morphine Sulfate (Morphine Sulfate) 2 mg PRN Q4HRS PRN IV PAIN; Start at 13:00 Lorazepam (Ativan Intensol) 1 mg PRN Q2HRS PRN SL ANXIETY / AGITATION; Start 07/11/18 at 13:00 Atropine Sulfate (Isopto Atropine) 3 drop PRN Q6HRS PRN SL SECRETIONS; Start 07/11/18 at 13:00 Acetaminophen (Tylenol Supp) 650 mg PRN Q6HRS PRN [place] MILD PAIN / TEMP; Start 07/11/18 at 13:00 Bisacodyl (Dulcolax Supp) 10 mg PRN DAILY PRN [place] CONSTIPATION; Start 07/11/18 at 13:00 Promethazine HCl (Phenergan Supp) 25 mg PRN Q6HRS PRN [place] NAUSEA/VOMITING; Start 07/11/18 at 13:00 Active Scripts Active Reported Latanoprost 2.5 Ml Drops 1 Drop EACHEYE QHS Citalopram Hbr (Citalopram Hydrobromide) 10 Mg Tablet 1 Tab PO DAILY Dorzolamide Hcl 10 Ml Drops 1 Drop EACHEYE BID Metoprolol Succinate ( Xl ) (Metoprolol Succinate) 100 Mg Tab.er.24h 1 Tab PO DAILY Atorvastatin Calcium 40 Mg Tablet 1 Tab PO DAILY Lisinopril 40 Mg Tablet 1 Tab PO DAILY Amlodipine Besylate 10 Mg Tablet 10 Mg PO DAILY Metformin Hcl 500 Mg Tablet 500 Mg PO DAILY Lantus Solostar (Insulin Glargine,Hum.rec.anlog) 100 Unit/1 Ml Insuln.pen 30 Unit SQ QHS Vitals/I & O Vital Sign - Last 24 Hours 07/12/18 07/12/18 07/13/18 07/13/18 20:00 23:10 03:56 07:21 Temp 97.9 98.1 97.9 98.1 Pulse 100 100 Resp 18 18 B/P (MAP) 110/56 (74) 115/58 (77) Pulse Ox 99 97 O2 Delivery Nasal Cannula Room Air Room Air O2 Flow Rate 2.0 2.0 Intake and Output 07/12/18 07/12/18 07/13/18 15:01 23:01 07:01 Intake Total 0 ml 0 ml 0 ml Output Total 300 ml 400 ml Balance 0 ml -300 ml -400 ml RADHA AQUINO MD Jul 13, 2018 09:51
--- NOTE | 2018-07-13 10:30 | NUR ---
SW confirmed with Jenna at [facility], pt is currently on inpatient hospice with them. RN notified.
[2018-07-13 11:00] VITALS: BP 154/76
[2018-07-13 15:00] VITALS: BP 186/83
[2018-07-13] MEDS: LORazepam INTENSOL 2 MG/ML ORAL.CONC SL PRN (15:59)
[2018-07-13 19:00] VITALS: BP 126/55
[2018-07-13 23:00] VITALS: BP 117/54
[2018-07-14 02:55] VITALS: BP 117/70
[2018-07-14 07:58] VITALS: BP 140/74
--- NOTE | 2018-07-14 10:25 | PDOC ---
PROGRESS NOTES History of Present Illness History of Present Illness Assessment/Plan Assessment/Plan Acute/subacute CVA - non verbal, some contractures - hospice Hypernatremia - Prior CVA - Hypoglycemia - resolved PErisistence encephalopathy NEurogenic dysphagia Prior CVA - 2.6 cm infarct in the posterior aspect of the left BG, evolving Hypoglycemia - stopped glucose checks HTN - sedated, has low BP now, will keep on BB only, hold CCB Metabolic encephalopathy - hypoglycemia, will monitor, likely anoxic brain injury occurred based on EEG Dysphagia - prior was considering PEG, will go with comfort feeds for now Discharge and readmit to hospice inpatient. IPC will continue to folloW PLAN: DNR HOspice NO blood draws etc Hospice packet SW consult Vitals Vitals Vital Signs Date Time Temp Pulse Resp B/P (MAP) Pulse Ox O2 Delivery O2 Flow Rate FiO2 07/14/18 07:58 97.9 115 18 140/74 (96) 100 Room Air 97.9 Physical Exam Physical Exam SEEMS MORE ALERT TODAY, LOOKING AT surroundings in room General: Cooperative, No acute distress, Other (nonverbal, bilateral upper extremity are contracted but able to move spontaneously) Heart: Regular rate, Other (GR 3/6 ESTELLA) Lungs: Clear Abdomen: Normal bowel sounds, Soft, No tenderness, No hepatosplenomegaly, No masses Extremities: No cyanosis, No edema, Normal pulses Skin: No rashes, No breakdown, No significant lesion Comment Review of Relevant I have reviewed the following items angelica (where applicable) has been applied. Medications Current Medications Morphine Sulfate (Roxanol Conc) 10 mg PRN Q2HRS PRN SL PAIN; Start 07/11/18 at 13:00 Morphine Sulfate (Morphine Sulfate) 2 mg PRN Q4HRS PRN IV PAIN; Start at 13:00 Lorazepam (Ativan Intensol) 1 mg PRN Q2HRS PRN SL ANXIETY / AGITATION Last administered on 07/13/18at 15:59; Start 07/11/18 at 13:00 Atropine Sulfate (Isopto Atropine) 3 drop PRN Q6HRS PRN SL SECRETIONS; Start 07/11/18 at 13:00 Acetaminophen (Tylenol Supp) 650 mg PRN Q6HRS PRN [place] MILD PAIN / TEMP; Start 07/11/18 at 13:00 Bisacodyl (Dulcolax Supp) 10 mg PRN DAILY PRN [place] CONSTIPATION; Start 07/11/18 at 13:00 Promethazine HCl (Phenergan Supp) 25 mg PRN Q6HRS PRN [place] NAUSEA/VOMITING; Start 07/11/18 at 13:00 Active Scripts Active Reported Latanoprost 2.5 Ml Drops 1 Drop EACHEYE QHS Citalopram Hbr (Citalopram Hydrobromide) 10 Mg Tablet 1 Tab PO DAILY Dorzolamide Hcl 10 Ml Drops 1 Drop EACHEYE BID Metoprolol Succinate ( Xl ) (Metoprolol Succinate) 100 Mg Tab.er.24h 1 Tab PO DAILY Atorvastatin Calcium 40 Mg Tablet 1 Tab PO DAILY Lisinopril 40 Mg Tablet 1 Tab PO DAILY Amlodipine Besylate 10 Mg Tablet 10 Mg PO DAILY Metformin Hcl 500 Mg Tablet 500 Mg PO DAILY Lantus Solostar (Insulin Glargine,Hum.rec.anlog) 100 Unit/1 Ml Insuln.pen 30 Unit SQ QHS Vitals/I & O Vital Sign - Last 24 Hours 07/13/18 07/13/18 07/13/18 07/13/18 11:00 15:00 19:00 20:00 Temp 98.3 98.4 98.3 98.4 Pulse 110 112 106 Resp 16 16 18 B/P (MAP) 154/76 (102) 186/83 (117) 126/55 (78) Pulse Ox 98 91 O2 Delivery Room Air Room Air Room Air 07/13/18 07/14/18 07/14/18 23:00 02:55 07:58 Temp 98.1 98.1 97.9 98.1 98.1 97.9 Pulse 116 113 115 Resp 17 18 18 B/P (MAP) 117/54 (75) 117/70 (86) 140/74 (96) Pulse Ox 97 94 100 O2 Delivery Room Air Room Air Room Air Intake and Output 07/13/18 07/13/18 07/14/18 15:01 23:01 07:01 Output Total 525 ml 200 ml Balance -525 ml -200 ml RADHA AQUINO MD Jul 14, 2018 10:24
[2018-07-14 11:50] VITALS: BP 111/72
[2018-07-14] MEDS: LORazepam INTENSOL 2 MG/ML ORAL.CONC SL PRN ×2 (13:10→20:52)
[2018-07-14 15:27] VITALS: BP 117/76
[2018-07-14] MEDS: MORPHINE SULFATE 4 MG/ML VIAL. IV PRN ×2 (17:38→22:55)
[2018-07-14 19:37] VITALS: BP 102/73
[2018-07-14 23:25] VITALS: BP 141/80
[2018-07-15] MEDS: MORPHINE SULFATE 4 MG/ML VIAL. IV PRN (03:46)
[2018-07-15 03:49] VITALS: BP 139/79
[2018-07-15] MEDS: LORazepam INTENSOL 2 MG/ML ORAL.CONC SL PRN (05:45)
[2018-07-15 07:36] VITALS: BP 102/63
--- NOTE | 2018-07-15 10:24 | NUR ---
JESUS notified by Jenna from [facility], they are wanting to take pt home today as pt has been in inpatient hospice for more than 72 hours. JESUS spoke with pt's and confirmed plan of dc to home with [facility] today. JESUS arranged transportation via [facility] at 1400. Physician notified for dc orders. RN notified. Addendum: 07/15/18 at 1148 by MANE LEE JESUS phoned and faxed orders to [facility].
--- NOTE | 2018-07-15 10:34 | PDOC ---
PROGRESS NOTES History of Present Illness History of Present Illness Assessment/Plan Assessment/Plan Acute/subacute CVA - non verbal, some contractures - hospice Hypernatremia - Prior CVA - Hypoglycemia - resolved PErisistence encephalopathy NEurogenic dysphagia Prior CVA - 2.6 cm infarct in the posterior aspect of the left BG, evolving Hypoglycemia - stopped glucose checks HTN - sedated, has low BP now, will keep on BB only, hold CCB Metabolic encephalopathy - hypoglycemia, will monitor, likely anoxic brain injury occurred based on EEG Dysphagia - prior was considering PEG, will go with comfort feeds for now Discharge and readmit to hospice inpatient. d/c to [facility] care today PLAN: DNR HOspice intake NO blood draws etc Hospice packet SW following Vitals Vitals Vital Signs Date Time Temp Pulse Resp B/P (MAP) Pulse Ox O2 Delivery O2 Flow Rate FiO2 07/15/18 07:36 99.2 115 20 102/63 (76) 99 Room Air 99.2 Physical Exam Physical Exam SEEMS MORE ALERT TODAY, LOOKING AT surroundings in room General: Alert, Cooperative, No acute distress, Other (nonverbal, bilateral upper extremity are contracted but able to move spontaneously on left) Heart: Regular rate, Normal S1, Other (GR 3/6 ESTELLA) Lungs: Clear Abdomen: Normal bowel sounds, Soft, No tenderness, No hepatosplenomegaly, No masses Extremities: No clubbing, No cyanosis, No edema, Normal pulses Skin: No rashes, No breakdown, No significant lesion Comment Review of Relevant I have reviewed the following items angelica (where applicable) has been applied. Medications Current Medications Morphine Sulfate (Roxanol Conc) 10 mg PRN Q2HRS PRN SL PAIN; Start 07/11/18 at 13:00 Morphine Sulfate (Morphine Sulfate) 2 mg PRN Q4HRS PRN IV PAIN; Start at 13:00; Stop 07/14/18 at 17:21; Status DC Lorazepam (Ativan Intensol) 1 mg PRN Q2HRS PRN SL ANXIETY / AGITATION Last administered on 07/15/18at 05:45; Start 07/11/18 at 13:00 Atropine Sulfate (Isopto Atropine) 3 drop PRN Q6HRS PRN [place] SECRETIONS; Start 07/11/18 at 13:00 Acetaminophen (Tylenol Supp) 650 mg PRN Q6HRS PRN [place] MILD PAIN / TEMP; Start 07/11/18 at 13:00 Bisacodyl (Dulcolax Supp) 10 mg PRN DAILY PRN [place] CONSTIPATION; Start 07/11/18 at 13:00 Promethazine HCl (Phenergan Supp) 25 mg PRN Q6HRS PRN [place] NAUSEA/VOMITING; Start 07/11/18 at 13:00 Morphine Sulfate (Morphine Sulfate) 2 mg PRN Q4HRS PRN IV PAIN Last administered on 07/15/18at 03:46; Start 07/14/18 at 17:30 Active Scripts Active Reported Latanoprost 2.5 Ml Drops 1 Drop EACHEYE QHS Citalopram Hbr (Citalopram Hydrobromide) 10 Mg Tablet 1 Tab PO DAILY Dorzolamide Hcl 10 Ml Drops 1 Drop EACHEYE BID Metoprolol Succinate ( Xl ) (Metoprolol Succinate) 100 Mg Tab.er.24h 1 Tab PO DAILY Atorvastatin Calcium 40 Mg Tablet 1 Tab PO DAILY Lisinopril 40 Mg Tablet 1 Tab PO DAILY Amlodipine Besylate 10 Mg Tablet 10 Mg PO DAILY Metformin Hcl 500 Mg Tablet 500 Mg PO DAILY Lantus Solostar (Insulin Glargine,Hum.rec.anlog) 100 Unit/1 Ml Insuln.pen 30 Unit SQ QHS Vitals/I & O Vital Sign - Last 24 Hours 07/14/18 07/14/18 07/14/18 07/14/18 11:50 15:27 17:38 18:05 Temp 97.5 98.7 97.5 98.7 Pulse 112 117 Resp 18 16 15 16 B/P (MAP) 111/72 (85) 117/76 (90) Pulse Ox 98 99 O2 Delivery Room Air Room Air 07/14/18 07/14/18 07/14/18 07/14/18 19:37 20:00 22:55 23:25 Temp 98.6 98.7 98.6 98.7 Pulse 107 121 Resp 16 16 B/P (MAP) 102/73 (83) 141/80 (100) Pulse Ox 99 98 O2 Delivery Room Air Room Air Room Air Room Air 07/15/18 07/15/18 07/15/18 07/15/18 03:46 03:49 04:16 07:36 Temp 99.7 99.2 99.7 99.2 Pulse 118 115 Resp 20 20 B/P (MAP) 139/79 (99) 102/63 (76) Pulse Ox 99 99 O2 Delivery Room Air Room Air Room Air Room Air Intake and Output 07/14/18 07/14/18 07/15/18 15:01 23:01 07:01 Intake Total 0 ml 0 ml 0 ml Output Total 400 ml Balance 0 ml 0 ml -400 ml RADHA AQUINO MD Jul 15, 2018 10:34
[2018-07-15 11:01] VITALS: BP 112/64
--- NOTE | 2018-07-15 11:20 | PDOC3 ---
Discharge Summary Date of Admission: Jul 12, 2018 Date of Discharge: Jul 15, 2018 Follow-Up: 1-2 days Admitting Diagnosis comment: discharge diagnosis Assessment/Plan Acute/subacute CVA - non verbal, some contractures - hospice Hypernatremia - Prior CVA - Hypoglycemia - resolved PErisistence encephalopathy NEurogenic dysphagia Prior CVA - 2.6 cm infarct in the posterior aspect of the left BG, evolving Hypoglycemia - stopped glucose checks HTN - sedated, has low BP now, will keep on BB only, hold CCB Metabolic encephalopathy - hypoglycemia, will monitor, likely anoxic brain injury occurred based on EEG Dysphagia - prior was considering PEG, will go with comfort feeds for now Discharge and readmit to hospice inpatient. d/c to [place] today PLAN: DNR HOspice intake NO blood draws etc Hospice packet SW following Vitals Vitals Vital Signs Date Time Temp Pulse Resp B/P (MAP) Pulse Ox O2 Delivery O2 Flow Rate FiO2 07/15/18 07:36 99.2 115 20 102/63 (76) 99 Room Air 99.2 Physical Exam Physical Exam SEEMS less ALERT TODAY, LOOKING AT surroundings in room General: Alert, Cooperative, No acute distress, Other (nonverbal, bilateral upper extremity are contracted but able to move spontaneously on left) Heart: Regular rate, Normal S1, Other (GR 3/6 ESTELLA) Lungs: Clear Abdomen: Normal bowel sounds, Soft, No tenderness, No hepatosplenomegaly, No masses Extremities: No clubbing, No cyanosis, No edema, Normal pulses Skin: No rashes, No breakdown, No significant lesion Brief Hospital Course Ms. Ceja is a 72 old [sex] who presented with [ ] CONDITION AT DISCHARGE: Comment (poor prognosis) Discharge Medications Current Medications Morphine Sulfate (Roxanol Conc) 10 mg PRN Q2HRS PRN SL PAIN; Start 07/11/18 at 13:00 Morphine Sulfate (Morphine Sulfate) 2 mg PRN Q4HRS PRN IV PAIN; Start at 13:00; Stop 07/14/18 at 17:21; Status DC Lorazepam (Ativan Intensol) 1 mg PRN Q2HRS PRN SL ANXIETY / AGITATION Last administered on 07/15/18at 05:45; Start 07/11/18 at 13:00 Atropine Sulfate (Isopto Atropine) 3 drop PRN Q6HRS PRN [place] SECRETIONS; Start 07/11/18 at 13:00 Acetaminophen (Tylenol Supp) 650 mg PRN Q6HRS PRN [place] MILD PAIN / TEMP; Start 07/11/18 at 13:00 Bisacodyl (Dulcolax Supp) 10 mg PRN DAILY PRN [place] CONSTIPATION; Start 07/11/18 at 13:00 Promethazine HCl (Phenergan Supp) 25 mg PRN Q6HRS PRN [place] NAUSEA/VOMITING; Start 07/11/18 at 13:00 Morphine Sulfate (Morphine Sulfate) 2 mg PRN Q4HRS PRN IV PAIN Last administered on 07/15/18at 03:46; Start 07/14/18 at 17:30 Active Scripts Active Reported Latanoprost 2.5 Ml Drops 1 Drop EACHEYE QHS Citalopram Hbr (Citalopram Hydrobromide) 10 Mg Tablet 1 Tab PO DAILY Dorzolamide Hcl 10 Ml Drops 1 Drop EACHEYE BID Metoprolol Succinate ( Xl ) (Metoprolol Succinate) 100 Mg Tab.er.24h 1 Tab PO DAILY Atorvastatin Calcium 40 Mg Tablet 1 Tab PO DAILY Lisinopril 40 Mg Tablet 1 Tab PO DAILY Amlodipine Besylate 10 Mg Tablet 10 Mg PO DAILY Metformin Hcl 500 Mg Tablet 500 Mg PO DAILY Lantus Solostar (Insulin Glargine,Hum.rec.anlog) 100 Unit/1 Ml Insuln.pen 30 Unit SQ QHS Vital Signs Vital Signs Date Time Temp Pulse Resp B/P (MAP) Pulse Ox O2 Delivery O2 Flow Rate FiO2 07/15/18 11:01 98.5 121 20 112/64 (80) 99 Room Air 98.5 Allergies Allergies Coded Allergies Type Severity Reaction Last Updated Verified No Known Drug Allergies 01/30/15 No Disposition/Orders: D/C to Home w/ Hospice Patient Instructions d/c planning 37 min RADHA AQUINO MD Jul 15, 2018 11:20
--- NOTE | 2018-07-15 11:22 | DISCH ---
DISCHARGE DISCHARGE INFORMATION: CONDITION ON DISCHARGE: Critical CODE STATUS: Code Status: DNR/DNI JAIL: SNF STAY <30 DAYS: No HOSPICE: HOSPICE: Yes HOSPICE EVAL & TREAT: Yes LTAC: ADMIT TO LTAC: No POST DISCHARGE ORDERS: ACTIVITY ORDERS: Activity as tolerated WEIGHT BEARING STATUS: As tolerated, Other, see below DIET AFTER DISCHARGE: pureed cardiac diet CHECKS AFTER DISCHARGE: CHECKS AFTER DISCHARGE: Check blood sugar, ac/hs TREATMENT/EQUIPMENT ORDERS: ADAPTIVE EQUIPMENT NEEDED: Walker, Wheelchair Physical Therapy For: Evalulation/Treatment Occupational Therapy For: Evaluation/Treatment Speech Language Pathology For: Evaluation/Treatment DISCHARGE MEDICATIONS: Home Meds Reported Medications Latanoprost (LATANOPROST) 2.5 Ml Drops, 1 DROP EACHEYE QHS, #7.5 ML 3 Refills 05/05/18 Citalopram Hydrobromide (CITALOPRAM HBR) 10 Mg Tablet, 1 TAB PO DAILY, #30 TAB 3 Refills 05/05/18 Dorzolamide Hcl (DORZOLAMIDE HCL) 10 Ml Drops, 1 DROP EACHEYE BID, #30 ML 3 Refills 05/05/18 Metoprolol Succinate (METOPROLOL SUCCINATE ( XL )) 100 Mg Tab.er.24h, 1 TAB PO DAILY, #30 TAB 5 Refills 05/05/18 Atorvastatin Calcium (ATORVASTATIN CALCIUM) 40 Mg Tablet, 1 TAB PO DAILY, #30 TAB 5 Refills 05/05/18 Lisinopril (LISINOPRIL) 40 Mg Tablet, 1 TAB PO DAILY, #30 TAB 5 Refills 05/05/18 Amlodipine Besylate (AMLODIPINE BESYLATE) 10 Mg Tablet, 10 MG PO DAILY, TAB 05/05/18 Metformin Hcl (METFORMIN HCL) 500 Mg Tablet, 500 MG PO DAILY for ANTI-DIABETIC, TAB 0 Refills 05/05/18 Insulin Glargine,Hum.rec.anlog (LANTUS SOLOSTAR) 100 Unit/1 Ml Insuln.pen, 30 UNIT SQ QHS, #15 ML 3 Refills 01/30/15 RADHA AQUINO MD Jul 15, 2018 11:22
--- NOTE | 2018-07-15 15:12 | NUR ---
Discharge Note: RADHA WIGGINS [address] [place] [address] Discharge instructions and discharge home medications reviewed a copy given to transport. All questions have been answered and understanding verbalized. The following instructions and handouts were given: Home with hospice, prescriptions for Ativan and Roxanol given. Discontinued lines and drains: peripheral IV intact and gonzalez catheter removed with no complications noted. Patient discharged to home at 1400 with hospice via EMS accompanied by family member.
== END 2018-07-15 14:10 | disposition hospice, home (50) | DRG 64 ==
LOC: 1 WEST ICU 12:53 → 6 SOUTH 17:47
PROVIDERS: ADMIT Internal Medicine; ATTEND Internal Medicine
DX: I63.9 Cerebral infarction, unspecified (principal); G93.41 Metabolic encephalopathy; J96.90 Respiratory failure, unspecified, unspecified whether with hypoxia or hypercapnia; E87.0 Hyperosmolality and hypernatremia; N39.0 Urinary tract infection, site not specified; G93.1 Anoxic brain damage, not elsewhere classified; E11.649 Type 2 diabetes mellitus with hypoglycemia without coma; E78.5 Hyperlipidemia, unspecified; F32.9 Major depressive disorder, single episode, unspecified; F41.9 Anxiety disorder, unspecified; I25.10 Atherosclerotic heart disease of native coronary artery without angina pectoris; I27.20 Pulmonary hypertension, unspecified; I10 Essential (primary) hypertension; J45.909 Unspecified asthma, uncomplicated; R13.19 Other dysphagia; Z51.5 Encounter for palliative care; Z66 Do not resuscitate; Z82.3 Family history of stroke; I69.391 Dysphagia following cerebral infarction; Z83.3 Family history of diabetes mellitus; Z90.710 Acquired absence of both cervix and uterus; Z98.49 Cataract extraction status, unspecified eye
CPT/HCPCS: 94003; 94760; J2270